=== PATIENT | female | born 1960 | race Caucasian/White ===

== ENCOUNTER → 2018-05-29 16:03 | Outpatient (CLI) | payer MEDICAID, SELFPAY | PROVIDERS: Family Provider Internal Medicine; PCP Internal Medicine; Visit Provider Ophthalmology | DX: L03.213 Periorbital cellulitis (principal) | CPT/HCPCS: 87070; 87186; 87205 ==

== ENCOUNTER → 2018-07-04 10:11 | Outpatient (CLI) | payer MEDICARE, MEDICAID, SELFPAY ==
--- NOTE | 2018-07-04 10:36 | MRI_ITS ---
STUDY: MRI CERVICAL SPINE WITHOUT CONTRAST REASON FOR EXAM: Female, 57 years old. Complaints of neck pain that radiates into the shoulders and down the arms. TECHNIQUE: Standardized fat and water weighted pulse sequences were obtained in the sagittal and axial planes. COMPARISON: None FINDINGS: Normal foramen magnum and brainstem-cervical cord junction. Normal craniovertebral junction. There is widening of the anterior atlantoaxial articulation suggesting ligamentous laxity. Normal odontoid process. Normal cervical lordosis. Normal vertebral bodies and posterior osseous elements. C2-3: Mild disc dehydration with preserved disc space. No significant spinal canal narrowing or foraminal narrowing. C3-4: Mild disc desiccation and dehydration with no significant spinal canal narrowing or foraminal narrowing. C4-5: Minimal disc space loss and left facet arthropathy/uncovertebral joint arthropathy resulting in mild left foraminal narrowing. C5-6: Endplate degenerative changes and mild disc space loss with disc osteophyte complex and uncovertebral joint arthropathy without significant spinal canal narrowing or foraminal narrowing. C6-7: Endplate degenerative changes and mild decreased disc space with circumferential disc bulge compounded by facet arthropathy resulting in moderate to severe left and moderate right foraminal narrowing. C7-T1: Normal endplates. Normal disc height, signal and morphology. Normal central canal and intervertebral neural foramina. Normal cervical cord. Normal visualized soft tissue structures. MRI/Spine Cervical (Routine) IMPRESSION: 1. C6/7 disc bulge and facet arthropathy resulting in moderate to severe left and moderate right foraminal narrowing, clinically correlate for C6 VII nerve root radiculopathy. Additional degenerative changes as above. Electronically Signed: Calos Lemons DO at 21:09 EDT , Service support ,
== END ==
PROVIDERS: Family Provider Internal Medicine; PCP Internal Medicine; Visit Provider Anesthesiology Pain Medicine
DX: M54.2 Cervicalgia (principal); M79.603 Pain in arm, unspecified
CPT/HCPCS: 72141

== ENCOUNTER 2018-07-14 08:43 | Emergency (ER) | payer MEDICARE, SELFPAY ==
[2018-07-14 08:44] VITALS: BP 116/72; PULSE 70; RESP 16; TEMP 36.7; O2SAT 97; BMI 34.1
--- NOTE | 2018-07-14 09:05 | ED.VISSUMM ---
- ER Visit Summary Date of Service: 07/14/18 Chief Complaint: Lightheadedness, left arm pain History of Present Illness: The patient is a 57 F who complains of lightheadedness. She states that this symptom actually started this morning. She felt lightheaded like she was going to pass out. She has been having left arm pain for months. She does tell me that she has a history of degenerative disc disease in her neck. The pain radiates from her left shoulder all the way down her hand. She describes this pain as gripping. It is also on the left side of her chest. She had an MRI on July 04 but she does not know the results of this. She is also currently on antibiotics for a bacterial infection down there. She does not know the name of the antibiotic she is currently taking. She denies any history of any cardiac disease. She does have a history of diabetes and high cholesterol. She is a non-smoker. Physical Examination: Vital signs reviewed. HEENT exam unremarkable. Neck is nontender. However, she does have a positive Spurling's test. Heart is regular rate and rhythm without murmurs. Lungs are clear to auscultation. Abdomen is soft and nontender. Extremities reveal no edema. Peripheral pulses are equal. Skin exam normal. Neurologic exam normal. Test Results: EKG is sinus rhythm with T-wave inversions in V1 through V4. This is unchanged. Chest x-ray unremarkable. Labs are unremarkable except for slight elevation of glucose. Troponin normal Emergency Department Course and Treatment: Patient is allergic to aspirin. I did review her MRI from July 04. It shows a disc bulge at C6. This could explain some of her radicular symptoms. I will put her on prednisone. She does follow up with pain management Treatment Plan: [] Disposition: Discharge Impression: Cervical radiculopathy This note was generated with [employer] software. It may contain incorrect words, spelling, and punctuation that were not noted in review of the chart prior to signing ED Disposition - Plan for ED Patient: Chief Complaint: General Illness Referrals: Caitlin Patel MD [Primary Care Provider] -
[2018-07-14 09:28] VITALS: O2SAT 97
[2018-07-14 09:39] LABS: Absolute Lymphocyte Count 3.24 X10^3/ul (0.83-4.51); Absolute Neutrophil Count 4.3 X10^3/uL (2.0-7.7); Basophil# 0.04 X10^3/uL; Basophil% 0.5 % (0-1); Eosinophil# 0.47 X10^3/uL; Eosinophils% 5.5 % (0-5); Hematocrit 41.1 % (37-47); Hemoglobin 13.1 g/dl (12.0-15.0); Lymphocyte # 3.24 X10^3/ul (4.0); Lymphocyte % 37.6 % (19-41); Mean Corp Hgb Conc 31.9 g/gl (32-36); Mean Corpuscular Hgb 27.8 pg (27.0-32.0); Mean Corpuscular Volume 87.1 fL (81-99); Mean Platelet Vol. 9.5 fl (6.2-12.0); Monocyte# 0.58 X10^3/uL; Monocyte% 6.7 % (0-10); Neutrophil # 4.27 X10^3/uL (2.7-7.7); Neutrophil % 49.6 % (47-70); POSITIVE COUNT NO; POSITIVE DIFFERENTIAL NO; POSITIVE MORPHOLOGY NO; Platelet Count 274 K/mm3 (150-450); RBC Distribution Width CV 12.9 % (11.6-14.6); RBC Distribution Width SD 41.3 fl (35.1-43.9); Red Blood Count 4.72 M/mm3 (4.2-5.4); White Blood Count 8.6 K/mm3 (4.4-11.0)
[2018-07-14 09:54] LABS: Anion Gap 7 (5-15); BUN 7 mg/dL (7-18); BUN/Creat Ratio 9.1 RATIO (10-20); Chloride 104 mmol/L (98-107); Creatinine, Serum 0.77 mg/dL (0.55-1.02); EST Glomerular Filtration Rate 82 mL/min (>60); Est Glom Filt Rate - Afr Amer 100 mL/min (>60); Estimated Creatinine Clearance 84.24 ml/min; Glucose 137 mg/dL (74-106); Sodium Level 139 mmol/L (136-145)
--- NOTE | 2018-07-14 10:06 | ED.DEP ---
ED Disposition - Plan for ED Patient: Disposition: Home or Assisted Living Chief Complaint: General Illness Instructions: ED Cervical Radiculopathy Prescriptions: Prednisone [Deltasone] 40 mg PO DAILY #10 tab Referrals: Caitlin Patel MD [Primary Care Provider] -
[2018-07-14 10:16] VITALS: BP 119/71; PULSE 77; RESP 18; O2SAT 95
== END 2018-07-14 10:17 | disposition home or self-care (01) ==
PROVIDERS: Emergency Provider Emergency Medicine; Family Provider Internal Medicine; PCP Internal Medicine
DX: M54.12 Radiculopathy, cervical region (principal); R11.0 Nausea; E11.65 Type 2 diabetes mellitus with hyperglycemia; E78.00 Pure hypercholesterolemia, unspecified; K21.9 Gastro-esophageal reflux disease without esophagitis; Z88.6 Allergy status to analgesic agent; Z79.4 Long term (current) use of insulin; Z79.52 Long term (current) use of systemic steroids; Z79.899 Other long term (current) drug therapy
CPT/HCPCS: 71045; 80048; 84484; 85025; 93005; 99285; J7030

== ENCOUNTER 2018-09-23 04:19 | Emergency (ER) | payer MEDICARE, SELFPAY ==
[2018-09-23 04:20] VITALS: BP 132/61; PULSE 74; PULSE 77; RESP 16; TEMP 36.9; O2SAT 94; O2SAT 95; BMI 28.5
[2018-09-23 04:31] LABS: Bedside Glucose 240 mg/dL (70-110)
--- NOTE | 2018-09-23 04:45 | ED.DCSUM_ITS ---
- ER Visit Summary Date of Service: 09/23/18 Chief Complaint: Joint pains History of Present Illness: The patient is a 57 F reports scattered joint pain for the past 3 days that is spreading throughout her body. She denies redness or warmth to her joints. She felt somewhat lightheaded earlier today. She has had similar dizzy episodes in the past that have been extensively worked up with no definitive cause. She denies chest pain or palpitations. Patient is on naproxen for herniated disc in her neck and her last dose was 3-1/2 hours prior to arrival. Past history significant for reflux disease, diabetes, hypertension, high cholesterol, fibromyalgia. Physical Examination: Vital signs unremarkable. Patient sitting upright in bed no acute distress. She is alert and talkative. Head neck examination is unremarkable. Heart is regular rate and rhythm. Lung sounds are clear. Abdomen is soft and nontender. Extremity examination reveals mild tenderness to the bilateral wrists and ankles. There is no erythema or warmth. She has minimal edema noted at the ankles. She has full range of motion of all joints without difficulty. Test Results: CBC is unremarkable. Chemistry studies are significant only for a glucose of 247. Sed rate is elevated at 65 and CRP is 50. Emergency Department Course and Treatment: Patient was given a liter IV fluids here along with p.o. prednisone and 1 tab of p.o. [place]. On repeat evaluation she does have some improvement in her symptoms. I advised her that her markers for inflammation are elevated, but I do not have a specific reason. Her white count is normal I do not believe that this represents acute infection. She has no known history of lupus, rheumatoid arthritis, etc. Patient will be given 4 days of prednisone for home. She was advised that this will make her blood sugars increase. I am attempting just a short burst to prevent prolonged hyperglycemia. Patient will be given a home pack of [place] only. She will to contact her pain management doctor today. Treatment Plan: [] Disposition: Discharge Impression: Arthralgias This note was generated with [employer] dictation software. It may contain incorrect words, spelling, and punctuation that were not noted in review of the chart prior to signing ED Disposition - Plan for ED Patient: Chief Complaint: Back Referrals: Caitlin Patel MD [Primary Care Provider] -
[2018-09-23] MEDS: 0.9% Normal Saline 1,000 ML 1000 ML IV (04:46)
[2018-09-23] MEDS: HYDROcodone Bitartrate/Apap 5/325 Tablet PO ×2 (04:46→05:58)
[2018-09-23] MEDS: predniSONE 20 MG Tablet 60 MG PO (04:46)
[2018-09-23 04:47] VITALS: BP 116/68
[2018-09-23 05:07] LABS: Absolute Lymphocyte Count 2.37 X10^3/ul (0.83-4.51); Basophil# 0.06 X10^3/uL; Basophil% 0.7 % (0-1); Eosinophil# 0.33 X10^3/uL; Eosinophils% 3.9 % (0-5); Hematocrit 38.9 % (37-47); Hemoglobin 12.3 g/dl (12.0-15.0); Lymphocyte # 2.37 X10^3/ul (4.0); Lymphocyte % 27.9 % (19-41); Mean Corp Hgb Conc 31.6 g/gl (32-36); Mean Corpuscular Hgb 27.5 pg (27.0-32.0); Mean Corpuscular Volume 86.8 fL (81-99); Mean Platelet Vol. 9.4 fl (6.2-12.0); Monocyte# 0.74 X10^3/uL; Monocyte% 8.7 % (0-10); Neutrophil # 4.95 X10^3/uL (2.7-7.7); Neutrophil % 58.4 % (47-70); Platelet Count 437 K/mm3 (150-450); RBC Distribution Width CV 12.7 % (11.6-14.6); RBC Distribution Width SD 39.8 fl (35.1-43.9); Red Blood Count 4.48 M/mm3 (4.2-5.4); White Blood Count 8.5 K/mm3 (4.4-11.0)
[2018-09-23 05:08] LABS: POSITIVE COUNT NO; POSITIVE DIFFERENTIAL NO; POSITIVE MORPHOLOGY NO
[2018-09-23 05:18] LABS: Erythrocyte Sedimentation Rate 65 mm/hr (0-30)
[2018-09-23 05:29] LABS: Anion Gap 9 (5-15); BUN 8 mg/dL (7-18); BUN/Creat Ratio 8.4 RATIO (10-20); Calcium,Total 9.1 mg/dL (8.5-10.1); Chloride 102 mmol/L (98-107); Creatinine, Serum 0.95 mg/dL (0.55-1.02); EST Glomerular Filtration Rate 64 mL/min (>60); Est Glom Filt Rate - Afr Amer 78 mL/min (>60); Estimated Creatinine Clearance 68.28 ml/min; Glucose 247 mg/dL (74-106); Potassium 4.5 mmol/L (3.5-5.1); Sodium Level 139 mmol/L (136-145)
--- NOTE | 2018-09-23 05:47 | ED.DEP ---
ED Disposition - Plan for ED Patient: Disposition: Home or Assisted Living Chief Complaint: Back Instructions: ED Joint Pain Prescriptions: Prednisone [Deltasone] 40 mg PO DAILY #8 tablet Referrals: Caitlin Patel MD [Primary Care Provider] - Miguel Davis MD [STAFF PHYSICIAN] -
[2018-09-23 05:58] VITALS: BP 140/62; PULSE 72; RESP 16; O2SAT 94
== END 2018-09-23 06:00 | disposition home or self-care (01) ==
PROVIDERS: Emergency Provider Emergency Medicine; Family Provider Internal Medicine; PCP Internal Medicine
DX: M25.50 Pain in unspecified joint (principal); R70.0 Elevated erythrocyte sedimentation rate; E11.9 Type 2 diabetes mellitus without complications; I10 Essential (primary) hypertension; E78.00 Pure hypercholesterolemia, unspecified; R42 Dizziness and giddiness; M79.7 Fibromyalgia; K21.9 Gastro-esophageal reflux disease without esophagitis; Z79.4 Long term (current) use of insulin; Z79.899 Other long term (current) drug therapy
CPT/HCPCS: 80048; 82962; 85025; 85652; 86140; 96360; 99285; J7030

== ENCOUNTER 2018-11-23 14:27 | Emergency (ER) | payer MEDICARE, OTHER, SELFPAY ==
[2018-11-23 14:43] VITALS: BP 98/55; PULSE 66; RESP 15; TEMP 36.8; O2SAT 98; BMI 32.5
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
--- NOTE | 2018-11-23 14:53 | ED.RN ---
PT C/O FEELING NAUSEATED AND WAS CONCERNED IT WAS HER BLOOD SUGAR. CHECKED AND IT WAS 180.
[2018-11-23 15:01] LABS: Bedside Glucose 180 mg/dL (70-110)
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
[2018-11-23] MEDS: morphine 10 MG/ML Syringe 4 MG SC (15:55)
[2018-11-23 17:06] VITALS: RESP 16
[2018-11-23 17:14] VITALS: BP 103/56; PULSE 59; RESP 14
--- NOTE | 2018-11-23 17:34 | ED.RN ---
NEW SPLINT PLACED. PER MD OBSERVE PT TIL 1800.
[2018-11-23] MEDS: Ondansetron ODT 4 MG Tablet PO (17:40)
[2018-11-23] MEDS: HYDROcodone Bitartrate/Apap 5/325 Tablet PO (18:37)
== END 2018-11-23 18:38 | disposition home or self-care (01) ==
PROVIDERS: Emergency Provider Emergency Medicine; Family Provider Internal Medicine; PCP Internal Medicine
DX: S52.501A Unspecified fracture of the lower end of right radius, initial encounter for closed fracture (principal); S52.601A Unspecified fracture of lower end of right ulna, initial encounter for closed fracture; M25.532 Pain in left wrist; V89.2XXA Person injured in unspecified motor-vehicle accident, traffic, initial encounter; Y93.9 Activity, unspecified; Y92.9 Unspecified place or not applicable; E11.9 Type 2 diabetes mellitus without complications; E78.00 Pure hypercholesterolemia, unspecified; F32.9 Major depressive disorder, single episode, unspecified; F31.9 Bipolar disorder, unspecified; Z79.4 Long term (current) use of insulin; Z79.84 Long term (current) use of oral hypoglycemic drugs; Z79.899 Other long term (current) drug therapy
CPT/HCPCS: 29125; 73110; 82962; 96372; 99284; J7030; J7040; A4216

== ENCOUNTER 2019-01-02 12:14 | Emergency (ER) | payer MEDICARE, SELFPAY ==
[2019-01-02 12:15] VITALS: PULSE 75; RESP 14; TEMP 37.3; O2SAT 89; O2SAT 92; BMI 32.5
--- NOTE | 2019-01-02 12:28 | EKG12_ITS ---
Test Reason : SYNCOPE Blood Pressure : / mmHG Vent. Rate : 075 BPM Atrial Rate : 075 BPM P-R Int : 146 ms QRS Dur : 086 ms QT Int : 416 ms P-R-T Axes : 057 032 046 degrees QTc Int : 464 ms Normal sinus rhythm with sinus arrhythmia ST & T wave abnormality, consider anterior ischemia Prolonged QT Abnormal ECG Confirmed by KAREN OCHOA, MASHA ([id number]), pictures editor RAFAELA JANG ([id number]) on 01/05/2019 10:16:38 AM Referred By: KENDRICK Confirmed By:MASHA JONES MD
[2019-01-02 12:33] VITALS: O2SAT 96
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
[2019-01-02 13:11] LABS: Absolute Neutrophil Count 1.8 X10^3/uL (2.0-7.7); Basophil# 0.01 X10^3/uL; Basophil% 0.3 % (0-1); Eosinophil# 0.01 X10^3/uL; Eosinophils% 0.3 % (0-5); Hematocrit 38.2 % (37-47); Hemoglobin 11.8 g/dl (12.0-15.0); Lymphocyte % 35.2 % (19-41); Mean Corp Hgb Conc 30.9 g/gl (32-36); Mean Corpuscular Hgb 25.9 pg (27.0-32.0); Mean Corpuscular Volume 83.8 fL (81-99); Mean Platelet Vol. 9.2 fl (6.2-12.0); Monocyte# 0.53 X10^3/uL; Monocyte% 14.4 % (0-10); Neutrophil # 1.83 X10^3/uL (2.7-7.7); Neutrophil % 49.5 % (47-70); Platelet Count 216 K/mm3 (150-450); RBC Distribution Width CV 14.1 % (11.6-14.6); RBC Distribution Width SD 43.3 fl (35.1-43.9); Red Blood Count 4.56 M/mm3 (4.2-5.4); White Blood Count 3.7 K/mm3 (4.4-11.0)
[2019-01-02 13:13] LABS: POSITIVE COUNT NO; POSITIVE DIFFERENTIAL NO; POSITIVE MORPHOLOGY NO
[2019-01-02 13:28] LABS: Anion Gap 8 (5-15); BUN 10 mg/dL (7-18); BUN/Creat Ratio 11.3 RATIO (10-20); Calcium,Total 8.2 mg/dL (8.5-10.1); Chloride 102 mmol/L (98-107); Creatinine, Serum 0.89 mg/dL (0.55-1.02); EST Glomerular Filtration Rate 70 mL/min (>60); Est Glom Filt Rate - Afr Amer 84 mL/min (>60); Estimated Creatinine Clearance 72.01 ml/min; Glucose 239 mg/dL (74-106); Potassium 3.9 mmol/L (3.5-5.1); Sodium Level 134 mmol/L (136-145)
--- NOTE | 2019-01-02 13:36 | ED.VISSUMM ---
- ER Visit Summary Date of Service: 01/02/19 Chief Complaint: Headache, cough, syncope History of Present Illness: The patient is a 58 F who is had 2 days of a headache as well as a cough. She states the headache is a sinus headache. Her cough is been nonproductive. She is felt chilled but has had no documented fevers. She has been trying DayQuil without any relief. She went to urgent care and had a syncopal episode there. She had no chest pain or shortness of breath before or after this episode. EMS was called to transport her here. Physical Examination: Vital signs reviewed. HEENT exam unremarkable. Heart is regular rate and rhythm without murmurs. Lungs are clear to auscultation. Abdomen is soft and nontender. Extremities reveal no edema. Peripheral pulses are equal. Skin exam normal. Neurologic exam normal. Test Results: EKG is normal sinus rhythm with a rate of 75. There are nonspecific ST and T wave changes. This is unchanged from an EKG done in June 2018. Hemoglobin 11.8. Sodium 134. Glucose 239. Troponin normal. Chest x-ray unremarkable Emergency Department Course and Treatment: Patient will be given Tylenol for her headache. It sounds as if she has a viral URI. I do not feel that the syncopal episode requires admission to the hospital. I will give her Tylenol here before she goes home. Mucinex D for home as well. We will follow-up with her primary care physician Treatment Plan: [] Disposition: Discharge Impression: Syncope, URI This note was generated with [employer] dictation software. It may contain incorrect words, spelling, and punctuation that were not noted in review of the chart prior to signing ED Disposition - Plan for ED Patient: Referrals: Caitlin Patel MD [Primary Care Provider] -
--- NOTE | 2019-01-02 13:38 | ED.DEP ---
ED Disposition - Plan for ED Patient: Disposition: Home or Assisted Living Instructions: ED Fainting Unkn Cause Prescriptions: Guaifenesin/Pseudoephedrne HCl [Guaifenesin-Pse ER 600-60 mg] 1 ea PO BID #14 tab.er.12h Referrals: Caitlin Patel MD [Primary Care Provider] -
[2019-01-02] MEDS: Ondansetron ODT 4 MG Tablet PO (14:24)
[2019-01-02] MEDS: Acetaminophen 500 MG Tablet 1000 MG PO (14:39)
[2019-01-02 14:41] VITALS: BP 116/67; PULSE 78; RESP 22; O2SAT 93
== END 2019-01-02 14:43 | disposition home or self-care (01) ==
PROVIDERS: Emergency Provider Emergency Medicine; Family Provider Internal Medicine; PCP Internal Medicine
DX: R55 Syncope and collapse (principal); J06.9 Acute upper respiratory infection, unspecified; E11.9 Type 2 diabetes mellitus without complications; I10 Essential (primary) hypertension; Z72.0 Tobacco use; Z79.4 Long term (current) use of insulin; Z79.1 Long term (current) use of non-steroidal anti-inflammatories (NSAID); Z79.899 Other long term (current) drug therapy
CPT/HCPCS: 71045; 80048; 84484; 85025; 93005; 99284; J7030; A4216

== ENCOUNTER 2019-08-31 07:15 | Day surgery (SDC) | payer MEDICARE, MEDICAID, SELFPAY ==
[2019-08-31 07:36] LABS: Bedside Glucose 91 mg/dL (70-110)
[2019-08-31 07:37] VITALS: BP 150/66; PULSE 72; RESP 15; TEMP 36.9; O2SAT 100; BMI 33.0
[2019-08-31] MEDS: Lactated Ringers 1,000 ML 100 ML IV (07:48)
[2019-08-31] MEDS: MethylPREDNISolone Acetate 80 MG/ML Vial (08:28)
[2019-08-31] MEDS: Bupivacaine 0.25% 30 ML Vial (08:28)
--- NOTE | 2019-08-31 08:30 | RAD_ITS ---
STUDY: X-RAY - CERVICAL SPINE REASON FOR EXAM: Female, 58 years old. TECHNIQUE: 4 view(s) of the cervical spine were obtained. COMPARISON: Previous MRI of the cervical spine obtained on 07/04/2018 FINDINGS: 4 images were obtained of the cervical spine and there is a localization needle noted adjacent to the articular facets in the mid cervical spine probably for pain management injection. 13 seconds of fluoroscopy time was utilized for a total radiation dose of 1.83 minimal grade which was performed in the direction of Dr. Arevalo incomplete to Dr. Arevalo's satisfactory RAD/Cerv Spine 2 or 3 Views IMPRESSION: 4 fluoroscopic images of the cervical spine were performed as described above.. Electronically Signed: Jam Pete, at 17:10 EDT Tel , Service support ,
[2019-08-31 08:35] VITALS: BP 129/71; BP 150/66; PULSE 51; RESP 16; TEMP 36.6; O2SAT 98
[2019-08-31 08:40] VITALS: BP 123/80; BP 150/66; PULSE 64; RESP 18; O2SAT 95
[2019-08-31 08:45] VITALS: BP 133/73; BP 150/66; PULSE 64; RESP 18; O2SAT 93
[2019-08-31 08:50] VITALS: BP 148/79; BP 150/66; PULSE 64; RESP 18; TEMP 36.3; O2SAT 95
[2019-08-31 09:03] VITALS: BP 150/66
--- NOTE | 2019-08-31 12:26 | OP.PCM_ITS ---
Report of Operation Date of Procedure: 08/31/19 Description of Surgical Findings:: PREOPERATIVE DIAGNOSIS: Cervical spondylosis, cervical degenerative disc disease, cervical facet arthropathy POSTOPERATIVE DIAGNOSIS: Cervical spondylosis, cervical degenerative disc disease, cervical facet arthropathy PROCEDURE PERFORMED: Left sided cervical facet steroid injection, C4, C5, C6, and C7. ANESTHESIA: MAC. BLOOD LOSS: Minimal. COMPLICATIONS: None. DESCRIPTION OF PROCEDURE: History and physical of today was reviewed. Risks and benefits of the procedure were explained. The patient understood and agreed to proceed. Informed consent was obtained. IV inserted per routine protocol. The patient was taken to the operating room and placed in the prone position with a pillow positioned underneath the chest. The neck area was prepped and draped in a sterile fashion using iodine x3. Under fluoroscopy guidance on an AP view, the C4 through C7 vertebral bodies were visualized at approximately 10- degree angle, starting on the left C4, ending on the left C7, passing through the C5 and C6. Using a 25-gauge 3-1/2-inch spinal needle, the needle was advanced via the skin. The tip of the needle was maneuvered and directed towards the epiphyseal junction of each corresponding vertebra. Once the tip of the needle was at the vicinity of the medial branch, the needle was pulled approximately 2 mm off the bone. After negative aspiration of blood or CSF and confirmation on AP, oblique as well as lateral view, a total of 4 mL of preservative-free 0.25% Marcaine with 80 mg of Depo-Medrol was injected in divided doses between those four levels. The needles were then removed intact. The patient experienced no sign or symptoms of intrathecal or intravascular injection. The patient experienced no paresthesia. The procedure was completed without any apparent difficulty or any complications. The patient appeared to tolerate it well. ASSESSMENT AND PLAN: This is a 58-year-old female with cervical spondylosis, cervical degenerative disc disease, cervical facet arthropathy status post left-sided cervical facet steroid injection C4-C7 patient will continue current medications patient found approximately 2 weeks for reevaluation.
== END 2019-08-31 09:20 | disposition home or self-care (01) ==
LOC: SDC 07:20 → AC 07:22
PROVIDERS: Family Provider Internal Medicine; PCP Internal Medicine; Referring Provider Anesthesiology Pain Medicine; Visit Provider Anesthesiology Pain Medicine
PROC: 3E0U3BZ Introduction of Anesthetic Agent into Joints, Percutaneous Approach (ICD-10-PCS; CPT 64490; principal; 2019-08-31 08:25)
DX: M50.10 Cervical disc disorder with radiculopathy, unspecified cervical region (principal); M47.22 Other spondylosis with radiculopathy, cervical region; M48.02 Spinal stenosis, cervical region; M79.7 Fibromyalgia; E11.9 Type 2 diabetes mellitus without complications; E78.00 Pure hypercholesterolemia, unspecified; K21.9 Gastro-esophageal reflux disease without esophagitis; F31.9 Bipolar disorder, unspecified; F41.9 Anxiety disorder, unspecified; Z79.891 Long term (current) use of opiate analgesic; Z79.84 Long term (current) use of oral hypoglycemic drugs; Z79.899 Other long term (current) drug therapy; Z78.0 Asymptomatic menopausal state
CPT/HCPCS: 64490; 64491; 64492; 72040; 82962; J7120

== ENCOUNTER 2019-09-28 07:32 | Day surgery (SDC) | payer MEDICARE, MEDICAID, SELFPAY ==
[2019-09-28 08:24] VITALS: BP 117/57; PULSE 65; RESP 18; TEMP 36.4; O2SAT 100; BMI 32.6
[2019-09-28] MEDS: Lactated Ringers 1,000 ML 75 ML IV (08:34)
[2019-09-28 08:46] LABS: Bedside Glucose 129 mg/dL (70-110)
--- NOTE | 2019-09-28 09:10 | RAD_ITS ---
STUDY: CERVICAL EPIDURAL INJECTION. REASON FOR EXAM: Female, 58 years old. Neck pain. FLUOROSCOPY TIME (if supplied): ( 9.7 seconds ) minutes/seconds TECHNIQUE: Intraoperative imaging provided for lower cervical epidural injection. COMPARISON: None. FINDINGS: Intraoperative imaging provided for lower cervical epidural injection. RAD/Spine 1 View Any Level IMPRESSION: Intraoperative fluoroscopic services provided for lower cervical epidural injection. Electronically Signed: Rayshawn Em, at 9:50 EST , Service support ,
[2019-09-28] MEDS: Bupivacaine 0.25% 30 ML Vial (09:47)
[2019-09-28] MEDS: MethylPREDNISolone Acetate 80 MG/ML Vial (09:47)
--- NOTE | 2019-09-28 10:21 | OP.PCM_ITS ---
Report of Operation Date of Procedure: 09/28/19 Description of Surgical Findings:: PREOPERATIVE DIAGNOSES: Cervical radiculopathy, cervical degenerative disc disease POSTOPERATIVE DIAGNOSES: Cervical radiculopathy, cervical degenerative disc disease PROCEDURE PERFORMED: Cervical epidural steroid injection, interlaminar at C7- T1. ANESTHESIA: Local. BLOOD LOSS: Minimal. COMPLICATIONS: None. DESCRIPTION OF PROCEDURE: History and physical of today was reviewed. Risks and benefits of the procedure were explained. The patient understood and agreed to proceed. Informed consent was obtained. IV inserted per routine protocol. The patient was taken to the operating room and placed in the prone position with a pillow positioned underneath the chest. The neck area was prepped and draped in a sterile fashion using iodine x3. Under fluoroscopy guidance on an AP view, the C7-T1 interlaminar space was identified. The skin and subcutaneous tissue was anesthetized with approximately 3 mL of 1% lidocaine using a 25-gauge regular needle. Under direct visualization on fluoroscopy, on AP view, using a 20-gauge 2-1/2-inch Tuohy needle, the needle was advanced via the skin. The tip of the needle was maneuvered and directed towards the interlaminar space at C7- T1. Loss of resistance technique was carried to air. Loss of resistance technique was encountered. Once encountered, after negative aspiration for blood and CSF, a total of 1 mL of contrast was injected to confirm correct placement of the needle as well as cephalocaudal spread of the contrast. Confirmation was obtained on AP as well as lateral view. After repeated negative aspiration and confirmation, a total of 3 mL of preservative-free normal saline and 80 mg of Depo-Medrol was injected easily. The needle was then removed intact. The patient experienced no sign or symptoms of intrathecal or intravascular injection. The patient experienced no paresthesia. The procedure was completed without any apparent difficulty or any complications. The patient appeared to tolerate it well. ASSESSMENT AND PLAN: This is a 58-year-old female with cervical radiculopathy, cervical degenerative disc disease status post cervical epidural steroid injection interlaminar at C7-T1 patient will continue her current medications patient found approximately 2 weeks for reevaluation.
[2019-09-28 10:35] VITALS: BP 100/67; BP 117/57; PULSE 65; RESP 16; TEMP 36.3; O2SAT 100
== END 2019-09-28 10:35 | disposition home or self-care (01) ==
LOC: SDC 07:33 → AC 07:34
PROVIDERS: Family Provider Internal Medicine; PCP Internal Medicine; Referring Provider Anesthesiology Pain Medicine; Visit Provider Anesthesiology Pain Medicine
PROC: 3E0S3BZ Introduction of Anesthetic Agent into Epidural Space, Percutaneous Approach (ICD-10-PCS; CPT 62320; principal; 2019-09-28 09:05)
DX: M50.10 Cervical disc disorder with radiculopathy, unspecified cervical region (principal); M47.22 Other spondylosis with radiculopathy, cervical region; M48.02 Spinal stenosis, cervical region; M79.7 Fibromyalgia; E11.9 Type 2 diabetes mellitus without complications; E78.00 Pure hypercholesterolemia, unspecified; K21.9 Gastro-esophageal reflux disease without esophagitis; F31.9 Bipolar disorder, unspecified; F41.9 Anxiety disorder, unspecified; Z79.4 Long term (current) use of insulin; Z79.899 Other long term (current) drug therapy; Z79.891 Long term (current) use of opiate analgesic; Z78.0 Asymptomatic menopausal state
CPT/HCPCS: 62321; 64490; 72020; 82962; J7120

== ENCOUNTER 2020-01-08 19:57 | Emergency (ER) | payer MEDICARE, MEDICAID, SELFPAY ==
[2020-01-08 19:57] VITALS: BP 180/82; BP 190/82; PULSE 105; PULSE 98; RESP 15; RESP 16; TEMP 36.9; O2SAT 98; BMI 33.5
--- NOTE | 2020-01-08 20:16 | EKG12_ITS ---
Test Reason : DYSRHYTHMIA Blood Pressure : / mmHG Vent. Rate : 096 BPM Atrial Rate : 096 BPM P-R Int : 112 ms QRS Dur : 086 ms QT Int : 366 ms P-R-T Axes : 051 032 055 degrees QTc Int : 462 ms Normal sinus rhythm Nonspecific ST abnormality Abnormal ECG Confirmed by AMY BATISTA ([id number]), desk editor RAFAELA JANG ([id number]) on 01/11/2020 3:36:02 PM Referred By: MYRANDA Confirmed By:AMY BATISTA
--- NOTE | 2020-01-08 20:23 | ED.VIS.GEN ---
History of Present Illness Chief Complaint: General Illness Detail of Chief Complaint: Shaking Informant: Patient Onset: Today Narrative: Patient reports shortly before arrival she was eating dinner and suddenly started to shake. She denies any pain other than her normal fibromyalgia pain. She has had no recent change in medications. Patient was able to ambulate to the EMS cot. - Past Medical History (1) Anxiety and depression Status: Chronic (2) Diabetes mellitus, type II Status: Chronic (3) Fibromyalgia Status: Chronic (4) HLD (hyperlipidemia) Status: Chronic (5) HTN (hypertension) Status: Chronic Past Medical History - Allergies and Home Meds Allergies/Adverse Reactions: Allergies aspirin Adverse Reaction (Verified 01/08/20 20:08) Upset Stomach ibuprofen Adverse Reaction (Verified 01/08/20 20:08) Upset Stomach Can take the coated simvastatin Adverse Reaction (Verified 01/08/20 20:08) Unknown Primary Care Physician: Caitlin Patel MD [Primary Care Provider] - 3-5 Days if not improving Surgical History: - - Social hysterectomy, umbilical hernia repair. Smoking Status: Former smoker - Family History Maternal Family History: Reports: Diabetes, Heart Disease Paternal Family History: Reports: Diabetes, Heart Disease Review of Systems General: Denies: Chills, Fever Eyes: Denies: Visual changes - bilaterally ENT: Denies: Bilateral ear pain Cardiovascular: Denies: Chest pain Respiratory: Denies: Dyspnea, Cough Gastrointestinal: Denies: Abdominal pain, Nausea, Vomiting, Diarrhea Genitourinary: Denies: Dysuria Musculoskeletal: Denies: Swelling, Extremity Pain Skin: Denies: Rash Neurological: Denies: Headache, Parasthesia Hematologic: Denies: Easy bruising Allergy: Denies: Uticaria Physical Exam Vital Signs/Narrative: Vital Signs Temp Pulse Resp BP Pulse Ox 01/08/20 19:57 98.4 F 98 16 190/82 H 98 Inital Vital Signs reviewed: Yes General: Well nourished, Well developed Head: Normocephalic ENT: Moist mucous membranes Neck: Supple Cardiovascular: Regular rate, Regular rhythm Respiratory: No distress, CTA bilaterally Abdomen: Soft, Nontender Extremities: Nontender Skin: Normal color, No rash Neurological: Alert, Oriented x3, - - Normal strength and sensation noted throughout. Patient has waxing and waning fine tremors noted to her head, arms, and legs. She seems to be able to control this with movement. Diagnostic/Tx/Re-eval Laboratory Results 01/08/20 01/08/20 01/08/20 20:11 20:38 20:38 WBC 11.9 H RBC 4.12 L Hgb 11.5 L Hct 36.4 L MCV 88.3 MCH 27.9 MCHC 31.6 L RDW Std Deviation 40.1 RDW Coeff of Jori 12.4 Plt Count 308 MPV 10.0 Immature Gran % (Auto) 0.300 Neut % (Auto) 74.8 H Lymph % (Auto) 20.0 [place] % (Auto) 2.7 Eos % (Auto) 1.8 Baso % (Auto) 0.4 Absolute Neuts (auto) 8.9 H Absolute Lymphs (auto) 2.37 Nucleated RBC % 0 Sodium 136 Potassium 4.0 Chloride 103 Carbon Dioxide 29.0 Anion Gap 4 L BUN 11 Creatinine 0.86 Estim Creat Clear Calc 73.61 Est GFR (MDRD) Af Amer 86 Est GFR (MDRD) Non-Af 71 BUN/Creatinine Ratio 12.7 Glucose 192 H Calcium 9.1 Urine Color Yellow Urine Clarity Sl Cloudy Urine pH 6.5 Ur Specific [place] 1.005 Urine Protein 15 H Urine Glucose (UA) Normal Urine Ketones Negative Urine Occult Blood 50 H Urine Nitrite Negative Urine Bilirubin Negative Urine Urobilinogen Normal Ur Leukocyte Esterase 500 H Urine RBC 5-10 SEEN Urine WBC 50-100 SEEN Ur Squamous Epith Cells 0-5 SEEN Urine Bacteria RARE Urine Mucus 0 SEEN - EKG Initial EKG Interpretation: Sinus Rhythm - Sinus at 96. Patient has anterior T inversions, however this is chronic and unchanged from a year ago. - Medical Decision Making Patient was given 0.5 mg of Ativan. On repeat evaluation she is resting comfortably. Urine does return with sign of infection and she is given a dose of IV Rocephin. At this time patient's blood pressure is 124 systolic and she is resting comfortably. She will be discharged with a prescription for Bactrim. She is to return for worsening symptoms or concerns. ED Disposition - Plan for ED Patient: Disposition: Home or Assisted Living Diagnosis: Cystitis Instructions: Bladder Infection, Female (Adult) Prescriptions: Smz/Tmp Ds [Bactrim Ds] 1 tab PO BID #6 tab Prescription Printed Fluconazole [Diflucan] 150 mg PO X1 #1 tab Transmission Status: Pending to [facility] - [place] - [id number] Referrals: Caitlin Patel MD [Primary Care Provider] - 3-5 Days if not improving
[2020-01-08 21:02] LABS: Mucous, Urine 0 SEEN /hpf (<or=2+)
[2020-01-08 21:08] LABS: Color, Urine Yellow (Yellow); Glucose, Dipstick Normal (Normal); Ketone-Dipstick Negative (Negative); Leukocyte Esterase-Dipstick 500 /ul (Negative); Nitrite-Dipstick Negative (Negative); Occult Blood-Urine 50 /ul (Negative); Protein-Dipstick 15 mg/dl (Negative); Specific Gravity, Urine 1.005 (1.002-1.030); Urine Bilirubin Dipstick Negative (Negative); Urine Urobilinogen Normal (Normal); Urine pH 6.5 (5.0 - 8.0)
[2020-01-08 21:17] LABS: Bacteria RARE /hpf (None Seen); Red Blood Cells-Urine 5-10 SEEN /hpf (0-5); Squamous Epithelial Cells - UA 0-5 SEEN /hpf (5-10); Urine Clarity Sl Cloudy (Clear); White Blood Cells 50-100 SEEN /hpf (0-5)
[2020-01-08] MEDS: LORazepam 2 MG/ML Syringe 0.5 MG IV (21:18)
[2020-01-08 21:47] LABS: Absolute Lymphocyte Count 2.37 X10^3/uL (0.83-4.51); Absolute Neutrophil Count 8.9 X10^3/uL (2.0-7.7); Basophil# 0.05 X10^3/uL; Basophil% 0.4 % (0-1); Eosinophil# 0.21 X10^3/uL; Eosinophils% 1.8 % (0-5); Hematocrit 36.4 % (37-47); Hemoglobin 11.5 g/dL (12.0-15.0); Lymphocyte # 2.37 X10^3/ul (4.0); Mean Corp Hgb Conc 31.6 g/dL (32-36); Mean Corpuscular Hgb 27.9 pg (27.0-32.0); Mean Corpuscular Volume 88.3 fL (81-99); Monocyte# 0.32 X10^3/uL; Monocyte% 2.7 % (0-10); NRBC Flagged by Analyzer 0 % (0-5); Neutrophil # 8.87 X10^3/uL (2.7-7.7); Neutrophil % 74.8 % (47-70); Platelet Count 308 K/mm3 (150-450); RBC Distribution Width CV 12.4 % (11.6-14.6); RBC Distribution Width SD 40.1 fl (35.1-43.9); Red Blood Count 4.12 M/mm3 (4.2-5.4); White Blood Count 11.9 K/mm3 (4.4-11.0)
[2020-01-08 21:57] LABS: Anion Gap 4 (5-15); BUN 11 mg/dL (7-18); BUN/Creat Ratio 12.7 RATIO (10-20); Calcium,Total 9.1 mg/dL (8.5-10.1); Chloride 103 mmol/L (98-107); Creatinine, Serum 0.86 mg/dL (0.55-1.02); EST Glomerular Filtration Rate 71 mL/min (>60); Est Glom Filt Rate - Afr Amer 86 mL/min (>60); Estimated Creatinine Clearance 73.61 ml/min; Glucose 192 mg/dL (74-106); Sodium Level 136 mmol/L (136-145)
[2020-01-08] MEDS: Ceftriaxone 1 GM/50 ML BAG IV (22:25)
[2020-01-08 22:26] VITALS: BP 124/56; PULSE 89; RESP 16; O2SAT 97
[2020-01-08 23:27] VITALS: BP 127/57; PULSE 78; RESP 19; O2SAT 96
== END 2020-01-08 23:41 | disposition home or self-care (01) ==
PROVIDERS: Emergency Provider Emergency Medicine; PCP Internal Medicine
DX: N30.90 Cystitis, unspecified without hematuria (principal); I10 Essential (primary) hypertension; E78.5 Hyperlipidemia, unspecified; E11.9 Type 2 diabetes mellitus without complications; F32.9 Major depressive disorder, single episode, unspecified; F41.9 Anxiety disorder, unspecified; M79.7 Fibromyalgia; Z79.4 Long term (current) use of insulin; Z87.891 Personal history of nicotine dependence
CPT/HCPCS: 80048; 81001; 85025; 87086; 87088; 87186; 93005; 96365; 96375; 99285; J7030; A4216

== ENCOUNTER → 2020-04-29 12:41 | Outpatient (CLI) | payer MEDICARE, SELFPAY ==
--- NOTE | 2020-04-29 12:53 | RAD_ITS ---
STUDY: X-RAY - LEFT SHOULDER REASON FOR EXAM: Female, 59 years old. Left shoulder pain x several months -- NKI -- limited ROM TECHNIQUE: 4 view(s) of the shoulder. COMPARISON: None. FINDINGS: Normal glenohumeral articulation. Normal acromioclavicular joint. Normal acromion. Normal humeral head and visualized proximal humerus. The soft tissue structures are unremarkable. Normal visualized pulmonary apex. RAD/Shoulder min 2 Views IMPRESSION: Normal x-ray examination of the shoulder. Electronically Signed: Rayshawn Em, at 15:02 EDT , Service support ,
--- OUTSIDE RECORDS SUMMARY | 2020-09-11 08:33 | XMS RPT_ITS | CCD ---
:1960 External Reference #:[id number] Author Organization [facility] Care Team Providers Name Role Phone Jorge Primary Care Provider Allergies Reported Allergen Reaction(s) Severity Date of Onset Location Aspirin GI Upset 08-12-2014 - [facility] ([id number]) Ibupro[facility]ps[facility]07285[facility] Simvastatin Other: See Comments 05-01-2016 - [facility] (75210) Medications Medication Name Sig Date Prescriber Location ARIPiprazole ARIPiprazole 02-15-2020 Gary Delatorre) Efren [facility] (ABILIFY) 10 mg (05727) tablet Indications: Anxiety and depression Take 1 tablet by mouth once daily. 90 tablet 3 02/15/2020 Active Comment: Take 1 tablet by mouth once daily. atorvastatin atorvastatin (LIPITOR) 40 12-04-2019 Gary Delatorre) [facility] tablet Indications: Efren (4419 5) Hyperlipidemia LDL goal Take 1 tablet by mouth once daily. 90 tablet 3 12/04/2019 Active Comment: Take 1 tablet by mouth once daily. benzonatate benzonatate (TESSALON 10-31-2017 Tiana Scales [facility] CHRISTINE) 100 mg capsule (4419 5) Indications: Cough Take 1 capsule by mouth three times daily as needed. 40 capsule 0 09/09/2019 Active Comment: Take 1-2 capsules by mouth t hree times daily as needed. Take 1 capsule by mouth thre e times daily as needed. Blood-Glucose Meter Blood-Glucose Meter 04-25-2020 Gary Delatorre) Toby [facility] Dispense 1 kit Efren (72798) Accucheck or Trumetrix per insurance preference 1 Each 0 04/25/2020 Active Blood-Glucose Meter Dispense 1 04-25-2020 Gary Delatorre) Thiago toribio [facility] (12765) kit Accucheck or Trumetrix per insurance preference 1 Each 0 04/25/2020 Active Comment: Dispense 1 kit Accucheck or Trumetrix per insurance preference buPROPion buPROPion XL (WELLBUTRIN 06-10-2020 Reidra Sifuentes [facility] (98078) XL) 150 mg 24 hr tablet Take 1 tablet by mouth once daily. 30 tablet 5 06/10/2020 Active Comment: Take 1 tablet by mouth once daily. COMPOUNDED COMPOUNDED 03-12-2019 [facility] [employer] PRESCRIPTION PRESCRIPTION Blood [place] (52109) glucose monitor. Check blood sugar three times daily. Dx: E11.9, Insulin dependent. 1 Device 0 03/12/2019 Active COMPOUNDED PRESCRIPTION Blood 03-12-2019 [facility] [employer] (78804) glucose monitor. Check blood sugar three times daily. Dx: E11.9, Insulin dependent. 1 Device 0 03/12/2019 Active Comment: Blood glucose monitor. Check blood sugar three times daily. Dx: E11.9, Insulin dependent. Ergocalciferol ergocalciferol, vitamin 03-16-2017 Ra posey [facility] D2, (DRISDOL) 50,000 (81936) unit capsule Indications: Vitamin D deficiency Take 1 capsule by mouth once each week. 4 capsule 03/16/2017 Active Comment: Take 1 capsule by mouth once each week. FLUoxetine FLUoxetine HCl (PROZAC) 03-07-2020 [facility] [employer] Thiago toribio [facility] 40 mg capsule (27314) Indications: Anxiety and depression Take 1 capsule by mouth once daily. 30 capsule 03/07/2020 Active Comment: Take 1 capsule by mouth once daily. fluticasone fluticasone (FLONASE) 50 08-01-2018 [facility] [employer] [employer] mcg/actuation nasal spray Efren (4 0072) Use 2 Sprays in each nostril once daily. 1 Bottle 08/01/2018 Active Comment: Use 2 Sprays in each nostril once daily. gabapentin gabapentin (NEURONTIN) 11-30-[address] [facility] 100 mg capsule Reid Sifuentes (10384) Indications: Fibromyalgia Please take 1 capsule in the morning and afternoon and 2 tablets in the evening 120 capsule 2 11/30/2019 Active Comment: Please take 1 capsule in the morning and afternoon and 2 tablets in the evening glipiZIDE glipiZIDE (GLUCOTROL XL) 5 06-10-2020 Reid Luis [facility] mg 24 hr tablet Indications: (69880) Uncontrolled type 2 diabetes mellitus with hyperglycemia (HCC) Take 1 tablet by mouth once daily. 30 tablet 11 06/10/2020 Active Comment: Take 1 tablet by mouth once daily. guaiFENesin guaiFENesin (MUCINEX) 09-09-2019 Tiana Scales [facility] 600 mg 12 hr tablet (84697) Indications: Cough Take 2 tablets by mouth twice daily. 30 tablet 0 09/09/2019 Active Comment: Take 2 tablets by mouth twic e daily. Insulin Glargine insulin glargine (LANTUS 11-05-2019 Gary ([employer]) [facility] U-100 INSULIN) 100 Efren (10539) unit/mL injection Indications: Type II or unspecified type diabetes mellitus without mention of complication, uncontrolled Inject 50 Units subcutaneously once daily. As directed. E10.8 3 Vial 5 11/05/2019 Active Comment: Inject 50 Units subcutaneous ly once daily. As directed. E10.8 Lisinopril lisinopril (PRINIVIL) 12-01-2019 Gary ([employer]) [facility] 10 mg tablet Take 0.5 (48426 ) tablets by mouth once daily. 45 tablet 3 12/01/2019 Active Comment: Take 0.5 tablets by mouth on ce daily. Loratadine loratadine (CLARITIN) 02-01-2020 Gary ([employer]) [facility] 10 mg tablet Take 1 (17232) tablet by mouth once daily. 90 tablet 3 02/01/2020 Active Comment: Take 1 tablet by mouth once daily. metFORMIN metFORMIN ER (GLUCOPHAGE 02-15-2020 Gary ([employer]) [facility] XR) 500 mg 24 hr tablet (441 95) Take 2 tablets by mouth twice daily. Gradually get up to 4 tablets per day as instructed 360 tablet 3 02/15/2020 Active Comment: Take 2 tablets by mouth twic e daily. Gradually get up to 4 tablets per day as instructed Omeprazole omeprazole 40 mg capsule 03-28-2020 Gary ([employer]) [facility] Indications: Efren (01252) Gastroesophageal reflux disease, esophagitis presence not specified Take 1 capsule by mouth once daily. 30min. before meal 30 capsule 5 03/28/2020 Active Comment: Take 1 capsule by mouth once daily. 30min. before meal Problems Active Problems Category Problem Name Status Date Location Diabetes mellitus with Type II diabetes mellitus Active 08-12 - [facility] complications uncontrolled (18874) Disorders of lipid Hyperlipidemia Active 08-15-2015 - [facility] metabolism (65979) Esophageal disorders Gastroesophageal reflux Active 6 - [facility] disease (45538) Essential hypertension Essential hypertension Active 11-28-19 17 - [facility] (40017) Genitourinary symptoms Delay when starting to Active 08-12-20 14 - [facility] and ill-defined pass urine (29287) conditions Mood disorders Depressive disorder Active 08-15-2015 - [facility] (59393) Nutritional Vitamin D deficiency Active 05-01-2016 - [facility] deficiencies (13866) Other nutritional; Morbid obesity Active 08-12-2014 - [facility] endocrine; and (89190) metabolic disorders Unclassified Polypharmacy Active 08-12-2014 - [facility] (68736) Past or Other Problems Category Problem Name Status Date Location Other connective Fibromyalgia Completed 08-12-2014 - [facility] tissue disease (16835) Other liver diseases Alkaline phosphatase Completed 03-29-2017 - [facility] raised (53016) Other nervous system Numbness of upper limb Completed 02-04-2018 - [facility] disorders (50680) Results Result Name Value Range Unit Interpretation Flag Date Location [facility] on 2020-08-04 [facility] Telephone (INTMWS) Normal 08-04-2020 [facility] LUNA DUMAS ([id number]) 1960 F [facility] Time Provider Department (53794) 08/04/20 REID SIFUENTES INTMWS During your visit today, we recorded the following informati on about you: Fifi Robison LPN 08/04/2020 4:43 PM Signed ----- Message from Reid Sifuentes sent at 08/04/2020 3:14 PM ED T ----- Please let patient know that her cholest roderick , blood counts are normal, liver, and kidneys are mostly normal . Out main concern is her hba1c she is better than before bu t needs to really still work on it. Regards, Reid Robison LPN 08/04/2020 4:45 PM Signed Left message for patient to call back. Cyndee Juan CASE 08/15/2020 11:26 AM Signed Pt notified. Allergies As of Date: 08/04/2020 Noted Allergy Reaction ASPIRIN 08/12/2014 8 - GI Upset IBUPROFEN 08/12/2014 8 - GI Upset SIMVASTATIN 05/01/2016 14 - Other: See Comments Comments: Possible myalgia Date Reviewed: 05/25/2020 Reviewed by: Penelope Mcconnell LPN - Fully Assessed Reason for Visit: Results [95] Prescriptions as of 08/04/2020 Sig: GLIPIZIDE ER 5 MG TABLET, EXT* Take 1 tablet by mouth once d * BUPROPION XL 150 MG TAB Take 1 tablet by mouth once d* BLOOD-GLUCOSE METER Dispense 1 kit Accucheck or T* BLOOD SUGAR DIAGNOSTIC STRIPS Test blood sugar(s) 3x daily.* INSULIN SYRINGE U-100 WITH NE* Use one syringe daily OMEPRAZOLE 40 MG CAPSULE,MARCELA* Take 1 capsule by mouth once * FLUOXETINE 40 MG CAPSULE Take 1 capsule by mouth once * ARIPIPRAZOLE 10 MG TABLET Take 1 tablet by mouth once d* METFORMIN ER 500 MG TABLET,EX* Take 2 tablets by mouth twice * LORATADINE 10 MG TABLET Take 1 tablet by mouth once d* ATORVASTATIN 40 MG TABLET Take 1 tablet by mouth once d* LISINOPRIL 10 MG TABLET Take 0.5 tablets by mouth onc* INSULIN GLARGINE (U-100) 100 * Inject 50 Units subcutaneousl * GUAIFENESIN ER 600 MG TABLET,* Take 2 tablets by mouth twice * Patient not taking: Reported on 10/07/2019 BENZONATATE 100 MG CAPSULE Take 1 capsule by mouth three* COMPOUNDED PRESCRIPTION Blood glucose monitor. Check* LANCETS Test blood sugar(s) 3 times d* FLUTICASONE PROPIONATE 50 MCG* Use 2 Sprays in each nostril * BENZONATATE 100 MG CAPSULE Take 1-2 capsules by mouth th* Patient not taking: Reported on 10/07/2019 ERGOCALCIFEROL (VITAMIN D2) 1* Take 1 capsule by mouth once * Patient not taking: Reported on 10/07/2019 Problem List As Of Date 08/04/2020 Noted Resolved Urgency of urination [R39.15] 08/12/2014 Frequency of urination [R35.0] 08/12/2014 Hesitancy of micturition [R39.11] 08/12/2014 Stress incontinence [N39.3] 08/12/2014 More... Morbid obesity (HCC) [E66.01] 08/12/2014 Polypharmacy [Z79.899] 08/12/2014 Uncontrolled type 2 diabetes mellitus (HCC) [E1*08/12/2014 More... Fibromyalgia [M79.7] 08/12/2014 More... Bipolar disorder (HCC) [F31.9] 08/15/2015 More... Hyperlipidemia LDL goal <100 [E78.5] 08/15/2015 More... Depression [F32.9] 08/15/2015 More... Vitamin D deficiency [E55.9] 05/01/2016 GERD (gastroesophageal reflux disease) [K21.9] 10/02/2016 Essential hypertension [I10] 11/28/2016 Elevated alkaline phosphatase level [R74.8] 03/29/2017 Lt arm numbness [R20.0] 02/04/2018 Encounter Status:Closed by CYNDEE MARTINEZ LPN on 08/15/20 tsh on 2020-07-30 TSH Qn 1.890 0.270-4.200 uU/mL Normal 07-30-2020 [facility] (01681) Comment: Performed By: #### CBC, CMP, LIPB, TSH, HBA1C ####[facility] [address] [place], [place] [phone] lipid panel, basic on 2020-07-30 Cholesterol [Mass/Vol] 161 <200 mg/dL Normal 020 [facility] (93470) Comment: Result Comment: <200 mg/dL, Desirable 200-239 mg/dL, Borderline hi gh >239 mg/dL, High Performed By: #### CBC, CMP, LIPB, TSH, HBA1C ####[facility] [place], [place] [phone] Cholesterol in HDL 43 >39 mg/dL Normal 07-30-2020 [facility] [Mass/Vol] (45071) Comment: Result Comment: 40-59 mg/dL, Acceptable >59 mg/dL, High: Negative ri sk factor for coronary heart disease <40 mg/dL, Low: Positive ris k factor for coronary heart disease Performed By: #### CBC, CMP, LIPB, TSH, HBA1C ####[place] [address] [place], [place] [phone] Cholesterol in LDL 94 <100 mg/dL Normal 07-30-2020 [facility] [Mass/Vol] [facility] (07141) Comment: Result Comment: <100 mg/dL, Optimal 100-129 mg/dL, Near optimal/ above optimal 130-159 mg/dL, Borderline hi gh 160-189 mg/dL, High >189 mg/dL, Very high Secondary prevention optimal LDL Cholesterol levels are recommended to be < 70 mg/dL Performed By: #### CBC, CMP, LIPB, TSH, HBA1C ####[facility] [place], [place] [phone] Fasting Time 8 hrs Normal 07-30-2020 [facility] (83026) Comment: Performed By: #### CBC, CMP, LIPB, TSH, HBA1C ####[place] [address] [place], [place] [phone] LDL:HDL Ratio 2.19 <2.54 Normal 07-30-2020 [facility] (95733) Comment: Result Comment: Reference: 1. National Cholesterol Educ ation Program ATP III Guideline At-A-Glance Quick Desk Reference: National Heart, Lung, and Blood [place]. National Institutes of Health. 2001: NIH Publication No. 01-3305. 2. An International Atherosc lerosis Society position paper: global recommendations for the management of dyslipidemia: executive summary, Atherosclerosis. 2014: 232(2):410-413. Performed By: #### CBC, CMP, LIPB, TSH, HBA1C ####[place] [address] [place], [place] [phone] Non HDL Cholesterol 118 <130 mg/dL Normal 07-30-2020 [facility] (72874) Comment: Result Comment: <130 mg/dL, Optimal 130-159 mg/dL, Near optimal/ above optimal 160-189 mg/dL, Borderline hi gh 190-219 mg/dL, High >219 mg/dL, Very high Secondary prevention optimal non HDL Cholesterol levels are recommended to be < 100 mg/dL Performed By: #### CBC, CMP, LIPB, TSH, HBA1C ####[place] [address] [place], [place] [phone] TC:HDL Ratio 3.74 <5.10 Normal 07-30-2020 [facility] (59718) Comment: Performed By: #### CBC, CMP, LIPB, TSH, HBA1C ####[place] [address] [place], [place] [phone] Triglyceride [Mass/Vol] 122 <150 mg/dL Normal 2019 [facility] (06534) Comment: Result Comment: <150 mg/dL, Normal 150-199 mg/dL, Borderline hi gh 200-499 mg/dL, High >499 mg/dL, Very high Performed By: #### CBC, CMP, LIPB, TSH, HBA1C ####[place] [address] [place], [place] [phone] VLDL Cholesterol 24 <30 mg/dL Normal 07-30-2020 [facility] (65663) Comment: Performed By: #### CBC, CMP, LIPB, TSH, HBA1C ####[place] [address] [place], [place] [phone] hemoglobin a1c on HbA1c (Bld) [Mass fraction] 214 mg/dL Normal [facility] (74586) Comment: Result Comment: eAG: (Estima jorgito average glucose) is a calculated value from HgbA1c and is tax representative of the average blood glucose level in the last 2-3 month period. Performed By: #### CBC, CMP, LIPB, TSH, HBA1C ####[place] [address] [place], [place] [phone] HbA1c (Bld) [Mass fraction] 9.1 4.3-5.6 % High [facility] (17742) Comment: Result Comment: [place] Carol betes Association guidelines indicate that patients with HgbA1c in the range 5.7-6.4% are at increased risk for development of diabetes, and intervention by lifestyle modification may be beneficial. HgbA1c greater o r equal to 6.5% is considered diagnostic of diabetes. Performed By: #### CBC, CMP, LIPB, TSH, HBA1C ####[place] [address] [place], [place] [phone] comp metabolic panel on 2020-07-30 Albumin [Mass/Vol] 3.9 3.9-4.9 g/dL Normal 07-30-2020 [facility] (54818) Comment: Performed By: #### CBC, CMP, LIPB, TSH, HBA1C ####[place] [address] [place], [place] [phone] ALP [Catalytic activity/Vol] 137 34-123 U/L High 0 07-30-2020 [facility] (51442) Comment: Performed By: #### CBC, CMP, LIPB, TSH, HBA1C ####[place] [address] [place], [place] [phone] ALT [Catalytic activity/Vol] 15 7-38 U/L Normal 0 07-30-2020 [facility] (04994) Comment: Performed By: #### CBC, CMP, LIPB, TSH, HBA1C ####[place] [address] [place], [place] [phone] Anion gap [Moles/Vol] 10 9-18 mmol/L Normal 07-30-20 [facility] (08847) Comment: Performed By: #### CBC, CMP, LIPB, TSH, HBA1C ####[place] [address] [place], [place] [phone] AST [Catalytic activity/Vol] 12 13-35 U/L Low 0 07-30-2020 [facility] (71355) Comment: Performed By: #### CBC, CMP, LIPB, TSH, HBA1C ####[facility] [place], [place] [phone] Bilirubin [Mass/Vol] 0.3 0.2-1.3 mg/dL Normal 0 [facility] (11592) Comment: Performed By: #### CBC, CMP, LIPB, TSH, HBA1C ####[place] [address] [place], [place] [phone] Calcium [Mass/Vol] 9.5 8.5-10.2 mg/dL Normal 07-30-2020 [facility] (69340) Comment: Performed By: #### CBC, CMP, LIPB, TSH, HBA1C ####[place] [address] [place], [place] [phone] Chloride [Moles/Vol] 102 97-105 mmol/L Normal 0 [facility] (82822) Comment: Performed By: #### CBC, CMP, LIPB, TSH, HBA1C ####[place] [address] [place], [place] [phone] CO2 [Moles/Vol] 27 22-30 mmol/L Normal 07-30-2020 [facility] (33657) Comment: Performed By: #### CBC, CMP, LIPB, TSH, HBA1C ####[place] [address] [place], [place] [phone] Creatinine [Mass/Vol] 0.75 0.58-0.96 mg/dL Normal 07-30-20 20 [facility] (76870) Comment: Performed By: #### CBC, CMP, LIPB, TSH, HBA1C ####[place] [address] [place], [place] [phone] eGFR- Amer. >60 Normal 07-30-2020 [facility] (09356) Comment: Performed By: #### CBC, CMP, LIPB, TSH, HBA1C ####[facility] [address] [place], [place] [phone] GFR/1.73 sq M predicted >60 mL/min/{1.73_m2} Normal 07-30-2020 [facility] among non-blacks MDRD [facility] (34374) (S/P/Bld) [Vol rate/Area] Comment: Result Comment: eGFR (Estima jorgito GFR) Units of measure: mL/min/1.73 meters squared eGFR is derived from the ree xpressed MDRD Study equation using the following parameters: serum creatinine, age, gender and race. The creatinine assay has been calibrated to be traceable to IDMS. An eGFR <60 mL/min/1.73m2 fo r >3 months is consistent with chronic kidney disease. Refer to KDOQI guidelines for clinical interpretation. In patients with unstable re nal function, e.g. those with acute kidney injury, the eGFR may not accurately reflect actual GFR. Performed By: #### CBC, CMP, LIPB, TSH, HBA1C ####[facility] [address] [place], [place] [phone] Glucose [Mass/Vol] 199 74-99 mg/dL High 07-30-2020 [facility] (58422) Comment: Result Comment: The [place] Diabetes Association (ADA) provides guidance for cutoff values for fasting glucose and random glucose. The ADA defines fasting as no caloric intake for at least 8 hours. Fas ting plasma glucose results between 100 to 125 mg/dL indicate increased risk for diabetes (prediabetes). Fasting plasma glucose resul ts greater than or equal to 126 mg/dL meet the criteria for diagnosis of diabetes. In the absence of unequivocal hyperglycemia, results should be confirmed by repeat testing. In a patient with classic s ymptoms of hyperglycemia or hyperglycemic crisis, random plasma glucose results greater than or equal to 200 mg/dL meet the criteria for diagnosis of diabetes. Reference: Standards of [facility] Care in Diabetes 2016, [place] Diabetes Association. Diabetes Care. 2016.39(Suppl 1). Performed By: #### CBC, CMP, LIPB, TSH, HBA1C ####[facility] [address] [place], [place] [phone] Potassium [Moles/Vol] 4.5 3.7-5.1 mmol/L Normal 07-30-20 [facility] (36647) Comment: Performed By: #### CBC, CMP, LIPB, TSH, HBA1C ####[facility] [address] [place], [place] [phone] Protein [Mass/Vol] 7.1 6.3-8.0 g/dL Normal 07-30-2020 [facility] (86184) Comment: Performed By: #### CBC, CMP, LIPB, TSH, HBA1C ####[facility] [place], [place] [phone] Sodium [Moles/Vol] 139 136-144 mmol/L Normal 07-30-2020 [facility] (93447) Comment: Performed By: #### CBC, CMP, LIPB, TSH, HBA1C ####[facility] [place], [place] [phone] Urea nitrogen [Mass/Vol] 8 7-21 mg/dL Normal 07-30 [facility] (29459) Comment: Performed By: #### CBC, CMP, LIPB, TSH, HBA1C ####[facility] [place], [place] [phone] cbc on 2020-07-30 Absolute nRBC <0.01 <0.01 Normal 07-30-2020 [facility] (36647) Comment: Performed By: #### CBC, CMP, LIPB, TSH, HBA1C ####[facility] [place], [place] [phone] Erythrocyte distribution 13.0 11.5-15.0 % Normal 07-30 [facility] width (RBC) [Ratio] [facility] (03413) Comment: Performed By: #### CBC, CMP, LIPB, TSH, HBA1C ####[place] [address] [place], [place] [phone] Hematocrit (Bld) [Volume 41.0 36.0-46.0 % Normal 07-30 [facility] fraction] [facility] (08833) Comment: Performed By: #### CBC, CMP, LIPB, TSH, HBA1C ####[place] [address] [place], [place] [phone] Hemoglobin (Bld) 12.4 11.5-15.5 g/dL Normal 07-30-2020 [facility] [Mass/Vol] [facility] (55353) Comment: Performed By: #### CBC, CMP, LIPB, TSH, HBA1C ####[place] [address] [place], [place] [phone] MCH (RBC) [Entitic mass] 27.6 26.0-34.0 pG Normal 07-30 [facility] (49819) Comment: Performed By: #### CBC, CMP, LIPB, TSH, HBA1C ####[place] [address] [place], [place] [phone] MCHC (RBC) [Mass/Vol] 30.2 30.5-36.0 g/dL Low 07-30-20 20 [facility] (98342) Comment: Performed By: #### CBC, CMP, LIPB, TSH, HBA1C ####[place] [address] [place], [place] [phone] MCV (RBC) [Entitic vol] 91.3 80.0-100.0 fL Normal 07-30 [facility] (55020) Comment: Performed By: #### CBC, CMP, LIPB, TSH, HBA1C ####[place] [address] [place], [place] [phone] Platelet mean volume 10.2 9.0-12.7 fL Normal 0 [facility] (Bld) [Entitic vol] [facility] (03671) Comment: Performed By: #### CBC, CMP, LIPB, TSH, HBA1C ####[facility] [address] [place], [place] [phone] Platelets (Bld) [#/Vol] 361 150-400 k/uL Normal 2019 [facility] (89341) Comment: Performed By: #### CBC, CMP, LIPB, TSH, HBA1C ####[facility] [place], [place] [phone] RBC (Bld) [#/Vol] 4.49 3.90-5.20 m/uL Normal 07-30-2020 [facility] (66613) Comment: Performed By: #### CBC, CMP, LIPB, TSH, HBA1C ####[facility] [place], [place] [phone] WBC (Bld) [#/Vol] 7.61 3.70-11.00 k/uL Normal 07-30-2020 [facility] (67737) Comment: Performed By: #### CBC, CMP, LIPB, TSH, HBA1C ####[facility] [address] [place], [place] [phone] cnpn on 2020-07-07 CNPN Telephone (INTMWS) Normal 07-07-2020 [facility] LUNA DUMAS ([id number]) 1960 F [facility] Date Time Provider Department () 07/07/20 REID SIFUENTES INTMWS During your visit today, we recorded the following informati on about you: Malgorzata Lemons RN 07/07/2020 8:18 AM Signed Pt called, verified by name and birthdate. Pt states she was informed yesterday her daughter is COVID +. Pt states she was around her on Sat day but is not showing any signs/symptoms a t this time. Pt will notify PCP if she develops any issues Malgorzata Solomon APRN.CNP 07/07/2020 4:32 PM Signed Noted. Gary Solomon APRN.CNP Allergies As of Date: 07/07/2020 Noted Allergy Reaction ASPIRIN 08/12/2014 8 - GI Upset IBUPROFEN 08/12/2014 8 - GI Upset SIMVASTATIN 05/01/2016 14 - Other: See Comments Comments: Possible myalgia Date Reviewed: 05/25/2020 Reviewed by: Penelope Mcconnell LPN - Fully Assessed Reason for Visit: FYI-No Action Needed [265] Prescriptions as of 07/07/2020 Sig: GLIPIZIDE ER 5 MG TABLET, EXT* Take 1 tablet by mouth once d * BUPROPION XL 150 MG TAB Take 1 tablet by mouth once d* BLOOD-GLUCOSE METER Dispense 1 kit Accucheck or T* BLOOD SUGAR DIAGNOSTIC STRIPS Test blood sugar(s) 3x daily.* INSULIN SYRINGE U-100 WITH NE* Use one syringe daily OMEPRAZOLE 40 MG CAPSULE,MARCELA* Take 1 capsule by mouth once * FLUOXETINE 40 MG CAPSULE Take 1 capsule by mouth once * ARIPIPRAZOLE 10 MG TABLET Take 1 tablet by mouth once d* METFORMIN ER 500 MG TABLET,EX* Take 2 tablets by mouth twice * LORATADINE 10 MG TABLET Take 1 tablet by mouth once d* ATORVASTATIN 40 MG TABLET Take 1 tablet by mouth once d* LISINOPRIL 10 MG TABLET Take 0.5 tablets by mouth onc* GABAPENTIN 100 MG CAPSULE Please take 1 capsule in the * INSULIN GLARGINE (U-100) 100 * Inject 50 Units subcutaneousl * GUAIFENESIN ER 600 MG TABLET,* Take 2 tablets by mouth twice * Patient not taking: Reported on 10/07/2019 BENZONATATE 100 MG CAPSULE Take 1 capsule by mouth three* COMPOUNDED PRESCRIPTION Blood glucose monitor. Check* LANCETS Test blood sugar(s) 3 times d* FLUTICASONE PROPIONATE 50 MCG* Use 2 Sprays in each nostril * BENZONATATE 100 MG CAPSULE Take 1-2 capsules by mouth th* Patient not taking: Reported on 10/07/2019 ERGOCALCIFEROL (VITAMIN D2) 1* Take 1 capsule by mouth once * Patient not taking: Reported on 10/07/2019 Problem List As Of Date 07/07/2020 Noted Resolved Urgency of urination [R39.15] 08/12/2014 Frequency of urination [R35.0] 08/12/2014 Hesitancy of micturition [R39.11] 08/12/2014 Stress incontinence [N39.3] 08/12/2014 More... Morbid obesity (HCC) [E66.01] 08/12/2014 Polypharmacy [Z79.899] 08/12/2014 Uncontrolled type 2 diabetes mellitus (HCC) [E1*08/12/2014 More... Fibromyalgia [M79.7] 08/12/2014 More... Bipolar disorder (HCC) [F31.9] 08/15/2015 More... Hyperlipidemia LDL goal <100 [E78.5] 08/15/2015 More... Depression [F32.9] 08/15/2015 More... Vitamin D deficiency [E55.9] 05/01/2016 GERD (gastroesophageal reflux disease) [K21.9] 10/02/2016 Essential hypertension [I10] 11/28/2016 Elevated alkaline phosphatase level [R74.8] 03/29/2017 Lt arm numbness [R20.0] 02/04/2018 Encounter Status:Closed by GARY SOLOMON CNP on 07/07/20 cnpn on 2020-07-05 CNPN Telephone (PHMEWO) Normal 07-05-2020 [facility] LUNA DUMAS ([id number]) 1960 F [place] Date Time Provider Department ([id number]) 07/05/20 CINDI (PHARMACIST)KRIS During your visit today, we recorded the following informati on about you: Kris Dennis Pharmacist 07/05/2020 4:09 PM Signed Attempted to call patient for today's scheduled pharmacy phone follow up. Not able to reach after several attempts. Unable to leave a voicemail as mailbox is full. Kris Dennis PharmD Primary Care Clinical Pharmacist [facility] Kris Dennis Pharmacist 07/25/2020 10:36 AM Signed Patient no showed for initial scheduled pharm vi sit, has not returned call to schedule. Mailing letter and pharmacy services flyer with fabiano santana on how to call back to re-scheudule initial visit. Kris Dennis PharmD, BCACP Primary Care Clinical Pharmacist [facility] Allergies As of Date: 07/05/2020 Noted Allergy Reaction ASPIRIN 08/12/2014 8 - GI Upset IBUPROFEN 08/12/2014 8 - GI Upset SIMVASTATIN 05/01/2016 14 - Other: See Comments Comments: Possible myalgia Date Reviewed: 05/25/2020 Reviewed by: Penelope Mcconnell LPN - Fully Assessed Reason for Visit: Missed Appointment [1304] Cmt: Pharmacy Visit Prescriptions as of 07/05/2020 Sig: GLIPIZIDE ER 5 MG TABLET, EXT* Take 1 tablet by mouth once d * BUPROPION XL 150 MG TAB Take 1 tablet by mouth once d* BLOOD-GLUCOSE METER Dispense 1 kit Accucheck or T* BLOOD SUGAR DIAGNOSTIC STRIPS Test blood sugar(s) 3x daily.* INSULIN SYRINGE U-100 WITH NE* Use one syringe daily OMEPRAZOLE 40 MG CAPSULE,MARCELA* Take 1 capsule by mouth once * FLUOXETINE 40 MG CAPSULE Take 1 capsule by mouth once * ARIPIPRAZOLE 10 MG TABLET Take 1 tablet by mouth once d* METFORMIN ER 500 MG TABLET,EX* Take 2 tablets by mouth twice * LORATADINE 10 MG TABLET Take 1 tablet by mouth once d* ATORVASTATIN 40 MG TABLET Take 1 tablet by mouth once d* LISINOPRIL 10 MG TABLET Take 0.5 tablets by mouth onc* GABAPENTIN 100 MG CAPSULE Please take 1 capsule in the * INSULIN GLARGINE (U-100) 100 * Inject 50 Units subcutaneousl * GUAIFENESIN ER 600 MG TABLET,* Take 2 tablets by mouth twice * Patient not taking: Reported on 10/07/2019 BENZONATATE 100 MG CAPSULE Take 1 capsule by mouth three* COMPOUNDED PRESCRIPTION Blood glucose monitor. Check* LANCETS Test blood sugar(s) 3 times d* FLUTICASONE PROPIONATE 50 MCG* Use 2 Sprays in each nostril * BENZONATATE 100 MG CAPSULE Take 1-2 capsules by mouth th* Patient not taking: Reported on 10/07/2019 ERGOCALCIFEROL (VITAMIN D2) 1* Take 1 capsule by mouth once * Patient not taking: Reported on 10/07/2019 Problem List As Of Date 07/05/2020 Noted Resolved Urgency of urination [R39.15] 08/12/2014 Frequency of urination [R35.0] 08/12/2014 Hesitancy of micturition [R39.11] 08/12/2014 Stress incontinence [N39.3] 08/12/2014 More... Morbid obesity (HCC) [E66.01] 08/12/2014 Polypharmacy [Z79.899] 08/12/2014 Uncontrolled type 2 diabetes mellitus (HCC) [E1*08/12/2014 More... Fibromyalgia [M79.7] 08/12/2014 More... Bipolar disorder (HCC) [F31.9] 08/15/2015 More... Hyperlipidemia LDL goal <100 [E78.5] 08/15/2015 More... Depression [F32.9] 08/15/2015 More... Vitamin D deficiency [E55.9] 05/01/2016 GERD (gastroesophageal reflux disease) [K21.9] 10/02/2016 Essential hypertension [I10] 11/28/2016 Elevated alkaline phosphatase level [R74.8] 03/29/2017 Lt arm numbness [R20.0] 02/04/2018 Encounter Status:Closed by CINDI (PHARMACIST)KRIS on cnpn on 2020-06-30 [facility] Telephone (INTMWS) Normal 06-30-2020 [place] LU[place] Kasper ([id number]) 1960 F [place] Date Time Provider Department ([id number]) 06/30/20 REID SIFUENTES INTMWS During your visit today, we recorded the following informati on about you: Malgorzata Lemons RN 06/30/2020 10:37 AM Signed Pt called, verified by name and birthdate. Pt states she has been having bright red vag bleeding for a few hours when she has sex and fools around. Pt states she also has vaginal discomfort. Pt does not have bleeding at this time. Please advise Malgorzata SIFUENTES MD 06/30/2020 12:04 PM Signed Please set her up with nurse gynecology Millicent Flower Pss 06/30/2020 1:17 PM Signed Contacted patient, scheduled with Shahida Peters 07/07/20. - Millicent Mundo Pss Allergies As of Date: 06/30/2020 Noted Allergy Reaction ASPIRIN 08/12/2014 8 - GI Upset IBUPROFEN 08/12/2014 8 - GI Upset SIMVASTATIN 05/01/2016 14 - Other: See Comments Comments: Possible myalgia Date Reviewed: 05/25/2020 Reviewed by: Penelope Mcconnell LPN - Fully Assessed Reason for Visit: Vaginal Bleeding [203] Primary Visit Diagnosis:Vaginal bleeding [N93.9] Order(s):CONSULT TO GYNECOLOGY [9043] Order #: [id number] : 1 FUTURE Prescriptions as of 06/30/2020 Sig: GLIPIZIDE ER 5 MG TABLET, EXT* Take 1 tablet by mouth once d * BUPROPION XL 150 MG TAB Take 1 tablet by mouth once d* BLOOD-GLUCOSE METER Dispense 1 kit Accucheck or T* BLOOD SUGAR DIAGNOSTIC STRIPS Test blood sugar(s) 3x daily.* INSULIN SYRINGE U-100 WITH NE* Use one syringe daily OMEPRAZOLE 40 MG CAPSULE,MARCELA* Take 1 capsule by mouth once * FLUOXETINE 40 MG CAPSULE Take 1 capsule by mouth once * ARIPIPRAZOLE 10 MG TABLET Take 1 tablet by mouth once d* METFORMIN ER 500 MG TABLET,EX* Take 2 tablets by mouth twice * LORATADINE 10 MG TABLET Take 1 tablet by mouth once d* ATORVASTATIN 40 MG TABLET Take 1 tablet by mouth once d* LISINOPRIL 10 MG TABLET Take 0.5 tablets by mouth onc* GABAPENTIN 100 MG CAPSULE Please take 1 capsule in the * INSULIN GLARGINE (U-100) 100 * Inject 50 Units subcutaneousl * GUAIFENESIN ER 600 MG TABLET,* Take 2 tablets by mouth twice * Patient not taking: Reported on 10/07/2019 BENZONATATE 100 MG CAPSULE Take 1 capsule by mouth three* COMPOUNDED PRESCRIPTION Blood glucose monitor. Check* LANCETS Test blood sugar(s) 3 times d* FLUTICASONE PROPIONATE 50 MCG* Use 2 Sprays in each nostril * BENZONATATE 100 MG CAPSULE Take 1-2 capsules by mouth th* Patient not taking: Reported on 10/07/2019 ERGOCALCIFEROL (VITAMIN D2) 1* Take 1 capsule by mouth once * Patient not taking: Reported on 10/07/2019 Problem List As Of Date 06/30/2020 Noted Resolved Urgency of urination [R39.15] 08/12/2014 Frequency of urination [R35.0] 08/12/2014 Hesitancy of micturition [R39.11] 08/12/2014 Stress incontinence [N39.3] 08/12/2014 More... Morbid obesity (HCC) [E66.01] 08/12/2014 Polypharmacy [Z79.899] 08/12/2014 Uncontrolled type 2 diabetes mellitus (HCC) [E1*08/12/2014 More... Fibromyalgia [M79.7] 08/12/2014 More... Bipolar disorder (HCC) [F31.9] 08/15/2015 More... Hyperlipidemia LDL goal <100 [E78.5] 08/15/2015 More... Depression [F32.9] 08/15/2015 More... Vitamin D deficiency [E55.9] 05/01/2016 GERD (gastroesophageal reflux disease) [K21.9] 10/02/2016 Essential hypertension [I10] 11/28/2016 Elevated alkaline phosphatase level [R74.8] 03/29/2017 Lt arm numbness [R20.0] 02/04/2018 Encounter Status:Closed by MILLICENT CARROLL on 06/30/20 cnpaxel on 2020-06-13 CNPN Telephone (PHARMN) Normal 06-13-2020 [place] LU[place] Kasper ([id number]) 1960 F [place] Date Time Provider Department ([id number]) 06/13/20 REBECA SALLIE ([facility] [place]) PHARMN During your visit today, we recorded the following informati on about you: SUNITHA Jackson [facility] 06/13/2020 12:48 PM Signed Called Pt. regarding New Pharmacy referral. Left message asking pt. to return our call and to schedule a virtual / tel ephone call visit with the pharmacist. Sallie Rodriguez SUNITHA [facility] [place] 06/14/2020 10:53 AM Signed Called Pt. regarding New Pharmacy referral. Left message asking pt. to return our call and to schedule a virtual / tel ephone call visit with the pharmacist. If pt. returns our carole an appt will be scheduled.[phone]. Kris Dennis, Pharmacist 06/27/2020 5:19 PM Signed Called and scheduled pt, she prefers matthew ne visit. Scheduled for 07/05. Reminded her to have med bottles and glucometer nearby during time of call so we can review. Kris Dennis, PharmD Primary Care Clinical Pharmacist [place] [facility] Allergies As of Date: 06/13/2020 Noted Allergy Reaction ASPIRIN 08/12/2014 8 - GI Upset IBUPROFEN 08/12/2014 8 - GI Upset SIMVASTATIN 05/01/2016 14 - Other: See Comments Comments: Possible myalgia Date Reviewed: 05/25/2020 Reviewed by: Penelope Mcconnell LPN - Fully Assessed Reason for Visit: New Pharmacy Med-Review [Other] Prescriptions as of 06/13/2020 Sig: GLIPIZIDE ER 5 MG TABLET, EXT* Take 1 tablet by mouth once d * BUPROPION XL 150 MG TAB Take 1 tablet by mouth once d* BLOOD-GLUCOSE METER Dispense 1 kit Accucheck or T* BLOOD SUGAR DIAGNOSTIC STRIPS Test blood sugar(s) 3x daily.* INSULIN SYRINGE U-100 WITH NE* Use one syringe daily OMEPRAZOLE 40 MG CAPSULE,MARCELA* Take 1 capsule by mouth once * FLUOXETINE 40 MG CAPSULE Take 1 capsule by mouth once * ARIPIPRAZOLE 10 MG TABLET Take 1 tablet by mouth once d* METFORMIN ER 500 MG TABLET,EX* Take 2 tablets by mouth twice * LORATADINE 10 MG TABLET Take 1 tablet by mouth once d* ATORVASTATIN 40 MG TABLET Take 1 tablet by mouth once d* LISINOPRIL 10 MG TABLET Take 0.5 tablets by mouth onc* GABAPENTIN 100 MG CAPSULE Please take 1 capsule in the * INSULIN GLARGINE (U-100) 100 * Inject 50 Units subcutaneousl * GUAIFENESIN ER 600 MG TABLET,* Take 2 tablets by mouth twice * Patient not taking: Reported on 10/07/2019 BENZONATATE 100 MG CAPSULE Take 1 capsule by mouth three* COMPOUNDED PRESCRIPTION Blood glucose monitor. Check* LANCETS Test blood sugar(s) 3 times d* FLUTICASONE PROPIONATE 50 MCG* Use 2 Sprays in each nostril * BENZONATATE 100 MG CAPSULE Take 1-2 capsules by mouth th* Patient not taking: Reported on 10/07/2019 ERGOCALCIFEROL (VITAMIN D2) 1* Take 1 capsule by mouth once * Patient not taking: Reported on 10/07/2019 Problem List As Of Date 06/13/2020 Noted Resolved Urgency of urination [R39.15] 08/12/2014 Frequency of urination [R35.0] 08/12/2014 Hesitancy of micturition [R39.11] 08/12/2014 Stress incontinence [N39.3] 08/12/2014 More... Morbid obesity (HCC) [E66.01] 08/12/2014 Polypharmacy [Z79.899] 08/12/2014 Uncontrolled type 2 diabetes mellitus (HCC) [E1*08/12/2014 More... Fibromyalgia [M79.7] 08/12/2014 More... Bipolar disorder (HCC) [F31.9] 08/15/2015 More... Hyperlipidemia LDL goal <100 [E78.5] 08/15/2015 More... Depression [F32.9] 08/15/2015 More... Vitamin D deficiency [E55.9] 05/01/2016 GERD (gastroesophageal reflux disease) [K21.9] 10/02/2016 Essential hypertension [I10] 11/28/2016 Elevated alkaline phosphatase level [R74.8] 03/29/2017 Lt arm numbness [R20.0] 02/04/2018 Encounter Status:Closed by CINDI (PHARMACIST)KRIS on 0 progress on 2020-05 PROGRESS HNO ID: [id number] Normal 06-10-2020 [facility] Author: Reid Mary ([id number]) Service: ? Author Type: Physician Type: Progress Notes Filed: 06/10/2020 5:39 PM Note Text: This Team Access Model visit is a phone encounter. It requir ed patient-provider interaction for the medical decision making as documented below. The patient is aware that I am not fully able to assess symp toms and do a full physical exam including vital signs in the office at th is time.The patient consented to this type of encounter since it was per formed by phone / virtually due to the COVID-19 epidemic as an effort to protect patients and minimize exposure. Her hba1c is 9.5, it is the highest it has been in the past. Her lifestyle has changed significantly with the COVID Not able to go out like she did. Encouraged her to exercise at home using help of computers etc. Feeling depressed, with the current covi stuck inside the ho use. She is on prozac for depression never tried Wellbutrin. Patient has been snacking a lot recently as she is stuck in the house, feels bored so she is Snacking on junk. She is eating snack cakes. Encouraged her to eat more vegeta bles and fruits more than any thing else. Her car just broke and not able to go to the stores etc. Patient takes medication every day mostly, may forget to kaya e it once in a week. Not checking her sugars. For depression she is on prozac at 40 and abilify and I am a dding wellbutrin ASSESSMENT/PLAN: 1. Uncontrolled type 2 diabetes mellitus with hyperglycemia (HCC) - ICD9: 250.02, ICD10: E11.65 (primary diagnosis) Worsening sugars, she needs to see out pharmacist , I starte d her on glipized The patient is asked to make an attempt to improve diet and exercise patterns to aid in medical management of this problem Lengthy discussion in office today regarding diet and exerci se. Discussed use of small plate to eat meals from, drink 1 glass of water 10-15 minutes prior to eating meal, drink 8 glasses of water daily, eat fr esh fruit and vegetable during meal first then lean protein such as grille d/baked chicken breast or fish, limit carbohydrate intake (less past a, breads, rice and snack foods) as well as limiting sugars (desserts e tc). Important to count / track your calories and exercise as anthony corrales - GLIPIZIDE ER 5 MG TABLET, EXTENDED RELEASE 24 HR - CONSULT TO AMBULATORY CLINIC PHARMACY 2. Depression, unspecified depression type - ICD9: 311, ICD1 0: F32.9 Cont current medication 3. Morbid obesity (HCC) - ICD9: 278.01, ICD10: E66.01 See hpi 4. Essential hypertension - ICD9: 401.9, ICD10: I10 To cont medication 5. Hyperlipidemia LDL goal <100 - ICD9: 272.4, ICD10: E78.5 - good control - Continue current medication. Spent 20 mins with the patient REID SIFUENTES MD progress on 2020-05 PROGRESS HNO ID: [id number] Normal 05-25-2020 [facility] Author: Cari Tim (Pa) Naveen Mary ([id number]) Service: ? Author Type: Physician Car Scrubber Type: Progress Notes Filed: 05/25/2020 5:17 PM Note Text: This note was created using Online-OR. Subjective Luna Dumas is a 59 year old female. HPI Patient presents with a chief complaint of vaginal itching t imes one day. She thinks she has a yeast infection. She does get them rafael odically. She has diabetic. Last time she checked her sugar was 120 to day. She states she has urinary frequency but that is common for her as well. No dysuria or back pain. No abdominal pain. No fever or chills. She is having some thick vaginal drainage as well. No new sexual pa rtners. Review of Systems Genitourinary: Positive for vaginal discharge. All other systems reviewed and are negative. PAST MEDICAL HISTORY Diagnosis Date - Acute carpal tunnel syndrome, right 11/27/2018 - Bipolar 1 disorder (HCC) - Depression - Diabetes (HCC) - Fibromyalgia - Heartburn - Hypercholesteremia - Right distal ulnar fracture 11/27/2018 - Right radial fracture 11/27/2018 - Seasonal allergies Current Outpatient Medications Medication Sig Dispense Refill - Blood-Glucose Meter Dispense 1 kit Accucheck or Trumetrix per insurance preference 1 Each 0 - blood sugar diagnostic (BLOOD GLUCOSE TEST) test strip Anaya t blood sugar(s) 3x daily. Dx: type 2 diabetes . Insulin: Yes. Accuc heck or Trumetrix per insurance preference 100 Strip 11 - Insulin Syringe-Needle U-100 (TRUEPLUS INSULIN) 1 mL 30 ga uge x 5/16 syrg Use one syringe daily 100 Syringe 3 - omeprazole 40 mg capsule Take 1 capsule by mouth once cj y. 30min. before meal 30 capsule 5 - FLUoxetine HCl (PROZAC) 40 mg capsule Take 1 capsule by mo uth once daily. 30 capsule 5 - ARIPiprazole (ABILIFY) 10 mg tablet Take 1 tablet by mouth once daily. 90 tablet 3 - metFORMIN ER (GLUCOPHAGE XR) 500 mg 24 hr tablet Take 2 ta blets by mouth twice daily. Gradually get up to 4 tablets per day as instru cted 360 tablet 3 - loratadine (CLARITIN) 10 mg tablet Take 1 tablet by mouth once daily. 90 tablet 3 - atorvastatin (LIPITOR) 40 mg tablet Take 1 tablet by mouth once daily. 90 tablet 3 - lisinopril (PRINIVIL) 10 mg tablet Take 0.5 tablets by alessia th once daily. 45 tablet 3 - gabapentin (NEURONTIN) 100 mg capsule Please take 1 capsul e in the morning and afternoon and 2 tablets in the evening 120 capsu le 2 - insulin glargine (LANTUS U-100 INSULIN) 100 unit/mL inject ion Inject 50 Units subcutaneously once daily. As directed. E10.8 3 Vial 5 - COMPOUNDED PRESCRIPTION Blood glucose monitor. Check blood sugar three times daily. Dx: E11.9, Insulin dependent. 1 Device 0 - Lancets lancets Test blood sugar(s) 3 times daily. Dx: Typ e 2 DM - Controlled E11.9 Insulin: Yes 100 Each 0 - fluticasone (FLONASE) 50 mcg/actuation nasal spray Use 2 S prays in each nostril once daily. 1 Bottle 11 - fluconazole (DIFLUCAN) 150 mg tablet Take 1 tablet by mout h once daily for 1 day. 1 tablet 0 - guaiFENesin (MUCINEX) 600 mg 12 hr tablet Take 2 tablets b y mouth twice daily. (Patient not taking: Reported on 10/07/2019 ) 30 tablet 0 - benzonatate (TESSALON PERLES) 100 mg capsule Take 1 capsul e by mouth three times daily as needed. 40 capsule 0 - benzonatate (TESSALON PERLE) 100 mg capsule Take 1-2 capsu les by mouth three times daily as needed. (Patient not taking: Reported o n 10/07/2019 ) 30 capsule 0 - ergocalciferol, vitamin D2, (DRISDOL) 50,000 unit capsule Take 1 capsule by mouth once each week. (Patient not taking: Reported on ) 4 capsule 11 No current facility-administered medications for this visit. PAST SURGICAL HISTORY Procedure Laterality Date - PAST SURGICAL HISTORY OF 2011 umbilical hernia repair - PAST SURGICAL HISTORY OF 1999 partial hysterectomy FAMILY HISTORY Problem Relation Age of Onset - Cancer Mother - Diabetes Mother - None Father - Diabetes Sister Social History Tobacco Use - Smoking status: Never Smoker - Smokeless tobacco: Never Used Substance Use Topics - Alcohol use: No - Drug use: No Objective BP 120/62 Pulse 83 Temp 37 ?C (98.6 ?F) (Tympanic) Res p 16 Wt 106.9 kg (235 lb 9.6 oz) BMI 35.30 kg/m? Physical Exam Vitals signs reviewed. Constitutional: Appearance: Normal appearance. Cardiovascular: Rate and Rhythm: Normal rate and regular rhythm. Pulses: Normal pulses. Heart sounds: Normal heart sounds. Pulmonary: Effort: Pulmonary effort is normal. Abdominal: Tenderness: There is no right CVA tenderness or left CVA ten derness. Neurological: Mental Status: She is alert. Assessment and Plan ASSESSMENT/PLAN: 1. Urinary frequency - ICD9: 788.41, ICD10: R35.0 (primary d iagnosis) Urine dip negative here. - UA DIP, URINE (POC) 2. Vaginal itching - ICD9: 698.1, ICD10: N89.8 Exam deferred. Will rx diflucan. If not improving follow up with pcp. Cari Walls PA-C cnpn on 2020-05-25 CNPN Telephone (INTMWS) Normal 05-25-2020 [place] [facility] [facility] ([id number]) 1960 F [place] Date Time Provider Department ([id number]) 05/25/20 REID SIFUENTES INTMWS During your visit today, we recorded the following informati on about you: Kae Gómez 05/25/2020 10:23 AM Signed Luna Dumas is calling REID SIFUENTES MD office stating fletcher toribio has a yeast infection. She is asking medication is sent to her pharmacy, [facility] Please advise and return her call Pooja Fulton LPN 05/25/2020 11:47 AM Signed Patient notified that she would need to go to urgent c are for evaluation and treatment. Patient verbalized understanding and will be in today somethime. Pooja Fulton LPN Allergies As of Date: 05/25/2020 Noted Allergy Reaction ASPIRIN 08/12/2014 8 - GI Upset IBUPROFEN 08/12/2014 8 - GI Upset SIMVASTATIN 05/01/2016 14 - Other: See Comments Comments: Possible myalgia Date Reviewed: 05/15/2020 Reviewed by: Macrina PresleyRn) GINA Pardo - Fully Assessed Reason for Visit: Vaginal Problem [117] Prescriptions as of 05/25/2020 Sig: BLOOD-GLUCOSE METER Dispense 1 kit Accucheck or T* BLOOD SUGAR DIAGNOSTIC STRIPS Test blood sugar(s) 3x daily.* INSULIN SYRINGE U-100 WITH NE* Use one syringe daily OMEPRAZOLE 40 MG CAPSULE,MARCELA* Take 1 capsule by mouth once * FLUOXETINE 40 MG CAPSULE Take 1 capsule by mouth once * ARIPIPRAZOLE 10 MG TABLET Take 1 tablet by mouth once d* METFORMIN ER 500 MG TABLET,EX* Take 2 tablets by mouth twice * LORATADINE 10 MG TABLET Take 1 tablet by mouth once d* ATORVASTATIN 40 MG TABLET Take 1 tablet by mouth once d* LISINOPRIL 10 MG TABLET Take 0.5 tablets by mouth onc* GABAPENTIN 100 MG CAPSULE Please take 1 capsule in the * INSULIN GLARGINE (U-100) 100 * Inject 50 Units subcutaneousl * GUAIFENESIN ER 600 MG TABLET,* Take 2 tablets by mouth twice * Patient not taking: Reported on 10/07/2019 BENZONATATE 100 MG CAPSULE Take 1 capsule by mouth three* COMPOUNDED PRESCRIPTION Blood glucose monitor. Check* LANCETS Test blood sugar(s) 3 times d* FLUTICASONE PROPIONATE 50 MCG* Use 2 Sprays in each nostril * BENZONATATE 100 MG CAPSULE Take 1-2 capsules by mouth th* Patient not taking: Reported on 10/07/2019 ERGOCALCIFEROL (VITAMIN D2) 1* Take 1 capsule by mouth once * Patient not taking: Reported on 10/07/2019 Problem List As Of Date 05/25/2020 Noted Resolved Urgency of urination [R39.15] 08/12/2014 Frequency of urination [R35.0] 08/12/2014 Hesitancy of micturition [R39.11] 08/12/2014 Stress incontinence [N39.3] 08/12/2014 More... Morbid obesity (HCC) [E66.01] 08/12/2014 Polypharmacy [Z79.899] 08/12/2014 Uncontrolled type 2 diabetes mellitus (HCC) [E1*08/12/2014 More... Fibromyalgia [M79.7] 08/12/2014 More... Bipolar disorder (HCC) [F31.9] 08/15/2015 More... Hyperlipidemia LDL goal <100 [E78.5] 08/15/2015 More... Depression [F32.9] 08/15/2015 More... Vitamin D deficiency [E55.9] 05/01/2016 GERD (gastroesophageal reflux disease) [K21.9] 10/02/2016 Essential hypertension [I10] 11/28/2016 Elevated alkaline phosphatase level [R74.8] 03/29/2017 Lt arm numbness [R20.0] 02/04/2018 Encounter Status:Closed by POOJA FULTON LPN on 05/25/20 cnov on 2020-05-25 CNOV Office Visit (UCWSTR) Normal 05-25-[address] [place] [address] [facility] LUNA DUMAS ([id number]) 1960 F [facility] Time Provider Department ([id number]) 05/25/20 3:30 PM CARI WALLS) WSTR During your visit today, we recorded the following informati on about you: Temperature Pulse Respiration Blood pressure 98.6 degrees 83/minute 16/minute 120/62 Weight 106.9 kg Cari Walls PA-C 05/25/2020 5:17 PM Signed This note was created using Wellfount[employer]. Subjective Luna Dumas is a 59 year old female. HPI Patient presents with a chief complaint of vagin al itching times one day. She thinks she has a yeast infection. She does get them periodic ally. She has diabetic. Last time she checked her sugar was 120 today. S he states she has urinary frequency but that is common for her as well. No dysuria or back pain. No abdominal pain. No fever or chills. She is having some ick vaginal drainage as well. No new sexual partners. Review of Systems Genitourinary: Positive for vaginal discharge. All other systems reviewed and are negative. PAST MEDICAL HISTORY Diagnosis Date - Acute carpal tunnel syndrome, right 11/27/2018 - Bipolar 1 disorder (HCC) - Depression - Diabetes (HCC) - Fibromyalgia - Heartburn - Hypercholesteremia - Right distal ulnar fracture 11/27/2018 - Right radial fracture 11/27/2018 - Seasonal allergies Current Outpatient Medications Medication Sig Dispense Refill - Blood-Glucose Meter Dispense 1 kit Accucheck or Trumetrix per insurance preference 1 Each 0 - blood sugar diagnostic (BL OOD GLUCOSE TEST) test strip Test blood sugar(s) 3x daily. Dx: type 2 diabetes . Insulin: Yes. Accucheck or Trum etrix per insurance preference 100 Strip 11 - Insulin Syringe-Needle U-1 00 (TRUEPLUS INSULIN) 1 mL 30 gauge x 5/16 syrg Use one syringe daily 100 Syringe 3 - omeprazole 40 mg capsule Take 1 capsule by mouth onc e daily. 30min. before meal 30 capsule 5 - FLUoxetine HCl (PROZAC) 40 mg capsule Take 1 capsule by mouth once daily. 30 capsule 5 - ARIPiprazole (ABILIFY) 10 mg tablet Take 1 tablet by alessia th once daily. 90 tablet 3 - metFORMIN ER (GLUCOPHAGE XR) 500 mg 24 hr tablet Take 2 ta blets by mouth twice daily. Gradually get up to 4 tablets per d ay as instructed 360 tablet 3 - loratadine (CLARITIN) 10 mg tablet Take 1 tablet by mouth once daily. 90 tablet 3 - atorvastatin (LIPITOR) 40 mg tablet Take 1 tablet by alessia th once daily. 90 tablet 3 - lisinopril (PRINIVIL) 10 mg tablet Take 0.5 ta blets by mouth once daily. 45 tablet 3 - gabapentin (NEURONTIN) 100 mg capsule Please take 1 capsule in the morning and afternoon and 2 tablets in the evening 120 capsule 2 - insulin glargine (LANTUS U -100 INSULIN) 100 unit/mL injection Inject 50 Units subcutaneously once daily. As directed. E10.8 3 Vial 5 - COMPOUNDED PRESCRIPTION Blood glucose monitor. Check blood sugar three times daily. Dx: E11.9, Insulin dependent. 1 Device 0 - Lancets lancets Test blood sugar(s) 3 times daily. Dx: Typ e 2 DM - Controlled E11.9 Insulin: Yes 100 Each 0 - fluticasone (FLONASE) 50 mcg/actuation nasal spray Use 2 S prays in each nostril once daily. 1 Bottle 11 - fluconazole (DIFLUCAN) 150 mg tablet T mily 1 tablet by mouth once daily for 1 day. 1 tablet 0 - guaiFENesin (MUCINEX) 600 mg 12 hr tablet Take 2 tablets b y mouth twice daily. (Patient not taking: Reported on 10/07/2019 ) 30 tablet 0 - benzonatate (TESSALON PERLES) 100 mg capsule Take 1 capsule by mouth three times daily as needed. 40 capsule 0 - benzonatate (TESSALON PERLE) 100 mg ca psule Take 1-2 capsules by mouth three times daily as needed. (Patient not taking: Reported on 09/25 ) 30 capsule 0 - ergocalciferol, vitamin D2, (DRISDOL) 50,000 u nit capsule Take 1 capsule by mouth once each week. (Patient not taking: Reported on 10/07 ) 4 capsule 11 No current facility-administered medications for this visit. PAST SURGICAL HISTORY Procedure Laterality Date - PAST SURGICAL HISTORY OF 2011 umbilical hernia repair - PAST SURGICAL HISTORY OF 1999 partial hysterectomy FAMILY HISTORY Problem Relation Age of Onset - Cancer Mother - Diabetes Mother - None Father - Diabetes Sister Social History Tobacco Use - Smoking status: Never Smoker - Smokeless tobacco: Never Used Substance Use Topics - Alcohol use: No - Drug use: No Objective BP 120/62 Pulse 83 Temp 37 ?C (98.6 ?F) (Tympanic) R reyna 16 Wt 106.9 kg (235 lb 9.6 oz) BMI 35.30 kg/m? Physical Exam Vitals signs reviewed. Constitutional: Appearance: Normal appearance. Cardiovascular: Rate and Rhythm: Normal rate and regular rhythm. Pulses: Normal pulses. Heart sounds: Normal heart sounds. Pulmonary: Effort: Pulmonary effort is normal. Abdominal: Tenderness: There is no right CVA tenderness or left CVA ten derness. Neurological: Mental Status: She is alert. Assessment and Plan ASSESSMENT/PLAN: 1. Urinary frequency - ICD9: 788.41, ICD10: R35.0 (primary d iagnosis) Urine dip negative here. - UA DIP, URINE (POC) 2. Vaginal itching - ICD9: 698.1, ICD10: N89.8 Exam deferred. Will rx diflucan. If not improving follow up with pcp. Cari Walls PA-C Referring Provider: SELF [[id number]] Allergies As of Date: 05/25/2020 Noted Allergy Reaction ASPIRIN 08/12/2014 8 - GI Upset IBUPROFEN 08/12/2014 8 - GI Upset SIMVASTATIN 05/01/2016 14 - Other: See Comments Comments: Possible myalgia Date Reviewed: 05/25/2020 Reviewed by: Penelope Mcconnell LPN - Fully Assessed Reason for Visit: Vaginal Problem [117] Cmt: vaginal itching x 1 day Primary Visit Diagnosis:Urinary frequency [R35.0] Other Visit Diagnosis:Vaginal itching [N89.8] Order(s):UA DIP, URINE (POC) [7703651] Order #: [id number] . #:[id number] fluconazole (DIFLUCAN) 150 mg tabletTake 1 tablet by mouth o nce daily for 1 day.Disp: 1 tabletRfl: 0 Prescriptions as of 05/25/2020 Sig: BLOOD-GLUCOSE METER Dispense 1 kit Accucheck or T* BLOOD SUGAR DIAGNOSTIC STRIPS Test blood sugar(s) 3x daily.* INSULIN SYRINGE U-100 WITH NE* Use one syringe daily OMEPRAZOLE 40 MG CAPSULE,MARCELA* Take 1 capsule by mouth once * FLUOXETINE 40 MG CAPSULE Take 1 capsule by mouth once * ARIPIPRAZOLE 10 MG TABLET Take 1 tablet by mouth once d* METFORMIN ER 500 MG TABLET,EX* Take 2 tablets by mouth twice * LORATADINE 10 MG TABLET Take 1 tablet by mouth once d* ATORVASTATIN 40 MG TABLET Take 1 tablet by mouth once d* LISINOPRIL 10 MG TABLET Take 0.5 tablets by mouth onc* GABAPENTIN 100 MG CAPSULE Please take 1 capsule in the * INSULIN GLARGINE (U-100) 100 * Inject 50 Units subcutaneousl * COMPOUNDED PRESCRIPTION Blood glucose monitor. Check* LANCETS Test blood sugar(s) 3 times d* FLUTICASONE PROPIONATE 50 MCG* Use 2 Sprays in each nostril * FLUCONAZOLE 150 MG TABLET Take 1 tablet by mouth once d* GUAIFENESIN ER 600 MG TABLET,* Take 2 tablets by mouth twice * Patient not taking: Reported on 10/07/2019 BENZONATATE 100 MG CAPSULE Take 1 capsule by mouth three* BENZONATATE 100 MG CAPSULE Take 1-2 capsules by mouth th* Patient not taking: Reported on 10/07/2019 ERGOCALCIFEROL (VITAMIN D2) 1* Take 1 capsule by mouth once * Patient not taking: Reported on 10/07/2019 Problem List As Of Date 05/25/2020 Noted Resolved Urgency of urination [R39.15] 08/12/2014 Frequency of urination [R35.0] 08/12/2014 Hesitancy of micturition [R39.11] 08/12/2014 Stress incontinence [N39.3] 08/12/2014 More... Morbid obesity (HCC) [E66.01] 08/12/2014 Polypharmacy [Z79.899] 08/12/2014 Uncontrolled type 2 diabetes mellitus (HCC) [E1*08/12/2014 More... Fibromyalgia [M79.7] 08/12/2014 More... Bipolar disorder (HCC) [F31.9] 08/15/2015 More... Hyperlipidemia LDL goal <100 [E78.5] 08/15/2015 More... Depression [F32.9] 08/15/2015 More... Vitamin D deficiency [E55.9] 05/01/2016 GERD (gastroesophageal reflux disease) [K21.9] 10/02/2016 Essential hypertension [I10] 11/28/2016 Elevated alkaline phosphatase level [R74.8] 03/29/2017 Lt arm numbness [R20.0] 02/04/2018 Prescriptions ordered this encounter Disp Refills Start End FLUCONAZOLE 150 MG TABLET 1 ta* 0 05/25/2020 05/26/2020 Route: ORAL Sig: Take 1 tablet by mouth once daily for 1 day. Encounter Status:Closed by CARI WALLS PA-C on 05/25/20 tsh on 2020-05-16 TSH Qn 1.250 0.270-4.200 uU/mL Normal 05-16-2020 [facility] ([id number]) Comment: Performed By: #### CMP, LIPB , TSH, CBC, HBA1C ####[facility] [place], [place] [phone] lipid panel, basic on 2020-05-16 Cholesterol [Mass/Vol] 175 <200 mg/dL Normal 020 [facility] ([id number]) Comment: Result Comment: <200 mg/dL, Desirable 200-239 mg/dL, Borderline hi gh >239 mg/dL, High Performed By: #### CMP, LIPB , TSH, CBC, HBA1C ####[address] [place], [place] [phone] Cholesterol in HDL 42 >39 mg/dL Normal 05-16-2020 [facility] [Mass/Vol] ([id number]) Comment: Result Comment: 40-59 mg/dL, Acceptable >59 mg/dL, High: Negative ri sk factor for coronary heart disease <40 mg/dL, Low: Positive ris k factor for coronary heart disease Performed By: #### CMP, LIPB , TSH, CBC, HBA1C ####[address] [place], [place] [phone] Cholesterol in LDL 102 <100 mg/dL High 05-16-2020 [facility] [Mass/Vol] ([id number]) Comment: Result Comment: <100 mg/dL, Optimal 100-129 mg/dL, Near optimal/ above optimal 130-159 mg/dL, Borderline hi gh 160-189 mg/dL, High >189 mg/dL, Very high Secondary prevention optimal LDL Cholesterol levels are recommended to be < 70 mg/dL Performed By: #### CMP, LIPB , TSH, CBC, HBA1C ####[facility] [place], [place] [phone] Fasting Time 12 hrs Normal 05-16-2020 [facility] ([id number]) Comment: Performed By: #### CMP, LIPB , TSH, CBC, HBA1C ####[facility] [place], [place] [phone] LDL:HDL Ratio 2.43 <2.54 Normal 05-16-2020 [facility] ([id number]) Comment: Result Comment: Reference: 1. National Cholesterol Educ ation Program ATP III Guideline At-A-Glance Quick Desk Reference: National Heart, Lung, and Blood [place]. National Institutes of Health. 2001: NIH Publication No. 01-3305. 2. An International Atherosc lerosis Society position paper: global recommendations for the management of dyslipidemia: executive summary, Atherosclerosis. 2014: 232(2):410-413. Performed By: #### CMP, LIPB , TSH, CBC, HBA1C ####[place] [address] [place], [place] [phone] Non HDL Cholesterol 133 <130 mg/dL High 05-16-2020 [facility] ([id number]) Comment: Result Comment: <130 mg/dL, Optimal 130-159 mg/dL, Near optimal/ above optimal 160-189 mg/dL, Borderline hi gh 190-219 mg/dL, High >219 mg/dL, Very high Secondary prevention optimal non HDL Cholesterol levels are recommended to be < 100 mg/dL Performed By: #### CMP, LIPB , TSH, CBC, HBA1C ####[place] [address] [place], [place] [phone] TC:HDL Ratio 4.17 <5.10 Normal 05-16-2020 [facility] ([id number]) Comment: Performed By: #### CMP, LIPB , TSH, CBC, HBA1C ####[place] [address] [place], [place] [phone] Triglyceride [Mass/Vol] 155 <150 mg/dL High 2019 [facility] ([id number]) Comment: Result Comment: <150 mg/dL, Normal 150-199 mg/dL, Borderline hi gh 200-499 mg/dL, High >499 mg/dL, Very high Performed By: #### CMP, LIPB , TSH, CBC, HBA1C ####[place] [address] [place], [place] [phone] VLDL Cholesterol 31 <30 mg/dL High 05-16-2020 [facility] ([id number]) Comment: Performed By: #### CMP, LIPB , TSH, CBC, HBA1C ####[address] [place], [place] [phone] hemoglobin a1c on 2 HbA1c (Bld) [Mass fraction] 226 mg/dL Normal [facility] ([id number]) Comment: Result Comment: eAG: (Estima jorgito average glucose) is a calculated value from HgbA1c and is tax representative of the average blood glucose level in the last 2-3 month period. Performed By: #### CMP, LIPB , TSH, CBC, HBA1C ####[address] [phone] HbA1c (Bld) [Mass fraction] 9.5 4.3-5.6 % High [facility] ([id number]) Comment: Result Comment: [place] Carol betes Association guidelines indicate that patients with HgbA1c in the range 5.7-6.4% are at increased risk for development of diabetes, and intervention by lifestyle modification may be beneficial. HgbA1c greater o r equal to 6.5% is considered diagnostic of diabetes. Performed By: #### CMP, LIPB , TSH, CBC, HBA1C ####[address] [phone] comp metabolic panel on 2020-05-16 Albumin [Mass/Vol] 3.9 3.9-4.9 g/dL Normal 05-16-2020 [facility] ([id number]) Comment: Performed By: #### CMP, LIPB , TSH, CBC, HBA1C ####[address] [place], [place] [phone] ALP [Catalytic activity/Vol] 130 34-123 U/L High 0 05-16-2020 [facility] ([id number]) Comment: Performed By: #### CMP, LIPB , TSH, CBC, HBA1C ####[facility] [place], [place] [phone] ALT [Catalytic activity/Vol] 9 7-38 U/L Normal 0 05-16-2020 [facility] ([id number]) Comment: Performed By: #### CMP, LIPB , TSH, CBC, HBA1C ####[place] [address] [place], [place] [phone] Anion gap [Moles/Vol] 13 9-18 mmol/L Normal 05-16-20 20 [facility] (71614) Comment: Performed By: #### CMP, LIPB , TSH, CBC, HBA1C ####[place] [address] [place], [place] [phone] AST [Catalytic activity/Vol] 15 13-35 U/L Normal 0 05-16-2020 [facility] ([id number]) Comment: Performed By: #### CMP, LIPB , TSH, CBC, HBA1C ####[place] [address] [place], [place] [phone] Bilirubin [Mass/Vol] 0.3 0.2-1.3 mg/dL Normal 0 [facility] ([id number]) Comment: Performed By: #### CMP, LIPB , TSH, CBC, HBA1C ####[place] [address] [place], [place] [phone] Calcium [Mass/Vol] 9.5 8.5-10.2 mg/dL Normal 05-16-2020 [facility] (10985) Comment: Performed By: #### CMP, LIPB , TSH, CBC, HBA1C ####[place] [address] [place], [place] [phone] Chloride [Moles/Vol] 104 97-105 mmol/L Normal 0 [facility] ([id number]) Comment: Performed By: #### CMP, LIPB , TSH, CBC, HBA1C ####[place] [address] [place], [place] [phone] CO2 [Moles/Vol] 27 22-30 mmol/L Normal 05-16-2020 [facility] ([id number]) Comment: Performed By: #### CMP, LIPB , TSH, CBC, HBA1C ####[facility] [address] [place], [place] [phone] Creatinine [Mass/Vol] 0.63 0.58-0.96 mg/dL Normal 05-16-20 20 [facility] ([id number]) Comment: Performed By: #### CMP, LIPB , TSH, CBC, HBA1C ####[facility] [address] [place], [place] [phone] eGFR- Amer. >60 Normal 05-16-2020 [facility] (52953) Comment: Performed By: #### CMP, LIPB , TSH, CBC, HBA1C ####[facility] [address] [place], [place] [phone] GFR/1.73 sq M predicted >60 mL/min/{1.73_m2} Normal 05-16-2020 [facility] among non-blacks [facility] ([id number]) (S/P/Bld) [Vol rate/Area] Comment: Result Comment: eGFR (Estima jorgito GFR) Units of measure: mL/min/1.73 meters squared eGFR is derived from the ree xpressed MDRD Study equation using the following parameters: serum creatinine, age, gender and race. The creatinine assay has been calibrated to be traceable to IDMS. An eGFR <60 mL/min/1.73m2 fo r >3 months is consistent with chronic kidney disease. Refer to KDOQI guidelines for clinical interpretation. In patients with unstable re nal function, e.g. those with acute kidney injury, the eGFR may not accurately reflect actual GFR. Performed By: #### CMP, LIPB , TSH, CBC, HBA1C ####[facility] [address] [place], [place] [phone] Glucose [Mass/Vol] 164 74-99 mg/dL High 05-16-2020 [facility] ([id number]) Comment: Result Comment: The [place] Diabetes Association (ADA) provides guidance for cutoff values for fasting glucose and random glucose. The ADA defines fasting as no caloric intake for at least 8 hours. Fas ting plasma glucose results between 100 to 125 mg/dL indicate increased risk for diabetes (prediabetes). Fasting plasma glucose resul ts greater than or equal to 126 mg/dL meet the criteria for diagnosis of diabetes. In the absence of unequivocal hyperglycemia, results should be confirmed by repeat testing. In a patient with classic s ymptoms of hyperglycemia or hyperglycemic crisis, random plasma glucose results greater than or equal to 200 mg/dL meet the criteria for diagnosis of diabetes. Reference: Standards of [facility] Care in Diabetes 2016, [place] Diabetes Association. Diabetes Care. 2016.39(Suppl 1). Performed By: #### CMP, LIPB , TSH, CBC, HBA1C ####[facility] [address] [place], [place] [phone] Potassium [Moles/Vol] 4.8 3.7-5.1 mmol/L Normal 05-16-20 [facility] (57703) Comment: Performed By: #### CMP, LIPB , TSH, CBC, HBA1C ####[facility] [place], [place] [phone] Protein [Mass/Vol] 6.8 6.3-8.0 g/dL Normal 05-16-2020 [facility] (98672) Comment: Performed By: #### CMP, LIPB , TSH, CBC, HBA1C ####[facility] [address] [place], [place] [phone] Sodium [Moles/Vol] 144 136-144 mmol/L Normal 05-16-2020 [facility] (08624) Comment: Performed By: #### CMP, LIPB , TSH, CBC, HBA1C ####[facility] [address] [place], [place] [phone] Urea nitrogen [Mass/Vol] 8 7-21 mg/dL Normal 05-16 [facility] (90848) Comment: Performed By: #### CMP, LIPB , TSH, CBC, HBA1C ####[facility] [place], [place] [phone] cbc on 2020-05-16 Absolute nRBC <0.01 <0.01 Normal 05-16-2020 [facility] (80207) Comment: Performed By: #### CMP, LIPB , TSH, CBC, HBA1C ####[facility] [place], [place] [phone] Erythrocyte distribution 13.0 11.5-15.0 % Normal 05-16 [facility] width (RBC) [Ratio] [facility] (12782) Comment: Performed By: #### CMP, LIPB , TSH, CBC, HBA1C ####[place] [address] [place], [place] [phone] Hematocrit (Bld) [Volume 38.8 36.0-46.0 % Normal 05-16 [facility] fraction] [facility] ([id number]) Comment: Performed By: #### CMP, LIPB , TSH, CBC, HBA1C ####[place] [address] [place], [place] [phone] Hemoglobin (Bld) 12.1 11.5-15.5 g/dL Normal 05-16-2020 [facility] [Mass/Vol] [facility] ([id number]) Comment: Performed By: #### CMP, LIPB , TSH, CBC, HBA1C ####[place] [address] [place], [place] [phone] MCH (RBC) [Entitic mass] 27.9 26.0-34.0 pG Normal 05-16 [facility] ([id number]) Comment: Performed By: #### CMP, LIPB , TSH, CBC, HBA1C ####[facility] [place], [place] [phone] MCHC (RBC) [Mass/Vol] 31.2 30.5-36.0 g/dL Normal 05-16-20 20 [facility] (73117) Comment: Performed By: #### CMP, LIPB , TSH, CBC, HBA1C ####[facility] [place], [place] [phone] MCV (RBC) [Entitic vol] 89.4 80.0-100.0 fL Normal 05-16 [facility] (80198) Comment: Performed By: #### CMP, LIPB , TSH, CBC, HBA1C ####[facility] [place], [place] [phone] Platelet mean volume 10.7 9.0-12.7 fL Normal 0 [facility] (Bld) [Entitic vol] [facility] ([id number]) Comment: Performed By: #### CMP, LIPB , TSH, CBC, HBA1C ####[place] [address] [place], [place] [phone] Platelets (Bld) [#/Vol] 333 150-400 k/uL Normal 2019 [facility] (11563) Comment: Performed By: #### CMP, LIPB , TSH, CBC, HBA1C ####[place] [address] [place], [place] [phone] RBC (Bld) [#/Vol] 4.34 3.90-5.20 m/uL Normal 05-16-2020 [facility] (97605) Comment: Performed By: #### CMP, LIPB , TSH, CBC, HBA1C ####[place] [address] [place], [place] [phone] WBC (Bld) [#/Vol] 7.17 3.70-11.00 k/uL Normal 05-16-2020 [facility] ([id number]) Comment: Performed By: #### CMP, LIPB , TSH, CBC, HBA1C ####[place] [address] [place], [place] [phone] progress on 2020-04 PROGRESS HNO ID: [id number] Normal 05-14-2020 [facility] Author: Reid Sifuentes [facility] ([id number]) Service: ? Author Type: Physician Type: Progress Notes Filed: 05/14/2020 11:02 AM Note Text: This Team Access Model visit is a phone encounter. It requir ed patient-provider interaction for the medical decision making as documented below. The patient is aware that I am not fully able to assess symp toms and do a full physical exam including vital signs in the office at th is time.The patient consented to this type of encounter since it was per formed by phone / virtually due to the COVID-19 epidemic as an effort to protect patients and minimize exposure. Patient has had back ache for the past few days, been to [facility] care urine was negative. Patient had a in her family recently, it ws her daught ers dad he had a stroke and then several stroke and then he . Had a n appointment with Dr Diana but could not make it. Pain is in the lower and goes across, he tries to get out, w ants to sit down a little bit. Pain is a 9/10, patient is sitting in one place and not movi ng because of the pain. It hurts and it is the sharp pain. She is not able to do much due to pain. She has not tried Ph ysical Therapy, did not have a xray but she will get all this done by Dr Arevalo She Is also having a shoulder issues that he is tending to. She is taking metformin, 2 tablets by mouth twice daily. She is mostly taking her medication. Takes insulin in the morning, around 50 units, denies having anylow sugars. Not checking sugars gained weight. HPL: Reviewed test results with patient , takes medications regularly , does not report side effects. Conscious to avoid red meats, full fat dairy and its by products. Exercising 3 to 5 times a week. HTN: Compliant with medications. Denies any chest pain, palp itations, or edema. No SOB. Doesn't check BP at home generally. Careful with diet to avoid salt, trying to eat more fruits a nd vegetables, exercises regularly. ASSESSMENT/PLAN: 1. Hyperlipidemia LDL goal <100 - ICD9: 272.4, ICD10: E78.5 (primary diagnosis) - good control - Continue current medication. 2. Essential hypertension - ICD9: 401.9, ICD10: I10 - good control - Recommended regular aerobic exercise. - Recommend home blood pressure monitoring, to bring results in on next visit - Goal of BP <130/80 3. Uncontrolled type 2 diabetes mellitus with hyperglycemia (HCC) - ICD9: 250.02, ICD10: E11.65 - LIPID PANEL BASIC 4. Bipolar disorder, in full remission, most recent episode mixed (HCC) - ICD9: 296.66, ICD10: F31.78 Cont the abilify 5. Gastroesophageal reflux disease, esophagitis presence not specified - ICD9: 530.81, ICD10: K21.9 - Discussed lifestyle modifications including losing weight, limiting caffeine, no meals three hours before sleep and head of bed elevation 6. Vitamin D deficiency - ICD9: 268.9, ICD10: E55.9 7. Morbid obesity (HCC) - ICD9: 278.01, ICD10: E66.01 discussed diet and exercise with the patient Spent 10 mins with the patient REID SIFUENTES MD cnpn on 2020-05-14 CNPN Telephone (UCWSTR) Normal 05-14-2020 [facility] LUNA Kasper ([id number]) 1960 [facility] Time Provider Department ([id number]) 05/14/20 NIKOLE HOWARD UCWSTR During your visit today, we recorded the following informati on about you: Nikole Howard APRN.CNP 05/14/2020 8:34 AM Signed Please inform patient that urine culture did not show any growth of bacteria requiring treatment. Advise due to longterm pain needs to follow up with PCP for further evaluation. KAREN Boone Ma 05/14/2020 8:49 AM Signed Patient given results and verbalized understanding of instru ctions given. Tamica Moseley Ma Allergies As of Date: 05/14/2020 Noted Allergy Reaction ASPIRIN 08/12/2014 8 - GI Upset IBUPROFEN 08/12/2014 8 - GI Upset SIMVASTATIN 05/01/2016 14 - Other: See Comments Comments: Possible myalgia Date Reviewed: 05/12/2020 Reviewed by: Tavon Huggins Ma - Fully Assessed Reason for Visit: Results [95] Cmt: urine culture Prescriptions as of 05/14/2020 Sig: BLOOD-GLUCOSE METER Dispense 1 kit Accucheck or T* BLOOD SUGAR DIAGNOSTIC STRIPS Test blood sugar(s) 3x daily.* INSULIN SYRINGE U-100 WITH NE* Use one syringe daily OMEPRAZOLE 40 MG CAPSULE,MARCELA* Take 1 capsule by mouth once * FLUOXETINE 40 MG CAPSULE Take 1 capsule by mouth once * ARIPIPRAZOLE 10 MG TABLET Take 1 tablet by mouth once d* METFORMIN ER 500 MG TABLET,EX* Take 2 tablets by mouth twice * LORATADINE 10 MG TABLET Take 1 tablet by mouth once d* ATORVASTATIN 40 MG TABLET Take 1 tablet by mouth once d* LISINOPRIL 10 MG TABLET Take 0.5 tablets by mouth onc* GABAPENTIN 100 MG CAPSULE Please take 1 capsule in the * INSULIN GLARGINE (U-100) 100 * Inject 50 Units subcutaneousl * GUAIFENESIN ER 600 MG TABLET,* Take 2 tablets by mouth twice * Patient not taking: Reported on 10/07/2019 BENZONATATE 100 MG CAPSULE Take 1 capsule by mouth three* COMPOUNDED PRESCRIPTION Blood glucose monitor. Check* LANCETS Test blood sugar(s) 3 times d* FLUTICASONE PROPIONATE 50 MCG* Use 2 Sprays in each nostril * BENZONATATE 100 MG CAPSULE Take 1-2 capsules by mouth th* Patient not taking: Reported on 10/07/2019 ERGOCALCIFEROL (VITAMIN D2) 1* Take 1 capsule by mouth once * Patient not taking: Reported on 10/07/2019 Problem List As Of Date 05/14/2020 Noted Resolved Urgency of urination [R39.15] 08/12/2014 Frequency of urination [R35.0] 08/12/2014 Hesitancy of micturition [R39.11] 08/12/2014 Stress incontinence [N39.3] 08/12/2014 More... Morbid obesity (HCC) [E66.01] 08/12/2014 Polypharmacy [Z79.899] 08/12/2014 Uncontrolled type 2 diabetes mellitus (HCC) [E1*08/12/2014 More... Fibromyalgia [M79.7] 08/12/2014 More... Bipolar disorder (HCC) [F31.9] 08/15/2015 More... Hyperlipidemia LDL goal <100 [E78.5] 08/15/2015 More... Depression [F32.9] 08/15/2015 More... Vitamin D deficiency [E55.9] 05/01/2016 GERD (gastroesophageal reflux disease) [K21.9] 10/02/2016 Essential hypertension [I10] 11/28/2016 Elevated alkaline phosphatase level [R74.8] 03/29/2017 Lt arm numbness [R20.0] 02/04/2018 Encounter Status:Closed by TAMICA MOSELEY MA on 05/14/20 urine culture on 14-05-18 Bacteria identified Sp. Request/Comment: - Specimen received in pre servative Normal 05-12-2020 [facility] Cx Nom (U) [place] ([id number]) Culture Result - <10,000 CFU/ml Normal urogenital rivera Comment: Performed By: #### URCUL ### #[facility] [id number] [place], [place] [phone] progress on 2020-04 PROGRESS HNO ID: [id number] Normal 05-12-2020 [facility] Author: Mau Delatorre) Mary ([id number]) Service: ? Author Type: Nurse Practitioner Type: Progress Notes Filed: 05/12/2020 3:41 PM Note Text: Subjective HPI HPI Luna Dumas is a 59 year old female who presents toda for CC of urinary frequency and right lower back pain. This started fe w days ago. Has tried otc medication without relief. Risk factors recent ly had same symptoms without uti. .Patient presents with: UTI PAST MEDICAL HISTORY Diagnosis Date - Acute carpal tunnel syndrome, right 11/27/2018 - Bipolar 1 disorder (HCC) - Depression - Diabetes (HCC) - Fibromyalgia - Heartburn - Hypercholesteremia - Right distal ulnar fracture 11/27/2018 - Right radial fracture 11/27/2018 - Seasonal allergies PAST SURGICAL HISTORY Procedure Laterality Date - PAST SURGICAL HISTORY OF 2011 umbilical hernia repair - PAST SURGICAL HISTORY OF 1999 partial hysterectomy ALLERGIES Aspirin; Ibuprofen; Simvastatin MEDICATIONS Blood-Glucose Meter Dispense 1 kit Accucheck or Trumetrix pe r insurance preference blood sugar diagnostic (BLOOD GLUCOSE TEST) test strip Test blood sugar(s) 3x daily. Dx: type 2 diabetes . Insulin: Yes. Accucheck or T rumetrix per insurance preference Insulin Syringe-Needle U-100 (TRUEPLUS INSULIN) 1 mL 30 gaug e x 04/09 syrg Use one syringe daily omeprazole 40 mg capsule Take 1 capsule by mouth once daily. 30min. before meal ARIPiprazole (ABILIFY) 10 mg tablet Take 1 tablet by mouth o nce daily. metFORMIN ER (GLUCOPHAGE XR) 500 mg 24 hr tablet Take 2 tabl ets by mouth twice daily. Gradually get up to 4 tablets per day as instru cted loratadine (CLARITIN) 10 mg tablet Take 1 tablet by mouth on ce daily. atorvastatin (LIPITOR) 40 mg tablet Take 1 tablet by mouth o nce daily. lisinopril (PRINIVIL) 10 mg tablet Take 0.5 tablets by mouth once daily. gabapentin (NEURONTIN) 100 mg capsule Please take 1 capsule in the morning and afternoon and 2 tablets in the evening insulin glargine (LANTUS U-100 INSULIN) 100 unit/mL injectio n Inject 50 Units subcutaneously once daily. As directed. E10.8 benzonatate (TESSALON PERLES) 100 mg capsule Take 1 capsule by mouth three times daily as needed. COMPOUNDED PRESCRIPTION Blood glucose monitor. Check blood s ugar three times daily. Dx: E11.9, Insulin dependent. Lancets lancets Test blood sugar(s) 3 times daily. Dx: Type 2 DM - Controlled E11.9 Insulin: Yes fluticasone (FLONASE) 50 mcg/actuation nasal spray Use 2 Spr ays in each nostril once daily. FLUoxetine HCl (PROZAC) 40 mg capsule Take 1 capsule by mout h once daily. guaiFENesin (MUCINEX) 600 mg 12 hr tablet Take 2 tablets by mouth twice daily. benzonatate (TESSALON PERLE) 100 mg capsule Take 1-2 capsule s by mouth three times daily as needed. ergocalciferol, vitamin D2, (DRISDOL) 50,000 unit capsule Ta ke 1 capsule by mouth once each week. FAMILY HISTORY Problem Relation Age of Onset - Cancer Mother - Diabetes Mother - None Father - Diabetes Sister Social History Tobacco Use - Smoking status: Never Smoker - Smokeless tobacco: Never Used Substance Use Topics - Alcohol use: No - Drug use: No Review of Systems Constitutional: Negative for chills, fever and weight loss. Respiratory: Negative for cough, shortness of breath and whe ezing. Cardiovascular: Negative for chest pain and palpitations. Gastrointestinal: Negative for abdominal pain, blood in stoo l, constipation, diarrhea, heartburn, melena, nausea and vomiti ng. Genitourinary: Positive for frequency. Negative for dysuria, flank pain, hematuria and urgency. Musculoskeletal: Positive for back pain. Objective Blood pressure 130/62, pulse 86, temperature 36.5 ?C (97.7 ? F), temperature source Left Tympanic, resp. rate 16, weight 105. 4 kg (232 lb 6.4 oz). Physical Exam Constitutional: She is well-developed, well-nourished, and i n no distress. Non-toxic appearance. She does not have a sickly appearance. No distress. Cardiovascular: Normal rate, regular rhythm and normal heart sounds. Pulmonary/Chest: Effort normal and breath sounds normal. Abdominal: Soft. Normal appearance and bowel sounds are norm al. There is no hepatosplenomegaly. There is no abdominal tenderness. The re is no CVA tenderness. Musculoskeletal: Lumbar back: She exhibits normal range of motion, no tendern ess, no bony tenderness, no swelling and no edema. Skin: Skin is warm and dry. ASSESSMENT/PLAN: 1. Dysuria - ICD9: 788.1, ICD10: R30.0 (primary diagnosis) acute - UA positive for gluc, adolph, ket - Send urine for culture - No treatment rendered, will call results -will schedule - UA DIP, URINE (POC) - URINE CULTURE 2. Acute midline low back pain without sciatica - ICD9: 724. 2, ICD10: M54.5 Will schedule recheck with pcp, has been reoccurring issue. Does not apear musculoskeletal. Patient feels is her kidney. Agrees to plan Mau Bauman APRN.KYLAH katz on 2020-05-12 CNOV Office Visit (UCWSTR) Normal 05-12- [place] LUNA Kasper A ([id number]) 1960 [address] [place] Date Time Provider Department ([id number]) 05/12/20 2:45 PM MAU BAUMAN (KYLAH) WSTR During your visit today, we recorded the following informati on about you: Temperature Pulse Respiration Blood pressure 97.7 degrees 86/minute 16/minute 130/62 Weight 105.4 kg Mau Bauman APRN.CNP 05/12/2020 3:41 PM Signed Subjective HPI HPI Luna Dumas is a 59 y ear old female who presents today for CC of urinary frequency and right lower back pain. This starte d few days ago. Has tried otc medication without relief. Risk factors recently had same sy mptoms without uti. .Patient presents with: UTI PAST MEDICAL HISTORY Diagnosis Date - Acute carpal tunnel syndrome, right 11/27/2018 - Bipolar 1 disorder (HCC) - Depression - Diabetes (HCC) - Fibromyalgia - Heartburn - Hypercholesteremia - Right distal ulnar fracture 11/27/2018 - Right radial fracture 11/27/2018 - Seasonal allergies PAST SURGICAL HISTORY Procedure Laterality Date - PAST SURGICAL HISTORY OF 2011 umbilical hernia repair - PAST SURGICAL HISTORY OF 1999 partial hysterectomy ALLERGIES Aspirin; Ibuprofen; Simvastatin MEDICATIONS Blood-Glucose Meter Dispense 1 kit Accucheck or Trumetrix pe r insurance preference blood sugar diagnostic (BLOOD GLUCOSE TEST) test strip Test blood sugar(s) 3x daily. Dx: type 2 diabetes . Insulin: Yes. Accucheck or Trum etrix per insurance preference Insulin Syringe-Needle U-100 (TRUEPLUS INSULIN) 1 mL 30 gauge x 5/16 syrg Use one syringe daily omeprazole 40 mg capsule Kaya e 1 capsule by mouth once daily. 30min. before meal ARIPiprazole (ABILIFY) 10 mg tablet Take 1 tablet by mouth o nce daily. metFORMIN ER (GLUCOPHAGE XR) 500 mg 24 h r tablet Take 2 tablets by mouth twice daily. Gradually get up to 4 tablets per day as instructed loratadine (CLARITIN) 10 mg tablet Take 1 tablet by mouth on ce daily. atorvastatin (LIPITOR) 40 mg tablet Take 1 tablet by mouth o nce daily. lisinopril (PRINIVIL) 10 mg tablet Take 0.5 tablets by mouth once daily. gabapentin (NEURONTIN) [address] ease take 1 capsule in the morning and afternoon and 2 tablets in the evening insulin glargine (LANTUS U-100 INSULIN) 100 unit /mL injection Inject 50 Units subcutaneously once daily. As directed. E10.8 benzonatate (TESSALON PERLES) 100 mg capsule Take 1 capsule by mouth three times daily as needed. COMPOUNDED PRESCRIPTION Blood glucose monitor. Check b lood sugar three times daily. Dx: E11.9, Insulin dependent. Lancets lancets Test blood sugar(s) 3 times cj y. Dx: Type 2 DM - Controlled E11.9 Insulin: Yes fluticasone (FLONASE) 50 mcg /actuation nasal spray Use 2 Sprays in each nostril once daily. FLUoxetine HCl (PROZAC) 40 mg capsule Take 1 capsule by mout h once daily. guaiFENesin (MUCINEX) 600 mg 12 hr table t Take 2 tablets by mouth twice daily. benzonatate (TESSALON PERLE) 100 mg capsule Take 1-2 c apsules by mouth three times daily as needed. ergocalciferol, vitamin D2, (DRISDOL) 50,000 unit capsule Take 1 capsule by mouth once each week. FAMILY HISTORY Problem Relation Age of Onset - Cancer Mother - Diabetes Mother - None Father - Diabetes Sister Social History Tobacco Use - Smoking status: Never Smoker - Smokeless tobacco: Never Used Substance Use Topics - Alcohol use: No - Drug use: No Review of Systems Constitutional: Negative for chills, fever and weight loss. Respiratory: Negative for cough, shortness of breath and whe ezing. Cardiovascular: Negative for chest pain and palpitations. Gastrointestinal: Negative for abdominal pain, blood i n stool, constipation, diarrhea, heartburn, melena, nausea and vomiting. Genitourinary: Positive for frequency. Negative for dysuria, flank pain, hematuria and urgency. Musculoskeletal: Positive for back pain. Objective Blood pressure 130/62, pulse 86, temperature 36.5 ?C (97.7 ?F), temperature source Left Tympanic, resp. rate 16, weight 105.4 kg (232 lb 6.4 oz). Physical Exam Constitutional: She is well-developed, well-nourished, and i n no distress. Non-toxic appearance. She does not have a sickly appearance. No distress. Cardiovascular: Normal rate, regular rhythm and normal heart sounds. Pulmonary/Chest: Effort normal and breath sounds normal. Abdominal: Soft. Normal appearance and bowel sounds are no rmal. There is no hepatosplenomegaly. There is no abdominal tenderness. There is no CVA tenderness. Musculoskeletal: Lumbar back: She exhibits normal range of motion, no tendern ess, no bony tenderness, no swelling and no edema. Skin: Skin is warm and dry. ASSESSMENT/PLAN: 1. Dysuria - ICD9: 788.1, ICD10: R30.0 (primary diagnosis) acute - UA positive for gluc, adolph, ket - Send urine for culture - No treatment rendered, will call results -will schedule - UA DIP, URINE (POC) - URINE CULTURE 2. Acute midline low back pain without sciatica - ICD9: 72 4.2, ICD10: M54.5 Will schedule recheck with pcp, has been reoccurring issue. Does not apear musculoskeletal. Patient feels is her kidney. Agrees to plan Mau Bauman APRN.[employer] PROFESSIONAL Referring Provider: SELF [[id number]] Allergies As of Date: 05/12/2020 Noted Allergy Reaction ASPIRIN 08/12/2014 8 - GI Upset IBUPROFEN 08/12/2014 8 - GI Upset SIMVASTATIN 05/01/2016 14 - Other: See Comments Comments: Possible myalgia Date Reviewed: 05/12/2020 Reviewed by: Tavon Huggins Ma - Fully Assessed Reason for Visit: UTI [116] Primary Visit Diagnosis:Dysuria [R30.0] Other Visit Diagnosis:Acute midline low back pain without sc iatica [M54.5] Order(s):UA DIP, URINE (POC) [[id number]] Order #: [id number] ec. #:[id number] URINE CULTURE [[facility]] Order #: [id number] Prescriptions as of 05/12/2020 Sig: BLOOD-GLUCOSE METER Dispense 1 kit Accucheck or T* BLOOD SUGAR DIAGNOSTIC STRIPS Test blood sugar(s) 3x daily.* INSULIN SYRINGE U-100 WITH NE* Use one syringe daily OMEPRAZOLE 40 MG CAPSULE,MARCELA* Take 1 capsule by mouth once * ARIPIPRAZOLE 10 MG TABLET Take 1 tablet by mouth once d* METFORMIN ER 500 MG TABLET,EX* Take 2 tablets by mouth twice * LORATADINE 10 MG TABLET Take 1 tablet by mouth once d* ATORVASTATIN 40 MG TABLET Take 1 tablet by mouth once d* LISINOPRIL 10 MG TABLET Take 0.5 tablets by mouth onc* GABAPENTIN 100 MG CAPSULE Please take 1 capsule in the * INSULIN GLARGINE (U-100) 100 * Inject 50 Units subcutaneousl * BENZONATATE 100 MG CAPSULE Take 1 capsule by mouth three* COMPOUNDED PRESCRIPTION Blood glucose monitor. Check* LANCETS Test blood sugar(s) 3 times d* FLUTICASONE PROPIONATE 50 MCG* Use 2 Sprays in each nostril * FLUOXETINE 40 MG CAPSULE Take 1 capsule by mouth once * GUAIFENESIN ER 600 MG TABLET,* Take 2 tablets by mouth twice * Patient not taking: Reported on 10/07/2019 BENZONATATE 100 MG CAPSULE Take 1-2 capsules by mouth th* Patient not taking: Reported on 10/07/2019 ERGOCALCIFEROL (VITAMIN D2) 1* Take 1 capsule by mouth once * Patient not taking: Reported on 10/07/2019 Problem List As Of Date 05/12/2020 Noted Resolved Urgency of urination [R39.15] 08/12/2014 Frequency of urination [R35.0] 08/12/2014 Hesitancy of micturition [R39.11] 08/12/2014 Stress incontinence [N39.3] 08/12/2014 More... Morbid obesity (HCC) [E66.01] 08/12/2014 Polypharmacy [Z79.899] 08/12/2014 Uncontrolled type 2 diabetes mellitus (HCC) [E1*08/12/2014 More... Fibromyalgia [M79.7] 08/12/2014 More... Bipolar disorder (HCC) [F31.9] 08/15/2015 More... Hyperlipidemia LDL goal <100 [E78.5] 08/15/2015 More... Depression [F32.9] 08/15/2015 More... Vitamin D deficiency [E55.9] 05/01/2016 GERD (gastroesophageal reflux disease) [K21.9] 10/02/2016 Essential hypertension [I10] 11/28/2016 Elevated alkaline phosphatase level [R74.8] 03/29/2017 Lt arm numbness [R20.0] 02/04/2018 Encounter Status:Closed by MAU BAUMAN CNP on 05/12/20 cnpn on 2020-04-25 CNPN Telephone (INTMWS) Normal 04-25-2020 [facility] [facility] DUMASLUNA ([id number]) 1960 [facility] Date Time Provider Department ([id number]) 04/25/20 REID SIFUENTES INTLeidyWS During your visit today, we recorded the following informati on about you: Malgorzata Lemons RN 04/25/2020 3:57 PM Signed [place] pharmacist called, verified pt by name and birthdate. Pharmacist states pt's insurance is now requir ing pt use either Accucheck or Trumetrix glucometer and supplies. Pt will need new meter and supplies. No orde rs pended, unsure which PCP would prefer. Please advise Malgorzata Solomon APRN.CNP 04/25/2020 4:54 PM Signed The following approved medic ation requests have been transmitted electronically. Signed Prescriptions Disp Refills Blood-Glucose Meter 1 Each 0 Sig: Dispense 1 kit Accucheck or Trumetrix per insurance pre ference Authorizing Provider: GARY SOLOMON) blood sugar diagnostic (BLOOD GLUCOSE TEST) test strip 100 S trip 11 Sig: Test blood sugar(s) 3x daily. Dx: type 2 diabetes . Ins ulin: Yes. Accucheck or Trumetrix per insurance preference Authorizing Provider: GARY SOLOMON (KYLAH) Gary Solomon APRN.[facility] Allergies As of Date: 04/25/2020 Noted Allergy Reaction ASPIRIN 08/12/2014 8 - GI Upset IBUPROFEN 08/12/2014 8 - GI Upset SIMVASTATIN 05/01/2016 14 - Other: See Comments Comments: Possible myalgia Date Reviewed: 02/19/2020 Reviewed by: Miguel (Kylah) Sera - Fully Assessed Reason for Visit: Diabetic supplies [Other] Order(s):Blood-Glucose MeterDispense 1 kit Accucheck or Trum etrix per insurance preferenceDisp: 1 EachRfl: 0 blood sugar diagnostic (BLOOD GLUCOSE TEST) test stripTest b lood sugar(s) 3x daily. Dx: type 2 diabetes . Insulin: Yes. Accuc heck or Trumetrix per insurance preferenceDisp: 100 StripRfl: 11 Prescriptions as of 04/25/2020 Sig: BLOOD-GLUCOSE METER Dispense 1 kit Accucheck or T* BLOOD SUGAR DIAGNOSTIC STRIPS Test blood sugar(s) 3x daily.* INSULIN SYRINGE U-100 WITH NE* Use one syringe daily OMEPRAZOLE 40 MG CAPSULE,MARCELA* Take 1 capsule by mouth once * FLUOXETINE 40 MG CAPSULE Take 1 capsule by mouth once * ARIPIPRAZOLE 10 MG TABLET Take 1 tablet by mouth once d* METFORMIN ER 500 MG TABLET,EX* Take 2 tablets by mouth twice * LORATADINE 10 MG TABLET Take 1 tablet by mouth once d* ATORVASTATIN 40 MG TABLET Take 1 tablet by mouth once d* LISINOPRIL 10 MG TABLET Take 0.5 tablets by mouth onc* GABAPENTIN 100 MG CAPSULE Please take 1 capsule in the * INSULIN GLARGINE (U-100) 100 * Inject 50 Units subcutaneousl * GUAIFENESIN ER 600 MG TABLET,* Take 2 tablets by mouth twice * Patient not taking: Reported on 10/07/2019 BENZONATATE 100 MG CAPSULE Take 1 capsule by mouth three* COMPOUNDED PRESCRIPTION Blood glucose monitor. Check* LANCETS Test blood sugar(s) 3 times d* FLUTICASONE PROPIONATE 50 MCG* Use 2 Sprays in each nostril * BENZONATATE 100 MG CAPSULE Take 1-2 capsules by mouth th* Patient not taking: Reported on 10/07/2019 ERGOCALCIFEROL (VITAMIN D2) 1* Take 1 capsule by mouth once * Patient not taking: Reported on 10/07/2019 Problem List As Of Date 04/25/2020 Noted Resolved Urgency of urination [R39.15] 08/12/2014 Frequency of urination [R35.0] 08/12/2014 Hesitancy of micturition [R39.11] 08/12/2014 Stress incontinence [N39.3] 08/12/2014 More... Morbid obesity (HCC) [E66.01] 08/12/2014 Polypharmacy [Z79.899] 08/12/2014 Uncontrolled type 2 diabetes mellitus (HCC) [E1*08/12/2014 More... Fibromyalgia [M79.7] 08/12/2014 More... Bipolar disorder (HCC) [F31.9] 08/15/2015 More... Hyperlipidemia LDL goal <100 [E78.5] 08/15/2015 More... Depression [F32.9] 08/15/2015 More... Vitamin D deficiency [E55.9] 05/01/2016 GERD (gastroesophageal reflux disease) [K21.9] 10/02/2016 Essential hypertension [I10] 11/28/2016 Elevated alkaline phosphatase level [R74.8] 03/29/2017 Lt arm numbness [R20.0] 02/04/2018 Prescriptions ordered this encounter Disp Refills Start End BLOOD-GLUCOSE METER 1 Ea* 0 04/25/2020 Sig: Dispense 1 kit Accucheck or Trumetrix per insurance pre ference BLOOD SUGAR DIAGNOSTIC STRIPS 100 * 11 04/25/2020 Cmt: Accucheck or Trumetrix per insurance preference Sig: Test blood sugar(s) 3x daily. Dx: type 2 diabetes . Ins ulin: Yes. Accucheck or Trumetrix per insurance preference Medications Discontinued During This Encounter blood sugar diagnostic (BLOOD GLUCOS* 100 * 11 03/30/20202019 Sig: Test blood sugar(s) 3 t imes daily. Dx: Type 2 DM - Controlled E11.9 Insulin: Yes Disc: Reason for discontinue is not on file. Encounter Status:Closed by GARY SOLOMON CNP on 04/25/20 progress on 2020-03 PROGRESS HNO ID: [id number] Normal 04-01-2020 [facility] Author: Reid Sifuentes ([id number]) Service: ? Author Type: Physician Type: Progress Notes Filed: 04/13/2020 11:17 AM Note Text: obsolete on 2020-03 OBSOLETE Refill (INTMWS) Normal 03-30-2020 Samuel greenwood LUNA Kasper ([id number]) 1960 [facility] Date Time Provider Department ([id number]) 03/30/20 REID SIFUENTES During your visit today, we recorded the following informati on about you: Dasha Rasheedquinten [facility] 03/30/2020 9:44 AM Signed Patient has been identified by name and date of : Yes Last office visit in this department: 11/30/2019 RX INSTRUCTIONS: Patient aware RX will be sent to pharmacy. No need to notify patient. Patient phones requesting refills as follows: Pending Prescriptions Disp Refills BLOOD SUGAR DIAGNOSTIC STRIPS 100 Strip 11 Sig: Test blood sugar(s) 3 times daily. Dx: Type 2 DM - Cont rolled E11.9 Insulin: Yes ALCIDES: No INSULIN SYRINGE U-100 WITH NEEDLE 1 ML 30 GAUGE X 5/16 100 Syringe 3 Sig: Use one syringe daily ALCIDES: No Please review and advise. Dasha Solomon APRN.CNP 03/30/2020 4:59 PM Signed The following approved medic ation requests have been transmitted electronically. Signed Prescriptions Disp Refills blood sugar diagnostic (BLOOD GLUCOSE TEST) test strip 100 S trip 11 Sig: Test blood sugar(s) 3 times daily. Dx: Type 2 DM - Cont rolled E11.9 Insulin: Yes ALCIDES: No Authorizing Provider: GARY SOLOMON ([employer] PROFESSIONAL) Insulin Syringe-Needle U-100 (TRUEPLUS INSULIN) 1 mL 30 gauge x 5/16 syrg 100 Syringe 3 Sig: Use one syringe daily ALCIDES: No Authorizing Provider: GARY SOLOMON) Gary Solomon APRN.CNP Allergies As of Date: 03/30/2020 Noted Allergy Reaction ASPIRIN 08/12/2014 8 - GI Upset IBUPROFEN 08/12/2014 8 - GI Upset SIMVASTATIN 05/01/2016 14 - Other: See Comments Comments: Possible myalgia Date Reviewed: 02/19/2020 Reviewed by: Miguel ([employer]) Sera - Fully Assessed Reason for Visit: Refill Request [94] Order(s):blood sugar diagnostic (BLOOD GLUCOSE TEST) test st ripTest blood sugar(s) 3 times daily. Dx: Type 2 DM - Controlled E11.9 Ins ulin: YesDisp: 100 StripRfl: 11 Insulin Syringe-Needle U-100 (TRUEPLUS INSULIN) 1 mL 30 gaug e x 5/16 syrgUse one syringe dailyDisp: 100 SyringeRfl: 3 Prescriptions as of 03/30/2020 Sig: BLOOD SUGAR DIAGNOSTIC STRIPS Test blood sugar(s) 3 times d* INSULIN SYRINGE U-100 WITH NE* Use one syringe daily OMEPRAZOLE 40 MG CAPSULE,MARCELA* Take 1 capsule by mouth once * FLUOXETINE 40 MG CAPSULE Take 1 capsule by mouth once * ARIPIPRAZOLE 10 MG TABLET Take 1 tablet by mouth once d* METFORMIN ER 500 MG TABLET,EX* Take 2 tablets by mouth twice * LORATADINE 10 MG TABLET Take 1 tablet by mouth once d* ATORVASTATIN 40 MG TABLET Take 1 tablet by mouth once d* LISINOPRIL 10 MG TABLET Take 0.5 tablets by mouth onc* GABAPENTIN 100 MG CAPSULE Please take 1 capsule in the * INSULIN GLARGINE (U-100) 100 * Inject 50 Units subcutaneousl * GUAIFENESIN ER 600 MG TABLET,* Take 2 tablets by mouth twice * Patient not taking: Reported on 10/07/2019 BENZONATATE 100 MG CAPSULE Take 1 capsule by mouth three* COMPOUNDED PRESCRIPTION Blood glucose monitor. Check* LANCETS Test blood sugar(s) 3 times d* FLUTICASONE PROPIONATE 50 MCG* Use 2 Sprays in each nostril * BENZONATATE 100 MG CAPSULE Take 1-2 capsules by mouth th* Patient not taking: Reported on 10/07/2019 ERGOCALCIFEROL (VITAMIN D2) 1* Take 1 capsule by mouth once * Patient not taking: Reported on 10/07/2019 Problem List As Of Date 03/30/2020 Noted Resolved Urgency of urination [R39.15] 08/12/2014 Frequency of urination [R35.0] 08/12/2014 Hesitancy of micturition [R39.11] 08/12/2014 Stress incontinence [N39.3] 08/12/2014 More... Morbid obesity (HCC) [E66.01] 08/12/2014 Polypharmacy [Z79.899] 08/12/2014 Uncontrolled type 2 diabetes mellitus (HCC) [E1*08/12/2014 More... Fibromyalgia [M79.7] 08/12/2014 More... Bipolar disorder (HCC) [F31.9] 08/15/2015 More... Hyperlipidemia LDL goal <100 [E78.5] 08/15/2015 More... Depression [F32.9] 08/15/2015 More... Vitamin D deficiency [E55.9] 05/01/2016 GERD (gastroesophageal reflux disease) [K21.9] 10/02/2016 Essential hypertension [I10] 11/28/2016 Elevated alkaline phosphatase level [R74.8] 03/29/2017 Lt arm numbness [R20.0] 02/04/2018 Prescriptions ordered this encounter Disp Refills Start End BLOOD SUGAR DIAGNOSTIC STRIPS 100 * 11 03/30/2020 Sig: Test blood sugar(s) 3 times daily. Dx: Type 2 DM - Cont rolled E11.9 Insulin: Yes INSULIN SYRINGE U-100 WITH NEEDLE 1 * 100 * 3 03/30/2020 Sig: Use one syringe daily Medications Discontinued During This Encounter blood sugar diagnostic (BLOOD GLUCOS* 100 * 11 03/12/201903/30 Sig: Test blood sugar(s) 3 t imes daily. Dx: Type 2 DM - Controlled E11.9 Insulin: Yes Disc: Reason for discontinue is not on file. Insulin Syringe-Needle U-100 (TRUEPL* 100 * 3 02/16/20192019 Sig: Use one syringe daily Disc: Reason for discontinue is not on file. Encounter Status:Closed by GARY SOLOMON CNP on 03/30/20 obsolete on 2020-03 OBSOLETE Refill (INTMWS) Normal 03-28-2020 [facility] LUNA DUMAS ([id number]) 1960 [facility] Time Provider Department ([id number]) 03/28/20 REID SIFUENTES INTMWS During your visit today, we recorded the following informati on about you: Millicent Flower Pss 03/28/2020 2:27 PM Signed Patient has been identified by name and date of : Yes Last office visit in this department: 11/30/2019 RX INSTRUCTIONS: Patient aware RX will be sent to pharmacy. No need to notify patient. Patient phones requesting refills as follows: Pending Prescriptions Disp Refills OMEPRAZOLE 40 MG CAPSULE,DELAYED RELEASE 30 capsule 2 Sig: Take 1 capsule by mouth once daily. 30min. before meal ALCIDES: No Please review and advise. Millicent Verdin LPN 03/28/2020 2:34 PM Signed Patient has been identified by name and date of : Yes Patient phones for refill(s): Pending Prescriptions Disp Refills OMEPRAZOLE 40 MG CAPSULE,DELAYED RELEASE 30 capsule 2 Sig: Take 1 capsule by mouth once daily. 30min. before meal ALCIDES: No Date of last office visit in primary care: 11/30/2019 4 month follow-up scheduled: 04/01/2020 Kate Solomon APRN.CNP 03/28/2020 2:36 PM Signed The following approved medic ation requests have been transmitted electronically. Signed Prescriptions Disp Refills omeprazole 40 mg capsule 30 capsule 5 Sig: Take 1 capsule by mouth once daily. 30min. before meal ALCIDES: No Authorizing Provider: GARY SOLOMON ([place]) Gary Solomon APRN.CNP Allergies As of Date: 03/28/2020 Noted Allergy Reaction ASPIRIN 08/12/2014 8 - GI Upset IBUPROFEN 08/12/2014 8 - GI Upset SIMVASTATIN 05/01/2016 14 - Other: See Comments Comments: Possible myalgia Date Reviewed: 02/19/2020 Reviewed by: Miguel ([place]ylah) Srea - Fully Assessed Reason for Visit: Refill Request [94] Visit Diagnosis:Gastroesophageal reflux disease, esophagitis presence not specified [K21.9] Order(s):omeprazole 40 mg capsuleTake 1 capsule by mouth o nce daily. 30min. before mealDisp: 30 capsuleRfl: 5 Prescriptions as of 03/28/2020 Sig: OMEPRAZOLE 40 MG CAPSULE,MARCELA* Take 1 capsule by mouth once * FLUOXETINE 40 MG CAPSULE Take 1 capsule by mouth once * ARIPIPRAZOLE 10 MG TABLET Take 1 tablet by mouth once d* METFORMIN ER 500 MG TABLET,EX* Take 2 tablets by mouth twice * LORATADINE 10 MG TABLET Take 1 tablet by mouth once d* ATORVASTATIN 40 MG TABLET Take 1 tablet by mouth once d* LISINOPRIL 10 MG TABLET Take 0.5 tablets by mouth onc* GABAPENTIN 100 MG CAPSULE Please take 1 capsule in the * INSULIN GLARGINE (U-100) 100 * Inject 50 Units subcutaneousl * GUAIFENESIN ER 600 MG TABLET,* Take 2 tablets by mouth twice * Patient not taking: Reported on 10/07/2019 BENZONATATE 100 MG CAPSULE Take 1 capsule by mouth three* COMPOUNDED PRESCRIPTION Blood glucose monitor. Check* BLOOD SUGAR DIAGNOSTIC STRIPS Test blood sugar(s) 3 times d* LANCETS Test blood sugar(s) 3 times d* INSULIN SYRINGE U-100 WITH NE* Use one syringe daily FLUTICASONE PROPIONATE 50 MCG* Use 2 Sprays in each nostril * BENZONATATE 100 MG CAPSULE Take 1-2 capsules by mouth th* Patient not taking: Reported on 10/07/2019 ERGOCALCIFEROL (VITAMIN D2) 1* Take 1 capsule by mouth once * Patient not taking: Reported on 10/07/2019 Problem List As Of Date 03/28/2020 Noted Resolved Urgency of urination [R39.15] 08/12/2014 Frequency of urination [R35.0] 08/12/2014 Hesitancy of micturition [R39.11] 08/12/2014 Stress incontinence [N39.3] 08/12/2014 More... Morbid obesity (HCC) [E66.01] 08/12/2014 Polypharmacy [Z79.899] 08/12/2014 Uncontrolled type 2 diabetes mellitus (HCC) [E1*08/12/2014 More... Fibromyalgia [M79.7] 08/12/2014 More... Bipolar disorder (HCC) [F31.9] 08/15/2015 More... Hyperlipidemia LDL goal <100 [E78.5] 08/15/2015 More... Depression [F32.9] 08/15/2015 More... Vitamin D deficiency [E55.9] 05/01/2016 GERD (gastroesophageal reflux disease) [K21.9] 10/02/2016 Essential hypertension [I10] 11/28/2016 Elevated alkaline phosphatase level [R74.8] 03/29/2017 Lt arm numbness [R20.0] 02/04/2018 Prescriptions ordered this encounter Disp Refills Start End OMEPRAZOLE 40 MG CAPSULE,DELAYED REL* 30 c* 5 03/28/2020 Route: ORAL Sig: Take 1 capsule by mouth once daily. 30min. before meal Medications Discontinued During This Encounter Omeprazole 40 mg capsule 30 c* 2 11/30/2019 03/28/2020 Route: ORAL Sig: Take 1 capsule by mouth once daily. 30min. before meal Disc: Reason for discontinue is not on file. Encounter Status:Closed by GARY SOLOMON CNP on 03/28/20 obsolete on 2020-02 OBSOLETE Refill (INTMWS) Normal 03-07-2020 [facility] LUNA DUMAS ([id number]) 1960 [facility] Date Time Provider Department ([id number]) 03/07/20 GARY SOLOMON) INTMWS During your visit today, we recorded the following informati on about you: Gary Solomon APRN.CNP 03/07/2020 9:52 AM Signed Refill fax request received on my desk from [facility] for the following medications: The following approved medic ation requests have been transmitted electronically. Signed Prescriptions Disp Refills FLUoxetine HCl (PROZAC) 40 mg capsule 30 capsule 5 Sig: Take 1 capsule by mouth once daily. ALCIDES: No Authorizing Provider: GARY SOLOMON ([place]) Gary Solomon APRN.CNP Allergies As of Date: 03/07/2020 Noted Allergy Reaction ASPIRIN 08/12/2014 8 - GI Upset IBUPROFEN 08/12/2014 8 - GI Upset SIMVASTATIN 05/01/2016 14 - Other: See Comments Comments: Possible myalgia Date Reviewed: 02/19/2020 Reviewed by: Miguel ([place]) Sera - Fully Assessed Reason for Visit: Refill Request [94] Visit Diagnosis:Anxiety and depression [F41.9, F32.9] Order(s):FLUoxetine HCl (PROZAC) 40 mg capsuleTake 1 capsule by mouth once daily.Disp: 30 capsuleRfl: 5 Prescriptions as of 03/07/2020 Sig: FLUOXETINE 40 MG CAPSULE Take 1 capsule by mouth once * ARIPIPRAZOLE 10 MG TABLET Take 1 tablet by mouth once d* METFORMIN ER 500 MG TABLET,EX* Take 2 tablets by mouth twice * LORATADINE 10 MG TABLET Take 1 tablet by mouth once d* ATORVASTATIN 40 MG TABLET Take 1 tablet by mouth once d* LISINOPRIL 10 MG TABLET Take 0.5 tablets by mouth onc* OMEPRAZOLE 40 MG CAPSULE,MARCELA* Take 1 capsule by mouth once * GABAPENTIN 100 MG CAPSULE Please take 1 capsule in the * INSULIN GLARGINE (U-100) 100 * Inject 50 Units subcutaneousl * GUAIFENESIN ER 600 MG TABLET,* Take 2 tablets by mouth twice * Patient not taking: Reported on 10/07/2019 BENZONATATE 100 MG CAPSULE Take 1 capsule by mouth three* COMPOUNDED PRESCRIPTION Blood glucose monitor. Check* BLOOD SUGAR DIAGNOSTIC STRIPS Test blood sugar(s) 3 times d* LANCETS Test blood sugar(s) 3 times d* INSULIN SYRINGE U-100 WITH NE* Use one syringe daily FLUTICASONE PROPIONATE 50 MCG* Use 2 Sprays in each nostril * BENZONATATE 100 MG CAPSULE Take 1-2 capsules by mouth th* Patient not taking: Reported on 10/07/2019 ERGOCALCIFEROL (VITAMIN D2) 1* Take 1 capsule by mouth once * Patient not taking: Reported on 10/07/2019 Problem List As Of Date 03/07/2020 Noted Resolved Urgency of urination [R39.15] 08/12/2014 Frequency of urination [R35.0] 08/12/2014 Hesitancy of micturition [R39.11] 08/12/2014 Stress incontinence [N39.3] 08/12/2014 More... Morbid obesity (HCC) [E66.01] 08/12/2014 Polypharmacy [Z79.899] 08/12/2014 Uncontrolled type 2 diabetes mellitus (HCC) [E1*08/12/2014 More... Fibromyalgia [M79.7] 08/12/2014 More... Bipolar disorder (HCC) [F31.9] 08/15/2015 More... Hyperlipidemia LDL goal <100 [E78.5] 08/15/2015 More... Depression [F32.9] 08/15/2015 More... Vitamin D deficiency [E55.9] 05/01/2016 GERD (gastroesophageal reflux disease) [K21.9] 10/02/2016 Essential hypertension [I10] 11/28/2016 Elevated alkaline phosphatase level [R74.8] 03/29/2017 Lt arm numbness [R20.0] 02/04/2018 Prescriptions ordered this encounter Disp Refills Start End FLUOXETINE 40 MG CAPSULE 30 c* 5 03/07/2020 Route: ORAL Sig: Take 1 capsule by mouth once daily. Medications Discontinued During This Encounter FLUoxetine HCl (PROZAC) 40 mg capsule 30 c* 2 12/15/201903/07 Route: ORAL Sig: Take 1 capsule by mouth once daily. Disc: Reason for discontinue is not on file. Encounter Status:Closed by GARY SOLOMON CNP on 03/07/20 kylahn on 2020-02-21 [facility] (UCWSTR[facility] Normal 02-21-2020 [facility] LUNA DUMAS ([id number]) 1960 [facility] Time Provider Department ([id number]) 02/21/20 NIKOLE HOWARD [facility] During your visit today, we recorded the following informati on about you: Nikole Howard APRN.CNP 02/21/2020 8:43 AM Signed Please inform patient that urine culture did not show any growth of bacteria requiring treatment. Advise to continue plan of care as discussed. KAREN Boone Ma 02/21/2020 8:53 AM Signed Patient given results and verbalized understanding of instru ctions given. Tamica Moseley Ma Allergies As of Date: 02/21/2020 Noted Allergy Reaction ASPIRIN 08/12/2014 8 - GI Upset IBUPROFEN 08/12/2014 8 - GI Upset SIMVASTATIN 05/01/2016 14 - Other: See Comments Comments: Possible myalgia Date Reviewed: 02/19/2020 Reviewed by: Miguel ([employer]) Sera - Fully Assessed Reason for Visit: Results [95] Cmt: urine culture Prescriptions as of 02/21/2020 Sig: ARIPIPRAZOLE 10 MG TABLET Take 1 tablet by mouth once d* METFORMIN ER 500 MG TABLET,EX* Take 2 tablets by mouth twice * LORATADINE 10 MG TABLET Take 1 tablet by mouth once d* FLUOXETINE 40 MG CAPSULE Take 1 capsule by mouth once * ATORVASTATIN 40 MG TABLET Take 1 tablet by mouth once d* LISINOPRIL 10 MG TABLET Take 0.5 tablets by mouth onc* OMEPRAZOLE 40 MG CAPSULE,MARCELA* Take 1 capsule by mouth once * GABAPENTIN 100 MG CAPSULE Please take 1 capsule in the * INSULIN GLARGINE (U-100) 100 * Inject 50 Units subcutaneousl * GUAIFENESIN ER 600 MG TABLET,* Take 2 tablets by mouth twice * Patient not taking: Reported on 10/07/2019 BENZONATATE 100 MG CAPSULE Take 1 capsule by mouth three* COMPOUNDED PRESCRIPTION Blood glucose monitor. Check* BLOOD SUGAR DIAGNOSTIC STRIPS Test blood sugar(s) 3 times d* LANCETS Test blood sugar(s) 3 times d* INSULIN SYRINGE U-100 WITH NE* Use one syringe daily FLUTICASONE PROPIONATE 50 MCG* Use 2 Sprays in each nostril * BENZONATATE 100 MG CAPSULE Take 1-2 capsules by mouth th* Patient not taking: Reported on 10/07/2019 ERGOCALCIFEROL (VITAMIN D2) 1* Take 1 capsule by mouth once * Patient not taking: Reported on 10/07/2019 Problem List As Of Date 02/21/2020 Noted Resolved Urgency of urination [R39.15] 08/12/2014 Frequency of urination [R35.0] 08/12/2014 Hesitancy of micturition [R39.11] 08/12/2014 Stress incontinence [N39.3] 08/12/2014 More... Morbid obesity (HCC) [E66.01] 08/12/2014 Polypharmacy [Z79.899] 08/12/2014 Uncontrolled type 2 diabetes mellitus (HCC) [E1*08/12/2014 More... Fibromyalgia [M79.7] 08/12/2014 More... Bipolar disorder (HCC) [F31.9] 08/15/2015 More... Hyperlipidemia LDL goal <100 [E78.5] 08/15/2015 More... Depression [F32.9] 08/15/2015 More... Vitamin D deficiency [E55.9] 05/01/2016 GERD (gastroesophageal reflux disease) [K21.9] 10/02/2016 Essential hypertension [I10] 11/28/2016 Elevated alkaline phosphatase level [R74.8] 03/29/2017 Lt arm numbness [R20.0] 02/04/2018 Encounter Status:Closed by LORELEI RASHEED TAMICA on 02/21/20 urine culture on 11-02-27 Bacteria identified Sp. Request/Comment: - Specimen received in pre servative Normal 02-19-2020 [facility] Cx Nom (U) [place] ([id number]) Culture Result - <10,000 CFU/ml Normal urogenital rivera Comment: Performed By: #### URCUL ### #[facility] [id number] [place], [place] [phone] progress on 2020-01 PROGRESS HNO ID: [id number] Normal 02-19-2020 [facility] Author: Miguel (Kylah) Sera Mary ([id number]) Service: ? Author Type: Nurse Practitioner Type: Progress Notes Filed: 02/19/2020 1:12 PM Note Text: Subjective HPI Patient presents to urgent care with chief complaint of upper respiratory tract like infection and poss UTI. Duration of s ymptoms 2 days. Associated symptoms, nasal congestion, headache, nasal discharge and nonproductive cough. Additionally patient states increased u rinary frequency and back pain. Patient states back pain is bilater al lower back. Patient states back pain is 2 out of 10. Patient state s history of UTIs with similar symptoms. Last UTI [address]es she was unaware she had a UTI 1 month ago until urine was tested in the ER. Patient denies the use of any [id number] medications o r home remedies for symptom management. Patient states recent sick contacts with similar signs and symptoms. Patient denies any productive co ugh, fever, chest pain, shortness of breath, pleuritic pain, rash, abdom inal pain, nausea, vomiting or chvaginal discharge, chance of STDs, lacie nce of , or urological abnormalities. .No chief complaint on file. PAST MEDICAL HISTORY Diagnosis Date - Acute carpal tunnel syndrome, right 11/27/2018 - Bipolar 1 disorder (HCC) - Depression - Diabetes (HCC) - Fibromyalgia - Heartburn - Hypercholesteremia - Right distal ulnar fracture 11/27/2018 - Right radial fracture 11/27/2018 - Seasonal allergies PAST SURGICAL HISTORY Procedure Laterality Date - PAST SURGICAL HISTORY OF 2011 umbilical hernia repair - PAST SURGICAL HISTORY OF 1999 partial hysterectomy ALLERGIES Aspirin; Ibuprofen; Simvastatin MEDICATIONS ARIPiprazole (ABILIFY) 10 mg tablet Take 1 tablet by mouth o nce daily. metFORMIN ER (GLUCOPHAGE XR) 500 mg 24 hr tablet Take 2 tabl ets by mouth twice daily. Gradually get up to 4 tablets per day as instru cted loratadine (CLARITIN) 10 mg tablet Take 1 tablet by mouth on ce daily. FLUoxetine HCl (PROZAC) 40 mg capsule Take 1 capsule by mout h once daily. atorvastatin (LIPITOR) 40 mg tablet Take 1 tablet by mouth o nce daily. lisinopril (PRINIVIL) 10 mg tablet Take 0.5 tablets by mouth once daily. Omeprazole 40 mg capsule Take 1 capsule by mouth once daily. 30min. before meal gabapentin (NEURONTIN) 100 mg capsule Please take 1 capsule in the morning and afternoon and 2 tablets in the evening insulin glargine (LANTUS U-100 INSULIN) 100 unit/mL injectio n Inject 50 Units subcutaneously once daily. As directed. E10.8 guaiFENesin (MUCINEX) 600 mg 12 hr tablet Take 2 tablets by mouth twice daily. benzonatate (TESSALON PERLES) 100 mg capsule Take 1 capsule by mouth three times daily as needed. COMPOUNDED PRESCRIPTION Blood glucose monitor. Check blood s ugar three times daily. Dx: E11.9, Insulin dependent. blood sugar diagnostic (BLOOD GLUCOSE TEST) test strip Test blood sugar(s) 3 times daily. Dx: Type 2 DM - Controlled E11.9 Insulin: Yes Lancets lancets Test blood sugar(s) 3 times daily. Dx: Type 2 DM - Controlled E11.9 Insulin: Yes Insulin Syringe-Needle U-100 (TRUEPLUS INSULIN) 1 mL 30 gaug e x 5/16 syrg Use one syringe daily fluticasone (FLONASE) 50 mcg/actuation nasal spray Use 2 Spr ays in each nostril once daily. benzonatate (TESSALON PERLE) 100 mg capsule Take 1-2 capsule s by mouth three times daily as needed. ergocalciferol, vitamin D2, (DRISDOL) 50,000 unit capsule Ta ke 1 capsule by mouth once each week. FAMILY HISTORY Problem Relation Age of Onset - Cancer Mother - Diabetes Mother - None Father - Diabetes Sister Social History Tobacco Use - Smoking status: Never Smoker - Smokeless tobacco: Never Used Substance Use Topics - Alcohol use: No - Drug use: No BP 108/70 hr 72 resp 18 97% temp 98.8 Review of Systems Constitutional: Negative for chills, fever and malaise/fatig ue. HENT: Positive for congestion and sinus pain. Negative for e ar discharge, ear pain and sore throat. Eyes: Negative for blurred vision. Respiratory: Positive for cough. Negative for sputum product ion, shortness of breath and wheezing. Cardiovascular: Negative for chest pain. Gastrointestinal: Negative for abdominal pain, nausea and vo miting. Genitourinary: Positive for frequency. Negative for dysuria, flank pain, hematuria and urgency. Musculoskeletal: Negative for myalgias. Skin: Negative for itching and rash. Neurological: Negative for dizziness and headaches. Objective Physical Exam Constitutional: She is oriented to person, place, and time a nd well-developed, well-nourished, and in no distress. No distr ess. HENT: Head: Normocephalic and atraumatic. Right Ear: Hearing, external ear and ear canal normal. No dr ainage, swelling or tenderness. Tympanic membrane is not perforated, not erythematous and not bulging. No decreased hearing is noted. Left Ear: Hearing, tympanic membrane, external ear and ear c anal normal. No drainage, swelling or tenderness. Tympanic membrane is no t perforated, not erythematous and not bulging. No decreased hearing is no jorgito. Nose: Rhinorrhea present. Mouth/Throat: Uvula is midline and mucous membranes are norm al. No trismus in the jaw. No uvula swelling. No oropharyngeal exudate, pos terior oropharyngeal edema, posterior oropharyngeal erythema or ton sillar abscesses. Eyes: Pupils are equal, round, and reactive to light. Conjun ctivae are normal. Right eye exhibits no discharge. Left eye exhibits n o discharge. Neck: Normal range of motion. Neck supple. Cardiovascular: Normal rate, regular rhythm and normal heart sounds. Pulmonary/Chest: Breath sounds normal. No accessory muscle u kerwin. No tachypnea. No respiratory distress. She has no wheezes. She has no rales. She exhibits no tenderness. Abdominal: Soft. Bowel sounds are normal. She exhibits no di stension. There is no abdominal tenderness. There is no rigidity, no r ebound, no guarding, no CVA tenderness, no tenderness at McBurney's poi nt and negative Angela's sign. Genitourinary: No vaginal discharge. Musculoskeletal: Normal range of motion. General: No tenderness. Lymphadenopathy: Head (right side): No submental, no submandibular, no tonsil lar, no preauricular, no posterior auricular and no occipital adenop athy present. Head (left side): No submental, no submandibular, no tonsill ar, no preauricular, no posterior auricular and no occipital adenop athy present. She has no cervical adenopathy. Right cervical: No superficial cervical and no posterior cer vical adenopathy present. Left cervical: No superficial cervical and no posterior cerv ical adenopathy present. Neurological: She is alert and oriented to person, place, an d time. Skin: Skin is warm and dry. No rash noted. She is not diapho retic. Nursing note and vitals reviewed. ASSESSMENT/PLAN: 1. Acute low back pain without sciatica, unspecified back pa in laterality - ICD9: 724.2, ICD10: M54.5 (primary diagnosis) - UA DIP, URINE (POC) - URINE CULTURE 2. Urine frequency - ICD9: 788.41, ICD10: R35.0 acute - Send urine for culture - UA DIP, URINE (POC) - URINE CULTURE 3. URI, acute - ICD9: 465.9, ICD10: J06.9 - Discussed viral etiology and rationale for treatment. - Symptomatic treatment with prn analgesia - Supportive care with fluids and rest Patient urine did show glucose. Glucose monitoring and contr ol was discussed with patient. Patient was educated on supportive therapies. Patient will follow up with primary care provider in 2 to 3 days for reevaluation. Patient was instructed to immediately proceed to emergency r oom for any new, worsening, or symptoms lasting longer than anticipated. The patient's clinical presentation is otherwise unremarkable at this time . Based on exam and clinical finding, the patient is stable for dischar ge. Plan of care was discussed with patient. Patient verbalizes understa nding and agrees to plan of care. This note was generated using [employer] software. It may contain errors in wording, punctuation, or spelling. KAREN Maxwellov on 2020-02-19 CNOV Office Visit (UCWSTR) Normal 02-19-20 [facility] LUNA DUMAS ([id number]) 1960 [facility] Time Provider Department ([id number]) 02/19/20 11:30 AM MIGUEL ZAMORA ([place]LAH) [facility] During your visit today, we recorded the following informati on about you: Miguel Zamora APRN.CNP 02/19/2020 1:12 PM Signed Subjective HPI Patient presents to urgent care with chief c omplaint of upper respiratory tract like infection and poss UTI. Duration of symptoms 2 da ys. Associated symptoms, nasal congestion, headache, na chata discharge and nonproductive cough. Additionally patient states increased ur inary frequency and back pain. Patient states back pain is bilateral lower back . Patient states back pain is 2 out of 10. Patient states history of UTIs with similar symptoms. La st UTI 1 month ago. Patient states she was unaware she had a UT I 1 month ago until urine was tested in the ER. Patient denies the use of any over-t he-counter medications or home remedies for symptom management. Patient state s recent sick contacts with similar signs and symptoms. Patient denies any pr oductive cough, fever, chest pain, shortness of breath, pleurit ic pain, rash, abdominal pain, nausea, vomiting or chvaginal discharge, chance of STDs, chance of p regnancy, or urological abnormalities. .No chief complaint on file. PAST MEDICAL HISTORY Diagnosis Date - Acute carpal tunnel syndrome, right 11/27/2018 - Bipolar 1 disorder (HCC) - Depression - Diabetes (HCC) - Fibromyalgia - Heartburn - Hypercholesteremia - Right distal ulnar fracture 11/27/2018 - Right radial fracture 11/27/2018 - Seasonal allergies PAST SURGICAL HISTORY Procedure Laterality Date - PAST SURGICAL HISTORY OF 2011 umbilical hernia repair - PAST SURGICAL HISTORY OF 1999 partial hysterectomy ALLERGIES Aspirin; Ibuprofen; Simvastatin MEDICATIONS ARIPiprazole (ABILIFY) 10 mg tablet Take 1 tablet by mouth o nce daily. metFORMIN ER (GLUCOPHAGE XR) 500 mg 24 h r tablet Take 2 tablets by mouth twice daily. Gradually get up to 4 tablets per day as instructed loratadine (CLARITIN) 10 mg tablet Take 1 tablet by mouth on ce daily. FLUoxetine HCl (PROZAC) 40 mg capsule Take 1 capsule by mout h once daily. atorvastatin (LIPITOR) 40 mg tablet Take 1 tablet by mouth o nce daily. lisinopril (PRINIVIL) 10 mg tablet Take 0.5 tablets by mouth once daily. Omeprazole 40 mg capsule Kaya e 1 capsule by mouth once daily. 30min. before meal gabapentin (NEURONTIN) [address] ease take 1 capsule in the morning and afternoon and 2 tablets in the evening insulin glargine (LANTUS U-100 INSULIN) 100 unit /mL injection Inject 50 Units subcutaneously once daily. As directed. E10.8 guaiFENesin (MUCINEX) 600 mg 12 hr table t Take 2 tablets by mouth twice daily. benzonatate (TESSALON PERLES) 100 mg capsule Take 1 capsule by mouth three times daily as needed. COMPOUNDED PRESCRIPTION Blood glucose monitor. Check b lood sugar three times daily. Dx: E11.9, Insulin dependent. blood sugar diagnostic (BLOOD GLUCOSE TEST) test strip Test blood sugar(s) 3 times daily. Dx: Type 2 DM - Controlled E11.9 Insulin: Yes Lancets lancets Test blood sugar(s) 3 times cj y. Dx: Type 2 DM - Controlled E11.9 Insulin: Yes Insulin Syringe-Needle U-100 (TRUEPLUS INSULIN) 1 mL 30 gauge x 5/16 syrg Use one syringe daily fluticasone (FLONASE) 50 mcg /actuation nasal spray Use 2 Sprays in each nostril once daily. benzonatate (TESSALON PERLE) 100 mg capsule Take 1-2 c apsules by mouth three times daily as needed. ergocalciferol, vitamin D2, (DRISDOL) 50,000 unit capsule Take 1 capsule by mouth once each week. FAMILY HISTORY Problem Relation Age of Onset - Cancer Mother - Diabetes Mother - None Father - Diabetes Sister Social History Tobacco Use - Smoking status: Never Smoker - Smokeless tobacco: Never Used Substance Use Topics - Alcohol use: No - Drug use: No BP 108/70 hr 72 resp 18 97% temp 98.8 Review of Systems Constitutional: Negative for chills, fever and malaise/fatig ue. HENT: Positive for congestion and sinus pain. Ne gative for ear discharge, ear pain and sore throat. Eyes: Negative for blurred vision. Respiratory: Positive for cough. Negative for sp utum production, shortness of breath and wheezing. Cardiovascular: Negative for chest pain. Gastrointestinal: Negative for abdominal pain, nausea and vo miting. Genitourinary: Positive for frequency. Negative for dysuria, flank pain, hematuria and urgency. Musculoskeletal: Negative for myalgias. Skin: Negative for itching and rash. Neurological: Negative for dizziness and headaches. Objective Physical Exam Constitutional: She is oriented to perso n, place, and time and well-developed, well-nourished, and in no distress. No distress. HENT: Head: Normocephalic and atraumatic. Right Ear: Hearing, external ear and ear canal normal. No drainage, swelling or tenderness. Tympanic membrane is not perforated, not erythem atous and not bulging. No decreased hearing is noted. Left Ear: Hearing, tympanic membrane, external ear and ear canal normal. No drainage, swelling or tenderness. Tympanic membrane is not p erforated, not erythematous and not bulging. No decreased hearing is noted. Nose: Rhinorrhea present. Mouth/Throat: Uvula is midline and mucous membra marta are normal. No trismus in the jaw. No uvula swelling. No oropharyngeal exu date, posterior oropharyngeal edema, posterior oropharyngeal erythema or tonsillar abscess es. Eyes: Pupils are equal, round, and react patricia to light. Conjunctivae are normal. Right eye exhibits no discharge. Left eye exhibits no discha rge. Neck: Normal range of motion. Neck supple. Cardiovascular: Normal rate, regular rhythm and normal heart sounds. Pulmonary/Chest: Breath soun ds normal. No accessory muscle usage. No tachypnea. No respiratory distress. She has no whee zes. She has no rales. She exhibits no tenderness. Abdominal: Soft. Bowel sounds are normal . She exhibits no distension. There is no abdominal tenderness. There is no rig idity, no rebound, no guarding, no CVA tenderness, no tenderness at McBurney's point and negative M urphy's sign. Genitourinary: No vaginal discharge. Musculoskeletal: Normal range of motion. General: No tenderness. Lymphadenopathy: Head (right side): No submental, no submandibular, no tonsil lar, no preauricular, no posterior auricular and no occipital adenop athy present. Head (left side): No submental, no submandibular, no tonsill ar, no preauricular, no posterior auricular and no occipital adenop athy present. She has no cervical adenopathy. Right cervical: No superficial cervical and no posterior cer vical adenopathy present. Left cervical: No superficial cervical and no posterior cerv ical adenopathy present. Neurological: She is alert and oriented to person, place, an d time. Skin: Skin is warm and dry. No rash noted. She is not diapho retic. Nursing note and vitals reviewed. ASSESSMENT/PLAN: 1. Acute low back pain without sciatica, unspecified back pain laterality - ICD9: 724.2, ICD10: M54.5 (primary diagnosis) - UA DIP, URINE (POC) - URINE CULTURE 2. Urine frequency - ICD9: 788.41, ICD10: R35.0 acute - Send urine for culture - UA DIP, URINE (POC) - URINE CULTURE 3. URI, acute - ICD9: 465.9, ICD10: J06.9 - Discussed viral etiology and rationale for treatment. - Symptomatic treatment with prn analgesia - Supportive care with fluids and rest Patient urine did show glucose. Glucose monitoring and control was discussed with patient. Patient was educated on supportive therapies. Patient will follow up with primary care provider in 2 to 3 days for reevaluation. Patient was instructed to immediately proceed to emerg ency room for any new, worsening, or symptoms lasting longer th an anticipated. The patient's clinical presentation is otherwise un remarkable at this time. Based on exam and clinical finding, the patient is stable for discharge. Pl an of care was discussed with patient. Patient verbalizes understanding and agrees to plan of care. This note was generated using [employer] software. It may contain errors i n wording, punctuation, or spelling. Miguel Zamora APRN.REAL ESTATE PROFESSIONAL Miguel Zamora APRN.REAL ESTATE PROFESSIONAL 02/19/2020 11:43 AM Signed RESPIRATORY INFECTION GENERAL INFORMATION: An upper respiratory tract infection, or cold, is a viral in fection of the airway passages. It can be caused by any one of almost 200 different viruses. Common symptoms include a runny or stuffy nose, sneezing, watery eyes, sore throat, cough, and slight fever. Colds are contagious, especially during the first 3 or 4 days and cannot be cured by antibiotics. They a re spread by coughs, sneezes, and direct contact, especially hand-to-bryan nd. A respiratory tract infection usually clears up in a few days, but s ome people may be sick for a week or two. INSTRUCTIONS: 1. Be careful not to blow yo ur nose too hard because this may cause a nosebleed. 2. Use a cool-mist humidifier (vaporizer) to inc rease air moisture. This will make it easier for you to breathe. Do not use hot steam. 3. Rest as much as possible and get plenty of sleep. 4. Wash your hands often, especially after you blow your nos e. Cover your mouth and nose with a tissue when you sneeze or cough. 5. Drink plenty of clear fluids (8 glasses a day ) such as water, fruit juice, tea, clear soups, and carbonated beverages. CONTACT YOUR DOCTOR IF : 1. Your fever lasts more than 3 days. 2. You have a sore throat that gets worse or you see white or yellow spots in your throat. 3. Your cough gets worse or lasts more than 10 days. 4. You develop a rash anywhere on your skin. 5. You have an earache or a headache. 6. You have thick greenish or yellowish discharge from your nose. RETURN IMMEDIATELY IF: 1. You cough up thick yellow, green, leonard, or bloody sputum. 2. You have difficulty breathing, pain in your chest, or y our skin or nails look leonard or blue. 3. You have shaking chills or a temperature over 102 F (39 C ). Referring Provider: SELF [200] Allergies As of Date: 02/19/2020 Noted Allergy Reaction ASPIRIN 08/12/2014 8 - GI Upset IBUPROFEN 08/12/2014 8 - GI Upset SIMVASTATIN 05/01/2016 14 - Other: See Comments Comments: Possible myalgia Date Reviewed: 02/19/2020 Reviewed by: Miguel ([employer]) Sera - Fully Assessed Primary Visit Diagnosis:Acute low back p ain without sciatica, unspecified back pain laterality [M54.5] Other Visit Diagnoses:Urine frequency [R35.0] URI, acute [J06.9] Order(s):UA DIP, URINE (POC) [[id number]] Order #: [id number] ec. #:[id number] URINE CULTURE [SQURCUL] Order #: [id number] Prescriptions as of 02/19/2020 Sig: ARIPIPRAZOLE 10 MG TABLET Take 1 tablet by mouth once d* METFORMIN ER 500 MG TABLET,EX* Take 2 tablets by mouth twice * LORATADINE 10 MG TABLET Take 1 tablet by mouth once d* FLUOXETINE 40 MG CAPSULE Take 1 capsule by mouth once * ATORVASTATIN 40 MG TABLET Take 1 tablet by mouth once d* LISINOPRIL 10 MG TABLET Take 0.5 tablets by mouth onc* OMEPRAZOLE 40 MG CAPSULE,MARCELA* Take 1 capsule by mouth once * GABAPENTIN 100 MG CAPSULE Please take 1 capsule in the * INSULIN GLARGINE (U-100) 100 * Inject 50 Units subcutaneousl * GUAIFENESIN ER 600 MG TABLET,* Take 2 tablets by mouth twice * Patient not taking: Reported on 10/07/2019 BENZONATATE 100 MG CAPSULE Take 1 capsule by mouth three* COMPOUNDED PRESCRIPTION Blood glucose monitor. Check* BLOOD SUGAR DIAGNOSTIC STRIPS Test blood sugar(s) 3 times d* LANCETS Test blood sugar(s) 3 times d* INSULIN SYRINGE U-100 WITH NE* Use one syringe daily FLUTICASONE PROPIONATE 50 MCG* Use 2 Sprays in each nostril * BENZONATATE 100 MG CAPSULE Take 1-2 capsules by mouth th* Patient not taking: Reported on 10/07/2019 ERGOCALCIFEROL (VITAMIN D2) 1* Take 1 capsule by mouth once * Patient not taking: Reported on 10/07/2019 Problem List As Of Date 02/19/2020 Noted Resolved Urgency of urination [R39.15] 08/12/2014 Frequency of urination [R35.0] 08/12/2014 Hesitancy of micturition [R39.11] 08/12/2014 Stress incontinence [N39.3] 08/12/2014 More... Morbid obesity (HCC) [E66.01] 08/12/2014 Polypharmacy [Z79.899] 08/12/2014 Uncontrolled type 2 diabetes mellitus (HCC) [E1*08/12/2014 More... Fibromyalgia [M79.7] 08/12/2014 More... Bipolar disorder (HCC) [F31.9] 08/15/2015 More... Hyperlipidemia LDL goal <100 [E78.5] 08/15/2015 More... Depression [F32.9] 08/15/2015 More... Vitamin D deficiency [E55.9] 05/01/2016 GERD (gastroesophageal reflux disease) [K21.9] 10/02/2016 Essential hypertension [I10] 11/28/2016 Elevated alkaline phosphatase level [R74.8] 03/29/2017 Lt arm numbness [R20.0] 02/04/2018 Other instructions from your clinician: RESPIRATORY INFECTION GENERAL INFORMATION: An upper respiratory tract infection, or cold, is a viral in fection of the airway passages. It can be caused by any one of almost 200 d ifferent viruses. Common symptoms include a runny or stuffy nose, sne ezing, watery eyes, sore throat, cough, and slight fever. Colds are contag ious, especially during the first 3 or 4 days and cannot be cured by antibiotics. They are spread by coughs, sneezes, and direct contact, especially afiy-ny-lumx. A respiratory tract infection usual ly clears up in a few days, but some people may be sick for a week or two . INSTRUCTIONS: 1. Be careful not to blow your nose too hard because this ma y cause a nosebleed. 2. Use a cool-mist humidifier (vaporizer) to increase air mo isture. This will make it easier for you to breathe. Do not use hot steam . 3. Rest as much as possible and get plenty of sleep. 4. Wash your hands often, especially after you blow your nos e. Cover your mouth and nose with a tissue when you sneeze or cough. 5. Drink plenty of clear fluids (8 glasses a day) such as wa ter, fruit juice, tea, clear soups, and carbonated beverages. CONTACT YOUR DOCTOR IF : 1. Your fever lasts more than 3 days. 2. You have a sore throat that gets worse or you see white o r yellow spots in your throat. 3. Your cough gets worse or lasts more than 10 days. 4. You develop a rash anywhere on your skin. 5. You have an earache or a headache. 6. You have thick greenish or yellowish discharge from your nose. RETURN IMMEDIATELY IF: 1. You cough up thick yellow, green, leonard, or bloody sputum. 2. You have difficulty breathing, pain in your chest, or you r skin or nails look leonard or blue. 3. You have shaking chills or a temperature over 102 F (39 C ). Encounter Status:Closed by MIGUEL ZAMORA APRN.CNP on obsolete on 2020-01 OBSOLETE Refill (INTMWS) Normal 02-12-2020 [facility] LUNA DUMAS ([id number]) 1960 [facility] Time Provider Department ([id number]) 02/12/20 RE[facility] SIFUENTES INTMWS During your visit today, we recorded the following informati on about you: Maribel Crowell Admin Sec 02/12/2020 10:43 AM Signed Patient has been identified by name and date of : Yes Last office visit in this department: 11/30/2019 RX INSTRUCTIONS: Patient aware RX will be sent to pharmacy. No need to notify patient. Patient phones requesting refills as follows: Pending Prescriptions Disp Refills ARIPIPRAZOLE 10 MG TABLET 30 tablet 2 Sig: Take 1 tablet by mouth once daily. ALCIDES: No Please review and advise. Maribel Crowell Admin Sec Mireille Madera LPN 02/15/2020 8:32 AM Signed Patient is due for refills. Added metformin. Gary Solomon APRN.CNP 02/15/2020 1:26 PM Signed The following approved medic ation requests have been transmitted electronically. Signed Prescriptions Disp Refills ARIPiprazole (ABILIFY) 10 mg tablet 90 tablet 3 Sig: Take 1 tablet by mouth once daily. ALCIDES: No Authorizing Provider: GARY SOLOMON ([facility]) metFORMIN ER (GLUCOPHAGE XR) 500 mg 24 hr tablet 360 tablet 3 Sig: Take 2 tablets by mouth twice daily. Gradually get up to 4 tablets per day as instructed ALCIDES: No Authorizing Provider: GARY SOLOMON ([place]) Gary Solomon APRN.CNP Allergies As of Date: 02/12/2020 Noted Allergy Reaction ASPIRIN 08/12/2014 8 - GI Upset IBUPROFEN 08/12/2014 8 - GI Upset SIMVASTATIN 05/01/2016 14 - Other: See Comments Comments: Possible myalgia Date Reviewed: 12/21/2019 Reviewed by: Rylee Daley Ma - Fully Assessed Reason for Visit: Refill Request [94] Visit Diagnosis:Anxiety and depression [F41.9, F32.9] Order(s):ARIPiprazole (ABILIFY) 10 mg tabletTake 1 tablet by mouth once daily.Disp: 90 tabletRfl: 3 metFORMIN ER (GLUCOPHAGE XR) 500 mg 24 hr tabletTake 2 table ts by mouth twice daily. Gradually get up to 4 tablets per day as instructedDisp: 360 tabletRfl: 3 Prescriptions as of 02/12/2020 Sig: ARIPIPRAZOLE 10 MG TABLET Take 1 tablet by mouth once d* METFORMIN ER 500 MG TABLET,EX* Take 2 tablets by mouth twice * LORATADINE 10 MG TABLET Take 1 tablet by mouth once d* FLUOXETINE 40 MG CAPSULE Take 1 capsule by mouth once * ATORVASTATIN 40 MG TABLET Take 1 tablet by mouth once d* LISINOPRIL 10 MG TABLET Take 0.5 tablets by mouth onc* OMEPRAZOLE 40 MG CAPSULE,MARCELA* Take 1 capsule by mouth once * GABAPENTIN 100 MG CAPSULE Please take 1 capsule in the * INSULIN GLARGINE (U-100) 100 * Inject 50 Units subcutaneousl * GUAIFENESIN ER 600 MG TABLET,* Take 2 tablets by mouth twice * Patient not taking: Reported on 10/07/2019 BENZONATATE 100 MG CAPSULE Take 1 capsule by mouth three* COMPOUNDED PRESCRIPTION Blood glucose monitor. Check* BLOOD SUGAR DIAGNOSTIC STRIPS Test blood sugar(s) 3 times d* LANCETS Test blood sugar(s) 3 times d* INSULIN SYRINGE U-100 WITH NE* Use one syringe daily FLUTICASONE PROPIONATE 50 MCG* Use 2 Sprays in each nostril * BENZONATATE 100 MG CAPSULE Take 1-2 capsules by mouth th* Patient not taking: Reported on 10/07/2019 ERGOCALCIFEROL (VITAMIN D2) 1* Take 1 capsule by mouth once * Patient not taking: Reported on 10/07/2019 Problem List As Of Date 02/12/2020 Noted Resolved Urgency of urination [R39.15] 08/12/2014 Frequency of urination [R35.0] 08/12/2014 Hesitancy of micturition [R39.11] 08/12/2014 Stress incontinence [N39.3] 08/12/2014 More... Morbid obesity (HCC) [E66.01] 08/12/2014 Polypharmacy [Z79.899] 08/12/2014 Uncontrolled type 2 diabetes mellitus (HCC) [E1*08/12/2014 More... Fibromyalgia [M79.7] 08/12/2014 More... Bipolar disorder (HCC) [F31.9] 08/15/2015 More... Hyperlipidemia LDL goal <100 [E78.5] 08/15/2015 More... Depression [F32.9] 08/15/2015 More... Vitamin D deficiency [E55.9] 05/01/2016 GERD (gastroesophageal reflux disease) [K21.9] 10/02/2016 Essential hypertension [I10] 11/28/2016 Elevated alkaline phosphatase level [R74.8] 03/29/2017 Lt arm numbness [R20.0] 02/04/2018 Prescriptions ordered this encounter Disp Refills Start End ARIPIPRAZOLE 10 MG TABLET 90 t* 3 02/15/2020 Route: ORAL Sig: Take 1 tablet by mouth once daily. METFORMIN ER 500 MG TABLET,EXTENDED * 360 * 3 02/15/2020 Route: ORAL Sig: Take 2 tablets by mouth twice daily. Gradually get up to 4 tablets per day as instructed Medications Discontinued During This Encounter ARIPiprazole (ABILIFY) 10 mg tablet 30 t* 2 10/26/2019 020 Route: ORAL Sig: Take 1 tablet by mouth once daily. Disc: Reason for discontinue is not on file. metFORMIN ER (GLUCOPHAGE XR) 500 mg * 120 * 5 05/22/201902/14 Route: ORAL Sig: Take 2 tablets by mouth twice daily. Gradually get up to 4 tablets per day as instructed Disc: Reason for discontinue is not on file. Encounter Status:Closed by GARY SOLOMON CNP on 02/15/20 obsolete on 2020-01 OBSOLETE Refill (INTMWS) Normal 02-01-2020 [facility] LUNA DUMAS ([id number]) 1960 [facility] Time Provider Department ([id number]) 02/01/20 RE[facility] SIFUENTES INTMWS During your visit today, we recorded the following informati on about you: Mireille Madera LPN 02/01/2020 3:56 PM Signed Patient has been identified by name and date of : Yes Pharmacy phones for refill(s): Pending Prescriptions Disp Refills LORATADINE 10 MG TABLET 90 tablet 3 Sig: Take 1 tablet by mouth once daily. ALCIDES: No Date of last office visit in primary care: 11/30/2019 Last 2 Encounter Wt Readings: Date: Wt: 11/30/2019 102.5 kg (226 lb) 10/14/2019 99.8 kg (220 lb) Previous labs/tests for medication: Not applicable Please advise. Thank you. Mireille Solomon APRN.[facility] 02/01/2020 5:25 PM Signed The following approved medic ation requests have been transmitted electronically. Signed Prescriptions Disp Refills loratadine (CLARITIN) 10 mg tablet 90 tablet 3 Sig: Take 1 tablet by mouth once daily. ALCIDES: No Authorizing Provider: GARY SOLOMON ([place]) Gary Solomon APRN.CNP Allergies As of Date: 02/01/2020 Noted Allergy Reaction ASPIRIN 08/12/2014 8 - GI Upset IBUPROFEN 08/12/2014 8 - GI Upset SIMVASTATIN 05/01/2016 14 - Other: See Comments Comments: Possible myalgia Date Reviewed: 12/21/2019 Reviewed by: Rylee Daley Ma - Fully Assessed Reason for Visit: Refill Request [94] Order(s):loratadine (CLARITIN) 10 mg tabletTake 1 tablet by mouth once daily.Disp: 90 tabletRfl: 3 Prescriptions as of 02/01/2020 Sig: LORATADINE 10 MG TABLET Take 1 tablet by mouth once d* FLUOXETINE 40 MG CAPSULE Take 1 capsule by mouth once * ATORVASTATIN 40 MG TABLET Take 1 tablet by mouth once d* LISINOPRIL 10 MG TABLET Take 0.5 tablets by mouth onc* OMEPRAZOLE 40 MG CAPSULE,MARCELA* Take 1 capsule by mouth once * GABAPENTIN 100 MG CAPSULE Please take 1 capsule in the * INSULIN GLARGINE (U-100) 100 * Inject 50 Units subcutaneousl * ARIPIPRAZOLE 10 MG TABLET Take 1 tablet by mouth once d* GUAIFENESIN ER 600 MG TABLET,* Take 2 tablets by mouth twice * Patient not taking: Reported on 10/07/2019 BENZONATATE 100 MG CAPSULE Take 1 capsule by mouth three* METFORMIN ER 500 MG TABLET,EX* Take 2 tablets by mouth twice * COMPOUNDED PRESCRIPTION Blood glucose monitor. Check* BLOOD SUGAR DIAGNOSTIC STRIPS Test blood sugar(s) 3 times d* LANCETS Test blood sugar(s) 3 times d* INSULIN SYRINGE U-100 WITH NE* Use one syringe daily FLUTICASONE PROPIONATE 50 MCG* Use 2 Sprays in each nostril * BENZONATATE 100 MG CAPSULE Take 1-2 capsules by mouth th* Patient not taking: Reported on 10/07/2019 ERGOCALCIFEROL (VITAMIN D2) 1* Take 1 capsule by mouth once * Patient not taking: Reported on 10/07/2019 Problem List As Of Date 02/01/2020 Noted Resolved Urgency of urination [R39.15] 08/12/2014 Frequency of urination [R35.0] 08/12/2014 Hesitancy of micturition [R39.11] 08/12/2014 Stress incontinence [N39.3] 08/12/2014 More... Morbid obesity (HCC) [E66.01] 08/12/2014 Polypharmacy [Z79.899] 08/12/2014 Uncontrolled type 2 diabetes mellitus (HCC) [E1*08/12/2014 More... Fibromyalgia [M79.7] 08/12/2014 More... Bipolar disorder (HCC) [F31.9] 08/15/2015 More... Hyperlipidemia LDL goal <100 [E78.5] 08/15/2015 More... Depression [F32.9] 08/15/2015 More... Vitamin D deficiency [E55.9] 05/01/2016 GERD (gastroesophageal reflux disease) [K21.9] 10/02/2016 Essential hypertension [I10] 11/28/2016 Elevated alkaline phosphatase level [R74.8] 03/29/2017 Lt arm numbness [R20.0] 02/04/2018 Prescriptions ordered this encounter Disp Refills Start End LORATADINE 10 MG TABLET 90 t* 3 02/01/2020 Route: ORAL Sig: Take 1 tablet by mouth once daily. Medications Discontinued During This Encounter loratadine (CLARITIN) 10 mg tablet 30 t* 5 08/04/2019 0 Route: ORAL Sig: Take 1 tablet by mouth once daily. Disc: Reason for discontinue is not on file. Encounter Status:Closed by GARY SOLOMON CNP on 02/01/20 obsolete on 2019-12 OBSOLETE Refill (INTMWS) Normal 01-21-2020 [facility] LUNA DUMAS ([id number]) 1960 [facility] Time Provider Department ([id number]) 01/21/20 REID SIFUENTES INTMWS During your visit today, we recorded the following informati on about you: Lazara Klein Pss 01/21/2020 11:04 AM Signed Patient has been identified by name and date of : Yes Pending Prescriptions Disp Refills ATORVASTATIN 40 MG TABLET 90 tablet 3 Sig: Take 1 tablet by mouth once daily. ALCIDES: No RX INSTRUCTIONS: Patient aware RX will be sent to pharmacy. No need to notify patient. Lazara Klein Pss Damien Webb RN 01/21/2020 11:23 AM Signed Spoke with Jessi at [facility], they already have this Rx on file. Rx was sent on 12/04/19. No need for Atorvastatin renewa l at this time. Pharmacy will notify patient of this. Damien Wbeb RN Allergies As of Date: 01/21/2020 Noted Allergy Reaction ASPIRIN 08/12/2014 8 - GI Upset IBUPROFEN 08/12/2014 8 - GI Upset SIMVASTATIN 05/01/2016 14 - Other: See Comments Comments: Possible myalgia Date Reviewed: 12/21/2019 Reviewed by: Rylee Daley Ma - Fully Assessed Reason for Visit: Refill Request [94] Visit Diagnosis:Hyperlipidemia LDL goal <100 [E78.5] Prescriptions as of 01/21/2020 Sig: FLUOXETINE 40 MG CAPSULE Take 1 capsule by mouth once * ATORVASTATIN 40 MG TABLET Take 1 tablet by mouth once d* LISINOPRIL 10 MG TABLET Take 0.5 tablets by mouth onc* OMEPRAZOLE 40 MG CAPSULE,MARCELA* Take 1 capsule by mouth once * GABAPENTIN 100 MG CAPSULE Please take 1 capsule in the * INSULIN GLARGINE (U-100) 100 * Inject 50 Units subcutaneousl * ARIPIPRAZOLE 10 MG TABLET Take 1 tablet by mouth once d* GUAIFENESIN ER 600 MG TABLET,* Take 2 tablets by mouth twice * Patient not taking: Reported on 10/07/2019 BENZONATATE 100 MG CAPSULE Take 1 capsule by mouth three* LORATADINE 10 MG TABLET Take 1 tablet by mouth once d* METFORMIN ER 500 MG TABLET,EX* Take 2 tablets by mouth twice * COMPOUNDED PRESCRIPTION Blood glucose monitor. Check* BLOOD SUGAR DIAGNOSTIC STRIPS Test blood sugar(s) 3 times d* LANCETS Test blood sugar(s) 3 times d* INSULIN SYRINGE U-100 WITH NE* Use one syringe daily FLUTICASONE PROPIONATE 50 MCG* Use 2 Sprays in each nostril * BENZONATATE 100 MG CAPSULE Take 1-2 capsules by mouth th* Patient not taking: Reported on 10/07/2019 ERGOCALCIFEROL (VITAMIN D2) 1* Take 1 capsule by mouth once * Patient not taking: Reported on 10/07/2019 Problem List As Of Date 01/21/2020 Noted Resolved Urgency of urination [R39.15] 08/12/2014 Frequency of urination [R35.0] 08/12/2014 Hesitancy of micturition [R39.11] 08/12/2014 Stress incontinence [N39.3] 08/12/2014 More... Morbid obesity (HCC) [E66.01] 08/12/2014 Polypharmacy [Z79.899] 08/12/2014 Uncontrolled type 2 diabetes mellitus (HCC) [E1*08/12/2014 More... Fibromyalgia [M79.7] 08/12/2014 More... Bipolar disorder (HCC) [F31.9] 08/15/2015 More... Hyperlipidemia LDL goal <100 [E78.5] 08/15/2015 More... Depression [F32.9] 08/15/2015 More... Vitamin D deficiency [E55.9] 05/01/2016 GERD (gastroesophageal reflux disease) [K21.9] 10/02/2016 Essential hypertension [I10] 11/28/2016 Elevated alkaline phosphatase level [R74.8] 03/29/2017 Lt arm numbness [R20.0] 02/04/2018 Encounter Status:Closed by DAMIEN WEBB RN on 01/21/20 progress on 2019-11 PROGRESS HNO ID: [id number] Normal 12-21-2019 [facility] Author: Sharron Bruner Brea ([id number]) Service: ? Author Type: Physician Type: Progress Notes Filed: 12/21/2019 9:55 AM Note Text: Follow up podiatric office visit for: Chief Complaint: This 59 year old who presents for follow up :painful toenails Patient presents to clinic for follow-up painful toenails. P atient has painful thickening of b/l hallux toenail. She would like to have the toenails removed. Patient is diabetic and her last a1c was 7 .8. She denies any smoking. PAIN EVALUATION No data found in the last 1 encounters. Hemoglobin A1C Date Value Ref Range Status 10/14/2019 7.8 (H) 4.3 - 5.6 % Final Comment: [place] [employer] guidelines indicate that patie nts with HgbA1c in the range 5.7-6.4% are at increased risk for development of diabetes, and intervention by lifestyle modification may be beneficial. Hg bA1c greater or equal to 6.5% is considered diagnostic of diabetes. PCP: REID SIFUENTES MD PAST MEDICAL HISTORY Diagnosis Date - Acute carpal tunnel syndrome, right 11/27/2018 - Bipolar 1 disorder (HCC) - Depression - Diabetes (HCC) - Fibromyalgia - Heartburn - Hypercholesteremia - Right distal ulnar fracture 11/27/2018 - Right radial fracture 11/27/2018 - Seasonal allergies Current Outpatient Medications Medication Sig - FLUoxetine HCl (PROZAC) 40 mg capsule Take 1 capsule by mo uth once daily. - atorvastatin (LIPITOR) 40 mg tablet Take 1 tablet by mouth once daily. - lisinopril (PRINIVIL) 10 mg tablet Take 0.5 tablets by alessia th once daily. - Omeprazole 40 mg capsule Take 1 capsule by mouth once cj y. 30min. before meal - gabapentin (NEURONTIN) 100 mg capsule Please take 1 capsul e in the morning and afternoon and 2 tablets in the evening - insulin glargine (LANTUS U-100 INSULIN) 100 unit/mL inject ion Inject 50 Units subcutaneously once daily. As directed. E10.8 - ARIPiprazole (ABILIFY) 10 mg tablet Take 1 tablet by mouth once daily. - benzonatate (TESSALON PERLES) 100 mg capsule Take 1 capsul e by mouth three times daily as needed. - loratadine (CLARITIN) 10 mg tablet Take 1 tablet by mouth once daily. - metFORMIN ER (GLUCOPHAGE XR) 500 mg 24 hr tablet Take 2 ta blets by mouth twice daily. Gradually get up to 4 tablets per day as instru cted - COMPOUNDED PRESCRIPTION Blood glucose monitor. Check blood sugar three times daily. Dx: E11.9, Insulin dependent. - blood sugar diagnostic (BLOOD GLUCOSE TEST) test strip Anaya t blood sugar(s) 3 times daily. Dx: Type 2 DM - Controlled E11.9 Ins ulin: Yes - Lancets lancets Test blood sugar(s) 3 times daily. Dx: Typ e 2 DM - Controlled E11.9 Insulin: Yes - Insulin Syringe-Needle U-100 (TRUEPLUS INSULIN) 1 mL 30 ga uge x 04/09 syrg Use one syringe daily - fluticasone (FLONASE) 50 mcg/actuation nasal spray Use 2 S prays in each nostril once daily. - guaiFENesin (MUCINEX) 600 mg 12 hr tablet Take 2 tablets b y mouth twice daily. (Patient not taking: Reported on 10/07/2019 ) - benzonatate (TESSALON PERLE) 100 mg capsule Take 1-2 capsu les by mouth three times daily as needed. (Patient not taking: Reported o n 10/07/2019 ) - ergocalciferol, vitamin D2, (DRISDOL) 50,000 unit capsule Take 1 capsule by mouth once each week. (Patient not taking: Reported on ) No current facility-administered medications for this visit. ALLERGIES Allergen Reactions - Aspirin GI Upset - Ibuprofen GI Upset - Simvastatin Other: See Comments Possible myalgia PAST SURGICAL HISTORY Procedure Laterality Date - PAST SURGICAL HISTORY OF 2011 umbilical hernia repair - PAST SURGICAL HISTORY OF 1999 partial hysterectomy Physical Exam: Constitutional: Pt is a well developed 59 year old female wh o is alert, oriented, cooperative and in no apparent distress. OBJECTIVE: NVSI unchanged from previous visit. Dermatological: Nails 1-5 b/l are thick, discolored, mycotic, painful. Websp aces clean and dry 1-4 b/l. Skin appears well hydrated and supple. good color, texture, turgor. No open lesions present. Callus present to left 5th toe and b/l hallux Musculoskeletal/Orthopaedic: Patient has pain to palpation of b/l hallux toenail ASSESSMENT: (B35.1) Onychomycosis (primary encounter diagnosis) (M79.675) Pain in toe of left foot (M79.674) Pain in toe of right foot (E11.49) Other diabetic neurological complication associated with type 2 diabetes mellitus (HCC) (L85.9) Hyperkeratosis . PLAN: 1. History and physical examination completed today. 2. Toenails 1-5 b/l debrided in length and thickness. Discus sed removal of b/l hallux toenail. Patient today elected to wait on edward tanmay. She does have what appear to be adequate perfusion and her a1c i s below 8. If she elects for removal, I would recommend removal in operati ng room given severe thickening of nail. I feel these may be more challeng ing to remove than in the office. 3. Callus was reduced with dremmel. 4. Recommend she pursue the diabetic shoes that have been or dered in past Sharron Bruner DPM PROGRESS HNO ID: [id number] Normal 12-21-2019 [facility] Author: Rylee Daley [place] ([id number]) Service: ? Author Type: ? Type: Progress Notes Filed: 12/21/2019 9:55 AM Note Text: AMB ROOMING INTAKE FLOWSHEET DATA Patient presents with: Right Great Toe - Established Patient, Ingrown Nail Left Great Toe - Established Patient, Ingrown Nail cnov on 2019-12-21 CNOV Office Visit (PODIWS) Normal 12-21-19 [facility] LUNA DUMAS ([id number]) 1960 [facility] Date Time Provider Department ([id number]) 12/21/19 9:45 AM SHARRON BRUNER PODIWS During your visit today, we recorded the following informati on about you: Rylee Daley Ma 12/21/2019 9:55 AM Signed [facility] ROOMING INTAKE FLOWSHEET DATA Patient presents with: Right Great Toe - Established Patient, Ingrown Nail Left Great Toe - Established Patient, Ingrown Nail Sharron Bruner DPM 12/21/2019 9:55 AM Signed Follow up podiatric office visit for: Chief Complaint: This 59 year old who presents f or follow up:painful toenails Patient presents to clinic for follow-up painful toenails. Patient has painful thickening of b/l hallux toenail. She wo uld like to have the toenails removed. Patient is diabetic and her last a1c was 7.8. She denies any smoking. PAIN EVALUATION No data found in the last 1 encounters. Hemoglobin A1C Date Value Ref Range Status 10/14/2019 7.8 (H) 4.3 - 5.6 % Final Comment: [place] [employer] guidelines indicate that patients with HgbA1c in the range 5.7-6.4% are at increased risk for development of diabetes, and intervention by lifestyle modification may be beneficial. HgbA1c greater or equal to 6.5% is considered diagnostic of diabetes. PCP: REID SIFUENTES MD PAST MEDICAL HISTORY Diagnosis Date - Acute carpal tunnel syndrome, right 11/27/2018 - Bipolar 1 disorder (HCC) - Depression - Diabetes (HCC) - Fibromyalgia - Heartburn - Hypercholesteremia - Right distal ulnar fracture 11/27/2018 - Right radial fracture 11/27/2018 - Seasonal allergies Current Outpatient Medications Medication Sig - FLUoxetine HCl (PROZAC) 40 mg capsule Take 1 capsule by mouth once daily. - atorvastatin (LIPITOR) 40 mg tablet Take 1 tablet by mouth once daily. - lisinopril (PRINIVIL) 10 mg tablet Take 0.5 tablets by alessia th once daily. - Omeprazole 40 mg capsule Take 1 capsule by mouth onc e daily. 30min. before meal - gabapentin (NEURONTIN) 100 mg capsule Please take 1 capsule in the morning and afternoon and 2 tablets in the evening - insulin glargine (LANTUS U -100 INSULIN) 100 unit/mL injection Inject 50 Units subcutaneously once daily. As directed. E10.8 - ARIPiprazole (ABILIFY) 10 mg tablet Take 1 tablet by mouth once daily. - benzonatate (TESSALON PERLES) 100 mg capsule Take 1 capsule by mouth three times daily as needed. - loratadine (CLARITIN) 10 mg tablet Take 1 tablet by mouth once daily. - metFORMIN ER (GLUCOPHAGE XR) 500 mg 24 hr tablet Take 2 ta blets by mouth twice daily. Gradually get up to 4 tablets per day as instru cted - COMPOUNDED PRESCRIPTION Blood glucose monitor. Check blood sugar three times daily. Dx: E11.9, Insulin dependent. - blood sugar diagnostic (BLOOD GLUCOSE TEST) test strip Test blood sugar(s) 3 times daily. Dx: Type 2 DM - Controlled E11.9 Insulin: Yes - Lancets lancets Test blood sugar(s) 3 times daily. Dx: Typ e 2 DM - Controlled E11.9 Insulin: Yes - Insulin Syringe-Needle U-1 00 (TRUEPLUS INSULIN) 1 mL 30 gauge x 5/16 syrg Use one syringe daily - fluticasone (FLONASE) 50 mcg/actuation nasal spray Use 2 S prays in each nostril once daily. - guaiFENesin (MUCINEX) 600 mg 12 hr tablet Take 2 tablets b y mouth twice daily. (Patient not taking: Reported on 10/07/2019 ) - benzonatate (TESSALON PERLE) 100 mg ca psule Take 1-2 capsules by mouth three times daily as needed. (Patient not taking: Reported on 09/25 ) - ergocalciferol, vitamin D2, (DRISDOL) 50,000 u nit capsule Take 1 capsule by mouth once each week. (Patient not taking: Reported on 10/07 ) No current facility-administered medications for this visit. ALLERGIES Allergen Reactions - Aspirin GI Upset - Ibuprofen GI Upset - Simvastatin Other: See Comments Possible myalgia PAST SURGICAL HISTORY Procedure Laterality Date - PAST SURGICAL HISTORY OF 2011 umbilical hernia repair - PAST SURGICAL HISTORY OF 1999 partial hysterectomy Physical Exam: Constitutional: Pt is a well developed 59 year old female wh o is alert, oriented, cooperative and in no apparent distress. OBJECTIVE: NVSI unchanged from previous visit. Dermatological: Nails 1-5 b/l are thick, discolored, myc otic, painful. Webspaces clean and dry 1-4 b/l. Skin appears well h ydrated and supple. good color, texture, turgor. No open lesions present. Callus present to left 5th toe and b/l hallux Musculoskeletal/Orthopaedic: Patient has pain to palpation of b/l hallux toenail ASSESSMENT: (B35.1) Onychomycosis (primary encounter diagnosis) (M79.675) Pain in toe of left foot (M79.674) Pain in toe of right foot (E11.49) Other diabetic neurological complication associated with type 2 diabetes mellitus (HCC) (L85.9) Hyperkeratosis . PLAN: 1. History and physical examination completed today. 2. Toenails 1-5 b/l debrided in length a nd thickness. Discussed removal of b/l hallux toenail. Patient today elected to wait on remov al. She does have what appear to be adequate perfusion and her a1c is below 8. If s he elects for removal, I would recommend r emoval in operating room given severe thickening of nail. I feel these may be more challenging to remove than in the office. 3. Callus was reduced with dremmel. 4. Recommend she pursue the diabetic shoes that have been or dered in past Sharron Bruner DPM Referring Provider: SHARRON BRUNER [[id number]] Allergies As of Date: 12/21/2019 Noted Allergy Reaction ASPIRIN 08/12/2014 8 - GI Upset IBUPROFEN 08/12/2014 8 - GI Upset SIMVASTATIN 05/01/2016 14 - Other: See Comments Comments: Possible myalgia Date Reviewed: 12/21/2019 Reviewed by: Rylee Daley Ma - Fully Assessed Reason for Visit: Established Patient [175] Ingrown Nail [765] Established Patient [175] Ingrown Nail [765] Primary Visit Diagnosis:Onychomycosis [B35.1] Other Visit Diagnoses:Pain in toe of left foot [M79.675] Pain in toe of right foot [M79.674] Other diabetic neurological complication associated with type 2 diabetes mellitus (HCC) [E11.49] Hyperkeratosis [L85.9] Prescriptions as of 12/21/2019 Sig: FLUOXETINE 40 MG CAPSULE Take 1 capsule by mouth once * ATORVASTATIN 40 MG TABLET Take 1 tablet by mouth once d* LISINOPRIL 10 MG TABLET Take 0.5 tablets by mouth onc* OMEPRAZOLE 40 MG CAPSULE,MARCELA* Take 1 capsule by mouth once * GABAPENTIN 100 MG CAPSULE Please take 1 capsule in the * INSULIN GLARGINE (U-100) 100 * Inject 50 Units subcutaneousl * ARIPIPRAZOLE 10 MG TABLET Take 1 tablet by mouth once d* BENZONATATE 100 MG CAPSULE Take 1 capsule by mouth three* LORATADINE 10 MG TABLET Take 1 tablet by mouth once d* METFORMIN ER 500 MG TABLET,EX* Take 2 tablets by mouth twice * COMPOUNDED PRESCRIPTION Blood glucose monitor. Check* BLOOD SUGAR DIAGNOSTIC STRIPS Test blood sugar(s) 3 times d* LANCETS Test blood sugar(s) 3 times d* INSULIN SYRINGE U-100 WITH NE* Use one syringe daily FLUTICASONE PROPIONATE 50 MCG* Use 2 Sprays in each nostril * GUAIFENESIN ER 600 MG TABLET,* Take 2 tablets by mouth twice * Patient not taking: Reported on 10/07/2019 BENZONATATE 100 MG CAPSULE Take 1-2 capsules by mouth th* Patient not taking: Reported on 10/07/2019 ERGOCALCIFEROL (VITAMIN D2) 1* Take 1 capsule by mouth once * Patient not taking: Reported on 10/07/2019 Problem List As Of Date 12/21/2019 Noted Resolved Urgency of urination [R39.15] 08/12/2014 Frequency of urination [R35.0] 08/12/2014 Hesitancy of micturition [R39.11] 08/12/2014 Stress incontinence [N39.3] 08/12/2014 More... Morbid obesity (HCC) [E66.01] 08/12/2014 Polypharmacy [Z79.899] 08/12/2014 Uncontrolled type 2 diabetes mellitus (HCC) [E1*08/12/2014 More... Fibromyalgia [M79.7] 08/12/2014 More... Bipolar disorder (HCC) [F31.9] 08/15/2015 More... Hyperlipidemia LDL goal <100 [E78.5] 08/15/2015 More... Depression [F32.9] 08/15/2015 More... Vitamin D deficiency [E55.9] 05/01/2016 GERD (gastroesophageal reflux disease) [K21.9] 10/02/2016 Essential hypertension [I10] 11/28/2016 Elevated alkaline phosphatase level [R74.8] 03/29/2017 Lt arm numbness [R20.0] 02/04/2018 Disposition: Return in about 3 months (around 03/21/2020) for nail care. Follow-up and Disposition History Recorded Encounter Status:Closed by SHARRON BRUNER DPM on 12/21/19 obsolete on 2019-11 OBSOLETE Refill (FAMPWS) Normal 12-14-2019 [facility] LUNA DUMAS ([id number]) 1960 [place] Date Time Provider Department ([id number]) 12/14/19 REID SIFUENTESWS During your visit today, we recorded the following informati on about you: Peg Hodgson Pss 12/14/2019 9:46 AM Signed Patient has been identified by name and date of : Yes Pending Prescriptions Disp Refills FLUOXETINE 40 MG CAPSULE 30 capsule 2 Sig: Take 1 capsule by mouth once daily. ALCIDES: No RX INSTRUCTIONS: Patient aware RX will be sent to pharmacy. No need to notify patient. Peg Diggs MA 12/14/2019 1:38 PM Signed MINNIE: 11/30/2019 NOV: 04/01/2020 Last Refill: 09/08/2019 30 caps with 2 refills Loraine Solomon APRN.CNP 12/15/2019 9:50 AM Signed The following approved medic ation requests have been transmitted electronically. Signed Prescriptions Disp Refills FLUoxetine HCl (PROZAC) 40 mg capsule 30 capsule 2 Sig: Take 1 capsule by mouth once daily. ALCIDES: No Authorizing Provider: GARY SOLOMON ([place]) Gary Solomon APRN.CNP Allergies As of Date: 12/14/2019 Noted Allergy Reaction ASPIRIN 08/12/2014 8 - GI Upset IBUPROFEN 08/12/2014 8 - GI Upset SIMVASTATIN 05/01/2016 14 - Other: See Comments Comments: Possible myalgia Date Reviewed: 11/30/2019 Reviewed by: Pooja Fulton LPN - Fully Assessed Reason for Visit: Refill Request [94] Visit Diagnosis:Anxiety and depression [F41.9, F32.9] Order(s):FLUoxetine HCl (PROZAC) 40 mg capsuleTake 1 capsule by mouth once daily.Disp: 30 capsuleRfl: 2 Prescriptions as of 12/14/2019 Sig: FLUOXETINE 40 MG CAPSULE Take 1 capsule by mouth once * ATORVASTATIN 40 MG TABLET Take 1 tablet by mouth once d* LISINOPRIL 10 MG TABLET Take 0.5 tablets by mouth onc* OMEPRAZOLE 40 MG CAPSULE,MARCELA* Take 1 capsule by mouth once * GABAPENTIN 100 MG CAPSULE Please take 1 capsule in the * INSULIN GLARGINE (U-100) 100 * Inject 50 Units subcutaneousl * ARIPIPRAZOLE 10 MG TABLET Take 1 tablet by mouth once d* GUAIFENESIN ER 600 MG TABLET,* Take 2 tablets by mouth twice * Patient not taking: Reported on 10/07/2019 BENZONATATE 100 MG CAPSULE Take 1 capsule by mouth three* LORATADINE 10 MG TABLET Take 1 tablet by mouth once d* METFORMIN ER 500 MG TABLET,EX* Take 2 tablets by mouth twice * COMPOUNDED PRESCRIPTION Blood glucose monitor. Check* BLOOD SUGAR DIAGNOSTIC STRIPS Test blood sugar(s) 3 times d* LANCETS Test blood sugar(s) 3 times d* INSULIN SYRINGE U-100 WITH NE* Use one syringe daily FLUTICASONE PROPIONATE 50 MCG* Use 2 Sprays in each nostril * BENZONATATE 100 MG CAPSULE Take 1-2 capsules by mouth th* Patient not taking: Reported on 10/07/2019 ERGOCALCIFEROL (VITAMIN D2) 1* Take 1 capsule by mouth once * Patient not taking: Reported on 10/07/2019 Problem List As Of Date 12/14/2019 Noted Resolved Urgency of urination [R39.15] 08/12/2014 Frequency of urination [R35.0] 08/12/2014 Hesitancy of micturition [R39.11] 08/12/2014 Stress incontinence [N39.3] 08/12/2014 More... Morbid obesity (HCC) [E66.01] 08/12/2014 Polypharmacy [Z79.899] 08/12/2014 Uncontrolled type 2 diabetes mellitus (HCC) [E1*08/12/2014 More... Fibromyalgia [M79.7] 08/12/2014 More... Bipolar disorder (HCC) [F31.9] 08/15/2015 More... Hyperlipidemia LDL goal <100 [E78.5] 08/15/2015 More... Depression [F32.9] 08/15/2015 More... Vitamin D deficiency [E55.9] 05/01/2016 GERD (gastroesophageal reflux disease) [K21.9] 10/02/2016 Essential hypertension [I10] 11/28/2016 Elevated alkaline phosphatase level [R74.8] 03/29/2017 Lt arm numbness [R20.0] 02/04/2018 Prescriptions ordered this encounter Disp Refills Start End FLUOXETINE 40 MG CAPSULE 30 c* 2 12/15/2019 Route: ORAL Sig: Take 1 capsule by mouth once daily. Medications Discontinued During This Encounter FLUoxetine HCl (PROZAC) 40 mg capsule 30 c* 2 09/08/201911/26 Route: ORAL Sig: Take 1 capsule by mouth once daily. Disc: Reason for discontinue is not on file. Encounter Status:Closed by GARY SOLOMON CNP on 12/15/19 obsolete on 2019-11 OBSOLETE Refill (INTMWS) Normal 12-04-2019 [facility] LUNA DUMAS ([id number]) 1960 [facility] Date Time Provider Department ([id number]) 12/04/19 REID SIFUENTES INTLeidyWS During your visit today, we recorded the following informati on about you: Damien Webb RN 12/04/2019 12:40 PM Signed Patient has been identified by name and date of : Yes [facility] Pharmacy phones for refill(s): Pending Prescriptions Disp Refills ATORVASTATIN 40 MG TABLET 90 tablet 3 Sig: Take 1 tablet by mouth once daily. ALCIDES: No Date of last office visit in primary care: 11/30/19, future ap pt. 04/01/20 Last 2 Encounter Wt Readings: Date: Wt: 11/30/2019 102.5 kg (226 lb) 10/14/2019 99.8 kg (220 lb) Previous labs/tests for medication: Cholesterol: HDL Cholesterol (mg/dL) Date Value 04/08/2019 34 HDL Cholesterol, Nonfasting (mg/dL) Date Value 10/14/2019 50 LDL Cholesterol (mg/dL) Date Value 04/08/2019 71 LDL Cholesterol, Nonfasting (mg/dL) Date Value 10/14/2019 117 ALT (U/L) Date Value 10/14/2019 16 Non HDL Cholesterol, Nonfasting (mg/dL) Date Value 10/14/2019 135 Liver Function: ALT (U/L) Date Value 10/14/2019 16 AST (U/L) Date Value 10/14/2019 15 Please advise. Thank you. Damien Solomon APRN.CNP 12/04/2019 4:44 PM Signed The following approved medic ation requests have been transmitted electronically. Signed Prescriptions Disp Refills atorvastatin (LIPITOR) 40 mg tablet 90 tablet 3 Sig: Take 1 tablet by mouth once daily. ALCIDES: No Authorizing Provider: GARY SOLOMON (REAL ESTATE PROFESSIONAL) Gary Solomon APRN.REAL ESTATE PROFESSIONAL Allergies As of Date: 12/04/2019 Noted Allergy Reaction ASPIRIN 08/12/2014 8 - GI Upset IBUPROFEN 08/12/2014 8 - GI Upset SIMVASTATIN 05/01/2016 14 - Other: See Comments Comments: Possible myalgia Date Reviewed: 11/30/2019 Reviewed by: Pooja Fulton LPN - Fully Assessed Reason for Visit: Refill Request [94] Visit Diagnosis:Hyperlipidemia LDL goal <100 [E78.5] Order(s):atorvastatin (LIPITOR) 40 mg tabletTake 1 tablet by mouth once daily.Disp: 90 tabletRfl: 3 Prescriptions as of 12/04/2019 Sig: ATORVASTATIN 40 MG TABLET Take 1 tablet by mouth once d* LISINOPRIL 10 MG TABLET Take 0.5 tablets by mouth onc* OMEPRAZOLE 40 MG CAPSULE,MARCELA* Take 1 capsule by mouth once * GABAPENTIN 100 MG CAPSULE Please take 1 capsule in the * INSULIN GLARGINE (U-100) 100 * Inject 50 Units subcutaneousl * ARIPIPRAZOLE 10 MG TABLET Take 1 tablet by mouth once d* GUAIFENESIN ER 600 MG TABLET,* Take 2 tablets by mouth twice * Patient not taking: Reported on 10/07/2019 BENZONATATE 100 MG CAPSULE Take 1 capsule by mouth three* FLUOXETINE 40 MG CAPSULE Take 1 capsule by mouth once * LORATADINE 10 MG TABLET Take 1 tablet by mouth once d* METFORMIN ER 500 MG TABLET,EX* Take 2 tablets by mouth twice * COMPOUNDED PRESCRIPTION Blood glucose monitor. Check* BLOOD SUGAR DIAGNOSTIC STRIPS Test blood sugar(s) 3 times d* LANCETS Test blood sugar(s) 3 times d* INSULIN SYRINGE U-100 WITH NE* Use one syringe daily FLUTICASONE PROPIONATE 50 MCG* Use 2 Sprays in each nostril * BENZONATATE 100 MG CAPSULE Take 1-2 capsules by mouth th* Patient not taking: Reported on 10/07/2019 ERGOCALCIFEROL (VITAMIN D2) 1* Take 1 capsule by mouth once * Patient not taking: Reported on 10/07/2019 Problem List As Of Date 12/04/2019 Noted Resolved Urgency of urination [R39.15] 08/12/2014 Frequency of urination [R35.0] 08/12/2014 Hesitancy of micturition [R39.11] 08/12/2014 Stress incontinence [N39.3] 08/12/2014 More... Morbid obesity (HCC) [E66.01] 08/12/2014 Polypharmacy [Z79.899] 08/12/2014 Uncontrolled type 2 diabetes mellitus (HCC) [E1*08/12/2014 More... Fibromyalgia [M79.7] 08/12/2014 More... Bipolar disorder (HCC) [F31.9] 08/15/2015 More... Hyperlipidemia LDL goal <100 [E78.5] 08/15/2015 More... Depression [F32.9] 08/15/2015 More... Vitamin D deficiency [E55.9] 05/01/2016 GERD (gastroesophageal reflux disease) [K21.9] 10/02/2016 Essential hypertension [I10] 11/28/2016 Elevated alkaline phosphatase level [R74.8] 03/29/2017 Lt arm numbness [R20.0] 02/04/2018 Prescriptions ordered this encounter Disp Refills Start End ATORVASTATIN 40 MG TABLET 90 t* 3 12/04/2019 Route: ORAL Sig: Take 1 tablet by mouth once daily. Medications Discontinued During This Encounter atorvastatin (LIPITOR) 40 mg tablet 90 t* 1 06/08/2019 020 Route: ORAL Sig: Take 1 tablet by mouth once daily. Disc: Reason for discontinue is not on file. Encounter Status:Closed by GARY SOLOMON CNP on 12/04/19 progress on 2019-11 PROGRESS HNO ID: [id number] Normal 11-30-2019 [facility] Author: Reid Sifuentes Mary ([id number]) Service: ? Author Type: Physician Type: Progress Notes Filed: 11/30/2019 2:41 PM Note Text: Reason for Visit Patient presents with: Established Patient: 6 week follow up-labs Luna Dumas is a 59 year old female who presents here tod for Above Complaints.. Health Maintenance BP CONTROLLED (<130/80) COLORECTAL CANCER SCREENING,SEE MODIFIER DILATED RETINAL EXAM MAMMOGRAM HPI Patient had cervical radiculopathy and cervical degenerative disc disease done by Miguel Arevalo but patient noted it did not help mu ch. She has gotten 2 shots but does not think it has helped her at all. Patient has lost weight since the beginning of the year. Josefina bacon is doing a lot of walking recently as she is working currently at [employer]. She notes she likes working there. She is taking metformin, 2 tablets by mouth twice daily. She is mostly taking her medication. Takes insulin in the morning, around 50 units, denies having anylow sugars. She works around 30 hours a week, she is allowed 2 breaksa d n makes sure she is eating well in that time.? ? I have been giving her the abilify and the prozac she has be en taking her medication regularly it works well for her diabetes mellitus . ? Patient is taking the neurontin for her fibromyalgia. Patient Is taking metformin, abilify, lipitor etc. No problem-specific Assessment AND Plan notes found for this encounter. PAST MEDICAL HISTORY Diagnosis Date - Acute carpal tunnel syndrome, right 11/27/2018 - Bipolar 1 disorder (HCC) - Depression - Diabetes (HCC) - Fibromyalgia - Heartburn - Hypercholesteremia - Right distal ulnar fracture 11/27/2018 - Right radial fracture 11/27/2018 - Seasonal allergies PAST SURGICAL HISTORY Procedure Laterality Date - PAST SURGICAL HISTORY OF 2011 umbilical hernia repair - PAST SURGICAL HISTORY OF 1999 partial hysterectomy FAMILY HISTORY Problem Relation Age of Onset - Cancer Mother - Diabetes Mother - None Father - Diabetes Sister Social History Tobacco Use - Smoking status: Never Smoker - Smokeless tobacco: Never Used Substance Use Topics - Alcohol use: No - Drug use: No Past medical history, appointments, medications, allergies r eviewed. Pertinent Lab/Diagnostic Studies are reviewed and discussed today Current Outpatient Medications: - insulin glargine (LANTUS U-100 INSULIN) 100 unit/mL inject ion - ARIPiprazole (ABILIFY) 10 mg tablet - gabapentin (NEURONTIN) 100 mg capsule - Omeprazole 40 mg capsule - guaiFENesin (MUCINEX) 600 mg 12 hr tablet - benzonatate (TESSALON PERLES) 100 mg capsule - FLUoxetine HCl (PROZAC) 40 mg capsule - loratadine (CLARITIN) 10 mg tablet - lisinopril (PRINIVIL) 10 mg tablet - atorvastatin (LIPITOR) 40 mg tablet - metFORMIN ER (GLUCOPHAGE XR) 500 mg 24 hr tablet - COMPOUNDED PRESCRIPTION - blood sugar diagnostic (BLOOD GLUCOSE TEST) test strip - Lancets lancets - Insulin Syringe-Needle U-100 (TRUEPLUS INSULIN) 1 mL 30 ga uge x 16 syrg - fluticasone (FLONASE) 50 mcg/actuation nasal spray - benzonatate (TESSALON PERLE) 100 mg capsule - ergocalciferol, vitamin D2, (DRISDOL) 50,000 unit capsule Review of Systems CONSTITUTIONAL: No fevers, chills night sweats, unintended w eight loss CARDIOVASCULAR: No chest pain, dyspnea, palpitations, orthop tristen, PND, ankle edema. PULM: No dyspnea, unexplained cough. GI: No dysphagia/odynophagia, problematic reflux, constipati on, diarrhea, changes in stool habits, hematochezia, melena. : No new urinary complaints, including dysuria, gross giselle turia or pyuria. NEURO: No new balance problems, peripheral weakness/paresthe bobbi or numbness of concern. Physical Exam BP 118/60 (BP Site: Left Arm, BP Position: Sitting, BP Cuff Size: Large Adult) Pulse 69 Resp 12 Ht 174 cm (5' 8.5) Wt 102.5 kg (226 lb) SpO2 97% BMI 33.86 kg/m? General appearance: Well appearing, alert, in no acute distr ess, well nourished. Skin: Skin color, texture, turgor normal, no suspicious rash es or lesions Head: Normocephalic, no masses, lesions, tenderness or abnor malities Eyes: Anicteric sclera. Pupils are equally round and reactiv e to light. Extraocular movements are intact. Lungs: Lungs clear to auscultation. No wheezing, rhonchi, ra les Heart: RRR without murmur, gallop, or rubs. Extremities: No deformities, edema, skin discoloration, club elisabet or cyanosis. Good capillary refill. ASSESSMENT/PLAN: 1. Hypothyroidism, unspecified type - ICD9: 244.9, ICD10: E0 3.9 (primary diagnosis) - Instructed patient on importance of taking on an empty sto mach either first thing in the morning or at bedtime. Stable - Continue current medications - TSH BLD 2. Gastroesophageal reflux disease, esophagitis presence not specified - ICD9: 530.81, ICD10: K21.9 - Begin treatment with Pepcid 20 mg QD - OMEPRAZOLE 40 MG CAPSULE,DELAYED RELEASE 3. Fibromyalgia - ICD9: 729.1, ICD10: M79.7 - GABAPENTIN 100 MG CAPSULE 4. Hyperlipidemia LDL goal <100 - ICD9: 272.4, ICD10: E78.5 - good control - Continue current medication. - LIPID PANEL BASIC 5. Type II or unspecified type diabetes mellitus without men tion of complication, uncontrolled (HCC) - ICD9: 250.02, ICD10: E11. 65 Improved Controlled. - HGB A1C 6. Essential hypertension - ICD9: 401.9, ICD10: I10 - good control - Recommended regular aerobic exercise. - Recommend home blood pressure monitoring, to bring results in on next visit - Goal of BP <130/80 - COMP METABOLIC PANEL - CBC REID SIFUENTES MD obsolete on 2019-11 OBSOLETE Refill (INTMWS) Normal 11-30-2019 [facility] LUNA DUMAS ([id number]) 1960 [facility] Time Provider Department ([id number]) 11/30/19 REID SIFUENTES INTLeidyWS During your visit today, we recorded the following informati on about you: Mireille Diallo RN, RN 11/30/2019 3:53 PM Signed Patient has been identified by name and date of : Yes Pharmacy phones for refill(s): Pending Prescriptions Disp Refills LISINOPRIL 10 MG TABLET 45 tablet 3 Sig: Take 0.5 tablets by mouth once daily. ALCIDES: No Date of last office visit in primary care: 11/30/19 Last 2 Encounter Wt Readings: Date: Wt: 11/30/2019 102.5 kg (226 lb) 10/14/2019 99.8 kg (220 lb) Previous labs/tests for medication: Blood Pressure: BUN (mg/dL) Date Value 10/14/2019 11 Sodium (mmol/L) Date Value 10/14/2019 141 Last 1 Encounter BP Readings: Date: BP: 11/30/2019 118/60 Please advise. Thank you. GINA Gomes APRN.REAL ESTATE PROFESSIONAL 12/01/2019 9:57 AM Signed The following approved medic ation requests have been transmitted electronically. Signed Prescriptions Disp Refills lisinopril (PRINIVIL) 10 mg tablet 45 tablet 3 Sig: Take 0.5 tablets by mouth once daily. ALCIDES: No Authorizing Provider: GARY SOLOMON (REAL ESTATE PROFESSIONAL) Gary Solomon APRN.REAL ESTATE PROFESSIONAL Allergies As of Date: 11/30/2019 Noted Allergy Reaction ASPIRIN 08/12/2014 8 - GI Upset IBUPROFEN 08/12/2014 8 - GI Upset SIMVASTATIN 05/01/2016 14 - Other: See Comments Comments: Possible myalgia Date Reviewed: 11/30/2019 Reviewed by: Pooja Fulton LPN - Fully Assessed Reason for Visit: Refill Request [94] Order(s):lisinopril (PRINIVIL) 10 mg tabletTake 0.5 tablets by mouth once daily.Disp: 45 tabletRfl: 3 Prescriptions as of 11/30/2019 Sig: LISINOPRIL 10 MG TABLET Take 0.5 tablets by mouth onc* OMEPRAZOLE 40 MG CAPSULE,MARCELA* Take 1 capsule by mouth once * GABAPENTIN 100 MG CAPSULE Please take 1 capsule in the * INSULIN GLARGINE (U-100) 100 * Inject 50 Units subcutaneousl * ARIPIPRAZOLE 10 MG TABLET Take 1 tablet by mouth once d* GUAIFENESIN ER 600 MG TABLET,* Take 2 tablets by mouth twice * Patient not taking: Reported on 10/07/2019 BENZONATATE 100 MG CAPSULE Take 1 capsule by mouth three* FLUOXETINE 40 MG CAPSULE Take 1 capsule by mouth once * LORATADINE 10 MG TABLET Take 1 tablet by mouth once d* ATORVASTATIN 40 MG TABLET Take 1 tablet by mouth once d* METFORMIN ER 500 MG TABLET,EX* Take 2 tablets by mouth twice * COMPOUNDED PRESCRIPTION Blood glucose monitor. Check* BLOOD SUGAR DIAGNOSTIC STRIPS Test blood sugar(s) 3 times d* LANCETS Test blood sugar(s) 3 times d* INSULIN SYRINGE U-100 WITH NE* Use one syringe daily FLUTICASONE PROPIONATE 50 MCG* Use 2 Sprays in each nostril * BENZONATATE 100 MG CAPSULE Take 1-2 capsules by mouth th* Patient not taking: Reported on 10/07/2019 ERGOCALCIFEROL (VITAMIN D2) 1* Take 1 capsule by mouth once * Patient not taking: Reported on 10/07/2019 Problem List As Of Date 11/30/2019 Noted Resolved Urgency of urination [R39.15] 08/12/2014 Frequency of urination [R35.0] 08/12/2014 Hesitancy of micturition [R39.11] 08/12/2014 Stress incontinence [N39.3] 08/12/2014 More... Morbid obesity (HCC) [E66.01] 08/12/2014 Polypharmacy [Z79.899] 08/12/2014 Uncontrolled type 2 diabetes mellitus (HCC) [E1*08/12/2014 More... Fibromyalgia [M79.7] 08/12/2014 More... Bipolar disorder (HCC) [F31.9] 08/15/2015 More... Hyperlipidemia LDL goal <100 [E78.5] 08/15/2015 More... Depression [F32.9] 08/15/2015 More... Vitamin D deficiency [E55.9] 05/01/2016 GERD (gastroesophageal reflux disease) [K21.9] 10/02/2016 Essential hypertension [I10] 11/28/2016 Elevated alkaline phosphatase level [R74.8] 03/29/2017 Lt arm numbness [R20.0] 02/04/2018 Prescriptions ordered this encounter Disp Refills Start End LISINOPRIL 10 MG TABLET 45 t* 3 12/01/2019 Route: ORAL Sig: Take 0.5 tablets by mouth once daily. Medications Discontinued During This Encounter lisinopril (PRINIVIL) 10 mg tablet 45 t* 1 06/08/2019 0 Route: ORAL Sig: Take 0.5 tablets by mouth once daily. Disc: Reason for discontinue is not on file. Encounter Status:Closed by GARY SOLOMON CNP on 12/01/19 cnov on 2019-11-30 CNOV Office Visit (INTMWS) Normal 11-30-[address] [place] [address] LUNA Kasper ([id number]) 1960 [address] [place] Date Time Provider Department ([id number]) 11/30/19 11:20 AM REID SIFUENTES INTMWS During your visit today, we recorded the following informati on about you: Pulse Respiration Blood pressure Weight 69/minute 12/minute 118/60 102.5 kg Height 1.74 m REID SIFUENTES MD 11/30/2019 2:41 PM Signed Reason for Visit Patient presents with: Established Patient: 6 week follow up-labs Luna Dumas is a 59 year old female who presents here tod ay for Above Complaints.. Health Maintenance BP CONTROLLED (<130/80) COLORECTAL CANCER SCREENING,SEE MODIFIER DILATED RETINAL EXAM MAMMOGRAM HPI Patient had cervical radiculopathy and c ervical degenerative disc disease done by Miguel Arevalo but patient noted it did not help much. She has gotten 2 shots but does not think it has helped her at all. Patient has lost weight sinc e the beginning of the year. Patient is doing a lot of walking recently as she is working currently at [employer]. She notes she likes working there. She is taking metformin, 2 tablets by mouth twic e daily. She is mostly taking her medication. Takes insulin in the morning, around 5 0 units, denies having anylow sugars. She works around 30 hours a week, she is allowed 2 breaksa dn makes sure she is eating well in that time.? ? I have been giving her the abilify and the prozac she has be en taking her medication regularly it works well for her diabetes mellitus . ? Patient is taking the neurontin for her fibromyalgia. Patient Is taking metformin, abilify, lipitor etc. No problem-specific Assessment AND Plan notes found for this encounter. PAST MEDICAL HISTORY Diagnosis Date - Acute carpal tunnel syndrome, right 11/27/2018 - Bipolar 1 disorder (HCC) - Depression - Diabetes (HCC) - Fibromyalgia - Heartburn - Hypercholesteremia - Right distal ulnar fracture 11/27/2018 - Right radial fracture 11/27/2018 - Seasonal allergies PAST SURGICAL HISTORY Procedure Laterality Date - PAST SURGICAL HISTORY OF 2011 umbilical hernia repair - PAST SURGICAL HISTORY OF 1999 partial hysterectomy FAMILY HISTORY Problem Relation Age of Onset - Cancer Mother - Diabetes Mother - None Father - Diabetes Sister Social History Tobacco Use - Smoking status: Never Smoker - Smokeless tobacco: Never Used Substance Use Topics - Alcohol use: No - Drug use: No Past medical history, appointments, medications, allergies r kalie. Pertinent Lab/Diagnostic Studies are reviewed and discussed today Current Outpatient Medications: - insulin glargine (LANTUS U-100 INSULIN) 100 unit/mL inject ion - ARIPiprazole (ABILIFY) 10 mg tablet - gabapentin (NEURONTIN) 100 mg capsule - Omeprazole 40 mg capsule - guaiFENesin (MUCINEX) 600 mg 12 hr tablet - benzonatate (TESSALON PERLES) 100 mg capsule - FLUoxetine HCl (PROZAC) 40 mg capsule - loratadine (CLARITIN) 10 mg tablet - lisinopril (PRINIVIL) 10 mg tablet - atorvastatin (LIPITOR) 40 mg tablet - metFORMIN ER (GLUCOPHAGE XR) 500 mg 24 hr tablet - COMPOUNDED PRESCRIPTION - blood sugar diagnostic (BLOOD GLUCOSE TEST) test strip - Lancets lancets - Insulin Syringe-Needle U-100 (TRUEPLUS INSULIN) 1 mL 30 gauge x 5/16 syrg - fluticasone (FLONASE) 50 mcg/actuation nasal spray - benzonatate (TESSALON PERLE) 100 mg capsule - ergocalciferol, vitamin D2, (DRISDOL) 50,000 unit capsule Review of Systems CONSTITUTIONAL: No fevers, chills night sweats, unintended w eight loss CARDIOVASCULAR: No chest pain, dyspnea, palpitations, orth opnea, PND, ankle edema. PULM: No dyspnea, unexplained cough. GI: No dysphagia/odynophagia, problematic reflux, constipati on, diarrhea, changes in stool habits, hematochezia, melena. : No new urinary complaints, including dysuria, anabelle s hematuria or pyuria. NEURO: No new balance problems, peripheral weakness/pa resthesias or numbness of concern. Physical Exam BP 118/60 (BP Site: Left Arm, BP Positio n: Sitting, BP Cuff Size: Large Adult) Pulse 69 Resp 12 Ht 174 cm (5' 8.5) Wt 102.5 kg (22 6 lb) SpO2 97% BMI 33.86 kg/m? General appearance: Well nitin earing, alert, in no acute distress, well nourished. Skin: Skin color, texture, turgor normal, no suspicious rash es or lesions Head: Normocephalic, no masses, lesions, tenderness or abnor malities Eyes: Anicteric sclera. Pupils are equally round and reactiv e to light. Extraocular movements are intact. Lungs: Lungs clear to auscultation. No wheezing, rhonchi, ra les Heart: RRR without murmur, gallop, or rubs. Extremities: No deformities, edema, skin discolo ration, clubbing or cyanosis. Good capillary refill. ASSESSMENT/PLAN: 1. Hypothyroidism, unspecified type - ICD9: 244.9, ICD10: E0 3.9 (primary diagnosis) - Instructed patient on importance of taking on an empty stomach either first thing in the morning or at bedtime. Stable - Continue current medications - TSH BLD 2. Gastroesophageal reflux disease, esop hagitis presence not specified - ICD9: 530.81, ICD10: K21.9 - Begin treatment with Pepcid 20 mg QD - OMEPRAZOLE 40 MG CAPSULE,DELAYED RELEASE 3. Fibromyalgia - ICD9: 729.1, ICD10: M79.7 - GABAPENTIN 100 MG CAPSULE 4. Hyperlipidemia LDL goal <100 - ICD9: 272.4, ICD10: E78.5 - good control - Continue current medication. - LIPID PANEL BASIC 5. Type II or unspecified type diabetes mellitus without men tion of complication, uncontrolled (HCC) - ICD9: 250.02, ICD10: E11. 65 Improved Controlled. - HGB A1C 6. Essential hypertension - ICD9: 401.9, ICD10: I10 - good control - Recommended regular aerobic exercise. - Recommend home blood pressure monitoring, to b ring results in on next visit - Goal of BP <130/80 - COMP METABOLIC PANEL - CBC REID SIFUENTES MD Referring Provider: REID SIFUENTES [[id number]] Allergies As of Date: 11/30/2019 Noted Allergy Reaction ASPIRIN 08/12/2014 8 - GI Upset IBUPROFEN 08/12/2014 8 - GI Upset SIMVASTATIN 05/01/2016 14 - Other: See Comments Comments: Possible myalgia Date Reviewed: 11/30/2019 Reviewed by: Pooja Fulton LPN - Fully Assessed Reason for Visit: Established Patient [175] Cmt: 6 week follow up-labs Primary Visit Diagnosis:Hypothyroidism, unspecified type [E0 3.9] Other Visit Diagnoses:Gastroesophageal reflux disease, eso phagitis presence not specified [K21.9] Fibromyalgia [M79.7] Hyperlipidemia LDL goal <100 [E78.5] Type II or unspecified type diabetes mellitus without mention of complication, uncontrolled (HCC) [E11.65] Essential hypertension [I10] Order(s):Omeprazole 40 mg capsuleTake 1 capsule by mouth o nce daily. 30min. before mealDisp: 30 capsuleRfl: 2 gabapentin (NEURONTIN) 100 mg capsulePlease take 1 capsule i n the morning and afternoon and 2 tablets in the eveningDisp: 120 capsuleRfl: 2 HGB A1C [[id number]] Order #: [id number] STANDING COMP METABOLIC PANEL [SQCMP] Order #: [id number] STANDING CBC [SQCBC] Order #: [id number] STANDING TSH BLD [SQTSH] Order #: [id number] STANDING LIPID PANEL BASIC [SQLIPB] Order #: [id number] STANDING Prescriptions as of 11/30/2019 Sig: OMEPRAZOLE 40 MG CAPSULE,MARCELA* Take 1 capsule by mouth once * GABAPENTIN 100 MG CAPSULE Please take 1 capsule in the * INSULIN GLARGINE (U-100) 100 * Inject 50 Units subcutaneousl * ARIPIPRAZOLE 10 MG TABLET Take 1 tablet by mouth once d* GUAIFENESIN ER 600 MG TABLET,* Take 2 tablets by mouth twice * Patient not taking: Reported on 10/07/2019 BENZONATATE 100 MG CAPSULE Take 1 capsule by mouth three* FLUOXETINE 40 MG CAPSULE Take 1 capsule by mouth once * LORATADINE 10 MG TABLET Take 1 tablet by mouth once d* LISINOPRIL 10 MG TABLET Take 0.5 tablets by mouth onc* ATORVASTATIN 40 MG TABLET Take 1 tablet by mouth once d* METFORMIN ER 500 MG TABLET,EX* Take 2 tablets by mouth twice * COMPOUNDED PRESCRIPTION Blood glucose monitor. Check* BLOOD SUGAR DIAGNOSTIC STRIPS Test blood sugar(s) 3 times d* LANCETS Test blood sugar(s) 3 times d* INSULIN SYRINGE U-100 WITH NE* Use one syringe daily FLUTICASONE PROPIONATE 50 MCG* Use 2 Sprays in each nostril * BENZONATATE 100 MG CAPSULE Take 1-2 capsules by mouth th* Patient not taking: Reported on 10/07/2019 ERGOCALCIFEROL (VITAMIN D2) 1* Take 1 capsule by mouth once * Patient not taking: Reported on 10/07/2019 Problem List As Of Date 11/30/2019 Noted Resolved Urgency of urination [R39.15] 08/12/2014 Frequency of urination [R35.0] 08/12/2014 Hesitancy of micturition [R39.11] 08/12/2014 Stress incontinence [N39.3] 08/12/2014 More... Morbid obesity (HCC) [E66.01] 08/12/2014 Polypharmacy [Z79.899] 08/12/2014 Uncontrolled type 2 diabetes mellitus (HCC) [E1*08/12/2014 More... Fibromyalgia [M79.7] 08/12/2014 More... Bipolar disorder (HCC) [F31.9] 08/15/2015 More... Hyperlipidemia LDL goal <100 [E78.5] 08/15/2015 More... Depression [F32.9] 08/15/2015 More... Vitamin D deficiency [E55.9] 05/01/2016 GERD (gastroesophageal reflux disease) [K21.9] 10/02/2016 Essential hypertension [I10] 11/28/2016 Elevated alkaline phosphatase level [R74.8] 03/29/2017 Lt arm numbness [R20.0] 02/04/2018 Prescriptions ordered this encounter Disp Refills Start End OMEPRAZOLE 40 MG CAPSULE,DELAYED REL* 30 c* 2 11/30/2019 Route: ORAL Sig: Take 1 capsule by mouth once daily. 30min. before meal GABAPENTIN 100 MG CAPSULE 120 * 2 11/30/2019 06/22/2020 Sig: Please take 1 capsule in the morning and afternoo n and 2 tablets in the evening Medications Discontinued During This Encounter Omeprazole 40 mg capsule 30 c* 2 09/29/2019 11/30/2019 Route: ORAL Sig: Take 1 capsule by mouth once daily. 30min. before meal Disc: Reason for discontinue is not on file. gabapentin (NEURONTIN) 100 mg capsule 120 * 2 10/14/201911/30 Sig: Please take 1 capsule i n the morning and afternoon and 2 tablets in the evening Disc: Reason for discontinue is not on file. Encounter Status:Closed by REID SIFUENTES MD on 11/30/19 obsolete on 2019-10 OBSOLETE Refill (INTMWS) Normal 11-04-2019 [id number] 1960 [facility] Time Provider Department ([id number]) 11/04/19 REID SIFUENTES During your visit today, we recorded the following informati on about you: Cecelia Mata RN 11/04/2019 3:34 PM Signed Patient has been identified by name and date of : Yes Pharmacy phones for refill(s): Pending Prescriptions Disp Refills INSULIN GLARGINE (U-100) 100 UNIT/ML SUBCUTANEOUS SOLUTION 3 Vial 5 Sig: Inject 50 Units subcutaneously once daily. As directed. E10.8 ALCIDES: No Date of last office visit with pcp: 10/14/19 Date of last office visit in primary care: Last 2 Encounter Wt Readings: Date: Wt: 10/14/2019 99.8 kg (220 lb) 09/09/2019 98.2 kg (216 lb 9.6 oz) Previous labs/tests for medication: Diabetes: Hemoglobin A1C (%) Date Value 10/14/2019 7.8 04/17/2019 9.1 Hemoglobin A1C (POCT) (%) Date Value 10/14/2019 7.9 Please advise. Thank you. Cecelia Solomon APRN.REAL ESTATE PROFESSIONAL 11/05/2019 10:54 AM Signed The following approved medic ation requests have been transmitted electronically. Signed Prescriptions Disp Refills insulin glargine (LANTUS U-100 INSULIN) 100 unit/mL injectio n 3 Vial 5 Sig: Inject 50 Units subcutaneously once daily. As directed. E10.8 ALCIDES: No Authorizing Provider: GARY SOLOMON (REAL ESTATE PROFESSIONAL) Gary Solomon APRN.REAL ESTATE PROFESSIONAL Allergies As of Date: 11/04/2019 Noted Allergy Reaction ASPIRIN 08/12/2014 8 - GI Upset IBUPROFEN 08/12/2014 8 - GI Upset SIMVASTATIN 05/01/2016 14 - Other: See Comments Comments: Possible myalgia Date Reviewed: 10/14/2019 Reviewed by: Reid Sifuentes - Fully Assessed Reason for Visit: Refill Request [94] Visit Diagnosis:Type II or unspecified type diab etes mellitus without mention of complication, uncontrolled (HCC) [E11.65] Order(s):insulin glargine (LANTUS U-100 INSULIN) 100 u nit/mL injectionInject 50 Units subcutaneously once daily. As directed. E10.8Disp: 3 VialRfl: 5 Prescriptions as of 11/04/2019 Sig: INSULIN GLARGINE (U-100) 100 * Inject 50 Units subcutaneousl * ARIPIPRAZOLE 10 MG TABLET Take 1 tablet by mouth once d* GABAPENTIN 100 MG CAPSULE Please take 1 capsule in the * OMEPRAZOLE 40 MG CAPSULE,MARCELA* Take 1 capsule by mouth once * GUAIFENESIN ER 600 MG TABLET,* Take 2 tablets by mouth twice * Patient not taking: Reported on 10/07/2019 BENZONATATE 100 MG CAPSULE Take 1 capsule by mouth three* FLUOXETINE 40 MG CAPSULE Take 1 capsule by mouth once * LORATADINE 10 MG TABLET Take 1 tablet by mouth once d* LISINOPRIL 10 MG TABLET Take 0.5 tablets by mouth onc* ATORVASTATIN 40 MG TABLET Take 1 tablet by mouth once d* METFORMIN ER 500 MG TABLET,EX* Take 2 tablets by mouth twice * COMPOUNDED PRESCRIPTION Blood glucose monitor. Check* BLOOD SUGAR DIAGNOSTIC STRIPS Test blood sugar(s) 3 times d* LANCETS Test blood sugar(s) 3 times d* INSULIN SYRINGE U-100 WITH NE* Use one syringe daily FLUTICASONE PROPIONATE 50 MCG* Use 2 Sprays in each nostril * BENZONATATE 100 MG CAPSULE Take 1-2 capsules by mouth th* Patient not taking: Reported on 10/07/2019 ERGOCALCIFEROL (VITAMIN D2) 5* Take 1 capsule by mouth once * Patient not taking: Reported on 10/07/2019 Problem List As Of Date 11/04/2019 Noted Resolved Urgency of urination [R39.15] 08/12/2014 Frequency of urination [R35.0] 08/12/2014 Hesitancy of micturition [R39.11] 08/12/2014 Stress incontinence [N39.3] 08/12/2014 More... Morbid obesity (HCC) [E66.01] 08/12/2014 Polypharmacy [Z79.899] 08/12/2014 Diabetes mellitus type 2, uncontrolled, without*08/12/2014 More... Fibromyalgia [M79.7] 08/12/2014 More... Bipolar disorder (HCC) [F31.9] 08/15/2015 More... Hyperlipidemia LDL goal <100 [E78.5] 08/15/2015 More... Depression [F32.9] 08/15/2015 More... Vitamin D deficiency [E55.9] 05/01/2016 GERD (gastroesophageal reflux disease) [K21.9] 10/02/2016 Essential hypertension [I10] 11/28/2016 Elevated alkaline phosphatase level [R74.8] 03/29/2017 Lt arm numbness [R20.0] 02/04/2018 Prescriptions ordered this encounter Disp Refills Start End INSULIN GLARGINE (U-100) 100 UNIT/ML* 3 Vi* 5 11/05/2019 Route: SUBCUTANEOUS Sig: Inject 50 Units subcutaneously once daily. As directed. E10.8 Medications Discontinued During This Encounter insulin glargine (LANTUS U-100 INSUL* 3 Vi* 5 12/09/201810/25 Route: SUBCUTANEOUS Sig: Inject 50 Units subcutaneously once daily. As directed. E10.8 Disc: Reason for discontinue is not on file. Encounter Status:Closed by GARY SOLOMON CNP on 11/05/19 obsolete on 2019-10 OBSOLETE Refill (INTMWS) Normal 10-26-2019 [facility] LUNA DUMAS ([id number]) 1960 [facility] Date Time Provider Department ([id number]) 10/26/19 REID SIFUENTES INTMWS During your visit today, we recorded the following informati on about you: Leidy Mandujano RN 10/26/2019 3:05 PM Signed Patient has been identified by name and date of : Yes Pharmacy fax for refill(s): Pending Prescriptions Disp Refills ARIPIPRAZOLE 10 MG TABLET 30 tablet 5 Sig: Take 1 tablet by mouth once daily. ALCIDES: No Date of last office visit with pcp: 10-14-19. Next appt: 11-30 Last 2 Encounter Wt Readings: Date: Wt: 10/14/2019 99.8 kg (220 lb) 09/09/2019 98.2 kg (216 lb 9.6 oz) Previous labs/tests for medication: Blood Counts: WBC (k/uL) Date Value 10/14/2019 7.27 RBC (m/uL) Date Value 10/14/2019 4.36 Hematocrit (%) Date Value 10/14/2019 40.1 Hemoglobin (g/dL) Date Value 10/14/2019 12.2 Platelet Count (k/uL) Date Value 10/14/2019 325 Liver Function: ALT (U/L) Date Value 10/14/2019 16 AST (U/L) Date Value 10/14/2019 15 Please advise. Thank you. Leidy Solomon APRN.REAL ESTATE PROFESSIONAL 10/26/2019 3:57 PM Signed The following approved medic ation requests have been transmitted electronically. Signed Prescriptions Disp Refills ARIPiprazole (ABILIFY) 10 mg tablet 30 tablet 2 Sig: Take 1 tablet by mouth once daily. ALCIDES: No Authorizing Provider: GARY SOLOMON (REAL ESTATE PROFESSIONAL) Gary Solomon APRN.REAL ESTATE PROFESSIONAL Allergies As of Date: 10/26/2019 Noted Allergy Reaction ASPIRIN 08/12/2014 8 - GI Upset IBUPROFEN 08/12/2014 8 - GI Upset SIMVASTATIN 05/01/2016 14 - Other: See Comments Comments: Possible myalgia Date Reviewed: 10/14/2019 Reviewed by: Reid Sifuentes - Fully Assessed Reason for Visit: Refill Request [94] Visit Diagnosis:Anxiety and depression [F41.9, F32.9] Order(s):ARIPiprazole (ABILIFY) 10 mg tabletTake 1 tablet by mouth once daily.Disp: 30 tabletRfl: 2 Prescriptions as of 10/26/2019 Sig: ARIPIPRAZOLE 10 MG TABLET Take 1 tablet by mouth once d* GABAPENTIN 100 MG CAPSULE Please take 1 capsule in the * OMEPRAZOLE 40 MG CAPSULE,MARCELA* Take 1 capsule by mouth once * GUAIFENESIN ER 600 MG TABLET,* Take 2 tablets by mouth twice * Patient not taking: Reported on 10/07/2019 BENZONATATE 100 MG CAPSULE Take 1 capsule by mouth three* FLUOXETINE 40 MG CAPSULE Take 1 capsule by mouth once * LORATADINE 10 MG TABLET Take 1 tablet by mouth once d* LISINOPRIL 10 MG TABLET Take 0.5 tablets by mouth onc* ATORVASTATIN 40 MG TABLET Take 1 tablet by mouth once d* METFORMIN ER 500 MG TABLET,EX* Take 2 tablets by mouth twice * COMPOUNDED PRESCRIPTION Blood glucose monitor. Check* BLOOD SUGAR DIAGNOSTIC STRIPS Test blood sugar(s) 3 times d* LANCETS Test blood sugar(s) 3 times d* INSULIN SYRINGE U-100 WITH NE* Use one syringe daily INSULIN GLARGINE (U-100) 100 * Inject 50 Units subcutaneousl * FLUTICASONE PROPIONATE 50 MCG* Use 2 Sprays in each nostril * BENZONATATE 100 MG CAPSULE Take 1-2 capsules by mouth th* Patient not taking: Reported on 10/07/2019 ERGOCALCIFEROL (VITAMIN D2) 5* Take 1 capsule by mouth once * Patient not taking: Reported on 10/07/2019 Problem List As Of Date 10/26/2019 Noted Resolved Urgency of urination [R39.15] 08/12/2014 Frequency of urination [R35.0] 08/12/2014 Hesitancy of micturition [R39.11] 08/12/2014 Stress incontinence [N39.3] 08/12/2014 More... Morbid obesity (HCC) [E66.01] 08/12/2014 Polypharmacy [Z79.899] 08/12/2014 Diabetes mellitus type 2, uncontrolled, without*08/12/2014 More... Fibromyalgia [M79.7] 08/12/2014 More... Bipolar disorder (HCC) [F31.9] 08/15/2015 More... Hyperlipidemia LDL goal <100 [E78.5] 08/15/2015 More... Depression [F32.9] 08/15/2015 More... Vitamin D deficiency [E55.9] 05/01/2016 GERD (gastroesophageal reflux disease) [K21.9] 10/02/2016 Essential hypertension [I10] 11/28/2016 Elevated alkaline phosphatase level [R74.8] 03/29/2017 Lt arm numbness [R20.0] 02/04/2018 Prescriptions ordered this encounter Disp Refills Start End ARIPIPRAZOLE 10 MG TABLET 30 t* 2 10/26/2019 Route: ORAL Sig: Take 1 tablet by mouth once daily. Medications Discontinued During This Encounter ARIPiprazole (ABILIFY) 10 mg tablet 30 t* 0 09/28/2019 019 Route: ORAL Sig: Take 1 tablet by mouth once daily. Disc: Reason for discontinue is not on file. Encounter Status:Closed by GARY SOLOMON CNP on 10/26/19 tsh on 2019-10-14 TSH Qn 2.210 0.270-4.200 uU/mL Normal 10-14-2019 [facility] ([id number]) Comment: Performed By: #### HBA1C, CB CDIF, CMP, LIPNF, TSH ####[facility] [address] [place], [place] [phone] progress on 2019-09 PROGRESS HNO ID: [id number] Normal 10-14-2019 [facility] Author: Reid Sifuentes [place] ([id number]) Service: ? Author Type: Physician Type: Progress Notes Filed: 10/14/2019 1:14 PM Note Text: Reason for Visit Patient presents with: Established Patient: follow up-diabetes,htn Luna Dumas is a 58 year old female who presents here tod ay for Above Complaints.. Health Maintenance COLORECTAL CANCER SCREENING,SEE MODIFIER DILATED RETINAL EXAM MAMMOGRAM HBA1C HPI Patient had cervical radiculopathy and cervical degenerative disc disease done by Miguel Arevalo but patient noted it did not help [facility] [place]. Patient is going to follow up on Saturday. Patient has lost weight since the beginning of the year. Josefina dennisphong is doing a lot of walking recently as she is working currently at [employer]. She notes she likes working there. She is taking metformin, 2 tablets by mouth twice daily. She is mostly taking her medication. She has been having episodes of hypoglycemia, this has been happening once or twice a week and in the Middle of the night, she takes he r insulin in the mornings. She misses the glucophage a couple times in the week. She do es think this happens on days she is eating lesser. I have been giving her the abilify and the prozac she has be en taking her medication regularly. Patient is taking the neurontin for her fibromyalgia. Does not smoke. No problem-specific Assessment AND Plan notes found for this encounter. PAST MEDICAL HISTORY Diagnosis Date - Acute carpal tunnel syndrome, right 11/27/2018 - Bipolar 1 disorder (HCC) - Depression - Diabetes (HCC) - Fibromyalgia - Heartburn - Hypercholesteremia - Right distal ulnar fracture 11/27/2018 - Right radial fracture 11/27/2018 - Seasonal allergies PAST SURGICAL HISTORY Procedure Laterality Date - PAST SURGICAL HISTORY OF 2011 umbilical hernia repair - PAST SURGICAL HISTORY OF 1999 partial hysterectomy FAMILY HISTORY Problem Relation Age of Onset - Cancer Mother - Diabetes Mother - None Father - Diabetes Sister Social History Tobacco Use - Smoking status: Never Smoker - Smokeless tobacco: Never Used Substance Use Topics - Alcohol use: No - Drug use: No Past medical history, appointments, medications, allergies r eviewed. Pertinent Lab/Diagnostic Studies are reviewed and discussed today Current Outpatient Medications: - Omeprazole 40 mg capsule - ARIPiprazole (ABILIFY) 10 mg tablet - guaiFENesin (MUCINEX) 600 mg 12 hr tablet - benzonatate (TESSALON PERLES) 100 mg capsule - FLUoxetine HCl (PROZAC) 40 mg capsule - loratadine (CLARITIN) 10 mg tablet - lisinopril (PRINIVIL) 10 mg tablet - atorvastatin (LIPITOR) 40 mg tablet - metFORMIN ER (GLUCOPHAGE XR) 500 mg 24 hr tablet - COMPOUNDED PRESCRIPTION - blood sugar diagnostic (BLOOD GLUCOSE TEST) test strip - Lancets lancets - Insulin Syringe-Needle U-100 (TRUEPLUS INSULIN) 1 mL 30 ga uge x 516 syrg - gabapentin (NEURONTIN) 100 mg capsule - insulin glargine (LANTUS U-100 INSULIN) 100 unit/mL inject ion - fluticasone (FLONASE) 50 mcg/actuation nasal spray - benzonatate (TESSALON PERLE) 100 mg capsule - ergocalciferol, vitamin D2, (DRISDOL) 50,000 unit capsule Review of Systems CONSTITUTIONAL: No fevers, chills night sweats, unintended w eight loss CARDIOVASCULAR: No chest pain, dyspnea, palpitations, orthop tristen, PND, ankle edema. PULM: No dyspnea, unexplained cough. GI: No dysphagia/odynophagia, problematic reflux, constipati on, diarrhea, changes in stool habits, hematochezia, melena. : No new urinary complaints, including dysuria, gross giselle turia or pyuria. NEURO: No new balance problems, peripheral weakness/paresthe bobbi or numbness of concern. Physical Exam BP 132/70 (BP Site: Left Arm, BP Position: Sitting, BP Cuff Size: Large Adult) Pulse 69 Resp 12 Ht 174 cm (5' 8.5) Wt 99.8 kg (220 lb) SpO2 98% BMI 32.96 kg/m? General appearance: Well appearing, alert, in no acute distr ess, well nourished. Skin: Skin color, texture, turgor normal, no suspicious rash es or lesions Head: Normocephalic, no masses, lesions, tenderness or abnor malities Eyes: Anicteric sclera. Pupils are equally round and reactiv e to light. Extraocular movements are intact. Lungs: Lungs clear to auscultation. No wheezing, rhonchi, ra les Heart: RRR without murmur, gallop, or rubs. Extremities: No deformities, edema, skin discoloration, club elisabet or cyanosis. Good capillary refill. ASSESSMENT/PLAN: 1. Hypothyroidism, unspecified type - ICD9: 244.9, ICD10: E0 3.9 (primary diagnosis) - Instructed patient on importance of taking on an empty sto mach either first thing in the morning or at bedtime. Stable - Continue current medications - TSH BLD 2. Uncontrolled type 2 diabetes mellitus without complicatio n, with long-term current use of insulin (HCC) - ICD9: 250.02, V58.6 7, ICD10: E11.65, Z79.4 Controlled. - Continue current medications - GABAPENTIN 100 MG CAPSULE - HEMOGLOBIN A1C (POC) - HGB A1C - CBC + DIFF - COMP METABOLIC PANEL 3. Gastroesophageal reflux disease, esophagitis presence not specified - ICD9: 530.81, ICD10: K21.9 - Discussed lifestyle modifications including losing weight, limiting caffeine, no meals three hours before sleep and head of bed elevation 4. Anxiety and depression - ICD9: 300.00, 311, ICD10: F41.9, F32.9 5. Hyperlipidemia LDL goal <100 - ICD9: 272.4, ICD10: E78.5 - good control - Continue current medication. - LIPID PANEL BASIC - LIPID PANEL, NONFASTING 6. Hypoglycemia - ICD9: 251.2, ICD10: E16.2 REID SIFUENTES MD lipid panel, nonfast on 2019-10-14 Cholesterol [Mass/Vol] 185 <200 mg/dL Normal 10-14-2 019 [facility] ([id number]) Comment: Result Comment: <200 mg/dL, Desirable 200-239 mg/dL, Borderline hi gh >239 mg/dL, High Performed By: #### HBA1C, CB CDIF, CMP, LIPNF, TSH ####[facility] [address] [place], [place] [phone] Cholesterol in 2.34 <2.54 mg/dL Normal 10-14-2019 [facility] LDL/Cholesterol in HDL [Mass [place] (50996) ratio] Comment: Result Comment: Reference: 1. National Cholesterol Educ ation Program ATP III Guideline At-A-Glance Quick Desk Reference: National Heart, Lung, and Blood [place]. National Institutes of Health. 2001: NIH Publication No. 01-3305. 2. An International Atherosc lerosis Society position paper: global recommendations for the management of dyslipidemia: executive summary, Atherosclerosis. 2014: 232(2):410-413. Performed By: #### HBA1C, CB CDIF, CMP, LIPNF, TSH ####[facility] [address] [place], [place] [phone] Cholesterol.total/Cholesterol in 3.70 <5.10 mg/dL Normal 10-14-2019 [place] HDL [Mass ratio] Cli [facility] ([id number]) Comment: Performed By: #### HBA1C, CB CDIF, CMP, LIPNF, TSH ####[facility] [address] [place], [place] [phone] HDL Cholesterol, NF 50 >39 mg/dL Normal 10-14-2019 [facility] ([id number]) Comment: Result Comment: 40-59 mg/dL, Acceptable >59 mg/dL, High: Negative ri sk factor for coronary heart disease <40 mg/dL, Low: Positive ris k factor for coronary heart disease Performed By: #### HBA1C, CB CDIF, CMP, LIPNF, TSH ####[facility] [address] [place], [place] [phone] LDL Cholesterol, NF 117 <100 mg/dL High 10-14-2019 [facility] ([id number]) Comment: Result Comment: <100 mg/dL, Optimal 100-129 mg/dL, Near optimal/ above optimal 130-159 mg/dL, Borderline hi gh 160-189 mg/dL, High >189 mg/dL, Very high Secondary prevention optimal LDL Cholesterol levels are recommended to be < 70 mg/dL Performed By: #### HBA1C, CB CDIF, CMP, LIPNF, TSH ####[facility] [place], [place] [phone] Non HDL Chol, NF 135 <130 mg/dL High 10-14-2019 [facility] ([id number]) Comment: Result Comment: <130 mg/dL, Optimal 130-159 mg/dL, Near optimal/ above optimal 160-189 mg/dL, Borderline hi gh 190-219 mg/dL, High >219 mg/dL, Very high Secondary prevention optimal non HDL Cholesterol levels are recommended to be < 100 mg/dL Performed By: #### HBA1C, CB CDIF, CMP, LIPNF, TSH ####[facility] [place], [place] [phone] Triglycerides, NF 89 <150 mg/dL Normal 10-14-2019 [facility] (50207) Comment: Result Comment: <150 mg/dL, Normal 150-199 mg/dL, Borderline hi gh 200-499 mg/dL, High >499 mg/dL, Very high Performed By: #### HBA1C, CB CDIF, CMP, LIPNF, TSH ####[facility] [place] [phone] VLDL Cholesterol, NF 18 <30 mg/dL Normal 9 [facility] (96066) Comment: Performed By: #### HBA1C, CB CDIF, CMP, LIPNF, TSH ####[facility] [place], [place] [phone] hemoglobin a1c on HbA1c (Bld) [Mass fraction] 177 mg/dL Normal [facility] (75255) Comment: Result Comment: eAG: (Estima jorgito average glucose) is a calculated value from HgbA1c and is tax representative of the average blood glucose level in the last 2-3 month period. Performed By: #### HBA1C, CB CDIF, CMP, LIPNF, TSH #### [facility] [address] [place], [place] [phone] HbA1c (Bld) [Mass fraction] 7.8 4.3-5.6 % High [facility] (21700) Comment: Result Comment: [place] Carol betes Association guidelines indicate that patients with HgbA1c in the range 5.7-6.4% are at increased risk for development of diabetes, and intervention by lifestyle modification may be beneficial. HgbA1c greater o r equal to 6.5% is considered diagnostic of diabetes. Performed By: #### HBA1C, CB CDIF, CMP, LIPNF, TSH #### [facility] [address] [place], [place] [phone] comp metabolic panel on 2019-10-14 Albumin [Mass/Vol] 3.7 3.9-4.9 g/dL Low 10-14-2019 [facility] ([id number]) Comment: Performed By: #### HBA1C, CB CDIF, CMP, LIPNF, TSH ####[facility] [address] [place], [place] [phone] ALP [Catalytic activity/Vol] 110 34-123 U/L Normal 1 12-14-2018 [facility] (39729) Comment: Performed By: #### HBA1C, CB CDIF, CMP, LIPNF, TSH ####[facility] [address] [place], [place] [phone] ALT [Catalytic activity/Vol] 16 7-38 U/L Normal 1 12-14-2018 [facility] ([id number]) Comment: Performed By: #### HBA1C, CB CDIF, CMP, LIPNF, TSH ####[facility] [address] [place], [place] [phone] Anion gap [Moles/Vol] 12 9-18 mmol/L Normal 10-14-20 19 [facility] ([id number]) Comment: Performed By: #### HBA1C, CB CDIF, CMP, LIPNF, TSH ####[facility] [place], [place] [phone] AST [Catalytic activity/Vol] 15 13-35 U/L Normal 1 12-14-2018 [facility] ([id number]) Comment: Performed By: #### HBA1C, CB CDIF, CMP, LIPNF, TSH ####[facility] [place], [place] [phone] Bilirubin [Mass/Vol] 0.3 0.2-1.3 mg/dL Normal 9 [facility] (43946) Comment: Performed By: #### HBA1C, CB CDIF, CMP, LIPNF, TSH ####[place] [address] [place] [phone] Calcium [Mass/Vol] 9.4 8.5-10.2 mg/dL Normal 10-14-2019 [facility] (86375) Comment: Performed By: #### HBA1C, CB CDIF, CMP, LIPNF, TSH ####[facility] [place], [place] [phone] Chloride [Moles/Vol] 104 97-105 mmol/L Normal 9 [facility] ([id number]) Comment: Performed By: #### HBA1C, CB CDIF, CMP, LIPNF, TSH ####[facility] [place], [place] [phone] CO2 [Moles/Vol] 25 22-30 mmol/L Normal 10-14-2019 [facility] ([id number]) Comment: Performed By: #### HBA1C, CB CDIF, CMP, LIPNF, TSH ####[facility] [place], [place] [phone] Creatinine [Mass/Vol] 0.76 0.58-0.96 mg/dL Normal 10-14-20 19 [facility] (42139) Comment: Performed By: #### HBA1C, CB CDIF, CMP, LIPNF, TSH ####[facility] [address] [place], [place] [phone] eGFR- Amer. >60 Normal 10-14-2019 [facility] (10655) Comment: Performed By: #### HBA1C, CB CDIF, CMP, LIPNF, TSH ####[facility] [address] [place], [place] [phone] GFR/1.73 sq M predicted >60 mL/min/{1.73_m2} Normal 10-14-2019 [facility] among non-blacks MDRD [place] ([id number]) (S/P/Bld) [Vol rate/Area] Comment: Result Comment: eGFR (Estima jorgito GFR) Units of measure: mL/min/1.73 meters squared eGFR is derived from the ree xpressed MDRD Study equation using the following parameters: serum creatinine, age, gender and race. The creatinine assay has been calibrated to be traceable to IDMS. An eGFR <60 mL/min/1.73m2 fo r >3 months is consistent with chronic kidney disease. Refer to KDOQI guidelines for clinical interpretation. In patients with unstable re nal function, e.g. those with acute kidney injury, the eGFR may not accurately reflect actual GFR. Performed By: #### HBA1C, CB CDIF, CMP, LIPNF, TSH ####[facility] [address], [place] [phone] Glucose [Mass/Vol] 79 74-99 mg/dL Normal 10-14-2019 [facility] ([id number]) Comment: Result Comment: The [place] Diabetes Association (ADA) provides guidance for cutoff values for fasting glucose and random glucose. The ADA defines fasting as no caloric intake for at least 8 hours. Fas ting plasma glucose results between 100 to 125 mg/dL indicate increased risk for diabetes (prediabetes). Fasting plasma glucose resul ts greater than or equal to 126 mg/dL meet the criteria for diagnosis of diabetes. In the absence of unequivocal hyperglycemia, results should be confirmed by repeat testing. In a patient with classic s ymptoms of hyperglycemia or hyperglycemic crisis, random plasma glucose results greater than or equal to 200 mg/dL meet the criteria for diagnosis of diabetes. Reference: Standards of [facility] Care in Diabetes 2016, [place] Diabetes Association. Diabetes Care. 2016.39(Suppl 1). Performed By: #### HBA1C, CB CDIF, CMP, LIPNF, TSH ####[facility] [place] [phone] Potassium [Moles/Vol] 4.6 3.7-5.1 mmol/L Normal 10-14-20 [facility] (25757) Comment: Performed By: #### HBA1C, CB CDIF, CMP, LIPNF, TSH ####[place] [address] [place] [phone] Protein [Mass/Vol] 7.0 6.3-8.0 g/dL Normal 10-14-2019 [facility] (53739) Comment: Performed By: #### HBA1C, CB CDIF, CMP, LIPNF, TSH ####[place] [address] [place] [phone] Sodium [Moles/Vol] 141 136-144 mmol/L Normal 10-14-2019 [facility] (83883) Comment: Performed By: #### HBA1C, CB CDIF, CMP, LIPNF, TSH ####[place] [address] [place] [phone] Urea nitrogen [Mass/Vol] 11 7-21 mg/dL Normal 10-14 [facility] (94654) Comment: Performed By: #### HBA1C, CB CDIF, CMP, LIPNF, TSH ####[place] [address] [place] [phone] cnov on 2019-10-14 CNOV Office Visit (INTMWS) Normal 10-14-20 [facility] LUNA DUMAS ([id number]) 1960 [facility] Time Provider Department ([id number]) 10/14/19 9:40 AM REID SIFUENTES During your visit today, we recorded the following informati on about you: Pulse Respiration Blood pressure Weight 69/minute 12/minute 132/70 99.8 kg Height 1.74 m REID SIFUENTES MD 10/14/2019 1:14 PM Signed Reason for Visit Patient presents with: Established Patient: follow up-diabetes,htn Luna Dumas is a 58 year old female who presents here tod ay for Above Complaints.. Health Maintenance COLORECTAL CANCER SCREENING,SEE MODIFIER DILATED RETINAL EXAM MAMMOGRAM HBA1C HPI Patient had cervical radiculopathy and c ervical degenerative disc disease done by Miguel Arevalo but patient noted it did not help much. Patient is going to follow up on Saturday. Patient has lost weight sinc e the beginning of the year. Patient is doing a lot of walking recently as she is working currently at [employer]. She notes she likes working there. She is taking metformin, 2 tablets by mouth twic e daily. She is mostly taking her medication. She has been having episodes of hypoglycemia, th is has been happening once or twice a week and in the Middle of the night, she takes her i nsulin in the mornings. She misses the glucophage a couple times in the week. She do es think this happens on days she is eating lesser. I have been giving her the abilify and the prozac she has be en taking her medication regularly. Patient is taking the neurontin for her fibromyalgia. Does not smoke. No problem-specific Assessment AND Plan notes found for this encounter. PAST MEDICAL HISTORY Diagnosis Date - Acute carpal tunnel syndrome, right 11/27/2018 - Bipolar 1 disorder (HCC) - Depression - Diabetes (HCC) - Fibromyalgia - Heartburn - Hypercholesteremia - Right distal ulnar fracture 11/27/2018 - Right radial fracture 11/27/2018 - Seasonal allergies PAST SURGICAL HISTORY Procedure Laterality Date - PAST SURGICAL HISTORY OF 2011 umbilical hernia repair - PAST SURGICAL HISTORY OF 1999 partial hysterectomy FAMILY HISTORY Problem Relation Age of Onset - Cancer Mother - Diabetes Mother - None Father - Diabetes Sister Social History Tobacco Use - Smoking status: Never Smoker - Smokeless tobacco: Never Used Substance Use Topics - Alcohol use: No - Drug use: No Past medical history, appointments, medications, allergies r kalie. Pertinent Lab/Diagnostic Studies are reviewed and discussed today Current Outpatient Medications: - Omeprazole 40 mg capsule - ARIPiprazole (ABILIFY) 10 mg tablet - guaiFENesin (MUCINEX) 600 mg 12 hr tablet - benzonatate (TESSALON PERLES) 100 mg capsule - FLUoxetine HCl (PROZAC) 40 mg capsule - loratadine (CLARITIN) 10 mg tablet - lisinopril (PRINIVIL) 10 mg tablet - atorvastatin (LIPITOR) 40 mg tablet - metFORMIN ER (GLUCOPHAGE XR) 500 mg 24 hr tablet - COMPOUNDED PRESCRIPTION - blood sugar diagnostic (BLOOD GLUCOSE TEST) test strip - Lancets lancets - Insulin Syringe-Needle U-100 (TRUEPLUS INSULIN) 1 mL 30 gauge x 5/16 syrg - gabapentin (NEURONTIN) 100 mg capsule - insulin glargine (LANTUS U-100 INSULIN) 100 unit/mL inject ion - fluticasone (FLONASE) 50 mcg/actuation nasal spray - benzonatate (TESSALON PERLE) 100 mg capsule - ergocalciferol, vitamin D2, (DRISDOL) 50,000 unit capsule Review of Systems CONSTITUTIONAL: No fevers, chills night sweats, unintended w eight loss CARDIOVASCULAR: No chest pain, dyspnea, palpitations, orth opnea, PND, ankle edema. PULM: No dyspnea, unexplained cough. GI: No dysphagia/odynophagia, problematic reflux, constipati on, diarrhea, changes in stool habits, hematochezia, melena. : No new urinary complaints, including dysuria, anabelle s hematuria or pyuria. NEURO: No new balance problems, peripheral weakness/pa resthesias or numbness of concern. Physical Exam BP 132/70 (BP Site: Left Arm, BP Positio n: Sitting, BP Cuff Size: Large Adult) Pulse 69 Resp 12 Ht 174 cm (5' 8.5) Wt 99.8 kg (2 20 lb) SpO2 98% BMI 32.96 kg/m? General appearance: Well nitin earing, alert, in no acute distress, well nourished. Skin: Skin color, texture, turgor normal, no suspicious rash es or lesions Head: Normocephalic, no masses, lesions, tenderness or abnor malities Eyes: Anicteric sclera. Pupils are equally round and reactiv e to light. Extraocular movements are intact. Lungs: Lungs clear to auscultation. No wheezing, rhonchi, ra les Heart: RRR without murmur, gallop, or rubs. Extremities: No deformities, edema, skin discolo ration, clubbing or cyanosis. Good capillary refill. ASSESSMENT/PLAN: 1. Hypothyroidism, unspecified type - ICD9: 244.9, ICD10: E0 3.9 (primary diagnosis) - Instructed patient on importance of taking on an empty stomach either first thing in the morning or at bedtime. Stable - Continue current medications - TSH BLD 2. Uncontrolled type 2 diabetes mellitus without complication, with long-term current use of insulin (HCC) - ICD9: 250.02, V58.67, ICD10: E11.65, Z79.4 Controlled. - Continue current medications - GABAPENTIN 100 MG CAPSULE - HEMOGLOBIN A1C (POC) - HGB A1C - CBC + DIFF - COMP METABOLIC PANEL 3. Gastroesophageal reflux disease, esop hagitis presence not specified - ICD9: 530.81, ICD10: K21.9 - Discussed lifestyle modifications including losing weight, limiting caffeine, no meals three hours before sleep and head of bed elevation 4. Anxiety and depression - ICD9: 300.00, 311, ICD10: F41.9, F32.9 5. Hyperlipidemia LDL goal <100 - ICD9: 272.4, ICD10: E78.5 - good control - Continue current medication. - LIPID PANEL BASIC - LIPID PANEL, NONFASTING 6. Hypoglycemia - ICD9: 251.2, ICD10: E16.2 REID SIFUENTES MD Referring Provider: SELF [[id number]] Allergies As of Date: 10/14/2019 Noted Allergy Reaction ASPIRIN 08/12/2014 8 - GI Upset IBUPROFEN 08/12/2014 8 - GI Upset SIMVASTATIN 05/01/2016 14 - Other: See Comments Comments: Possible myalgia Date Reviewed: 10/14/2019 Reviewed by: Reid Sifuentes - Fully Assessed Reason for Visit: Established Patient [175] Cmt: follow up-diabetes,htn Primary Visit Diagnosis:Hypothyroidism, unspecified type [E0 3.9] Other Visit Diagnoses:Uncontrolled type 2 diabetes mellitus without complication, with long-term current use of insulin (HCC) [E11.65, Z79.4] Gastroesophageal reflux disease, esophagitis presence not specified [K21.9] Anxiety and depression [F41.9, F32.9] Hyperlipidemia LDL goal <100 [E78.5] Hypoglycemia [E16.2] Order(s):gabapentin (NEURONTIN) 100 mg capsulePlease take 1 capsule in the morning and afternoon and 2 tablets in the eveningDisp: 120 capsuleRfl: 2 HEMOGLOBIN A1C (POC) [[id number]] Order #: [id number]. #:[id number] HGB A1C [UHWVO0T] Order #: [id number] STANDING CBC + DIFF [SQCBCDIF] Order #: [id number] FUTURE COMP METABOLIC PANEL [SQCMP] Order #: [id number] FUTURE TSH BLD [SQTSH] Order #: [id number] FUTURE LIPID PANEL, NONFASTING [SQLIPNF] Order #: [id number] FUTURE Prescriptions as of 10/14/2019 Sig: GABAPENTIN 100 MG CAPSULE Please take 1 capsule in the * OMEPRAZOLE 40 MG CAPSULE,MARCELA* Take 1 capsule by mouth once * ARIPIPRAZOLE 10 MG TABLET Take 1 tablet by mouth once d* GUAIFENESIN ER 600 MG TABLET,* Take 2 tablets by mouth twice * Patient not taking: Reported on 10/07/2019 BENZONATATE 100 MG CAPSULE Take 1 capsule by mouth three* FLUOXETINE 40 MG CAPSULE Take 1 capsule by mouth once * LORATADINE 10 MG TABLET Take 1 tablet by mouth once d* LISINOPRIL 10 MG TABLET Take 0.5 tablets by mouth onc* ATORVASTATIN 40 MG TABLET Take 1 tablet by mouth once d* METFORMIN ER 500 MG TABLET,EX* Take 2 tablets by mouth twice * COMPOUNDED PRESCRIPTION Blood glucose monitor. Check* BLOOD SUGAR DIAGNOSTIC STRIPS Test blood sugar(s) 3 times d* LANCETS Test blood sugar(s) 3 times d* INSULIN SYRINGE U-100 WITH NE* Use one syringe daily INSULIN GLARGINE (U-100) 100 * Inject 50 Units subcutaneousl * FLUTICASONE PROPIONATE 50 MCG* Use 2 Sprays in each nostril * BENZONATATE 100 MG CAPSULE Take 1-2 capsules by mouth th* Patient not taking: Reported on 10/07/2019 ERGOCALCIFEROL (VITAMIN D2) 5* Take 1 capsule by mouth once * Patient not taking: Reported on 10/07/2019 Problem List As Of Date 10/14/2019 Noted Resolved Urgency of urination [R39.15] 08/12/2014 Frequency of urination [R35.0] 08/12/2014 Hesitancy of micturition [R39.11] 08/12/2014 Stress incontinence [N39.3] 08/12/2014 More... Morbid obesity (HCC) [E66.01] 08/12/2014 Polypharmacy [Z79.899] 08/12/2014 Diabetes mellitus type 2, uncontrolled, without*08/12/2014 More... Fibromyalgia [M79.7] 08/12/2014 More... Bipolar disorder (HCC) [F31.9] 08/15/2015 More... Hyperlipidemia LDL goal <100 [E78.5] 08/15/2015 More... Depression [F32.9] 08/15/2015 More... Vitamin D deficiency [E55.9] 05/01/2016 GERD (gastroesophageal reflux disease) [K21.9] 10/02/2016 Essential hypertension [I10] 11/28/2016 Elevated alkaline phosphatase level [R74.8] 03/29/2017 Lt arm numbness [R20.0] 02/04/2018 Prescriptions ordered this encounter Disp Refills Start End GABAPENTIN 100 MG CAPSULE 120 * 2 10/14/2019 05/06/2020 Sig: Please take 1 capsule in the morning and afternoo n and 2 tablets in the evening Medications Discontinued During This Encounter gabapentin (NEURONTIN) 100 mg capsule 120 * 2 02/16/201909/26 Sig: Please take 1 capsule i n the morning and afternoon and 2 tablets in the evening Disc: Reason for discontinue is not on file. Encounter Status:Closed by REID SIFUENTES MD on 10/14/19 cbc and differential on 2019-10-14 Abs Baso 0.06 <0.11 k/uL Normal 10-14-2019 [facility] ([id number]) Comment: Performed By: #### HBA1C, CB CDIF, CMP, LIPNF, TSH #### [facility] [address] [place] [phone] Abs [place] 0.67 <0.87 k/uL Normal 10-14-2019 [facility] ([id number]) Comment: Performed By: #### HBA1C, CB CDIF, CMP, LIPNF, TSH #### [place] [address] [place] [phone] Abs Neut 3.89 1.45-7.50 k/uL Normal 10-14-2019 [facility] ([id number]) Comment: Performed By: #### HBA1C, CB CDIF, CMP, LIPNF, TSH #### [place] [phone] Absolute nRBC <0.01 <0.01 Normal 10-14-2019 [facility] ([id number]) Comment: Performed By: #### HBA1C, CB CDIF, CMP, LIPNF, TSH #### [place] [address] [place] [phone] Basophils/100 WBC (Bld) 0.8 % Normal 2018 [facility] ([id number]) Comment: Performed By: #### HBA1C, CB CDIF, CMP, LIPNF, TSH #### [place] [phone] DTYPE Auto Diff Normal 10-14-2019 [facility] ([id number]) Comment: Performed By: #### HBA1C, CB CDIF, CMP, LIPNF, TSH #### [place] [address] [place] [phone] Eosinophils (Bld) [#/Vol] 0.24 <0.46 k/uL Normal 09-26 [facility] ([id number]) Comment: Performed By: #### HBA1C, CB CDIF, CMP, LIPNF, TSH #### [facility] [place] [address] Eosinophils/100 WBC (Bld) 3.3 % Normal 09-26 [facility] ([id number]) Comment: Performed By: #### HBA1C, CB CDIF, CMP, LIPNF, TSH #### [facility] [address] [place], [place] [address] Erythrocyte distribution 13.8 11.5-15.0 % Normal 10-14 [facility] width (RBC) [Ratio] [facility] ([id number]) Comment: Performed By: #### HBA1C, CB CDIF, CMP, LIPNF, TSH #### [facility] [address] [place], [place] [address] Hematocrit (Bld) [Volume 40.1 36.0-46.0 % Normal 10-14 [facility] fraction] [facility] ([id number]) Comment: Performed By: #### HBA1C, CB CDIF, CMP, LIPNF, TSH #### [facility] [address] [place], [place] [address] Hemoglobin (Bld) 12.2 11.5-15.5 g/dL Normal 10-14-2019 [facility] [Mass/Vol] [place] ([id number]) Comment: Performed By: #### HBA1C, CB CDIF, CMP, LIPNF, TSH #### [facility] [address] [place], [place] [address] Lymphocytes (Bld) [#/Vol] 2.40 1.00-4.00 k/uL Normal 09-26 [facility] ([id number]) Comment: Performed By: #### HBA1C, CB CDIF, CMP, LIPNF, TSH #### [facility] [address] [place], [place] [address] Lymphocytes/100 WBC (Bld) 33.0 % Normal 09-26 [facility] ([id number]) Comment: Performed By: #### HBA1C, CB CDIF, CMP, LIPNF, TSH #### [facility] [address] [place], [place] [address] MCH (RBC) [Entitic mass] 28.0 26.0-34.0 pG Normal 10-14 [facility] ([id number]) Comment: Performed By: #### HBA1C, CB CDIF, CMP, LIPNF, TSH #### [address] [address] MCHC (RBC) [Mass/Vol] 30.4 30.5-36.0 g/dL Low 10-14-20 [facility] ([id number]) Comment: Performed By: #### HBA1C, CB CDIF, CMP, LIPNF, TSH #### [address] [address] MCV (RBC) [Entitic vol] 92.0 80.0-100.0 fL Normal 10-14 [facility] ([id number]) Comment: Performed By: #### HBA1C, CB CDIF, CMP, LIPNF, TSH #### [address] [address] Monocytes/100 WBC (Bld) 9.2 % Normal 2018 [facility] ([id number]) Comment: Performed By: #### HBA1C, CB CDIF, CMP, LIPNF, TSH #### [address] [address] Neutrophils/100 WBC (Bld) 53.7 % Normal 09-26 [facility] ([id number]) Comment: Performed By: #### HBA1C, CB CDIF, CMP, LIPNF, TSH #### [address] [address] NRBCs 0.0 0 /100 WBC Normal 10-14-2019 [facility] ([id number]) Comment: Performed By: #### HBA1C, CB CDIF, CMP, LIPNF, TSH #### [address], [place] [address] Platelet mean volume 10.5 9.0-12.7 fL Normal 9 [facility] (Bld) [Entitic vol] [facility] ([id number]) Comment: Performed By: #### HBA1C, CB CDIF, CMP, LIPNF, TSH #### [facility] [address] [place], [place] [address] Platelets (Bld) [#/Vol] 325 150-400 k/uL Normal 2018 [facility] ([id number]) Comment: Performed By: #### HBA1C, CB CDIF, CMP, LIPNF, TSH #### [facility] [address] [place] [address] RBC (Bld) [#/Vol] 4.36 3.90-5.20 m/uL Normal 10-14-2019 [facility] ([id number]) Comment: Performed By: #### HBA1C, CB CDIF, CMP, LIPNF, TSH #### [facility] [address] [place], [place] [address] WBC (Bld) [#/Vol] 7.27 3.70-11.00 k/uL Normal 10-14-2019 [facility] ([id number]) Comment: Performed By: #### HBA1C, CB CDIF, CMP, LIPNF, TSH #### [facility] [address] [place] [address] progress on 2019-09 PROGRESS HNO ID: [id number] Normal 10-07-2019 [facility] Author: Sharron Bruner Mary ([id number]) Service: ? Author Type: Physician Type: Progress Notes Filed: 10/07/2019 12:29 PM Note Text: Subjective: Patient presents to clinic c/o painful toenails. They state that the nails are especially painful with shoe gear and pre ssure. Patient states that nails 1-5 b/l are painful. Patient admit s to being diabetic and states that their blood sugar was 129 mg/dL las t week. Patient states that she is beginning to experience pain in t he midfoot of b/l lower extremity and this pain extends to her heel. Patie nt states the pain comes and goes. No other pedal complaints at this time. Patient states no change in medications or medical history s jayson last visit. Objective: Patient presents to clinic ambulating in [facility] Vasc: DP and PT pulses are palpable bilateral. CFT is less t milton 5 seconds bilateral. Skin temperature is warm to cool proximal to dist al bilateral. There is no edema or varicosities noted. Neuro: Protective sensation is intact to the foot and toes w hen tested with the 5.07 SWM bilateral. Vibratory sensation is decrease d at the hallux IPJ bilateral. The hallux is downgoing bilateral. Derm: Nails 1-5 b/l are discolored-yellow, thick, crumbly, d ystrophic and with subungal debris. Skin is of normal turgor, texture and hair growth is present bilateral. There are callus to left 5th toe and b /l 1st metatarsal. No ulcerations, scars, verruca or other lesions noted. Ortho: Muscle strength is 5/5 for all pedal groups tested. A nkle joint DF is full with the knee extended with no pain or crepitus note d. 1st MPJ ROM is full bilateral. 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 Nails 1-5 bilateral were debrided in length and thickness. Callus was reduced with dremmel. Diabetic shoes with inserts ordered. Offered xrays for b/l m idfoot and heel pain but she declined. Patient was instructed on the continued importance of diabet ic foot care along with proper diet and keeping their blood sugar under c ontrol to prevent complications. Patient is to RTC in 3-4 months. Sharron Bruner DPM cnadrienne on 2019-10-07 CNOV Office Visit (PODIWS) Normal 10-07- 19 [facility] DUMASLUNA ([id number]) 1960 [facility] Date Time Provider Department ([id number]) 10/07/19 11:15 AM SHARRON BRUNER During your visit today, we recorded the following informati on about you: Sharron Crowellamber CHICHO 10/07/2019 12:29 PM Signed Subjective: Patient presents to clinic c/o painful toe nails. They state that the nails are especially painful with shoe gear and pr essure. Patient states that nails 1-5 b/l are painful. Patient admits to being di abetic and states that their blood sugar was 129 mg/dL last week. Patient stat es that she is beginning to experience pain in the midfoot of b/l lower e xtremity and this pain extends to her heel. Patient states the pain comes and goes. No other pedal complaints at this time. Patient states no change in medications or medical his tory since last visit. Objective: Patient presents to clinic ambulating in [facility] Vasc: DP and PT pulses are palpable bilateral. CFT is less t milton 5 seconds bilateral. Skin temperature is warm to cool proximal to dist al bilateral. There is no edema or varicosities noted. Neuro: Protective sensation is intact to the foot and toes when tested with the 5.07 SWM bilateral. Vibratory sensation is decreased at the hallux IPJ bilateral. The hallux is downgoing bilateral. Derm: Nails 1-5 b/l are discolored-yello w, thick, crumbly, dystrophic and with subungal debris. Skin is of normal turgor, textu re and hair growth is present bilateral. There are callus to left 5th toe and b/l 1st meta tarsal. No ulcerations, scars, verruca or other lesions noted. Ortho: Muscle strength is 5/5 for all pedal groups anaya jorgito. Ankle joint DF is full with the knee extended with no pain or crepitus noted. 1st MPJ ROM is full bilateral. 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 Nails 1-5 bilateral were debrided in length and thickness. Callus was reduced with dremmel. Diabetic shoes with inserts ordered. Offered xrays for b/l midfoot and heel pain but she declined. Patient was instructed on the continued importance of diabetic foot care along with proper diet and keeping their blood sugar under control to prevent complications. Patient is to RTC in 3-4 months. Sharron Bruner DPM Referring Provider: SHARRON BRUNER [[id number]] Allergies As of Date: 10/07/2019 Noted Allergy Reaction ASPIRIN 08/12/2014 8 - GI Upset IBUPROFEN 08/12/2014 8 - GI Upset SIMVASTATIN 05/01/2016 14 - Other: See Comments Comments: Possible myalgia Date Reviewed: 10/07/2019 Reviewed by: Jackie (Rn) Lavonne - Fully Assessed Reason for Visit: Established Patient [175] Cmt: 3 month follow-up nail care Primary Visit Diagnosis:Onychomycosis [B35.1] Other Visit Diagnoses:Pain in toe of left foot [M79.675] Pain in toe of right foot [M79.674] Other diabetic neurological complication associated with type 2 diabetes mellitus (HCC) [E11.49] Hyperkeratosis [L85.9] Order(s):DIAB SHOE FOR DENSITY INSERT [[id number]] Order #: [id number] Prescriptions as of 10/07/2019 Sig: OMEPRAZOLE 40 MG CAPSULE,MARCELA* Take 1 capsule by mouth once * ARIPIPRAZOLE 10 MG TABLET Take 1 tablet by mouth once d* BENZONATATE 100 MG CAPSULE Take 1 capsule by mouth three* FLUOXETINE 40 MG CAPSULE Take 1 capsule by mouth once * LORATADINE 10 MG TABLET Take 1 tablet by mouth once d* LISINOPRIL 10 MG TABLET Take 0.5 tablets by mouth onc* ATORVASTATIN 40 MG TABLET Take 1 tablet by mouth once d* METFORMIN ER 500 MG TABLET,EX* Take 2 tablets by mouth twice * COMPOUNDED PRESCRIPTION Blood glucose monitor. Check* BLOOD SUGAR DIAGNOSTIC STRIPS Test blood sugar(s) 3 times d* LANCETS Test blood sugar(s) 3 times d* INSULIN SYRINGE U-100 WITH NE* Use one syringe daily INSULIN GLARGINE (U-100) 100 * Inject 50 Units subcutaneousl * FLUTICASONE PROPIONATE 50 MCG* Use 2 Sprays in each nostril * GUAIFENESIN ER 600 MG TABLET,* Take 2 tablets by mouth twice * Patient not taking: Reported on 10/07/2019 GABAPENTIN 100 MG CAPSULE Please take 1 capsule in the * BENZONATATE 100 MG CAPSULE Take 1-2 capsules by mouth th* Patient not taking: Reported on 10/07/2019 ERGOCALCIFEROL (VITAMIN D2) 5* Take 1 capsule by mouth once * Patient not taking: Reported on 10/07/2019 Problem List As Of Date 10/07/2019 Noted Resolved Urgency of urination [R39.15] 08/12/2014 Frequency of urination [R35.0] 08/12/2014 Hesitancy of micturition [R39.11] 08/12/2014 Stress incontinence [N39.3] 08/12/2014 More... Morbid obesity (HCC) [E66.01] 08/12/2014 Polypharmacy [Z79.899] 08/12/2014 Diabetes mellitus type 2, uncontrolled, without*08/12/2014 More... Fibromyalgia [M79.7] 08/12/2014 More... Bipolar disorder (HCC) [F31.9] 08/15/2015 More... Hyperlipidemia LDL goal <100 [E78.5] 08/15/2015 More... Depression [F32.9] 08/15/2015 More... Vitamin D deficiency [E55.9] 05/01/2016 GERD (gastroesophageal reflux disease) [K21.9] 10/02/2016 Essential hypertension [I10] 11/28/2016 Elevated alkaline phosphatase level [R74.8] 03/29/2017 Lt arm numbness [R20.0] 02/04/2018 Disposition: Return in about 3 months (around 01/07/2020) for nail care. Follow-up and Disposition History Recorded Encounter Status:Closed by SHARRON BRUNER DPM on 10/07/19 obsolete on 2019-09 OBSOLETE Refill (INTMWS) Normal 09-28-2019 [facility] LUNA DUMAS ([id number]) 1960 [facility] Date Time Provider Department ([id number]) 09/28/19 REID SIFUENTES INTMWS During your visit today, we recorded the following informati on about you: Lazara Klein Pss 09/28/2019 11:09 AM Signed Patient has been identified by name and date of : Yes Pending Prescriptions Disp Refills OMEPRAZOLE 20 MG CAPSULE,DELAYED RELEASE 60 capsule 2 Sig: Take 1 capsule by mouth twice daily. 1/2 hr before meal . ALCIDES: No ARIPIPRAZOLE 10 MG TABLET 30 tablet 2 Sig: Take 1 tablet by mouth once daily. ALCIDES: No RX INSTRUCTIONS: Patient aware RX will be sent to pharmacy. No need to notify patient. Lazara Klein [facility] Mireille Diallo RN, RN 09/28/2019 4:20 PM Signed Patient has been identified by name and date of : Yes Patient phones for refill(s): Pending Prescriptions Disp Refills OMEPRAZOLE 20 MG CAPSULE,DELAYED RELEASE 60 capsule 2 Sig: Take 1 capsule by mouth twice daily. 1/2 hr before meal . ALCIDES: No ARIPIPRAZOLE 10 MG TABLET 30 tablet 2 Sig: Take 1 tablet by mouth once daily. ALCIDES: No Date of last office visit in primary care: 04/17/19, next Last 2 Encounter Wt Readings: Date: Wt: 09/09/2019 98.2 kg (216 lb 9.6 oz) 04/17/2019 98.9 kg (218 lb) Previous labs/tests for medication: Not applicable Please advise. Thank you. Mireille Diallo, RN Gary Solomon APRN.REAL ESTATE PROFESSIONAL 09/28/2019 4:38 PM Signed The following approved medic ation requests have been transmitted electronically. Signed Prescriptions Disp Refills omeprazole (PRILOSEC) 20 mg capsule 60 capsule 0 Sig: Take 1 capsule by mouth twice daily. 1/2 hr before meal . ALCIDES: No Authorizing Provider: GARY SOLOMON ([place]) ARIPiprazole (ABILIFY) 10 mg tablet 30 tablet 0 Sig: Take 1 tablet by mouth once daily. ALCIDES: No Authorizing Provider: GARY SOLOMON ([place]) Gary Solomon APRN.REAL ESTATE PROFESSIONAL Allergies As of Date: 09/28/2019 Noted Allergy Reaction ASPIRIN 08/12/2014 8 - GI Upset IBUPROFEN 08/12/2014 8 - GI Upset SIMVASTATIN 05/01/2016 14 - Other: See Comments Comments: Possible myalgia Date Reviewed: 09/09/2019 Reviewed by: Penelope Mcconnell LPN - Fully Assessed Reason for Visit: Refill Request [94] Visit Diagnoses:Gastroesophageal reflux disease, esophagitis presence not specified [K21.9] Anxiety and depression [F41.9, F32.9] Order(s):omeprazole (PRILOSEC) 20 mg capsuleTake 1 capsule b y mouth twice daily. 1/2 hr before meal.Disp: 60 capsuleRfl: 0 ARIPiprazole (ABILIFY) 10 mg tabletTake 1 tablet by mouth on ce daily.Disp: 30 tabletRfl: 0 Prescriptions as of 09/28/2019 Sig: OMEPRAZOLE 20 MG CAPSULE,MACRELA* Take 1 capsule by mouth twice * ARIPIPRAZOLE 10 MG TABLET Take 1 tablet by mouth once d* GUAIFENESIN ER 600 MG TABLET,* Take 2 tablets by mouth twice * BENZONATATE 100 MG CAPSULE Take 1 capsule by mouth three* FLUOXETINE 40 MG CAPSULE Take 1 capsule by mouth once * LORATADINE 10 MG TABLET Take 1 tablet by mouth once d* LISINOPRIL 10 MG TABLET Take 0.5 tablets by mouth onc* ATORVASTATIN 40 MG TABLET Take 1 tablet by mouth once d* METFORMIN ER 500 MG TABLET,EX* Take 2 tablets by mouth twice * COMPOUNDED PRESCRIPTION Blood glucose monitor. Check* BLOOD SUGAR DIAGNOSTIC STRIPS Test blood sugar(s) 3 times d* LANCETS Test blood sugar(s) 3 times d* INSULIN SYRINGE U-100 WITH NE* Use one syringe daily GABAPENTIN 100 MG CAPSULE Please take 1 capsule in the * INSULIN GLARGINE (U-100) 100 * Inject 50 Units subcutaneousl * FLUTICASONE PROPIONATE 50 MCG* Use 2 Sprays in each nostril * BENZONATATE 100 MG CAPSULE Take 1-2 capsules by mouth th* Patient not taking: Reported on 09/09/2019 ERGOCALCIFEROL (VITAMIN D2) 5* Take 1 capsule by mouth once * Problem List As Of Date 09/28/2019 Noted Resolved Urgency of urination [R39.15] INVALID FOR* Frequency of urination [R35.0] INVALID FOR* Hesitancy of micturition [R39.11] INVALID FOR* Stress incontinence [N39.3] INVALID FOR* More... Morbid obesity (HCC) [E66.01] INVALID FOR* Polypharmacy [Z79.899] INVALID FOR* Diabetes mellitus type 2, uncontrolled, without*INVALID FOR* More... Fibromyalgia [M79.7] INVALID FOR* More... Bipolar disorder (HCC) [F31.9] INVALID FOR* More... Hyperlipidemia LDL goal <100 [E78.5] INVALID FOR* More... Depression [F32.9] INVALID FOR* More... Vitamin D deficiency [E55.9] INVALID FOR* GERD (gastroesophageal reflux disease) [K21.9] INVALID FOR* Essential hypertension [I10] INVALID FOR* Elevated alkaline phosphatase level [R74.8] INVALID FOR* Lt arm numbness [R20.0] INVALID FOR* Prescriptions ordered this encounter Disp Refills Start End OMEPRAZOLE 20 MG CAPSULE,DELAYED REL* 60 c* 0 09/28/2019 Route: ORAL Sig: Take 1 capsule by mouth twice daily. 1/2 hr before meal . ARIPIPRAZOLE 10 MG TABLET 30 t* 0 09/28/2019 Route: ORAL Sig: Take 1 tablet by mouth once daily. Medications Discontinued During This Encounter omeprazole (PRILOSEC) 20 mg capsule 60 c* 2 04/17/2019 019 Route: ORAL Sig: Take 1 capsule by mouth twice daily. 1/2 hr before meal . Disc: Reason for discontinue is not on file. ARIPiprazole (ABILIFY) 10 mg tablet 30 t* 2 07/13/2019 019 Route: ORAL Sig: Take 1 tablet by mouth once daily. Disc: Reason for discontinue is not on file. Encounter Status:Closed by GARY SOLOMON CNP on 09/28/19 progress on 2019-08 PROGRESS HNO ID: [id number] Normal 09-09-2019 [facility] Author: Tiana Scales [facility] ([id number]) Service: ? Author Type: Nurse Practitioner Type: Progress Notes Filed: 09/09/2019 1:45 PM Note Text: Subjective HPI Pt presents with c/o left eye irritation, redness and draina ge x 1 day and occasional, moist, nonproductive cough x 3 days. Was exposed to coworker with similar eye sx last week. Denies fever, chills, myalgias, wheezing, dyspnea, chest tig htness, eye pain, vision change. Has not taken any OTC medications. Review of Systems Constitutional: Negative for chills and fever. HENT: Negative. Negative for ear discharge, ear pain, sinus pain and tinnitus. Eyes: Positive for discharge and redness. Negative for blurr ed vision, double vision, photophobia and pain. Respiratory: Positive for cough. Negative for sputum product ion, shortness of breath and wheezing. Cardiovascular: Negative for chest pain. Skin: Negative. Negative for rash. Neurological: Negative for headaches. Objective Physical Exam Constitutional: She is oriented to person, place, and time a nd well-developed, well-nourished, and in no distress. No distr ess. HENT: Head: Normocephalic. Right Ear: Hearing, tympanic membrane, external ear and ear canal normal. Left Ear: Hearing, tympanic membrane, external ear and ear c anal normal. Nose: Nose normal. No mucosal edema. Right sinus exhibits no maxillary sinus tenderness and no frontal sinus tenderness. Left sinus exhibits no maxillary sinus tenderness and no frontal sinus tenderness. Mouth/Throat: Uvula is midline, oropharynx is clear and mois t and mucous membranes are normal. No oropharyngeal exudate, posterior or opharyngeal edema, posterior oropharyngeal erythema or tonsillar abscess es. Eyes: Pupils are equal, round, and reactive to light. EOM ar e normal. Right eye exhibits no chemosis and no discharge. Left eye ex hibits no chemosis, no discharge and no exudate. Left conjunctiva is i njected. Pupils unequal: vision 20/20 via micha card. Neck: Neck supple. Cardiovascular: Normal rate, regular rhythm and normal heart sounds. Exam reveals no gallop and no friction rub. No murmur heard. Pulmonary/Chest: Effort normal and breath sounds normal. No accessory muscle usage. No tachypnea. No respiratory distress. She has no decreased breath sounds (CTA, good air movement throughout, no cough n oted during exam.). She has no wheezes. She has no rhonchi. She has no r ales. Lymphadenopathy: She has no cervical adenopathy. Neurological: She is alert and oriented to person, place, an d time. Skin: Skin is warm and dry. She is not diaphoretic. BP 110/70 Pulse 81 Temp 36.3 ?C (97.4 ?F) (Tympanic) R reyna 18 Wt 98.2 kg (216 lb 9.6 oz) SpO2 97% BMI 32.45 kg/m? .Patient presents with: Eye Problem: left eye irritation and cough - symptoms starte d last night PAST MEDICAL HISTORY Diagnosis Date - Acute carpal tunnel syndrome, right 11/27/2018 - Bipolar 1 disorder (HCC) - Depression - Diabetes (HCC) - Fibromyalgia - Heartburn - Hypercholesteremia - Right distal ulnar fracture 11/27/2018 - Right radial fracture 11/27/2018 - Seasonal allergies PAST SURGICAL HISTORY Procedure Laterality Date - PAST SURGICAL HISTORY OF 2011 umbilical hernia repair - PAST SURGICAL HISTORY OF 1999 partial hysterectomy ALLERGIES Aspirin; Ibuprofen; Simvastatin MEDICATIONS FLUoxetine HCl (PROZAC) 40 mg capsule Take 1 capsule by mout h once daily. loratadine (CLARITIN) 10 mg tablet Take 1 tablet by mouth on ce daily. ARIPiprazole (ABILIFY) 10 mg tablet Take 1 tablet by mouth o nce daily. lisinopril (PRINIVIL) 10 mg tablet Take 0.5 tablets by mouth once daily. atorvastatin (LIPITOR) 40 mg tablet Take 1 tablet by mouth o nce daily. metFORMIN ER (GLUCOPHAGE XR) 500 mg 24 hr tablet Take 2 tabl ets by mouth twice daily. Gradually get up to 4 tablets per day as instru cted omeprazole (PRILOSEC) 20 mg capsule Take 1 capsule by mouth twice daily. 1/2 hr before meal. COMPOUNDED PRESCRIPTION Blood glucose monitor. Check blood s ugar three times daily. Dx: E11.9, Insulin dependent. blood sugar diagnostic (BLOOD GLUCOSE TEST) test strip Test blood sugar(s) 3 times daily. Dx: Type 2 DM - Controlled E11.9 Insulin: Yes Lancets lancets Test blood sugar(s) 3 times daily. Dx: Type 2 DM - Controlled E11.9 Insulin: Yes Insulin Syringe-Needle U-100 (TRUEPLUS INSULIN) 1 mL 30 gaug e x 16 syrg Use one syringe daily gabapentin (NEURONTIN) 100 mg capsule Please take 1 capsule in the morning and afternoon and 2 tablets in the evening insulin glargine (LANTUS U-100 INSULIN) 100 unit/mL injectio n Inject 50 Units subcutaneously once daily. As directed. E10.8 fluticasone (FLONASE) 50 mcg/actuation nasal spray Use 2 Spr ays in each nostril once daily. ergocalciferol, vitamin D2, (DRISDOL) 50,000 unit capsule Ta ke 1 capsule by mouth once each week. trimethoprim-polymyxin eye drops (POLYTRIM) ophthalmic solut ion Use 1 Drop in both eyes every 6 hours for 7 days. Use in the affected e ye. guaiFENesin (MUCINEX) 600 mg 12 hr tablet Take 2 tablets by mouth twice daily. benzonatate (TESSALON PERLES) 100 mg capsule Take 1 capsule by mouth three times daily as needed. benzonatate (TESSALON PERLE) 100 mg capsule Take 1-2 capsule s by mouth three times daily as needed. FAMILY HISTORY Problem Relation Age of Onset - Cancer Mother - Diabetes Mother - None Father - Diabetes Sister Social History Tobacco Use - Smoking status: Never Smoker - Smokeless tobacco: Never Used Substance Use Topics - Alcohol use: No - Drug use: No ASSESSMENT/PLAN: 1. Cough - ICD9: 786.2, ICD10: R05 (primary diagnosis) - GUAIFENESIN ER 600 MG TABLET, EXTENDED RELEASE 12 HR - BENZONATATE 100 MG CAPSULE 2. Eye irritation - ICD9: 379.99, ICD10: H57.89 - POLYMYXIN B SULFATE 10,000 UNIT-TRIMETHOPRIM 1 MG/ML EYE D ROPS The patient is instructed to return or seek emergency treatm ent if symptoms become worse or with any acute change in condition. The patient verbalizes understanding and is in agreement wit h plan of care. KYLAH Rob on 2019-09-09 CNOV Office Visit (UCWSTR) [facility]09-20 [id number] 1960 [facility] Time Provider Department ([id number]) 09/09/19 12:30 PM [facility] During your visit today, we recorded the following informati on about you: Temperature Pulse Respiration Blood pressure 97.4 degrees 81/minute 18/minute 110/70 Weight 98.2 kg Tiana Scales APRN.REAL ESTATE PROFESSIONAL 09/09/2019 1:45 PM Signed Subjective HPI Pt presents with c/o left eye irritation, redness and draina ge x 1 day and occasional, moist, nonproductive cough x 3 days. Was exposed to coworker with similar eye sx last week. Denies fever, chills, myalgias, wheezing, dyspne a, chest tightness, eye pain, vision change. Has not taken any OTC medications. Review of Systems Constitutional: Negative for chills and fever. HENT: Negative. Negative for ear dischar ge, ear pain, sinus pain and tinnitus. Eyes: Positive for discharge and redness. Negati ve for blurred vision, double vision, photophobia and pain. Respiratory: Positive for cough. Negative for sp utum production, shortness of breath and wheezing. Cardiovascular: Negative for chest pain. Skin: Negative. Negative for rash. Neurological: Negative for headaches. Objective Physical Exam Constitutional: She is oriented to perso n, place, and time and well-developed, well-nourished, and in no distress. No distress. HENT: Head: Normocephalic. Right Ear: Hearing, tympanic membrane, external ear and ear canal normal. Left Ear: Hearing, tympanic membrane, external ear and ear c anal normal. Nose: Nose normal. No mucosal edema. Right sinus exhib its no maxillary sinus tenderness and no frontal sinus tenderness. Left sinus exhibits no maxillary sinus tenderness and no frontal sinus tenderness. Mouth/Throat: Uvula is midline, oropharynx is clear and mois t and mucous membranes are normal. No oropharyngeal e xudate, posterior oropharyngeal edema, posterior oropharyngeal erythema or tonsillar abscesses. Eyes: Pupils are equal, roun d, and reactive to light. EOM are normal. Right eye exhibits no chemosis and no discharge. Left eye exhibits no chemosis, no discharge and no exudate. Left conjuncti va is injected. Pupils unequal: vision 20/20 via micha card. Neck: Neck supple. Cardiovascular: Normal rate, regular rhythm and normal heart sounds. Exam reveals no gallop and no friction rub. No murmur heard. Pulmonary/Chest: Effort normal and breath sounds ashok l. No accessory muscle usage. No tachypnea. No respiratory distress. She has no dec reased breath sounds (CTA, good air movement throughout, no cough no jorgito during exam.). She has no wheezes. She has no rhonchi. She has no rales. Lymphadenopathy: She has no cervical adenopathy. Neurological: She is alert and oriented to person, place, an d time. Skin: Skin is warm and dry. She is not diaphoretic. BP 110/70 Pulse 81 Temp 36.3 ?C (97.4 ?F) (Tympanic) R reyna 18 Wt 98.2 kg (216 lb 9.6 oz) SpO2 97% BMI 32.45 kg/m? .Patient presents with: Eye Problem: left eye irritation and cough - symptoms starte d last night PAST MEDICAL HISTORY Diagnosis Date - Acute carpal tunnel syndrome, right 11/27/2018 - Bipolar 1 disorder (HCC) - Depression - Diabetes (HCC) - Fibromyalgia - Heartburn - Hypercholesteremia - Right distal ulnar fracture 11/27/2018 - Right radial fracture 11/27/2018 - Seasonal allergies PAST SURGICAL HISTORY Procedure Laterality Date - PAST SURGICAL HISTORY OF 2011 umbilical hernia repair - PAST SURGICAL HISTORY OF 1999 partial hysterectomy ALLERGIES Aspirin; Ibuprofen; Simvastatin MEDICATIONS FLUoxetine HCl (PROZAC) 40 mg capsule Take 1 capsule by mout h once daily. loratadine (CLARITIN) 10 mg tablet Take 1 tablet by mouth on ce daily. ARIPiprazole (ABILIFY) 10 mg tablet Take 1 tablet by mouth o nce daily. lisinopril (PRINIVIL) 10 mg tablet Take 0.5 tablets by mouth once daily. atorvastatin (LIPITOR) 40 mg tablet Take 1 tablet by mouth o nce daily. metFORMIN ER (GLUCOPHAGE XR) 500 mg 24 h r tablet Take 2 tablets by mouth twice daily. Gradually get up to 4 tablets per day as instructed omeprazole (PRILOSEC) 20 mg capsule Take 1 capsule by mouth twice daily. 1/2 hr before meal. COMPOUNDED PRESCRIPTION Blood glucose monitor. Check b lood sugar three times daily. Dx: E11.9, Insulin dependent. blood sugar diagnostic (BLOOD GLUCOSE TEST) test strip Test blood sugar(s) 3 times daily. Dx: Type 2 DM - Controlled E11.9 Insulin: Yes Lancets lancets Test blood sugar(s) 3 times cj y. Dx: Type 2 DM - Controlled E11.9 Insulin: Yes Insulin Syringe-Needle U-100 (TRUEPLUS INSULIN) 1 mL 30 gauge x 5/16 syrg Use one syringe daily gabapentin (NEURONTIN) [address] ease take 1 capsule in the morning and afternoon and 2 tablets in the evening insulin glargine (LANTUS U-100 INSULIN) 100 unit /mL injection Inject 50 Units subcutaneously once daily. As directed. E10.8 fluticasone (FLONASE) 50 mcg /actuation nasal spray Use 2 Sprays in each nostril once daily. ergocalciferol, vitamin D2, (DRISDOL) 50,000 unit capsule Take 1 capsule by mouth once each week. trimethoprim-polymyxin eye drops (POLYTRIM) opht halmic solution Use 1 Drop in both eyes every 6 hours for 7 days. Use in the affected eye. guaiFENesin (MUCINEX) 600 mg 12 hr table t Take 2 tablets by mouth twice daily. benzonatate (TESSALON PERLES) 100 mg capsule Take 1 capsule by mouth three times daily as needed. benzonatate (TESSALON PERLE) 100 mg capsule Take 1-2 c apsules by mouth three times daily as needed. FAMILY HISTORY Problem Relation Age of Onset - Cancer Mother - Diabetes Mother - None Father - Diabetes Sister Social History Tobacco Use - Smoking status: Never Smoker - Smokeless tobacco: Never Used Substance Use Topics - Alcohol use: No - Drug use: No ASSESSMENT/PLAN: 1. Cough - ICD9: 786.2, ICD10: R05 (primary diagnosis) - GUAIFENESIN ER 600 MG TABLET, EXTENDED RELEASE 12 HR - BENZONATATE 100 MG CAPSULE 2. Eye irritation - ICD9: 379.99, ICD10: H57.89 - POLYMYXIN B SULFATE 10,000 UNIT-TRIMETHOPRIM 1 MG/ML EYE D ROPS The patient is instructed to return or seek emergency boo tment if symptoms become worse or with any acute change in condition. The patient verbalizes understanding and is in agreement w ith plan of care. Tiana Scales CNP Referring Provider: SELF [[id number]] Allergies As of Date: 09/09/2019 Noted Allergy Reaction ASPIRIN 08/12/2014 8 - GI Upset IBUPROFEN 08/12/2014 8 - GI Upset SIMVASTATIN 05/01/2016 14 - Other: See Comments Comments: Possible myalgia Date Reviewed: 09/09/2019 Reviewed by: Penelope Mcconnell LPN - Fully Assessed Reason for Visit: Eye Problem [43] Cmt: left eye irritation and cough - symp toms started last night Primary Visit Diagnosis:Cough [R05] Other Visit Diagnosis:Eye irritation [H57.89] Order(s):trimethoprim-polymyxin eye drops (POLYT RIM) ophthalmic solutionUse 1 Drop in both eyes every 6 hours for 7 days. Use in the affec jorgito eye.Disp: 1.4 mLRfl: 0 guaiFENesin (MUCINEX) 600 mg 12 hr tabletTake 2 tablets by m outh twice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
== END ==
PROVIDERS: PCP Internal Medicine; Visit Provider Anesthesiology Pain Medicine
DX: M25.512 Pain in left shoulder (principal)
CPT/HCPCS: 73030

== ENCOUNTER → 2020-09-13 09:27 | Outpatient (CLI) | payer MEDICARE, SELFPAY ==
--- NOTE | 2020-09-13 09:30 | MRI_ITS ---
STUDY: MRI CERVICAL SPINE WITHOUT CONTRAST REASON FOR EXAM: Female, 59 years old. radiculopathy. Neck pain, left shoulder and arm pain TECHNIQUE: Standardized fat and water weighted pulse sequences were obtained in the sagittal and axial planes. COMPARISON: 07/04/2018 FINDINGS: Normal foramen magnum and brainstem-cervical cord junction. Normal craniovertebral junction. Normal anterior atlantoaxial articulation. Normal odontoid process. Normal cervical lordosis. Normal vertebral bodies and posterior osseous elements. C2-3: Normal endplates. Normal disc height, signal and morphology. Normal central canal and intervertebral neural foramina. C3-4: Normal endplates. Normal disc height, signal and morphology. Normal central canal and intervertebral neural foramina. C4-5: Normal endplates. Normal disc height, signal and morphology. Normal central canal and intervertebral neural foramina. C5-6: No change in the moderate bilobed disc osteophyte complex which produces moderate spinal stenosis with abutment of the right hemicord and mild bilateral neural foraminal stenosis. C6-7: No change in the moderate broad disc osteophyte complex which produces moderate spinal stenosis with abutment the central spinal cord and mild bilateral neural foraminal stenosis. C7-T1: Normal endplates. Normal disc height, signal and morphology. Normal central canal and intervertebral neural foramina. Normal cervical cord. Normal visualized soft tissue structures. MRI/Spine Cervical (Routine) IMPRESSION: No change from 07/04/2018. Electronically Signed: Ernst Ambrocio MD at 12:44 EDT Tel , Service support ,
== END ==
PROVIDERS: PCP Internal Medicine; Referring Provider Anesthesiology Pain Medicine; Visit Provider Anesthesiology Pain Medicine
DX: M50.30 Other cervical disc degeneration, unspecified cervical region (principal); M54.12 Radiculopathy, cervical region
CPT/HCPCS: 72141

== ENCOUNTER 2021-01-16 10:37 | Observation (INO) | payer MEDICARE, MEDICAID, SELFPAY ==
[2021-01-16] VITALS (14 sets, daily range): BP systolic 130–162; BP diastolic 63–90; PULSE 69–84; RESP 14–18; TEMP 36.4–36.6; O2SAT 95–98; BMI 35.6; BMI 34.5
--- NOTE | 2021-01-16 10:52 | EKG12_ITS ---
Test Reason : AM EKG Blood Pressure : / mmHG Vent. Rate : 068 BPM Atrial Rate : 068 BPM P-R Int : 150 ms QRS Dur : 090 ms QT Int : 412 ms P-R-T Axes : 053 036 071 degrees QTc Int : 438 ms Sinus rhythm with marked sinus arrhythmia Nonspecific T wave abnormality Abnormal ECG Confirmed by NENITA OCHOA, BHAVESH ([id number]), manuscript editor AMISHA ENGEL ([id number]) on 01/18/2021 9:29:50 AM Referred By: VALERIE Confirmed By:BHAVESH GUTIERRES MD
[2021-01-16 10:57] LABS: Absolute Lymphocyte Count 2.39 X10^3/uL (0.83-4.51); Absolute Neutrophil Count 4.2 X10^3/uL (2.0-7.7); Basophil# 0.05 X10^3/uL; Basophil% 0.7 % (0-1); Eosinophil# 0.17 X10^3/uL; Eosinophils% 2.3 % (0-5); Hematocrit 40.5 % (37-47); Hemoglobin 12.6 g/dL (12.0-15.0); Lymphocyte # 2.39 X10^3/ul (4.0); Lymphocyte % 32.6 % (19-41); Mean Corp Hgb Conc 31.1 g/dL (32-36); Mean Corpuscular Hgb 26.9 pg (27.0-32.0); Mean Corpuscular Volume 86.4 fL (81-99); Mean Platelet Vol. 10.1 fl (6.2-12.0); Monocyte# 0.49 X10^3/uL; Monocyte% 6.7 % (0-10); NRBC Flagged by Analyzer 0 % (0-5); Neutrophil # 4.22 X10^3/uL (2.7-7.7); Neutrophil % 57.4 % (47-70); Platelet Count 352 K/mm3 (150-450); RBC Distribution Width CV 13.1 % (11.6-14.6); RBC Distribution Width SD 40.8 fl (35.1-43.9); Red Blood Count 4.69 M/mm3 (4.2-5.4); White Blood Count 7.3 K/mm3 (4.4-11.0)
--- NOTE | 2021-01-16 10:58 | ED.VIS.GEN ---
History of Present Illness Chief Complaint: Chest Pain Informant: Patient Onset: Today Context: Gradual Onset Timing: Continuous Current Severity: Mild Maximum Severity: Moderate Narrative: Patient is a 60-year-old female medical history significant for diabetes, hyperlipidemia, and bipolar disorder who presents to the emergency department chest pain. The patient states it began last night about 1 in the morning. She states it was a heaviness on the left side of her chest. She states that it persisted throughout the night and never resolved. She states she is never really had pain like this before. She denies any history of coronary vascular disease. She states she called squad. On squad arrival, the patient was given aspirin. In route, she states that her pain resolved. She states up until today, she has been in her normal state of health. She denies any fevers or chills. Prior similar symptoms: No Recent Illness/Hospitalization: No Past Medical History - Allergies and Home Meds Allergies/Adverse Reactions: Allergies aspirin Adverse Reaction (Verified 01/16/21 10:47) Upset Stomach ibuprofen Adverse Reaction (Verified 01/16/21 10:47) Upset Stomach Can take the coated simvastatin Adverse Reaction (Verified 01/16/21 10:47) Unknown Primary Care Physician: Caitlin Patel MD [Primary Care Provider] - Prior records reviewed: Yes Past Medical History: - - Diabetes, hyperlipidemia, bipolar disorder Surgical History: - - Social hysterectomy, umbilical hernia repair. Smoking Status: Never smoker - Family History Maternal Family History: Reports: Diabetes, Heart Disease Paternal Family History: Reports: Diabetes, Heart Disease Review of Systems General: Denies: Chills, Fever, Sweats Eyes: Denies: Visual changes - bilaterally, Diplopia ENT: Denies: Rhinorrhea, Sore throat Cardiovascular: Reports: Chest pain. Denies: Palpitations Respiratory: Denies: Dyspnea, Cough, Dyspnea on exertion Gastrointestinal: Denies: Abdominal pain, Nausea, Vomiting, Diarrhea, Melena, Hematochezia Genitourinary: Denies: Dysuria, Hematuria, Frequency Musculoskeletal: Denies: Back pain, Extremity Pain Skin: Denies: Rash, Wounds Neurological: Denies: Headache, Weakness, Numbness Physical Exam Vital Signs/Narrative: Vital Signs Temp Pulse Resp BP Pulse Ox 01/16/21 10:43 97.6 F L 78 18 162/90 H 95 Inital Vital Signs reviewed: Yes General: Well nourished, Well developed, No Acute Distress Head: Normocephalic, Atraumatic Eyes: Perrl, EOMI ENT: Moist mucous membranes, No rhinorrhea Neck: Supple, Nontender Cardiovascular: Regular rate, Regular rhythm, No murmurs Respiratory: No distress, CTA bilaterally, Chest nontender Abdomen: Soft, Nontender, Nondistended, Normal bowel sounds Back: Nontender, Normal Inspection Extremities: Nontender, No edema Skin: Normal color, No rash Neurological: Alert, Oriented x3, Cranial nerves II-XII grossly intact, Normal Strength, Normal Sensation Psychological: Normal affect, Normal Mood Diagnostic/Tx/Re-eval Chest X-Ray - ED: 1 View, Read by ED Physician, Normal, Heart, Lungs, Mediastinum - Rhythm Strip Rhythm Strip: Sinus Rhythm Rate: 90 Ectopy: None - EKG Initial EKG Interpretation: Sinus Rhythm, Inverted T-Waves Prior: Unchanged - Medical Decision Making Patient presents with chest pain that radiates to her left arm. She has no history of coronary vascular disease, but does have rather significant risk factor. EKG was obtained on arrival. Was sinus tachycardia. There was T wave inversions in V1 and V2. However, compared to old this is unchanged. Patient was given sublingual nitro. She was not having chest pain, but tightness in her left arm. This did relieve her symptoms. Screening labs including cardiac enzymes were unremarkable. Chest x-ray reviewed by myself shows no evidence of CHF, infiltrate, pneumothorax. The patient has a heart score of 5. I do feel that she would benefit from observation for cardiac stress testing. Impression 1. Chest pain ED Disposition - Plan for ED Patient: Referrals: Caitlin Patel MD [Primary Care Provider] -
[2021-01-16] MEDS: Nitroglycerin SL (ED/IMG/CATH) 0.4 MG TABLET SUBLINGUAL ×3 (11:11→11:53)
[2021-01-16 11:14] LABS: Anion Gap 4 (5-15); BUN 9 mg/dL (7-18); BUN/Creat Ratio 10.1 RATIO (10-20); Calcium,Total 9.4 mg/dL (8.5-10.1); Chloride 103 mmol/L (98-107); Creatinine, Serum 0.89 mg/dL (0.55-1.02); EST Glomerular Filtration Rate 69 mL/min (>60); Est Glom Filt Rate - Afr Amer 83 mL/min (>60); Estimated Creatinine Clearance 70.25 ml/min; Glucose 327 mg/dL (74-106); Magnesium 1.9 mg/dL (1.6-2.6); Potassium 4.5 mmol/L (3.5-5.1); Sodium Level 136 mmol/L (136-145)
--- NOTE | 2021-01-16 11:18 | RAD_ITS ---
STUDY: X-RAY CHEST REASON FOR EXAM: Female, 60 years old. CHEST PAIN TECHNIQUE: Single AP portable view of the chest. COMPARISON: Comparison is made with prior study of December. FINDINGS: EKG electrodes are seen. The lungs are clear and expanded. There is no demonstrated pleural abnormality. Normal size heart. Normal mediastinum and marisol. Normal visualized pulmonary arteries. Normal visualized aortic arch and descending thoracic aorta. There are diffuse degenerative changes of the visualized thoracic spine. Normal visualized ribs, clavicles, and shoulders. There is no demonstrated abnormality of the visualized soft tissue structures of the upper abdomen. RAD/Chest 1 View (Portable) IMPRESSION: No acute abnormality is seen. Electronically Signed: Rayshawn Em MD at 12:02 EST , Service support ,
--- NOTE | 2021-01-16 13:12 | EKG12_ITS ---
Test Reason : Blood Pressure : / mmHG Vent. Rate : 059 BPM Atrial Rate : 059 BPM P-R Int : 164 ms QRS Dur : 086 ms QT Int : 406 ms P-R-T Axes : 059 036 050 degrees QTc Int : 401 ms Sinus bradycardia with Premature atrial complexes Otherwise normal ECG Confirmed by NENITA OCHOA, BHAVESH ([id number]), publications editor AMISHA ENGEL ([id number]) on 01/18/2021 9:31:43 AM Referred By: VALERIE Confirmed By:BHAVESH GUTIERRES MD
[2021-01-16] MEDS: Insulin Lispro 100 UNIT/ML INSULN.PEN SC ×2 (16:10→21:36)
[2021-01-16 16:11] LABS: Bedside Glucose 349 mg/dL (70-110)
[2021-01-16] MEDS: Diclofenac 75 MG Tablet PO (16:12)
[2021-01-16] MEDS: Gabapentin 100 MG Capsule PO (16:12)
--- NOTE | 2021-01-16 20:02 | HP.PCM_ITS ---
Problem List (1) Chest pain Status: Acute Qualifiers: Chest pain type: precordial pain Qualified Code(s): R07.2 - Precordial pain History of Present Illness Date of Admission: 01/16/21 Chief Complaint: Chest pain The patient is a 60 year old F who was seen in the emergency room at [facility] with a chief complaint of precordial chest pain which started on the night of 01/15/2021, the patient stated that the pain lasted for 10 to 15 minutes, she described the pain as a stabbing pain, it did not radiate down the arm or up to the neck. Patient did not complain of any nausea or vomiting. Work-up in the emergency room included an EKG which showed a normal sinus rhythm with chronic T wave inversions in V1 and V2, labs showed a normal troponin, glucose was elevated at 327, CBC was unremarkable. Patient had a chest x-ray performed which was also unremarkable. Patient was placed in observation status on PCU, cardiac enzymes will be cycled, if these remain normal she will undergo a treadmill nuclear stress test tomorrow. Past Medical History Past Medical History (Chronic Problems): Chronic Problems Diabetes mellitus, type II (Chronic) HTN (hypertension) (Chronic) HLD (hyperlipidemia) (Chronic) Obesity (BMI 30.0-34.9) (Chronic) Anxiety and depression (Chronic) Allergic rhinitis (Chronic) Fibromyalgia (Chronic) Allergies aspirin Adverse Reaction (Verified 01/16/21 10:47) Upset Stomach ibuprofen Adverse Reaction (Verified 01/16/21 10:47) Upset Stomach Can take the coated simvastatin Adverse Reaction (Verified 01/16/21 10:47) Unknown Home Medications: Ambulatory Orders Medication Instructions Recorded Aripiprazole [Abilify] 10 mg PO DAILY 01/30/14 Fluoxetine [Prozac] 40 mg PO DAILY 01/30/14 Insulin Glargine [Lantus SoloStar 50 units SC DAILY 01/30/14 Pen] Lisinopril [Zestril] 5 mg PO DAILY 01/30/14 Loratadine [Claritin] 10 mg PO DAILY 01/30/14 Omeprazole [Prilosec] 40 mg PO DAILY 01/30/14 metFORMIN HCl [Glucophage] 1,000 mg PO BID 01/30/14 Atorvastatin Calcium 40 mg PO DAILY 07/28/17 Bupropion HCl [Wellbutrin Xl] 150 mg PO DAILY 10/26/20 Gabapentin [Neurontin] 100 mg PO DAILY 10/26/20 Gabapentin [Neurontin] 200 mg PO QHS 10/26/20 Glipizide [Glipizide ER] 5 mg PO DAILY 10/26/20 Amoxicillin 500 mg PO TID 01/16/21 Surgical History: - - Social hysterectomy, umbilical hernia repair. Surgery for repair of wrist fracture Psychiatric History: Anxiety, Depression PICK UP MAN History: No pertinent PICK UP MAN history Lives: Friends Smoking Status: Never smoker Tobacco Use: Non-smoker Alcohol: None Drugs: None - *Family History Maternal History Items: Cancer Paternal History Items: No pertinent history Review of Systems Constitutional: Denies: Anorexia, Chills, Fever, Night Sweats, Malaise, Weakness, Weight Change Eyes: Denies: Cataracts, Conjunctivae Inflammation, Double vision, Drainage HEENT: Denies: Difficulty Swallowing, Dysphasia, Ear Pain, Eye Pain, Hearing Changes, Nasal bleeding, Nasal Congestion, Post Nasal Drip Cardiovascular: Reports: Chest Pain. Denies: Claudication, Chest Pressure, Chest Tightness, Edema, Heaviness, Palpitations Respiratory: Denies: Cough, Hemoptysis, Pleuritic Pain, Shortness of Breath, Shortness of breath at rest, Shortness of breath upon exertion, Sputum production Gastrointestinal: Denies: Abdominal Pain, Constipation, Diarrhea, Hematemesis, Hematochezia, Nausea, Melena, Vomiting Genitourinary: Denies: Dysuria, Frequency, Hematuria, Hesitancy, Urgency Musculoskeletal: Denies: Foot Pain, Hand Pain, Joint Pain, Joint stiffness, Joint swelling, Joint Tenderness, Leg Pain Skin: Denies: Dryness, Pruritis, Rash Neurological: Denies: Blurred vision, Double vision, Change in Speech, Slurred speech, Difficulty swallowing, Focal weakness, Numbness, Tingling Psychiatric: Reports: Anxiety. Denies: Depression, Homicidal Ideations, Suicidal Ideations Endocrine: Denies: Change in Body Habitus, Heat/ Cold Intolerance, Polydipsia, Polyuria Hematologic/ Lymphatic: Denies: Adenopathy, Anemia, Easy Bruising, Easy Bleeding, Petechiae, Purpura VTE Information - Inpt Only VTE Present on Admission: No VTE Mechan Device Prophylaxis: None VTE Pharm Prophylaxis ordered?: No Reason prophylaxis not ordered:: Treatment Not Indicated Patient Problems: Active and Suspected Problems Chest pain (Acute) - Physical Exam Vitals/I&O's: Vital Signs Temp Pulse Resp BP Pulse Ox 98 F 82 16 144/63 H 96 01/16/21 19:56 01/16/21 19:56 01/16/21 19:56 01/16/21 19:56 01/16/21 19:56 Oxygen Delivery Method Room Air Weight: 106.141 kg Body Mass Index (BMI) 34.5 Finger Stick Blood Glucose 180 Intake and Output for Last 24 Hours 01/14/21 01/15/21 01/16/21 23:59 23:59 23:59 Intake Total 500 / 500 Balance 500 / 500 General: Alert, Oriented x3, Cooperative, No apparent distress, Well developed, Well nourished HEENT: Atraumatic, PERRLA, EOMI, Normocephalic Oral: Moist Mucosa Neck: Supple, No JVD, Trachea Midline, Thyroid Normal Size and Texture Lungs: Clear to auscultation, Normal air movement, No rhonchi, No wheeze, No rales Cardiovascular: Regular rate, Regular Rhythm, Normal S1, Normal S2, No murmurs, PMI Normal, No rub noted, No Gallop Abdomen: Bowel Sounds Present, Soft, Non Tender, Non-Distended, No hernias noted Extremities: No clubbing, No cyanosis, No edema, Capillary Refill Less than 3 Seconds Skin: No rashes, No breakdown Musculoskeletal: No Tenderness to Palpation of Joints or Extremities Neurological: Cranial nerves II-XII grossly intact, Neuro grossly intact, Sensory exam intact to light touch and pain, Coordination normal Psych/Mental Status: Normal Affect, Appropriate, Alert and oriented to time, place, person, mood and affect Laboratory Results 01/16/21 10:49: WBC 7.3, RBC 4.69, Hgb 12.6, Hct 40.5, MCV 86.4, MCH 26.9 L, MCHC 31.1 L, RDW Std Deviation 40.8, RDW Coeff of Jori 13.1, Plt Count 352, MPV 10.1, Immature Gran % (Auto) 0.300, Neut % (Auto) 57.4, Lymph % (Auto) 32.6, [place] % (Auto) 6.7, Eos % (Auto) 2.3, Baso % (Auto) 0.7, Absolute Neuts (auto) 4.2, Absolute Lymphs (auto) 2.39, Nucleated RBC % 0 01/16/21 10:49: Sodium 136, Potassium 4.5, Chloride 103, Carbon Dioxide 29.0, Anion Gap 4 L, BUN 9, Creatinine 0.89, Estim Creat Clear Calc 70.25, Est GFR ( MDRD) Af Amer 83, Est GFR (MDRD) Non-Af 69, BUN/Creatinine Ratio 10.1, Glucose 327 H, Calcium 9.4, Magnesium 1.9, Troponin I < 0.015 01/16/21 14:20: Troponin I < 0.015 01/16/21 16:05: POC Glucose 349 H 01/16/21 16:13: Troponin I < 0.015 Current Medications Aripiprazole (Aripiprazole 10 Mg Tablet) 5 mg PO DAILY [facility] Atorvastatin Calcium (Atorvastatin Calcium 40 Mg Tablet) 40 mg PO QHS [facility] Bupropion HCl (Bupropion (Xl) 150 Mg Tablet.Xl) 150 mg PO DAILY [facility] Diclofenac Sodium ([facility]ic[facility]enac 75 Mg [facility]t) [facility] Last Admin: 01/16/21 16:12 Dose: 75 mg Documented by: Fluoxetine HCl (Fluoxetine 20 Mg Capsule) 40 mg PO DAILY [facility] Gabapentin (Gabapentin 100 Mg Capsule) [facility] Last Admin: 01/16/21 16:12 Dose: 100 mg Documented by: Gabapentin (Gabapentin 100 Mg Capsule) 200 mg PO QHS [facility] Glipizide (Glipizide Xl 5 Mg Tablet) [facility] Sodium Chloride () 250 mls @ 15 mls/hr IV .[id number] PRN PRN Reason: Saline Flush Sodium Chloride () 250 mls @ 15 mls/hr IV .[id number] PRN PRN Reason: Additional IVPB Infusion Insulin Glargine (Insulin Glargine 100 Units/Ml Pen) 50 units SC DAILY [facility] Insulin Human Lispro (Insulin Lispro 100 Unit/Ml Insuln.Pen) 0 unit SC [facility]; Protocol Last Admin: 01/16/21 16:10 Dose: 12 u Documented by: Lisinopril (Lisinopril 5 Mg Tablet) 5 mg PO DAILY [facility] Morphine Sulfate (Morphine 4 Mg/Ml Syringe) 4 mg IV Q3H PRN PRN PRN Reason: Pain Score 6-10 Ondansetron HCl (Ondansetron 4 Mg/2 Ml Vial) 4 mg IV Q8H PRN PRN PRN Reason: NAUSEA/VOMITING Pantoprazole Sodium (Pantoprazole Sodium 40 Mg Tablet) 40 mg PO BID EFRAIN Sodium Chloride (0.9% Saline Lock 10 Ml Syringe) 10 - 40 ml IV UD PRN PRN Reason: SALINE FLUSH Temazepam (Temazepam 15 Mg Capsule) 15 mg PO QHS PRN PRN PRN Reason: INSOMNIA Assessment/Plan All Active Problems Chest pain (Acute) SIRS (systemic inflammatory response syndrome) (Resolved) #1 precordial chest pain-etiology unclear, this sounds extremely atypical for anginal pain-patient was placed into observation status on PCU, cardiac enzymes will be cycled, she will undergo a treadmill nuclear stress test tomorrow if her enzymes remain normal. #2 type 2 diabetes-under poor control-blood sugars will be monitored, sliding scale insulin will be administered as needed #3 Chronic anxiety/depression #4 Fibromyalgia OBSV E&M: [id number] Initial observation care L3
[2021-01-16] MEDS: Pantoprazole Sodium 40 MG Tablet PO (20:08)
[2021-01-16] MEDS: 0.9% Saline Lock 10 ML Syringe IV (21:34)
[2021-01-16] MEDS: Atorvastatin Calcium 40 MG Tablet PO (21:35)
[2021-01-16] MEDS: Gabapentin 100 MG Capsule 200 MG PO (21:36)
[2021-01-16 22:25] LABS: Bedside Glucose 314 mg/dL (70-110)
[2021-01-17 03:43] VITALS: BP 124/65; PULSE 70; RESP 16; TEMP 36.6; O2SAT 97
[2021-01-17 03:53] VITALS: PULSE 66
--- NOTE | 2021-01-17 05:55 | EKG12_ITS ---
Test Reason : CP Blood Pressure : / mmHG Vent. Rate : 096 BPM Atrial Rate : 096 BPM P-R Int : 156 ms QRS Dur : 088 ms QT Int : 376 ms P-R-T Axes : 063 034 054 degrees QTc Int : 475 ms Normal sinus rhythm Nonspecific ST and T wave abnormality Prolonged QT Abnormal ECG Confirmed by KAREN OCHOA, MASHA ([id number]), advertising editor AMISHA ENGEL ([id number]) on 01/18/2021 12:41:05 PM Referred By: GERONIMO Confirmed By:MASHA JONES MD
[2021-01-17 06:01] VITALS: BP 124/55; PULSE 66; RESP 16; TEMP 36.1; O2SAT 94
[2021-01-17] MEDS: Lisinopril 5 MG Tablet PO (06:06)
[2021-01-17 09:00] VITALS: PULSE 74
[2021-01-17 09:20] LABS: Bedside Glucose 273 mg/dL (70-110)
--- NOTE | 2021-01-17 10:08 | NURSING ---
Due to a problem with the computer servers, this morning's blood glucose value of 273 mistakenly saved under yesterday's date.
[2021-01-17 10:36] VITALS: BP 131/71; PULSE 82; RESP 18; TEMP 36.4; O2SAT 96
[2021-01-17] MEDS: Diclofenac 75 MG Tablet PO (10:48)
[2021-01-17] MEDS: glipiZIDE XL 5 MG Tablet PO (10:48)
[2021-01-17] MEDS: Gabapentin 100 MG Capsule PO (10:48)
[2021-01-17] MEDS: ARIPiprazole 10 MG Tablet 5 MG PO (10:49)
[2021-01-17] MEDS: Pantoprazole Sodium 40 MG Tablet PO (10:51)
[2021-01-17] MEDS: FLUoxetine 20 MG Capsule 40 MG PO (10:51)
[2021-01-17] MEDS: buPROPion (XL) 150 MG TABLET.XL PO (10:52)
[2021-01-17] MEDS: Insulin Lispro 100 UNIT/ML INSULN.PEN SC (10:52)
[2021-01-17 11:05] LABS: Bedside Glucose 350 mg/dL (70-110)
--- NOTE | 2021-01-17 12:21 | STRESSREP_ITS ---
Stress Test Report Date: 01-17-2021 Procedure: Exercise tolerance test/imaging study Indications: Chest pain Consent: Per the patient Procedure: The patient exercised on a Luc protocol for 3 minutes completing Stage I achieving a peak heart rate of 151 bpm (94% predicted maximal heart rate) with a peak blood pressure 172/76 mmHg and a peak MET capacity of 4 METs. The baseline ECG demonstrated normal sinus rhythm. The peak exercise ECG demonstrated somatic/motion artifact with no obvious ECG changes. There were no cardiac dysrhythmias pretest, during exercise, or recovery. The functional capacity was considered decreased. There was no complaint of chest discomfort during exercise or recovery. The examination was discontinued secondary to dyspnea. Impression: 1. Technically adequate (percent predicted maximal heart rate greater than 85%) exercise tolerance test 2. Peak exercise ECG with somatic/motion artifact with no obvious ECG changes 3. There were no cardiac dysrhythmias pretest, during exercise, or recovery 4. Nuclear images pending Myocardial perfusion imaging study: Technique: The patient was injected with 14.4 mCi of technetium 99m Cardiolite and subsequently rest SPECT Cardiolite nuclear imaging was obtained in the horizontal long, vertical long, and short axis views. The patient exercised on a Luc protocol for 3 minutes completing Stage I achieving a peak heart rate of 151 bpm (94% predicted maximal heart rate) with a peak blood pressure 172/76 mmHg and a peak MET capacity of 4 METs. The patient was injected with 44.1 mCi of technetium 99m Cardiolite and subsequently stress SPECT Cardiolite nuclear imaging was obtained in the horizontal long, vertical long, and short axis views. A gated Cardiolite study at peak stress was obtained. Interpretation: Rest and stress SPECT Cardiolite nuclear imaging status post realignment, normalization, and attenuation correction, demonstrates the appearance of relative uniform tracer uptake and myocardial perfusion appearing within normal limits. There is end systolic thickening and brightening. The gated Cardiolite study demonstrates myocardial thickening and inward wall motion. The reported LVEF is 66%. Impression: 1. Rest and stress SPECT Cardiolite nuclear imaging demonstrate relative uniform tracer uptake and myocardial perfusion appearing within normal limits. 2. The gated Cardiolite study reports an LVEF of 66%. This note was generated with [employer] software. It may contain incorrect words, spelling, and punctuation that were not noted in checking the note before signing.
--- NOTE | 2021-01-17 12:36 | DCINST_ITS ---
- Discharge Diagnoses Current Active Problems: Current Active and Chronic Problems Chest pain (Acute) You will use the following diet at home:: Calorie/Carbohydrate Controlled (specify 1200, 1400, etc) - 1800 Your food should be the consistency of: Regular Your liquids should be the consistency of: Regular/Thin Discharge Activity: Return to Normal Activity Weight Bearing Status: Full weight bearing Allergies/Adverse Reactions: Allergies aspirin Adverse Reaction (Verified 01/16/21 10:47) Upset Stomach ibuprofen Adverse Reaction (Verified 01/16/21 10:47) Upset Stomach Can take the coated simvastatin Adverse Reaction (Verified 01/16/21 10:47) Unknown Medications to take at Discharge Aripiprazole [Abilify] 10 mg PO DAILY 01/30/14 Fluoxetine [Prozac] 40 mg PO DAILY 01/30/14 Lisinopril [Zestril] 5 mg PO DAILY 01/30/14 Loratadine [Claritin] 10 mg PO DAILY 01/30/14 Omeprazole [Prilosec] 40 mg PO DAILY 01/30/14 metFORMIN HCl [Glucophage] 1,000 mg PO BID 01/30/14 Atorvastatin Calcium 40 mg PO DAILY 07/28/17 Bupropion HCl [Wellbutrin Xl] 150 mg PO DAILY 10/26/20 Gabapentin [Neurontin] 100 mg PO DAILY 10/26/20 Gabapentin [Neurontin] 200 mg PO QHS 10/26/20 Glipizide [Glipizide ER] 5 mg PO DAILY 10/26/20 Amoxicillin 500 mg PO TID 01/16/21 Insulin Glargine [Lantus SoloStar Pen] 60 units SC DAILY #1 pen 01/17/21 The following prescriptions were given: Insulin Glargine [Lantus SoloStar Pen] 60 units SC DAILY #1 pen Primary Care Physician: Caitlin Patel MD [Primary Care Provider] - Please follow up with your Primary Care Physician in: in two weeks Test Results: Test results from this visit will be discussed in further detail at your follow- up appointment, if applicable.
--- NOTE | 2021-01-17 13:08 | CASEMGMT ---
Intro role of CM to patient and [facility] form explained re: Observation status for treatment of chest pain. Explained hospitalization will be paid per? insurance policy for Outpatient billing?and condition will continue to be evaluated for Inpt necessity. Also let pt know that [facility] sends paper in the billing packet with their phone number if questions arise. Discussed Pharmacy section of [facility] form and self administered medication guideline.? Pt verbalizes understanding and does not have further questions. Form signed and placed in chart, copy to pt. BETI FUENTES BSN CM
--- NOTE | 2021-01-18 18:44 | DS.PCM_ITS ---
Discharge Date and Diagnosis - Problem List Patient Problems: Active and Suspected Problems Chest pain (Acute) Date of Admission: 01/16/21 Date of Discharge: 01/17/21 - Primary Discharge Diagnosis Acute Problems: Active Problems #1 musculoskeletal chest pain #2 type 2 diabetes #3 GERD #4 bipolar disorder #5 fibromyalgia - Secondary Discharge Diagnosis Chronic Problems: Chronic Problems Diabetes mellitus, type II (Chronic) HTN (hypertension) (Chronic) HLD (hyperlipidemia) (Chronic) Obesity (BMI 30.0-34.9) (Chronic) Anxiety and depression (Chronic) Allergic rhinitis (Chronic) Fibromyalgia (Chronic) Hospital Course and Treatment Operations: None Procedures: Nuclear stress test Summary of Care Provided: The patient is a 60 year old F who was seen in the emergency room at [facility] with chief complaint of precordial chest pain. EKG obtained in the emergency room showed an EKG which was unchanged from previous EKG showing chronic T wave inversions in V1 and V2, labs showed a normal troponin, glucose was elevated at 327, CBC was unremarkable. Patient's chest x-ray was also unremarkable. Patient was placed in observation status on PCU, serial cardiac enzymes were obtained and these remain normal, she underwent an exercise nuclear stress test which was negative for reversible ischemia. On 01/17/2021, patient was seen and examined: On examination she appeared in good health and spirits, she does not appear to be in any distress. Vital signs as documented. Skin warm and dry and without overt rashes. Neck without JVD, thyroid appears normal, trachea is midline, neck is supple. Lungs clear, normal air movement was noted. Heart exam notable for regular rhythm, normal sounds and absence of murmurs, rubs or gallops. Abdomen unremarkable and without evidence of organomegaly, masses, or abdominal aortic enlargement, bowel sounds are present in all 4 quadrants, no abdominal tenderness was noted. Extremities nonedematous, no cyanosis was noted, no clubbing was noted. Neuro: Cranial nerves II through XII are grossly intact, no focal motor deficits were noted, sensation to light touch and pinprick is intact, motor exam 5/5 throughout. Psych: Patient is alert and oriented x3, she does not appear anxious or depressed, she does not appear agitated. Patient appeared stable for discharge on 01/17/2021. Patient Problems: Active and Suspected Problems Chest pain (Acute) - Physical Exam Vitals/I&O's: Vital Signs Temp Pulse Resp BP Pulse Ox 97.6 F L 82 18 131/71 H 96 01/17/21 10:36 01/17/21 10:36 01/17/21 10:36 01/17/21 10:36 01/17/21 10:36 Oxygen Delivery Method Room Air Weight: 106.141 kg Body Mass Index (BMI) 34.5 Finger Stick Blood Glucose 180 Intake and Output for Last 24 Hours 01/16/21 01/17/21 01/18/21 23:59 23:59 23:59 Intake Total 900 / 900 Balance 900 / 900 Discharge Activity: Return to Normal Activity Weight Bearing Status: Full weight bearing Home Medications: Medications to take at Discharge Aripiprazole [Abilify] 10 mg PO DAILY 01/30/14 Fluoxetine [Prozac] 40 mg PO DAILY 01/30/14 Lisinopril [Zestril] 5 mg PO DAILY 01/30/14 Loratadine [Claritin] 10 mg PO DAILY 01/30/14 Omeprazole [Prilosec] 40 mg PO DAILY 01/30/14 metFORMIN HCl [Glucophage] 1,000 mg PO BID 01/30/14 Atorvastatin Calcium 40 mg PO DAILY 07/28/17 Bupropion HCl [Wellbutrin Xl] 150 mg PO DAILY 10/26/20 Gabapentin [Neurontin] 100 mg PO DAILY 10/26/20 Gabapentin [Neurontin] 200 mg PO QHS 10/26/20 Glipizide [Glipizide ER] 5 mg PO DAILY 10/26/20 Amoxicillin 500 mg PO TID 01/16/21 Insulin Glargine [Lantus SoloStar Pen] 60 units SC DAILY #1 pen 01/17/21 Following Prescriptions Were Given to Patient: Insulin Glargine [Lantus SoloStar Pen] 60 units SC DAILY #1 pen Primary Care Physician: Caitlin Patel MD [Primary Care Provider] - Please follow up with your Primary Care Physician in: in two weeks Disposition: Home Minutes spent on discharge:: 30 Patient Condition:: Stable Medical Necessity - Tobacco Use Smoking Status: Never smoker Tobacco Use: Non-smoker Meaningful Use Info Meaningful Use Diagnoses (Choose all that apply): None applicable OBSV E&M: 03345 Observation care discharge
== END 2021-01-17 13:14 | disposition home or self-care (01) ==
LOC: ED 11:42 → PCU 11:58
PROVIDERS: Admitting Provider Internal Medicine; Emergency Provider Emergency Medicine; PCP Internal Medicine; Visit Provider Internal Medicine
DX: R07.89 Other chest pain (principal); E78.5 Hyperlipidemia, unspecified; E11.9 Type 2 diabetes mellitus without complications; F31.9 Bipolar disorder, unspecified; I10 Essential (primary) hypertension; F41.9 Anxiety disorder, unspecified; E66.9 Obesity, unspecified; M79.7 Fibromyalgia; Z68.34 Body mass index [BMI] 34.0-34.9, adult; K21.9 Gastro-esophageal reflux disease without esophagitis; Z79.899 Other long term (current) drug therapy; Z79.4 Long term (current) use of insulin; I49.1 Atrial premature depolarization
CPT/HCPCS: 36415; 71045; 78452; 80048; 82962; 83735; 84484; 85025; 93005; 93017; 99218; 99285; A9500; A4216; G0378

== ENCOUNTER 2021-01-27 11:17 | Emergency (ER) | payer MEDICARE, MEDICAID, SELFPAY ==
[2021-01-16 12:55] VITALS: BMI 34.5
[2021-01-27 11:18] VITALS: BP 153/75; PULSE 93; RESP 18; TEMP 36; O2SAT 98; BMI 34.2
--- NOTE | 2021-01-27 11:33 | ED.DCSUM_ITS ---
- ER Visit Summary Date of Service: 01/27/21 Chief Complaint: Allergic reaction History of Present Illness: The patient is a 60 F who presents with allergic reaction for the past 2 days. Patient states that 2 nights ago she took a generic naproxen pain medicine. Patient states a few hours after that she woke up with hives and itching. Patient states she has taken Aleve in the past without any reactions. Patient states she gets an upset stomach from aspirin and ibuprofen. Patient states she has been taking Benadryl which helps some. Patient states she still has some hives. Patient states she still feels some tightness in her throat. Patient denies any difficulty breathing or difficulty swallowing. Patient denies any chest pain. Patient denies any nausea or vomiting. Physical Examination: Vital signs are stable. Patient is afebrile. Patient is in no acute distress. Oral mucosa is pink and moist. Oropharynx is clear. Airway is patent. Neck is supple. Trachea is midline. There is no JVD. Heart was regular rate and rhythm. Lungs are clear and equal bilaterally. Abdomen is soft. Bowel sounds are normal. There is no tenderness. Cranial nerves II through XII are intact. There are no focal motor or sensory deficits noted. Extremities are intact. There is no calf tenderness or edema. Skin is warm and dry. There is diffuse urticaria noted. There are no vesicles or pustules noted. There are no petechia noted. Emergency Department Course and Treatment: Patient was given a dose of prednisone, Benadryl, and Pepcid here. Patient was feeling better on reevaluation. Patient was given a prescription for prednisone. Patient was instructed to monitor her blood sugars closely as the prednisone may increase her blood sugars. Patient was instructed to take Benadryl as needed for any itching. Patient was instructed to return if worse in any way. Patient was instructed to follow-up with her primary care physician in 5 to 7 days. Patient understood and was agreeable with the plan. All questions were answered. Disposition: Discharge home Impression: 1. Allergic reaction This note was generated with [employer] software. It may contain incorrect words, spelling, and punctuation that were not noted in review of the chart prior to signing ED Disposition - Plan for ED Patient: Disposition: Home or Assisted Living Diagnosis: Allergic reaction Instructions: ED ADVERSE DRUG REACTION Allergic Prescriptions: Prednisone [Deltasone] 40 mg PO DAILY #8 tab Transmission Status: Pending to [facility] Referrals: Caitlin Patel MD [Primary Care Provider] - 5-7 Days
[2021-01-27] MEDS: predniSONE 20 MG Tablet 60 MG PO (11:40)
[2021-01-27] MEDS: DiphenhydrAMINE 25 MG Capsule PO (11:40)
[2021-01-27] MEDS: Famotidine 20 MG Tablet PO (11:40)
[2021-01-27 13:11] VITALS: BP 154/80; PULSE 94; RESP 16; O2SAT 99
== END 2021-01-27 13:12 | disposition home or self-care (01) ==
PROVIDERS: Emergency Provider Emergency Medicine; PCP Internal Medicine
DX: L50.0 Allergic urticaria (principal); T39.315A Adverse effect of propionic acid derivatives, initial encounter
CPT/HCPCS: 99283

== ENCOUNTER 2023-03-08 20:58 | Emergency (ER) | payer MEDICARE, MEDICAID, SELFPAY ==
[2023-03-08 21:00] VITALS: BP 169/64; PULSE 71; RESP 18; TEMP 36.1; O2SAT 97; BMI 35.2
--- NOTE | 2023-03-08 21:23 | EDS_ITS ---
HPI History of Present Illness Chief Complaint: Dental Narrative Narrative: Patient is a 62-year-old female present with 1 day of worsening right lower jaw pain and dental pain. She has some associated swelling. She is been taken Tylenol with no significant relief of her symptoms. Does not smoke. States she has appointment to see her dentist on Saturday. [facility] Home Medications aripiprazole 10 mg tablet 10 mg PO DAILY 01/30/14 [History Last Taken 01/08/20] fluoxetine 20 mg capsule 40 mg PO DAILY 01/30/14 [History Last Taken 01/08/20] lisinopril 10 mg tablet 5 mg PO DAILY 01/30/14 [History Last Taken 01/08/20] loratadine 10 mg tablet (Allergy Relief (loratadine)) 10 mg PO DAILY 01/30/14 [History Last Taken 01/08/20] metformin 500 mg tablet 1,000 mg PO BID 01/30/14 [History Last Taken 01/08/20] omeprazole 20 mg capsule,delayed release 40 mg PO DAILY 01/30/14 [History Last Taken 01/08/20] Atorvastatin Calcium 40 mg PO DAILY 07/28/17 [History Last Taken 01/08/20] bupropion HCl 150 mg 24 hr tablet, extended release 150 mg PO DAILY depression 10/26/20 [History Last Taken Unknown] gabapentin 100 mg capsule 100 mg PO DAILY neuropathy 10/26/20 [History Last Taken Unknown] gabapentin 100 mg capsule 200 mg PO QHS neuropathy 10/26/20 [History Last Taken Unknown] glipizide 5 mg tablet, extended release 24 hr 5 mg PO DAILY diabetes 10/26/20 [History Last Taken Unknown] insulin glargine 100 unit/mL (3 mL) subcutaneous pen 60 units (0.6 mL) subcut DAILY ##1 01/17/21 [Rx Last Taken Unknown] prednisone 20 mg tablet 40 mg PO DAILY #8 tabs 01/27/21 [Rx Last Taken Unknown] amoxicillin 875 mg-potassium clavulanate 125 mg tablet 1 tab PO BID #14 tabs 03/08/23 [Rx Last Taken Unknown] fluconazole 150 mg tablet (Diflucan) 150 mg PO Q3D 2 doses #2 tabs 03/08/23 [Rx Last Taken Unknown] naproxen 500 mg tablet (Naprosyn) 500 mg PO BID PRN pain #20 tabs 03/08/23 [Rx Last Taken Unknown] Allergy/AdvReac Type Severity Reaction Status Date / Time aspirin AdvReac Upset Verified 03/08/23 20:59 Stomach ibuprofen AdvReac Upset Verified 03/08/23 20:59 Stomach simvastatin AdvReac Unknown Verified 03/08/23 20:59 Social History Smoking Status: Never smoker ROS ROS ED Constitutional Constitutional ED: Denies chills or fever(s) Eyes Eyes: Denies blurry vision ENT ENT ED: Reports other Details: right lower dental pain, jaw swelling ; Denies sore throat Cardiovascular Cardiovascular: Denies chest pain Respiratory/Chest Respiratory/Chest: Denies cough Gastrointestinal Gastrointestinal: Denies nausea or vomiting Integumentary Denies rash Neurologic Neurologic: Denies headache(s) EXAM Physical Exam Const Vital Signs: 03/08/23 21:00 Temperature 97.0 F L Temperature Source Temporal Pulse Rate 71 Respiratory Rate 18 Blood Pressure 169/64 H Blood Pressure Mean 99 Pulse Ox 97 Oxygen Delivery Method Room Air Positive well nourished and well developed General Appearance ED: well developed and NAD HEENT Reports TM's clear HEENT Narrative: Poor dentition. Edentulous of the maxillary teeth. Points to pain in the right lower jaw near the area of the first molar. Patient is missing multiple teeth in the mandible and in the area of pain she has 1 intact molar and another tooth in front of it that is ground to the gumline. There is associated tenderness palpation of the first molar. No obvious abscess. Sublingual mucosa is soft. Normal phonation. No trismus. Tympanic Membrane ED: Yes TM's clear Throat: posterior oropharynx normal Eyes PERRL and EOMs intact bilaterally Chest Wall inspection of chest normal and palpation of chest normal Resp normal respiratory effort Cardio regular rate and regular rhythm GI normal to inspection, nondistended, normoactive bowel sounds Psych mental status grossly normal MDM MDM MDM Narrative Medical decision making narrative: Patient via for dental pain. No obvious abscess amenable to drainage. Will be started on antibiotics and given naproxen. Given first dose in the emergency room. Counseled to hold her meloxicam while on the naproxen. She states she has tolerated this in the past. Is given a prescription for fluconazole because she is prone to UTIs with antibiotics. Has follow-up appointment with dentist. Counseled to use ice for the pain as well. Counseled return precautions. Discharged home in stable condition. Discharge Plan Triage Chief Complaint: Dental ED Provider: Sallie Argueta Dx/Rx/DC Orders Clinical Impression: Dentalgia Instructions: ED Dental Abscess Prescriptions: New amoxicillin-pot clavulanate 875-125 mg tablet 1 tab PO BID Qty: 14 0RF naproxen [Naprosyn] 500 mg tablet 500 mg PO BID PRN (Reason: pain) Qty: 20 0RF fluconazole [Diflucan] 150 mg tablet 150 mg PO Q3D Qty: 2 0RF Rx Instructions: take after completing course of antibiotics No Action metformin 500 MG tablet 1,000 mg PO BID Label Comments: DIABETES lisinopril 10 MG tablet 5 mg PO DAILY Label Comments: BLOOD PRESSURE omeprazole 20 MG capsule 40 mg PO DAILY Label Comments: ACID REFLUX fluoxetine 20 MG capsule 40 mg PO DAILY Label Comments: DEPRESSION loratadine [Allergy Relief (loratadine)] 10 MG tablet 10 mg PO DAILY Label Comments: ALLERGIES aripiprazole 10 MG tablet 10 mg PO DAILY Label Comments: DEPRESSION Atorvastatin Calcium 40 MG tablet 40 mg PO DAILY Label Comments: CHOLESTEROL glipizide 5 MG tablet extended release 24hr 5 mg PO DAILY gabapentin 100 MG capsule 100 mg PO DAILY gabapentin 100 MG capsule 200 mg PO QHS bupropion HCl 150 MG tablet extended release 24 hr 150 mg PO DAILY insulin glargine 100 UNITS/ML insulin pen 60 units SC DAILY Qty: 1 0RF prednisone 20 MG tablet 40 mg PO DAILY Qty: 8 0RF Rx Instructions: With food Primary Care Provider: Caitlin Patel Referrals: Caitlin Patel MD [Primary Care Provider] - Marcie Morales [Non-Staff] - As Needed Activity Restrictions/Additional Instructions: Please follow-up with dentist as discussed. Stop your Mobic (meloxicam) while taking the naproxen. Use ice to help with the pain. Disposition Disposition: Home, Self Care Discharge Date/Time: 03/08/23 21:50
[2023-03-08] MEDS: Amox/Clavulanate 875 MG Tablet PO (21:38)
== END 2023-03-08 21:50 | disposition home or self-care (01) ==
LOC: ED 21:30
PROVIDERS: Emergency Provider Emergency Medicine; PCP Internal Medicine; Visit Provider Emergency Medicine
DX: K08.89 Other specified disorders of teeth and supporting structures (principal)
CPT/HCPCS: 99283

== ENCOUNTER 2023-06-02 17:07 | Emergency (ER) | payer MEDICARE, MEDICAID, SELFPAY ==
[2023-06-02 17:08] VITALS: BP 153/62; PULSE 86; RESP 14; TEMP 36.4; O2SAT 99; BMI 34.0
--- NOTE | 2023-06-02 18:04 | EX.ED.DYSGE1 ---
HPI History of Present Illness Chief Complaint: Dental Narrative Narrative: Patient is a 62-year-old female who is presenting with acute on chronic dental pain. Patient has an appointment tomorrow at 1 PM with [facility]. Patient states that she has a fractured tooth at approximately # 19. Patient has multiple areas of dental caries to the bottom row of her teeth, patient does not have any teeth to the upper level, she wears dentures, she does not have them in at this time. Patient has no fever or chills. Patient has multiple other areas of dental caries as well. Patient states that she is takes Tylenol at home for pain, she cannot take anti-inflammatories because they bother her stomach. Patient is here for pain relief. Patient is not using any type of ice or heat at home. Patient has no other acute complaints at time. Minimal left-sided facial swelling. She is complaining of left-sided facial pain and cannot get any relief is hoping for something for pain before she sees a dentist tomorrow at 1 PM. This pain started on Saturday, she called [facility] on Saturday trying to make an appointment on Saturday and they cannot see her until 1:00 tomorrow. [facility] Medical History (Updated 06/02/23 @ 17:[address] Miguel Rand, DO) Anxiety Bipolar 1 disorder Diabetes mellitus, type II Fracture of tooth Hyperlipidemia Home Medications aripiprazole 10 mg tablet 10 mg PO DAILY 01/30/14 [History Last Taken 01/08/20] fluoxetine 20 mg capsule 40 mg PO DAILY 01/30/14 [History Last Taken 01/08/20] lisinopril 10 mg tablet 5 mg PO DAILY 01/30/14 [History Last Taken 01/08/20] loratadine 10 mg tablet (Allergy Relief (loratadine)) 10 mg PO DAILY 01/30/14 [History Last Taken 01/08/20] metformin 500 mg tablet 1,000 mg PO BID 01/30/14 [History Last Taken 01/08/20] omeprazole 20 mg capsule,delayed release 40 mg PO DAILY 01/30/14 [History Last Taken 01/08/20] Atorvastatin Calcium 40 mg PO DAILY 07/28/17 [History Last Taken 01/08/20] bupropion HCl 150 mg 24 hr tablet, extended release 150 mg PO DAILY depression 12/02/20 [History Last Taken Unknown] gabapentin 100 mg capsule 100 mg PO DAILY neuropathy 10/26/20 [History Last Taken Unknown] gabapentin 100 mg capsule 200 mg PO QHS neuropathy 10/26/20 [History Last Taken Unknown] glipizide 5 mg tablet, extended release 24 hr 5 mg PO DAILY diabetes 10/26/20 [History Last Taken Unknown] insulin glargine 100 unit/mL (3 mL) subcutaneous pen 60 units (0.6 mL) subcut DAILY ##1 01/17/21 [Rx Last Taken Unknown] prednisone 20 mg tablet 40 mg (2 x 20 mg) PO DAILY #8 tabs 01/27/21 [Rx Last Taken Unknown] amoxicillin 875 mg-potassium clavulanate 125 mg tablet 1 tab PO BID #14 tabs 03/08/23 [Rx Last Taken Unknown] fluconazole 150 mg tablet (Diflucan) 150 mg PO Q3D 2 doses #2 tabs 03/08/23 [Rx Last Taken Unknown] naproxen 500 mg tablet (Naprosyn) 500 mg PO BID PRN pain #20 tabs 03/08/23 [Rx Last Taken Unknown] hydrocodone-acetaminophen 5-325mg 5mg-325mg 1 tab PO Q4H PRN PRN Pain 2 days #2 TABLETS 06/02/23 [Rx Last Taken Unknown] Allergy/AdvReac Type Severity Reaction Status Date / Time aspirin AdvReac Upset Verified 06/02/23 17:08 Stomach ibuprofen AdvReac Upset Verified 06/02/23 17:08 Stomach simvastatin AdvReac Unknown Verified 06/02/23 17:08 Social History Smoking Status: Never smoker ROS ROS ED ROS Narrative REVIEW OF SYSTEMS: Unless otherwise stated in this report the patient's positive and negative responses for review of systems for constitutional, eyes, ENT, cardiovascular, respiratory, gastrointestinal, neurological, , musculoskeletal, and integument systems and related systems to the presenting problem are either stated in the history of present illness or were not pertinent or were negative for the symptoms and/or complaints related to the presenting medical problem. EXAM Physical Exam Narrative Exam Narrative: Nurses notes reviewed and patient is noted to be non-hypoxic. General: The patient is comfortable, alert and oriented x3, well appearing, non toxic in no apparent distress. Head: Atraumatic and normocephalic. Mild minimal swelling to the left side of patient's face, no significant or appreciable abscess noted. No pain to palpation to bilateral TMJ with opening closing her mandible. Eyes: Normal conjunctiva ENT: The oropharynx is normal. No pharyngeal erythema, uvular edema, tonsillar exudates, asymmetry or trismus. Uvula is midline. Mouth is normal to inspection With the exception of a pain on percussion of the tooth #19 and evidence of dental caries to her lower teeth. Patient has no upper teeth, she wears dentures and has a full upper plate, she currently does not have that in at this time. There is no evidence of facial asymmetry or abscess formation. Floor of the mouth is soft. No tenderness in the submental or submandibular space. No tongue elevation or deviation. The patient has no evidence of periapical abscess, gingivitis, ANUG or other acute pathology. Airway is patent. Neck: The neck demonstrates normal range of motion. No meningeals signs are present. No stridor. No masses or lymphandenopathy noted. Respiratory: No acute distress, lungs are clear to auscultation, no wheezing, rhonchi, or rales noted. No stridor or retractions are noted. Cardiovascular: Regular rate and rhythm Skin: The skin exam shows no evidence of rashes Neuro: Alert and oriented x4, normal speech Lymphatic: No cervical lymphadenopathy Const Vital Signs: 06/02/23 17:08 Temperature 97.6 F L Temperature Source Temporal Pulse Rate 86 Respiratory Rate 14 Blood Pressure 153/62 H Blood Pressure Mean 92 Pulse Ox 99 Oxygen Delivery Method Room Air [facility] Treatment and Re-Evaluation Comments:: Patient has fractured tooth #19, no significant signs of secondary signs of infection. She does not taste any foul taste or pus in her mouth. Patient will be given the doubt, most likely nerve root is exposed. Patient will be given 2 tablets for pain until her an appointment at 1:00 tomorrow. Patient did call Saturday trying to make an appointment with [facility] on Saturday. Patient has been seen at [facility] many times in the past. Patient understands to use ice 20 minutes on, 10 minutes off and not use heat. Patient understands not to use Tylenol with pain medication. Patient understands we do not typically prescribe any pain medication for chronic dental pain in the ER. However, given her presentation, her effort to follow-up with dentist, and having a secured appointment tomorrow, patient will be given 2 tablets for pain medication until her appointment tomorrow. Patient understands that ice will most likely help better than pain medication. No questions at discharge Discharge Plan Triage Chief Complaint: Dental ED Provider: Miguel Rand Dx/Rx/DC Orders Clinical Impression: Atypical face pain, Toothache, Chronic enamel dental caries, Fracture of tooth Instructions: Medicine for Pain, Understanding Tooth Decay, Taking Opioid Medicines, ED Dental Pain, ED Pain, Acute, Uncertain Cause Prescriptions: New hydrocodone-acetaminophen [hydrocodone-acetaminophen] 5-325 mg tablet 1 tab PO Q4H PRN PRN (Reason: Pain) 2 Days Qty: 2 0RF No Action metformin 500 MG tablet 1,000 mg PO BID Patient Comments: DIABETES lisinopril 10 MG tablet 5 mg PO DAILY Patient Comments: BLOOD PRESSURE omeprazole 20 MG capsule 40 mg PO DAILY Patient Comments: ACID REFLUX fluoxetine 20 MG capsule 40 mg PO DAILY Patient Comments: DEPRESSION loratadine [Allergy Relief (loratadine)] 10 MG tablet 10 mg PO DAILY Patient Comments: ALLERGIES aripiprazole 10 MG tablet 10 mg PO DAILY Patient Comments: DEPRESSION Atorvastatin Calcium 40 MG tablet 40 mg PO DAILY Patient Comments: CHOLESTEROL glipizide 5 MG tablet extended release 24hr 5 mg PO DAILY gabapentin 100 MG capsule 100 mg PO DAILY gabapentin 100 MG capsule 200 mg PO QHS bupropion HCl 150 MG tablet extended release 24 hr 150 mg PO DAILY insulin glargine 100 UNITS/ML insulin pen 60 units SC DAILY Qty: 1 0RF prednisone 20 MG tablet 40 mg PO DAILY Qty: 8 0RF Rx Instructions: With food amoxicillin-pot clavulanate 875-125 mg tablet 1 tab PO BID Qty: 14 0RF naproxen [Naprosyn] 500 mg tablet 500 mg PO BID PRN (Reason: pain) Qty: 20 0RF fluconazole [Diflucan] 150 mg tablet 150 mg PO Q3D Qty: 2 0RF Rx Instructions: take after completing course of antibiotics Primary Care Provider: Caitlin Patel Referrals: Caitlin Patel MD [Primary Care Provider] - Activity Restrictions/Additional Instructions: See [place] [facility] tomorrow at your scheduled appointment at 1 PM. Ice 20 minutes on, 3 minutes off as discussed. Do not use heat. Is imperative you follow-up with your dentist tomorrow as scheduled Disposition Disposition: Home, Self Care
== END 2023-06-02 18:31 | disposition home or self-care (01) ==
PROVIDERS: Emergency Provider Emergency Medicine; PCP Internal Medicine; Visit Provider Emergency Medicine
DX: S02.5XXA Fracture of tooth (traumatic), initial encounter for closed fracture (principal); E11.9 Type 2 diabetes mellitus without complications; Z79.4 Long term (current) use of insulin; X58.XXXA Exposure to other specified factors, initial encounter; K02.61 Dental caries on smooth surface limited to enamel; G89.29 Other chronic pain; E78.5 Hyperlipidemia, unspecified; Z79.84 Long term (current) use of oral hypoglycemic drugs; Z79.899 Other long term (current) drug therapy
CPT/HCPCS: 99282

== ENCOUNTER 2023-11-01 18:32 | Emergency (ER) | payer MEDICARE, MEDICAID, SELFPAY ==
[2023-11-01 18:34] VITALS: BP 112/55; PULSE 90; RESP 18; TEMP 36.1; O2SAT 96; BMI 34.0
[2023-11-01 20:22] LABS: Absolute Lymphocyte Count 1.84 X10^3/uL (0.83-4.51); Absolute Neutrophil Count 4.4 X10^3/uL (2.0-7.7); Basophil# 0.04 X10^3/uL; Basophil% 0.6 % (0-1); Eosinophil# 0.17 X10^3/uL; Eosinophils% 2.4 % (0-5); Hematocrit 34.5 % (37-47); Hemoglobin 10.7 g/dL (12.0-15.0); Lymphocyte # 1.84 X10^3/ul (0.83-4.51); Lymphocyte % 25.7 % (19-41); Mean Corpuscular Hgb 25.8 pg (27.0-32.0); Mean Corpuscular Volume 83.3 fL (81-99); Mean Platelet Vol. 9.2 fl (6.2-12.0); Monocyte% 9.8 % (0-10); NRBC Flagged by Analyzer 0 % (0-5); Neutrophil # 4.38 X10^3/uL (2.7-7.7); Neutrophil % 61.1 % (47-70); Platelet Count 369 K/mm3 (150-450); RBC Distribution Width CV 13.9 % (11.6-14.6); RBC Distribution Width SD 42.5 fl (35.1-43.9); Red Blood Count 4.14 M/mm3 (4.2-5.4); White Blood Count 7.2 K/mm3 (4.4-11.0)
[2023-11-01 20:39] LABS: Bacteria 0 SEEN /hpf (None Seen); Mucous, Urine 0 SEEN /hpf (<or=2+); Red Blood Cells-Urine 0 SEEN /hpf (0-5)
[2023-11-01 20:41] LABS: ALB/GLOB Ratio 0.6 RATIO (0.9-2.4); AST(SGOT) 7 U/L (15-37); Alanine Aminotransfer ALT/SGPT 14 U/L (13-56); Albumin, Serum 2.6 g/dL (3.2-5.0); Alkaline Phosphatase 121 U/L (45-117); Amylase 29 U/L (25-115); Anion Gap 4 (5-15); BUN 8 mg/dL (7-18); BUN/Creat Ratio 9.6 RATIO (10-20); Calcium,Total 8.7 mg/dL (8.5-10.1); Chloride 103 mmol/L (98-107); Creatinine, Serum 0.84 mg/dL (0.55-1.02); EST Glomerular Filtration Rate 73 mL/min (>60); Est Glom Filt Rate - Afr Amer 89 mL/min (>60); Estimated Creatinine Clearance 71.64 ml/min; Globulin 4.2 g/dL (2.2-4.2); Glucose 81 mg/dL (74-106); Potassium 3.9 mmol/L (3.5-5.1); Protein, Total 6.8 g/dL (6.4-8.2); Sodium Level 134 mmol/L (136-145)
[2023-11-01 20:45] LABS: Color, Urine Yellow (Yellow); Glucose, Dipstick Normal (Normal); Ketone-Dipstick Negative (Negative); Leukocyte Esterase-Dipstick 25 /ul (Negative); Nitrite-Dipstick Negative (Negative); Occult Blood-Urine Negative /ul (Negative); Protein-Dipstick 30 mg/dl (Negative); Specific Gravity, Urine 1.015 (1.002-1.030); Urine Clarity Clear (Clear); Urine Urobilinogen 4 mg/dl (Normal)
[2023-11-01 20:57] LABS: Urine Bilirubin Dipstick 1 mg/dL (Negative)
[2023-11-01 20:58] LABS: Squamous Epithelial Cells - UA 0-5 SEEN /hpf (5-10); White Blood Cells 0-5 SEEN /hpf (0-5)
--- NOTE | 2023-11-01 21:39 | EX.ED.DYSGE1 ---
HPI History of Present Illness Chief Complaint: General Illness Informant: patient Narrative Narrative: Patient is a 63-year-old female with history of diabetes mellitus type 2, hypertension, hyperlipidemia, fibromyalgia presenting with generalized malaise, vomiting and diarrhea. Notes that her daughter and granddaughter are having similar GI symptoms. She states that she had an episode of vomiting last night around 9 PM and this morning had an episode of diarrhea. She notes has been feeling yucky. She also reports that she is on second day of an antibiotic, Cipro, for UTI. She notes she initially was on different antibiotic but what sounds like the culture came back her doctor called her in Cipro. She also thinks she maybe has a yeast infection was not sure. She notes her doctor did give her a prescription for fluconazole but she has not taking it and she wanted to valuated by before taking it. She notes that she is having some swelling and discomfort in her vaginal area. She denies any stated abdominal pain, chest pain or fever. She notes yesterday she was feeling cold and hot but also is in a new work where it often gets cold and hot. She does note that her UTI symptoms have been improving. [facility] Medical History Anxiety Bipolar 1 disorder Diabetes mellitus, type II Fracture of tooth Hyperlipidemia Home Medications aripiprazole 10 mg tablet 10 mg PO DAILY 01/30/14 [History Last Taken 01/08/20] fluoxetine 20 mg capsule 40 mg PO DAILY 01/30/14 [History Last Taken 01/08/20] lisinopril 10 mg tablet 5 mg PO DAILY 01/30/14 [History Last Taken 01/08/20] loratadine 10 mg tablet (Allergy Relief (loratadine)) 10 mg PO DAILY 01/30/14 [History Last Taken 01/08/20] metformin 500 mg tablet 1,000 mg PO BID 01/30/14 [History Last Taken 01/08/20] omeprazole 20 mg capsule,delayed release 40 mg PO DAILY 01/30/14 [History Last Taken 01/08/20] Atorvastatin Calcium 40 mg PO DAILY 07/28/17 [History Last Taken 01/08/20] bupropion HCl 150 mg 24 hr tablet, extended release 150 mg PO DAILY depression 10/26/20 [History Last Taken Unknown] gabapentin 100 mg capsule 100 mg PO DAILY neuropathy 10/26/20 [History Last Taken Unknown] gabapentin 100 mg capsule 200 mg PO QHS neuropathy 10/26/20 [History Last Taken Unknown] glipizide 5 mg tablet, extended release 24 hr 5 mg PO DAILY diabetes 10/26/20 [History Last Taken Unknown] insulin glargine 100 unit/mL (3 mL) subcutaneous pen 60 units (0.6 mL) subcut DAILY ##1 01/17/21 [Rx Last Taken Unknown] prednisone 20 mg tablet 40 mg (2 x 20 mg) PO DAILY #8 tabs 01/27/21 [Rx Last Taken Unknown] amoxicillin 875 mg-potassium clavulanate 125 mg tablet 1 tab PO BID #14 tabs 03/08/23 [Rx Last Taken Unknown] fluconazole 150 mg tablet (Diflucan) 150 mg PO Q3D 2 doses #2 tabs 03/08/23 [Rx Last Taken Unknown] naproxen 500 mg tablet (Naprosyn) 500 mg PO BID PRN pain #20 tabs 03/08/23 [Rx Last Taken Unknown] hydrocodone-acetaminophen 5-325mg 5mg-325mg 1 tab PO Q4H PRN PRN Pain 2 days #2 TABLETS 06/02/23 [Rx Last Taken Unknown] ondansetron 4 mg disintegrating tablet 4 mg PO Q8H PRN PRN Nausea #10 tabs 11/01/23 [Rx Last Taken Unknown] sulfamethoxazole 800 mg-trimethoprim 160 mg tablet (Bactrim DS) 1 tab PO BID #14 tabs 11/01/23 [Rx Last Taken Unknown] Allergy/AdvReac Type Severity Reaction Status Date / Time aspirin AdvReac Upset Verified 11/01/23 18:33 Stomach ibuprofen AdvReac Upset Verified 11/01/23 18:33 Stomach simvastatin AdvReac Unknown Verified 11/01/23 18:33 Social History Smoking Status: Never smoker ROS ROS ED Constitutional Constitutional ED: Reports chills; Denies fever(s) ENT ENT ED: Denies sore throat Cardiovascular Cardiovascular: Denies chest pain Respiratory/Chest Respiratory/Chest: Denies cough Gastrointestinal Gastrointestinal: Reports diarrhea, nausea and vomiting; Denies abdominal pain, constipation or melena Genitourinary Genitourinary ED: Reports other Details: vaginal discomfort ; Denies dysuria or hematuria Musculoskeletal Musculoskeletal: Denies myalgias Integumentary Denies rash Neurologic Neurologic: Reports weakness; Denies headache(s) Hematologic/Lymphatic Hematologic/Lymphatic: Denies easy bleeding or easy bruising EXAM Physical Exam Const Vital Signs: 11/01/23 18:34 Temperature 97.0 F L Temperature Source Temporal Pulse Rate 90 Respiratory Rate 18 Blood Pressure 112/55 L Blood Pressure Mean 74 Pulse Ox 96 Oxygen Delivery Method Room Air Positive well nourished and well developed General Appearance ED: well developed and NAD HEENT Reports moist mucous membranes Eyes PERRL and EOMs intact bilaterally Neck supple Chest Wall inspection of chest normal and palpation of chest normal Resp normal respiratory effort and clear to auscultation bilaterally Cardio regular rate, regular rhythm and no murmurs GI normal to inspection, nondistended, normoactive bowel sounds and non-tender Narrative: On external vaginal exam patient has approximately 1 cm firm area of induration of the inferior right labia majora. No associated fluctuance appreciated. No drainage appreciated. No associated lymphangitic streaking. No abnormal vaginal discharge noted however speculum exam is not performed. Extremity normal to inspection General Extremety ED: Negative for edema General Extremity: Negative for edema Neuro oriented x3 Sensorium / Orientation: alert Motor Exam: Negative for general weakness Psych mental status grossly normal Skin no rashes or lesions noted and no wounds MDM MDM MDM Narrative Medical decision making narrative: Is evaluated for an episode of diarrhea this morning, vomiting that occurred last night generalized feeling of malaise. In addition she is having some vaginal discomfort. She is currently on ciprofloxacin for urinary tract infection. [facility] a positive [facility] culture on 10/27 for E. coli that is sensitive to Cipro but otherwise is resistant to oral antibiotics. Discussed with patient that while her GI symptoms could be reaction to the Cipro that this is a side effect/intolerance not a true allergy and given her antibiotic resistance I think she should continue it. Urinalysis does seem to be improving as it now is not consistent with infection. Patient agreeable. Lab work otherwise largely unremarkable. She she was ordered IV fluids however she does not have any ketonuria or GERHARD is requesting just to do oral hydration. I think this is reasonable. On physical exam she does have what looks to be possible early Bartholin cyst versus abscess of her right labia. At this time it does not look amenable to I&D. Will place on Bactrim for this and have her follow-up with her PCP. She will be given a referral to [facility] gynecology as well. Be given a prescription for Zofran to hopefully help better tolerate the medications. Counseled taking a probiotic. Given return precautions. This time I feel that she stable to be discharged home. Patient is mildly anemic with a hemoglobin of 10.7. Denies any active bleeding at this time. This can continue to be monitored by her primary care doctor as well. History & Record Review Additional record(s) reviewed:: Prior outpatient record (see MDM) Lab Data Labs: Laboratory Results - last 24 hr 11/01/23 11/01/23 20:10 20:35 WBC 7.2 RBC 4.14 L Hgb 10.7 L Hct 34.5 L MCV 83.3 MCH 25.8 L MCHC 31.0 L RDW Std Deviation 42.5 RDW Coeff of Jori 13.9 Plt Count 369 MPV 9.2 Immature Gran % (Auto) 0.400 Neut % (Auto) 61.1 Lymph % (Auto) 25.7 Grady % (Auto) 9.8 Eos % (Auto) 2.4 Baso % (Auto) 0.6 Absolute Neuts (auto) 4.4 Absolute Lymphs (auto) 1.84 Nucleated RBC % 0 Sodium 134 L Potassium 3.9 Chloride 103 Carbon Dioxide 27.0 Anion Gap 4 L BUN 8 Creatinine 0.84 Estim Creat Clear Calc 71.64 Est GFR (MDRD) Af Amer 89 Est GFR (MDRD) Non-Af 73 BUN/Creatinine Ratio 9.6 L Glucose 81 Calcium 8.7 Total Bilirubin 0.20 AST 7 L ALT 14 Alkaline Phosphatase 121 H Total Protein 6.8 Albumin 2.6 L Globulin 4.2 Albumin/Globulin Ratio 0.6 L Amylase 29 Urine Color Yellow Urine Clarity Clear Urine pH 6.0 Ur Specific Monarch 1.015 Urine Protein 30 H Urine Glucose (UA) Normal Urine Ketones Negative Urine Occult Blood Negative Urine Nitrite Negative Urine Bilirubin 1 H Urine Urobilinogen 4 H Ur Leukocyte Esterase 25 H Urine RBC 0 SEEN Urine WBC 0-5 SEEN Ur Squamous Epith Cells 0-5 SEEN Urine Bacteria 0 SEEN Urine Mucus 0 SEEN Rhythm Strip Rhythm Strip: Sinus Rhythm Rate: 82 Ectopy: None EKG Initial EKG: Attestation: I personally reviewed and interpreted this EKG as follows: Interpretation: Sinus Rhythm Comments: Sinus rhythm at a rate of 82 bpm Normal axis Normal intervals Normal ST segments Prior EKG tracings: available for review Prior: Unchanged Discharge Plan Triage Chief Complaint: General Illness ED Provider: Sallie Argueta Dx/Rx/DC Orders Clinical Impression: Abscess of vulva, Vomiting and diarrhea Instructions: ED Abscess Antibiotic Treatment Only, ED Bartholin's Cyst (No Infection), ED Vomit Diarrhea Nonspec Adult Prescriptions: New sulfamethoxazole-trimethoprim [Bactrim DS] 800-160 mg tablet 1 tab PO BID Qty: 14 0RF ondansetron 4 mg tablet,disintegrating 4 mg PO Q8H PRN PRN (Reason: Nausea) Qty: 10 0RF No Action metformin 500 MG tablet 1,000 mg PO BID Patient Comments: DIABETES lisinopril 10 MG tablet 5 mg PO DAILY Patient Comments: BLOOD PRESSURE omeprazole 20 MG capsule 40 mg PO DAILY Patient Comments: ACID REFLUX fluoxetine 20 MG capsule 40 mg PO DAILY Patient Comments: DEPRESSION loratadine [Allergy Relief (loratadine)] 10 MG tablet 10 mg PO DAILY Patient Comments: ALLERGIES aripiprazole 10 MG tablet 10 mg PO DAILY Patient Comments: DEPRESSION Atorvastatin Calcium 40 MG tablet 40 mg PO DAILY Patient Comments: CHOLESTEROL glipizide 5 MG tablet extended release 24hr 5 mg PO DAILY gabapentin 100 MG capsule 100 mg PO DAILY gabapentin 100 MG capsule 200 mg PO QHS bupropion HCl 150 MG tablet extended release 24 hr 150 mg PO DAILY insulin glargine 100 UNITS/ML insulin pen 60 units SC DAILY Qty: 1 0RF prednisone 20 MG tablet 40 mg PO DAILY Qty: 8 0RF Rx Instructions: With food amoxicillin-pot clavulanate 875-125 mg tablet 1 tab PO BID Qty: 14 0RF naproxen [Naprosyn] 500 mg tablet 500 mg PO BID PRN (Reason: pain) Qty: 20 0RF fluconazole [Diflucan] 150 mg tablet 150 mg PO Q3D Qty: 2 0RF Rx Instructions: take after completing course of antibiotics hydrocodone-acetaminophen [hydrocodone-acetaminophen] 5-325 mg tablet 1 tab PO Q4H PRN PRN (Reason: Pain) 2 Days Qty: 2 0RF Stand Alone Forms: ED Work / School Excuse Primary Care Provider: Older,Caprice [employer] Referrals: Sarah Kim MD [Med Staff - Active Staff] - As soon as possible Caprice Fernandez [employer], [employer]-C [Primary Care Provider] - Activity Restrictions/Additional Instructions: It is not clear if your vomiting and diarrhea is from a GI bug or a side effect of the antibiotic that you are on. Because of the multiple antibiotic resistance I do recommend you continue taking the ciprofloxacin to finish treatment for the UTI. In addition you have what looks to be an early abscess versus Bartholin cyst of your right labia. The Bactrim antibiotic was prescribed for this. Please do warm compresses. Please follow-up with your primary care early next week or with gynecology for recheck. Sometimes these get worse despite being antibiotics and require drainage. Disposition Disposition: Home, Self Care Discharge Date/Time: 11/01/23 23:26
[2023-11-01] MEDS: Smz/Tmp Ds Tablet 1 TABLET PO (22:59)
== END 2023-11-01 23:26 | disposition home or self-care (01) ==
LOC: ED 20:14
PROVIDERS: Emergency Provider Emergency Medicine; PCP Nurse Practitioner; Visit Provider Emergency Medicine
DX: N76.4 Abscess of vulva (principal); E11.9 Type 2 diabetes mellitus without complications; R11.10 Vomiting, unspecified; R19.7 Diarrhea, unspecified
CPT/HCPCS: 80053; 81001; 82150; 85025; 93005; 99283

== ENCOUNTER 2024-03-29 14:32 | Emergency (ER) | payer MEDICARE, MEDICAID, SELFPAY ==
[2024-03-29 14:33] VITALS: BP 150/64; PULSE 81; RESP 18; TEMP 36.4; O2SAT 97; BMI 34.2
--- NOTE | 2024-03-29 15:04 | CT_ITS ---
STUDY: CT Abdomen And Pelvis W/ Contrast Injection 03/29/2024 5:32 PM REASON FOR EXAM: Female, 63 years old. Hysterectomy LLQ pain -- IV PO Contrast Individualized dose optimization techniques were used for this CT. COMPARISON: None. TECHNIQUE: CT Abdomen And Pelvis W/ Contrast Injection Oral and amp; IV Gastrografin and amp; 100mL [id number] FINDINGS: There are atherosclerotic calcifications of visualized coronary arteries. The visualized portions of the heart are within normal limits. Normal liver. Normal gallbladder and extrahepatic biliary system. Normal spleen. Normal pancreas. Normal bilateral adrenal glands. There are hypodensities in the right kidney. These are consistent for cysts. No follow up required. No acute findings of the left kidney. Normal visualized stomach. Normal small intestine. Stool throughout the colon. The appendix is visualized and appears normal. There are calcifications of the abdominal aorta. This is consistent for atherosclerotic disease. There is NO abdominal aortic aneurysm. Vascular workup can be obtained based on clinical correlation. Normal inferior vena cava. Subcentimeter mesenteric lymph nodes. Normal urinary bladder. There is absence of the uterus consistent with a prior hysterectomy. Normal abdominal wall. There are diffuse degenerative changes of the visualized lumbar spine. There is bilateral neural foraminal stenosis at L4-5 and L5-S1. CT/Abdomen/Pelvis WITH Contrast IMPRESSION: (NOT LISTED IN ORDER OF SIGNIFICANCE) Constipation. Hysterectomy. Other findings as above. Electronically Signed: Juan Daniel Chua MD at 17:35 EDT ,
--- NOTE | 2024-03-29 15:05 | EX.ED.DYSGE1 ---
HPI History of Present Illness Chief Complaint: Abd Pain Informant: patient Onset/Context/Timing Onset: Weeks Context: Gradual Onset Narrative Narrative: Patient present secondary left lower quadrant abdominal pain. She states pain is been ongoing for the past couple weeks, but got more severe today. She did have a dizzy episode where she stumbled while she was walking today but did not fall or hurt herself. She denies chest pain or palpitations. No reported fever. She is been urinating and defecating normally. Patient denies history of ovarian cyst or diverticulitis. She reports never having a colonoscopy. [facility] Medical History (Updated 03/29/24 @ 17:[address] Maribel Jane MD) Anxiety Bipolar 1 disorder Diabetes mellitus, type II Fracture of tooth Hyperlipidemia Home Medications aripiprazole 10 mg tablet 10 mg PO DAILY 01/30/14 [History Last Taken 01/08/20] fluoxetine 20 mg capsule 40 mg PO DAILY 01/30/14 [History Last Taken 01/08/20] lisinopril 10 mg tablet 5 mg PO DAILY 01/30/14 [History Last Taken 01/08/20] loratadine 10 mg tablet (Allergy Relief (loratadine)) 10 mg PO DAILY 01/30/14 [History Last Taken 01/08/20] metformin 500 mg tablet 1,000 mg PO BID 01/30/14 [History Last Taken 01/08/20] omeprazole 20 mg capsule,delayed release 40 mg PO DAILY 01/30/14 [History Last Taken 01/08/20] Atorvastatin Calcium 40 mg PO DAILY 07/28/17 [History Last Taken 01/08/20] bupropion HCl 150 mg 24 hr tablet, extended release 150 mg PO DAILY depression 10/26/20 [History Last Taken Unknown] gabapentin 100 mg capsule 100 mg PO DAILY neuropathy 10/26/20 [History Last Taken Unknown] gabapentin 100 mg capsule 200 mg PO QHS neuropathy 10/26/20 [History Last Taken Unknown] glipizide 5 mg tablet, extended release 24 hr 5 mg PO DAILY diabetes 10/26/20 [History Last Taken Unknown] insulin glargine 100 unit/mL (3 mL) subcutaneous pen 60 units (0.6 mL) subcut DAILY ##1 01/17/21 [Rx Last Taken Unknown] prednisone 20 mg tablet 40 mg (2 x 20 mg) PO DAILY #8 tabs 01/27/21 [Rx Last Taken Unknown] amoxicillin 875 mg-potassium clavulanate 125 mg tablet 1 tab PO BID #14 tabs 03/08/23 [Rx Last Taken Unknown] fluconazole 150 mg tablet (Diflucan) 150 mg PO Q3D 2 doses #2 tabs 03/08/23 [Rx Last Taken Unknown] naproxen 500 mg tablet (Naprosyn) 500 mg PO BID PRN pain #20 tabs 03/08/23 [Rx Last Taken Unknown] hydrocodone-acetaminophen 5-325mg 5mg-325mg 1 tab PO Q4H PRN PRN Pain 2 days #2 TABLETS 06/02/23 [Rx Last Taken Unknown] ondansetron 4 mg disintegrating tablet 4 mg PO Q8H PRN PRN Nausea #10 tabs 11/01/23 [Rx Last Taken Unknown] sulfamethoxazole 800 mg-trimethoprim 160 mg tablet (Bactrim DS) 1 tab PO BID #14 tabs 11/01/23 [Rx Last Taken Unknown] sulfamethoxazole 800 mg-trimethoprim 160 mg tablet (Bactrim DS) 1 tab PO BID #6 tabs 03/29/24 [Rx Last Taken Unknown] Allergy/AdvReac Type Severity Reaction Status Date / Time aspirin AdvReac Upset Verified 03/29/24 14:35 Stomach ibuprofen AdvReac Upset Verified 03/29/24 14:35 Stomach simvastatin AdvReac Unknown Verified 03/29/24 14:35 Surgical History (Updated 03/29/24 @ 15:[address] Maribel Jane MD) H/O: hysterectomy Social History Smoking Status: Never smoker ROS ROS ED Constitutional Constitutional ED: Denies chills or fever(s) Eyes Eyes: Denies discharge from eye(s) ENT ENT ED: Denies discharge from eye(s), rhinorrhea or sore throat Cardiovascular Cardiovascular: Denies chest pain or palpitations Respiratory/Chest Respiratory/Chest: Denies cough or dyspnea Gastrointestinal Gastrointestinal: Reports abdominal pain; Denies diarrhea, nausea or vomiting Genitourinary Genitourinary ED: Denies difficulty urinating or dysuria Musculoskeletal Musculoskeletal: Denies back pain or extremity pain Integumentary Denies Abrasions or rash Neurologic Neurologic: Reports weakness; Denies headache(s) Psychiatric Psychiatric: Denies anxiety or depression Allergic/Immunologic Allergic/Immunologic ED: Denies lip swelling or urticaria EXAM Physical Exam Const Vital Signs: 03/29/24 14:33 03/29/24 16:33 Temperature 97.5 F L Temperature Source Temporal Pulse Rate 81 72 Respiratory Rate 18 14 Blood Pressure 150/64 H 148/78 H Blood Pressure Mean 92 101 Pulse Ox 97 99 Oxygen Delivery Method Room Air Positive well nourished and well developed General Appearance ED: well developed HEENT Reports moist mucous membranes Eyes EOMs intact bilaterally Chest Wall inspection of chest normal and palpation of chest normal Resp normal respiratory effort and clear to auscultation bilaterally Cardio regular rate and regular rhythm GI GI Narrative: Abdomen soft with mild tenderness in the left lower quadrant. No guarding or rebound. No palpable masses. Extremity normal to inspection Neuro oriented x3 Neuro Narrative: No focal neurologic deficit. Sensorium / Orientation: alert Psych mental status grossly normal Skin no rashes or lesions noted MDM MDM MDM Narrative Medical decision making narrative: IV line established. Patient given morphine and Zofran along with IV fluids. Labwork obtained to evaluate for leukocytosis, anemia, and electrolyte derangement. Urinalysis obtained to evaluate for infection/hematuria. CT abdomen pelvis with p.o. and IV contrast obtained to evaluate for possible diverticulitis. Differential includes ovarian cyst, ovarian mass, bowel obstruction, colitis. History & Record Review Discussion w/independent historian: Patient Additional record(s) reviewed:: Prior labs Lab Data Attestation: I reviewed the patient's lab results. Labs: Laboratory Results - last 24 hr 03/29/24 03/29/24 15:17 16:17 WBC 10.7 RBC 4.24 Hgb 11.0 L Hct 35.4 L MCV 83.5 MCH 25.9 L MCHC 31.1 L RDW Std Deviation 42.5 RDW Coeff of Jori 14.0 Plt Count 353 MPV 9.4 Immature Gran % (Auto) 0.300 Neut % (Auto) 67.5 Lymph % (Auto) 23.2 [place] % (Auto) 6.2 Eos % (Auto) 2.1 Baso % (Auto) 0.7 Absolute Neuts (auto) 7.2 Absolute Lymphs (auto) 2.49 Nucleated RBC % 0 Sodium 137 Potassium 4.2 Chloride 107 Carbon Dioxide 27.0 Anion Gap 3 L BUN 8 Creatinine 0.83 Estim Creat Clear Calc 89.63 Est GFR (MDRD) Af Amer 89 Est GFR (MDRD) Non-Af 74 BUN/Creatinine Ratio 9.6 L Glucose 138 H Calcium 8.6 Urine Color Yellow Urine Clarity Clear Urine pH 6.0 Ur Specific [place] 1.010 Urine Protein 15 H Urine Glucose (UA) Normal Urine Ketones Negative Urine Occult Blood 10 H Urine Nitrite Positive H Urine Bilirubin Negative Urine Urobilinogen 1 H Ur Leukocyte Esterase 500 H Urine RBC 0 SEEN Urine WBC 25-50 SEEN Ur Squamous Epith Cells 0-5 SEEN Urine Bacteria 2+ Urine Mucus 0 SEEN Radiography Diagnostic Testing: Clinical Impression(s) from Imaging Studies Abdomen/Pelvis CT 03/29/24 15:04 IMPRESSION: (NOT LISTED IN ORDER OF SIGNIFICANCE) Constipation. Hysterectomy. Other findings as above. Electronically Signed: Juan Daniel Chua MD at 17:35 EDT , Treatment and Re-Evaluation :: CBC reveals normal white count at 10.7 with 67% neutrophils. Hemoglobin is 11.0. This is consistent with her prior values. Chemistry studies are unremarkable with normal renal function. Glucose is 138. Urinalysis does reveal evidence of infection with positive nitrites, 25-50 white cells, 2+ bacteria. CT scan of the abdomen pelvis with IV contrast reveals constipation but no other significant acute findings. Test results discussed with the patient. She will be given a dose of Bactrim here and 3 days of Bactrim will be sent to the pharmacy for her. Return instructions given. Discharge Plan Triage Chief Complaint: Abd Pain ED Provider: Maribel Jane Dx/Rx/DC Orders Clinical Impression: UTI (urinary tract infection), Constipation Instructions: ED Constipation (Adult), ED Cystitis Female Adult Prescriptions: New sulfamethoxazole-trimethoprim [Bactrim DS] 800-160 mg tablet 1 tab PO BID Qty: 6 0RF No Action metformin 500 MG tablet 1,000 mg PO BID Patient Comments: DIABETES lisinopril 10 MG tablet 5 mg PO DAILY Patient Comments: BLOOD PRESSURE omeprazole 20 MG capsule 40 mg PO DAILY Patient Comments: ACID REFLUX fluoxetine 20 MG capsule 40 mg PO DAILY Patient Comments: DEPRESSION loratadine [Allergy Relief (loratadine)] 10 MG tablet 10 mg PO DAILY Patient Comments: ALLERGIES aripiprazole 10 MG tablet 10 mg PO DAILY Patient Comments: DEPRESSION Atorvastatin Calcium 40 MG tablet 40 mg PO DAILY Patient Comments: CHOLESTEROL glipizide 5 MG tablet extended release 24hr 5 mg PO DAILY gabapentin 100 MG capsule 100 mg PO DAILY gabapentin 100 MG capsule 200 mg PO QHS bupropion HCl 150 MG tablet extended release 24 hr 150 mg PO DAILY insulin glargine 100 UNITS/ML insulin pen 60 units SC DAILY Qty: 1 0RF prednisone 20 MG tablet 40 mg PO DAILY Qty: 8 0RF Rx Instructions: With food amoxicillin-pot clavulanate 875-125 mg tablet 1 tab PO BID Qty: 14 0RF naproxen [Naprosyn] 500 mg tablet 500 mg PO BID PRN (Reason: pain) Qty: 20 0RF fluconazole [Diflucan] 150 mg tablet 150 mg PO Q3D Qty: 2 0RF Rx Instructions: take after completing course of antibiotics hydrocodone-acetaminophen [hydrocodone-acetaminophen] 5-325 mg tablet 1 tab PO Q4H PRN PRN (Reason: Pain) 2 Days Qty: 2 0RF sulfamethoxazole-trimethoprim [Bactrim DS] 800-160 mg tablet 1 tab PO BID Qty: 14 0RF ondansetron 4 mg tablet,disintegrating 4 mg PO Q8H PRN PRN (Reason: Nausea) Qty: 10 0RF Primary Care Provider: Caprice Lorenzana NP Referrals: Caprice Lorenzana ROLLER BEARING INSPECTOR, ROLLER BEARING INSPECTOR-C [Primary Care Provider] - 1 Week Disposition Disposition: Home, Self Care
[2024-03-29 15:28] LABS: Absolute Lymphocyte Count 2.49 X10^3/uL (0.83-4.51); Absolute Neutrophil Count 7.2 X10^3/uL (2.0-7.7); Basophil# 0.07 X10^3/uL; Basophil% 0.7 % (0-1); Eosinophil# 0.23 X10^3/uL; Eosinophils% 2.1 % (0-5); Hematocrit 35.4 % (37-47); Lymphocyte # 2.49 X10^3/ul (0.83-4.51); Lymphocyte % 23.2 % (19-41); Mean Corp Hgb Conc 31.1 g/dL (32-36); Mean Corpuscular Hgb 25.9 pg (27.0-32.0); Mean Corpuscular Volume 83.5 fL (81-99); Mean Platelet Vol. 9.4 fl (6.2-12.0); Monocyte# 0.66 X10^3/uL; Monocyte% 6.2 % (0-10); NRBC Flagged by Analyzer 0 % (0-5); Neutrophil # 7.23 X10^3/uL (2.7-7.7); Neutrophil % 67.5 % (47-70); Platelet Count 353 K/mm3 (150-450); RBC Distribution Width SD 42.5 fl (35.1-43.9); Red Blood Count 4.24 M/mm3 (4.2-5.4); White Blood Count 10.7 K/mm3 (4.4-11.0)
[2024-03-29 15:51] LABS: Anion Gap 3 (5-15); BUN 8 mg/dL (7-18); BUN/Creat Ratio 9.6 RATIO (10-20); Calcium,Total 8.6 mg/dL (8.5-10.1); Chloride 107 mmol/L (98-107); Creatinine, Serum 0.83 mg/dL (0.55-1.02); EST Glomerular Filtration Rate 74 mL/min (>60); Est Glom Filt Rate - Afr Amer 89 mL/min (>60); Estimated Creatinine Clearance 89.63 ml/min; Glucose 138 mg/dL (74-106); Potassium 4.2 mmol/L (3.5-5.1); Sodium Level 137 mmol/L (136-145)
[2024-03-29] MEDS: 0.9% Normal Saline (1000mL) 1,000 ML 150 ML IV (16:13)
[2024-03-29] MEDS: Ondansetron 4 MG/2 ML Vial IV (16:13)
[2024-03-29] MEDS: Morphine 4 MG/ML Syringe IV (16:13)
[2024-03-29 16:24] LABS: Mucous, Urine 0 SEEN /hpf (<or=2+); Red Blood Cells-Urine 0 SEEN /hpf (0-5)
[2024-03-29 16:33] VITALS: BP 148/78; PULSE 72; RESP 14; O2SAT 99
[2024-03-29 16:39] LABS: Color, Urine Yellow (Yellow); Glucose, Dipstick Normal (Normal); Ketone-Dipstick Negative (Negative); Leukocyte Esterase-Dipstick 500 /ul (Negative); Nitrite-Dipstick Positive (Negative); Occult Blood-Urine 10 /ul (Negative); Protein-Dipstick 15 mg/dl (Negative); Urine Bilirubin Dipstick Negative (Negative); Urine Clarity Clear (Clear); Urine Urobilinogen 1 mg/dl (Normal)
[2024-03-29 16:56] LABS: Bacteria 2+ /hpf (None Seen); Squamous Epithelial Cells - UA 0-5 SEEN /hpf (5-10); White Blood Cells 25-50 SEEN /hpf (0-5)
[2024-03-29 18:01] VITALS: BP 138/62; PULSE 76; RESP 15; TEMP 36.3; O2SAT 99
[2024-03-29] MEDS: Smz/Tmp Ds Tablet 1 TABLET PO (18:04)
== END 2024-03-29 18:10 | disposition home or self-care (01) ==
PROVIDERS: Emergency Provider Emergency Medicine; PCP Nurse Practitioner; Visit Provider Emergency Medicine
DX: N39.0 Urinary tract infection, site not specified (principal); F31.9 Bipolar disorder, unspecified; E11.9 Type 2 diabetes mellitus without complications; K59.00 Constipation, unspecified
CPT/HCPCS: 74177; 80048; 81001; 85025; 96361; 96374; 96375; 99283; J7030; Q9967; A4216; J2405

== ENCOUNTER 2025-03-21 17:08 | Emergency (ER) | payer MEDICARE, SELFPAY ==
[2025-03-21 17:09] VITALS: BP 146/62; PULSE 70; RESP 18; TEMP 36.2; O2SAT 98; BMI 35.3
--- NOTE | 2025-03-21 17:38 | ED.VIS.FEGU ---
HPI HPI - Female History of Present Illness Chief Complaint: Vag Bleeding Detail of Chief Complaint: Vaginal bleeding Informant: patient Pain Pain: Positive for Pelvic Pain; Negative for Vulvar Pain or Vaginal Pain Onset: Days Timing: Intermittent and Waxes and wanes Quality: Positive for Aching Location: Suprapubic Current Severity: Mild Maximum Severity: Moderate Worsened by: Odin (Patient states she has not had intercourse in 1 month) and - (Nothing) Bleeding Issue: Positive for Vaginal bleeding and Passing clots Onset: Today Context: Sudden Onset Timing: Continuous Current Severity: Heavy Associated Symptoms Associated Symptoms: Negative for Dysuria, Frequency, Urgency or Hematuria Narrative Narrative: Patient is 64-year-old postmenopausal status post hysterectomy female who presents with crampy lower abdominal pelvic pain that preceded the vaginal bleeding that started today. She states she had a hysterectomy 25 years ago because her bladder flipped. She states it was done at another hospital. She does not recall who the surgeon was. She denies urologic symptoms. She denies GI symptoms. She is not on an antithrombotic or anticoagulant. She does have history of type 2 diabetes on insulin as well as hypertension and hypercholesterolemia. Prior similar symptoms: No Recent Illness/Hospitalization: No [facility] Medical History Fracture of tooth Hyperlipidemia Anxiety Bipolar 1 disorder Diabetes mellitus, type II Home Medications ?Medication ?Instructions ?Recorded ?Last Taken ?Type aripiprazole 10 mg tablet 10 mg PO DAILY 01/30/14 01/08/20 History fluoxetine 20 mg capsule 40 mg PO DAILY 01/30/14 01/08/20 History lisinopril 10 mg tablet 5 mg PO DAILY 01/30/14 01/08/20 History loratadine 10 mg tablet (Allergy 10 mg PO DAILY 01/30/14 01/08/20 History Relief (loratadine)) metformin 500 mg tablet 1,000 mg PO BID 01/30/14 01/08/20 History omeprazole 20 mg capsule,delayed 40 mg PO DAILY 01/30/14 01/08/20 History release Atorvastatin Calcium 40 mg PO DAILY 07/28/17 01/08/20 History bupropion HCl 150 mg 24 hr tablet, 150 mg PO DAILY depression 10/26/20 Unknown History extended release gabapentin 100 mg capsule 100 mg PO DAILY neuropathy 10/26/20 Unknown History gabapentin 100 mg capsule 200 mg PO QHS neuropathy 10/26/20 Unknown History glipizide 5 mg tablet, extended 5 mg PO DAILY diabetes 10/26/20 Unknown History release 24 hr insulin glargine 100 unit/mL (3 60 units (0.6 mL) subcut DAILY ##1 01/17/21 Unknown Rx mL) subcutaneous pen prednisone 20 mg tablet 40 mg (2 x 20 mg) PO DAILY #8 tabs 01/27/21 Unknown Rx amoxicillin 875 mg-potassium 1 tab PO BID #14 tabs 03/08/23 Unknown Rx clavulanate 125 mg tablet fluconazole 150 mg tablet 150 mg PO Q3D 2 doses #2 tabs 03/08/23 Unknown Rx (Diflucan) naproxen 500 mg tablet (Naprosyn) 500 mg PO BID PRN pain #20 tabs 03/08/23 Unknown Rx hydrocodone-acetaminophen 5-325mg 1 tab PO Q4H PRN PRN Pain 2 days 06/02/23 Unknown Rx 5mg-325mg #2 TABLETS ondansetron 4 mg disintegrating 4 mg PO Q8H PRN PRN Nausea #10 tabs 11/01/23 Unknown Rx tablet sulfamethoxazole 800 1 tab PO BID #14 tabs 11/01/23 Unknown Rx mg-trimethoprim 160 mg tablet (Bactrim DS) sulfamethoxazole 800 1 tab PO BID #6 tabs 03/29/24 Unknown Rx mg-trimethoprim 160 mg tablet (Bactrim DS) Allergy/AdvReac Type Severity Reaction Status Date / Time aspirin AdvReac Upset Verified 03/21/25 17:09 Stomach ibuprofen AdvReac Upset Verified 03/21/25 17:09 Stomach simvastatin AdvReac Unknown Verified 03/21/25 17:09 Surgical History H/O: hysterectomy Social History Smoking Status: Never smoker ROS ROS ED Constitutional Constitutional ED: Denies chills, fever(s), subjective or sweats Eyes Eyes: Denies blurry vision or change in vision ENT ENT ED: Denies rhinorrhea or sore throat Cardiovascular Cardiovascular: Denies chest pain, orthopnea, palpitations or paroxysmal nocturnal dyspnea Respiratory/Chest Respiratory/Chest: Denies cough, dyspnea, dyspnea on exertion, orthopnea or paroxysmal nocturnal dyspnea Gastrointestinal Gastrointestinal: Reports abdominal pain; Denies constipation, diarrhea, melena, nausea or vomiting Genitourinary Genitourinary ED: Denies dysuria, hematuria or urinary frequency Musculoskeletal Musculoskeletal: Denies arthralgias or myalgias Integumentary Denies rash Hematologic/Lymphatic Hematologic/Lymphatic: Denies easy bleeding or easy bruising EXAM Physical Exam Const Vital Signs: 03/21/25 17:09 Temperature 97.1 F L Temperature Source Temporal Pulse Rate 70 Respiratory Rate 18 Blood Pressure 146/62 H Blood Pressure Mean 90 Pulse Ox 98 Oxygen Delivery Method Room Air Positive well nourished and well developed Constitutional Narrative: BMI is 35.3. General Appearance ED: well developed HEENT HEENT Narrative: Head is atraumatic normocephalic. External ears normal. Eyes PERRL and EOMs intact bilaterally General Eye ED: Negative for pale conjunctiva or scleral icterus Neck no lymphadenopathy, supple and no JVD Chest Wall inspection of chest normal and palpation of chest normal Resp normal respiratory effort and clear to auscultation bilaterally Cardio regular rate, regular rhythm, S1 normal heart sound, no murmurs and no JVD GI normal to inspection, nondistended, normoactive bowel sounds, soft to palpation, non-tender, non-distended and no masses Narrative: Patient has obvious rectocele and cystocele. There is slight irritation. There is no active bleeding. Vaginal cuff is intact. She had no discomfort on bimanual exam. There was no obvious masses noted. There was no abnormality of the perineum. There was no visible hemorrhoids noted. Back/Spine no CVA tenderness Extremity normal to inspection and full ROM Neuro oriented x3 and CN's II-XII intact bilaterally Sensorium / Orientation: alert Psych mental status grossly normal Skin no rashes or lesions noted and no wounds MDM MDM MDM Narrative Medical decision making narrative: Patient presents with postmenopausal bleeding who is status post hysterectomy. She is sexually active. She has not had intercourse in a month. She has no history of abnormal bleeding in the past. She presently does not have a disc pad plate filler. History & Record Review Additional record(s) reviewed:: Prior inpatient record (Admission December 2020 for chest pain and ruled out. Discharge summary authored by Dr. Rob Mckeon.) and Prior ED visit (Seen March 2020 for for constipation. October 2023 for abscess of the vulva.) Lab Data Attestation: I reviewed the patient's lab results. Lab results narrative: CBC reveals mild anemia. This is unchanged from prior dating back to October 2023. Labs: Laboratory Results - last 24 hr 03/21/25 18:05 WBC 9.4 RBC 4.11 L Hgb 10.9 L Hct 34.5 L MCV 83.9 MCH 26.5 L MCHC 31.6 L RDW Std Deviation 42.6 RDW Coeff of Jori 13.8 Plt Count 383 MPV 9.7 Immature Gran % (Auto) 0.100 Neut % (Auto) 49.6 Lymph % (Auto) 37.2 [place] % (Auto) 6.6 Eos % (Auto) 5.8 H Baso % (Auto) 0.7 Absolute Neuts (auto) 4.7 Absolute Lymphs (auto) 3.51 Nucleated RBC % 0 Management Discussion w/another healthcare provider: Hardware Design Engineer (Spoke with Dr. Maribel Wong. She asked that I tell the patient to call the office tomorrow and they will work..) Discharge Plan Triage Chief Complaint: Vag Bleeding ED Provider: Bentley Landeros Dx/Rx/DC Orders Clinical Impression: Vaginal bleeding, Diabetes mellitus, type II, HTN (hypertension), HLD (hyperlipidemia), Obesity (BMI 30.0-34.9), Rectocele without uterine prolapse, Cystocele with rectocele Instructions: Pelvic Organ Prolapse, Cystocele Prescriptions: No Action metformin 500 MG tablet 1,000 mg PO BID Patient Comments: DIABETES lisinopril 10 MG tablet 5 mg PO DAILY Patient Comments: BLOOD PRESSURE omeprazole 20 MG capsule 40 mg PO DAILY Patient Comments: ACID REFLUX fluoxetine 20 MG capsule 40 mg PO DAILY Patient Comments: DEPRESSION loratadine [Allergy Relief (loratadine)] 10 MG tablet 10 mg PO DAILY Patient Comments: ALLERGIES aripiprazole 10 MG tablet 10 mg PO DAILY Patient Comments: DEPRESSION Atorvastatin Calcium 40 MG tablet 40 mg PO DAILY Patient Comments: CHOLESTEROL glipizide 5 MG tablet extended release 24hr 5 mg PO DAILY gabapentin 100 MG capsule 100 mg PO DAILY gabapentin 100 MG capsule 200 mg PO QHS bupropion HCl 150 MG tablet extended release 24 hr 150 mg PO DAILY insulin glargine 100 UNITS/ML insulin pen 60 units SC DAILY Qty: 1 0RF prednisone 20 MG tablet 40 mg PO DAILY Qty: 8 0RF Rx Instructions: With food amoxicillin-pot clavulanate 875-125 mg tablet 1 tab PO BID Qty: 14 0RF naproxen [Naprosyn] 500 mg tablet 500 mg PO BID PRN (Reason: pain) Qty: 20 0RF fluconazole [Diflucan] 150 mg tablet 150 mg PO Q3D Qty: 2 0RF Rx Instructions: take after completing course of antibiotics hydrocodone-acetaminophen [hydrocodone-acetaminophen] 5-325 mg tablet 1 tab PO Q4H PRN PRN (Reason: Pain) 2 Days Qty: 2 0RF sulfamethoxazole-trimethoprim [Bactrim DS] 800-160 mg tablet 1 tab PO BID Qty: 14 0RF ondansetron 4 mg tablet,disintegrating 4 mg PO Q8H PRN PRN (Reason: Nausea) Qty: 10 0RF sulfamethoxazole-trimethoprim [Bactrim DS] 800-160 mg tablet 1 tab PO BID Qty: 6 0RF Primary Care Provider: Caitlin Patel Referrals: Caitlin Patel MD [Primary Care Provider] - Maribel Hooper DO [Med Staff - Active Staff] - As soon as possible Activity Restrictions/Additional Instructions: Call Dr. Wong's office. Office staff will set you up with appointment to be seen soon. Print Language: Icelandic Disposition Disposition: Home, Self Care
[2025-03-21 18:15] LABS: Absolute Lymphocyte Count 3.51 X10^3/uL (0.83-4.51); Absolute Neutrophil Count 4.7 X10^3/uL (2.0-7.7); Basophil# 0.07 X10^3/uL; Basophil% 0.7 % (0-1); Eosinophil# 0.55 X10^3/uL; Eosinophils% 5.8 % (0-5); Hematocrit 34.5 % (37-47); Hemoglobin 10.9 g/dL (12.0-15.0); Lymphocyte # 3.51 X10^3/ul (0.83-4.51); Lymphocyte % 37.2 % (19-41); Mean Corp Hgb Conc 31.6 g/dL (32-36); Mean Corpuscular Hgb 26.5 pg (27.0-32.0); Mean Corpuscular Volume 83.9 fL (81-99); Mean Platelet Vol. 9.7 fl (6.2-12.0); Monocyte# 0.62 X10^3/uL; Monocyte% 6.6 % (0-10); NRBC Flagged by Analyzer 0 % (0-5); Neutrophil # 4.68 X10^3/uL (2.7-7.7); Neutrophil % 49.6 % (47-70); Platelet Count 383 K/mm3 (150-450); RBC Distribution Width CV 13.8 % (11.6-14.6); RBC Distribution Width SD 42.6 fl (35.1-43.9); Red Blood Count 4.11 M/mm3 (4.2-5.4); White Blood Count 9.4 K/mm3 (4.4-11.0)
[2025-03-21 18:34] VITALS: BP 136/65; PULSE 72; RESP 18; TEMP 36.7; O2SAT 97
== END 2025-03-21 18:35 | disposition home or self-care (01) ==
PROVIDERS: Emergency Provider Emergency Medicine; PCP Internal Medicine; Visit Provider Emergency Medicine
DX: N93.9 Abnormal uterine and vaginal bleeding, unspecified (principal); E11.9 Type 2 diabetes mellitus without complications; Z79.4 Long term (current) use of insulin; N99.3 Prolapse of vaginal vault after hysterectomy; I10 Essential (primary) hypertension; E78.00 Pure hypercholesterolemia, unspecified; E66.9 Obesity, unspecified; Z68.35 Body mass index [BMI] 35.0-35.9, adult; Z79.84 Long term (current) use of oral hypoglycemic drugs; Z79.899 Other long term (current) drug therapy
CPT/HCPCS: 85025; 99283

== ENCOUNTER 2025-04-23 19:16 | Emergency (ER) | payer MEDICARE, SELFPAY ==
[2025-04-23] VITALS (8 sets, daily range): BP systolic 135–201; BP diastolic 67–88; PULSE 69–87; RESP 18; TEMP 36.7–36.9; O2SAT 95–98; BMI 31.1
--- NOTE | 2025-04-23 19:28 | EKG12_ITS ---
Test Reason : CP Blood Pressure : */* mmHG Vent. Rate : 86 BPM Atrial Rate : 86 BPM P-R Int : 128 ms QRS Dur : 88 ms QT Int : 388 ms P-R-T Axes : 56 44 52 degrees QTcB Int : 464 ms Sinus rhythm with occasional Premature ventricular complexes Otherwise normal ECG Confirmed by Paul Johnson ([id number]), news videotape editor AMISHA ENGEL ([id number]) on 04/26/2025 10:51:00 AM Referred By: VANESA Confirmed By: Paul Johnson
--- NOTE | 2025-04-23 19:29 | ED.VIS.CHEST ---
HPI History of Present Illness Chief Complaint: Chest Pain Detail of Chief Complaint: Chest pain Informant: patient Narrative Narrative: Patient presents the emergency department complaint of chest pain that started 25 minutes ago. Patient states that she was setting up her new phone and became very frustrated and anxious. She then started eating dinner and developed chest pain in the center of her chest that radiated into her left arm and into her armpit. She had a sharp pain in her back. The pain was sharp. EMS was called. She had some nausea but no vomiting. Denies shortness of breath or diaphoresis. EMS gave patient 1 nitro which maybe helped her discomfort slightly. Currently only has discomfort in her armpit and rates it about a 5 out of 10. She denies recent travel or surgery. No history of PE or DVT. She denies recent illness. She has no heart history. [facility] Medical History (Updated 04/23/25 @ 22:[address] Levon Moreno, DO) Hernia Fracture of tooth Hyperlipidemia Anxiety Bipolar 1 disorder Diabetes mellitus, type II Home Medications ?Medication ?Instructions ?Recorded ?Last Taken ?Type fluoxetine 20 mg capsule 40 mg PO DAILY 01/30/14 01/08/20 History lisinopril 10 mg tablet 5 mg PO DAILY 01/30/14 01/08/20 History loratadine 10 mg tablet (Allergy 10 mg PO DAILY 01/30/14 01/08/20 History Relief (loratadine)) metformin 500 mg tablet 1,000 mg PO BID 01/30/14 01/08/20 History omeprazole 20 mg capsule,delayed 40 mg PO DAILY 01/30/14 01/08/20 History release Atorvastatin Calcium 40 mg PO DAILY 07/28/17 01/08/20 History gabapentin 100 mg capsule 100 mg PO DAILY neuropathy 10/26/20 Unknown History gabapentin 100 mg capsule 200 mg PO QHS neuropathy 10/26/20 Unknown History glipizide 5 mg tablet, extended 5 mg PO DAILY diabetes 10/26/20 Unknown History release 24 hr insulin glargine 100 unit/mL (3 63 unit subcut DAILY 03/23/25 Unknown History mL) subcutaneous pen aripiprazole 5 mg tablet 5 mg PO DAILY 04/23/25 Unknown History atorvastatin 40 mg tablet 40 mg PO QPM 04/23/25 Unknown History Allergy/AdvReac Type Severity Reaction Status Date / Time aspirin AdvReac Upset Verified 04/23/25 19:17 Stomach ibuprofen AdvReac Upset Verified 04/23/25 19:17 Stomach simvastatin AdvReac Unknown Verified 04/23/25 19:17 Family History (Updated 03/23/25 @ 10:37 by Vianca Esparza) Mother Cancer Diabetes Daughter Diabetes Aunt Diabetes Uncle Diabetes Sister Hypertension Surgical History H/O hernia repair H/O: hysterectomy Social History (Updated 03/23/25 @ 10:38 by Vianca Esparza) number of children: 2 current occupational status: retired Smoking Status: Never smoker alcohol intake: never substance use type: does not use seatbelt use: always do you feel safe at home: Yes additional social history: ROS ROS ED Review of Systems ROS Unobtainable: other Constitutional Constitutional ED: Reports lethargy; Denies chills, fever(s), sweats or weight loss Eyes Eyes: Denies blurry vision, change in vision or diplopia ENT ENT ED: Denies rhinorrhea or sore throat Cardiovascular Cardiovascular: Reports chest pain; Denies orthopnea or racing heartbeat Respiratory/Chest Respiratory/Chest: Denies cough, dyspnea, dyspnea on exertion, orthopnea or sputum Gastrointestinal Gastrointestinal: Reports nausea; Denies abdominal pain, diarrhea or vomiting Genitourinary Genitourinary ED: Denies dysuria, hematuria or urinary frequency Musculoskeletal Musculoskeletal: Denies arthralgias, back pain, myalgias or neck pain Integumentary Denies abscess, Abrasions or rash Neurologic Neurologic: Denies headache(s) or weakness Psychiatric Psychiatric: Denies anxiety, depression or suicidal thoughts Endocrine Endocrinology: Denies polydipsia, polyphagia or polyuria Hematologic/Lymphatic Hematologic/Lymphatic: Denies easy bleeding, easy bruising or lymphadenopathy Allergic/Immunologic Allergic/Immunologic ED: Denies mouth swelling, tongue swelling or urticaria EXAM Physical Exam Const Vital Signs: 04/23/25 19:17 04/23/25 19:20 04/23/25 19:32 Temperature 98.4 F Temperature Source Oral Pulse Rate 87 Respiratory Rate 18 Respiratory Effort Normal Non-Labored Respiratory Pattern Normal Blood Pressure 201/86 H Blood Pressure Mean 124 Pulse Ox 98 98 Oxygen Delivery Method Room Air Room Air 04/23/25 19:40 04/23/25 20:15 04/23/25 20:17 Temperature Temperature Source Pulse Rate 86 77 86 Respiratory Rate 18 Respiratory Effort Respiratory Pattern Blood Pressure 194/88 H 179/77 H 152/73 H Blood Pressure Mean 99 Pulse Ox 97 Oxygen Delivery Method Room Air 04/23/25 20:54 04/23/25 22:00 Temperature Temperature Source Pulse Rate 69 69 Respiratory Rate 18 18 Respiratory Effort Respiratory Pattern Blood Pressure 149/68 H 135/67 H Blood Pressure Mean 95 89 Pulse Ox 96 95 Oxygen Delivery Method Room Air Room Air Positive well nourished and well developed General Appearance ED: well developed and NAD HEENT Reports TM's clear and moist mucous membranes normocephalic and atraumatic; Negative for trauma or tenderness Tympanic Membrane ED: Yes TM's clear Eyes PERRL and EOMs intact bilaterally General Eye ED: Negative for pale conjunctiva or scleral icterus Neck no lymphadenopathy, supple and no JVD General: Negative for tenderness Chest Wall inspection of chest normal and palpation of chest normal Chest: Negative for tenderness Resp normal respiratory effort and clear to auscultation bilaterally Effort and Inspection: Negative for respiratory distress or pain with movement Auscultation: Negative for rhonchi, wheezes or diminished lung sounds Cardio regular rate, regular rhythm, S1 normal heart sound, S2 normal heart sound and no murmurs Peripheral Pulses: pulses 2+ throughout GI normal to inspection, nondistended, normoactive bowel sounds, soft to palpation, non-tender, non-distended and no masses Back/Spine no CVA tenderness and no thoracic nor lumbar tenderness Extremity normal to inspection General Extremety ED: Negative for edema General Extremity: Negative for edema Neuro oriented x3, CN's II-XII intact bilaterally, no sensory deficits noted and gait normal Sensorium / Orientation: awake, alert, oriented to person, oriented to place and oriented to time Motor Exam: strength 5/5 throughout and strength abnormal Psych mental status grossly normal Skin no rashes or lesions noted and no wounds Heart Score History: Moderately Suspicious ECG: Nonspecific Repolarization Age: >45 - <65 years Risk Factors: >/= 3 Risk Factors or History of CAD Troponin: </= Normal Limit Score: 5 MDM MDM MDM Narrative Medical decision making narrative: Patient presents to the emergency department complaint chest discomfort came on at rest. Patient had been frustrated and anxious with setting up a new phone prior to the chest discomfort. She presents hypertensive. EMS gave 1 nitro she had some relief with that. Currently rates her pain a 5 out of 10. EKG obtained on arrival shows sinus rhythm with ventricular rate of [address] changes noted. When compared with prior EKG from November 01, 2023 no significant new changes noted. CBC with differential count 11.5 with hemoglobin 10.5 and platelet count of 372. Chemistries unremarkable. First troponin was normal at 6. D-dimer was normal at 0.35. 2-hour delta troponin also normal at 7. 1 view chest x-ray unremarkable. While out in the department I did give her aspirin and repeated nitroglycerin tabs and eventually her pain resolved. Her blood pressure also normalized down to systolic into the 130s and 140s. Patient's symptoms completely resolved. At this point discussed results with patient. Shared medical decision making. Suspicion low for acute coronary syndrome. She does have a heart score 5 given multiple risk factors. Recommended outpatient follow-up with her primary care physician within next 3 to 5 days. Patient advised to return if exertional dyspnea, persistent chest pain, or condition should worsen anyway. Lab Data Attestation: I reviewed the patient's lab results. Labs: Laboratory Results - last 24 hr 04/23/25 04/23/25 19:49 21:49 WBC 11.5 H RBC 3.99 L Hgb 10.5 L Hct 33.5 L MCV 84.0 MCH 26.3 L MCHC 31.3 L RDW Std Deviation 43.7 RDW Coeff of Jori 14.2 Plt Count 372 MPV 9.6 Immature Gran % (Auto) 0.400 Neut % (Auto) 60.9 Lymph % (Auto) 28.3 [place] % (Auto) 7.2 Eos % (Auto) 2.5 Baso % (Auto) 0.7 Absolute Neuts (auto) 7.0 Absolute Lymphs (auto) 3.26 Nucleated RBC % 0 D-Dimer Quant (PE/DVT) 0.35 Sodium 132 L Potassium 4.0 Chloride 98 Carbon Dioxide 21.5 Anion Gap 12 BUN 9 Creatinine 0.70 Estim Creat Clear Calc 99.87 Est GFR (MDRD) Non-Af 97 BUN/Creatinine Ratio 12.9 Glucose 117 H Calcium 8.9 Troponin T High Sens 6 Troponin T Hi Sens 2 Hr 7 Radiography Diagnostic Testing: Clinical Impression(s) from Imaging Studies Chest X-Ray 04/23/25 19:35 IMPRESSION: No focal consolidations. Mild pulmonary vascular congestion. Mild cardiomegaly. No pleural effusion or pneumothorax. No acute fractures. Reading Location: [facility] 1 view chest x-ray obtained interpreted by myself as no evidence of infiltrate or pneumothorax or acute disease process. Radiology in agreement. EKG Initial EKG: Attestation: I personally reviewed and interpreted this EKG as follows: Comments: Sinus rhythm with ventricular rate of 86 bpm with some nonspecific ST changes. Occasional PVCs. Prior EKG tracings: available for review Prior: Unchanged Discharge Plan Triage Chief Complaint: Chest Pain ED Provider: Levon Moreno Dx/Rx/DC Orders Clinical Impression: Chest pain, Hypertension Instructions: ED Chest Pain, Uncertain Cause, ED Hypertension, Established Prescriptions: No Action insulin glargine 100 unit/mL (3 mL) insulin pen 63 unit SC DAILY metformin 500 MG tablet 1,000 mg PO BID Patient Comments: DIABETES lisinopril 10 MG tablet 5 mg PO DAILY Patient Comments: BLOOD PRESSURE omeprazole 20 MG capsule 40 mg PO DAILY Patient Comments: ACID REFLUX fluoxetine 20 MG capsule 40 mg PO DAILY Patient Comments: DEPRESSION loratadine [Allergy Relief (loratadine)] 10 MG tablet 10 mg PO DAILY Patient Comments: ALLERGIES Atorvastatin Calcium 40 MG tablet 40 mg PO DAILY Patient Comments: CHOLESTEROL glipizide 5 MG tablet extended release 24hr 5 mg PO DAILY gabapentin 100 MG capsule 100 mg PO DAILY gabapentin 100 MG capsule 200 mg PO QHS atorvastatin 40 mg tablet 40 mg PO QPM aripiprazole 5 mg tablet 5 mg PO DAILY Primary Care Provider: Caitlin Patel Referrals: Caitlin Patel MD [Primary Care Provider] - 3-5 Days Print Language: German Disposition Disposition: Home, Self Care
--- NOTE | 2025-04-23 19:35 | RAD_ITS ---
PROCEDURE: CHEST 1 VIEW (PORTABLE) 04/23/2025 REASON FOR EXAM: CHEST PAIN TECHNIQUE: Frontal view of the chest. COMPARISON: 01/16/2021 RAD/Chest 1 View (Portable) IMPRESSION: No focal consolidations. Mild pulmonary vascular congestion. Mild cardiomegal y. No pleural effusion or pneumothorax. No acute fractures. Reading Location: [id number]
[2025-04-23] MEDS: Aspirin 81 MG TAB.CHEW 324 MG PO (19:40)
[2025-04-23] MEDS: 0.9% Normal Saline (1000mL) 1,000 ML 150 ML IV (19:40)
[2025-04-23] MEDS: Nitroglycerin SL (ED/IMG/CATH) 0.4 MG TABLET SL ×2 (19:40→20:15)
[2025-04-23 20:12] LABS: Absolute Lymphocyte Count 3.26 X10^3/uL (0.83-4.51); Basophil# 0.08 X10^3/uL; Basophil% 0.7 % (0-1); Eosinophil# 0.29 X10^3/uL; Eosinophils% 2.5 % (0-5); Hematocrit 33.5 % (37-47); Hemoglobin 10.5 g/dL (12.0-15.0); Lymphocyte # 3.26 X10^3/ul (0.83-4.51); Lymphocyte % 28.3 % (19-41); Mean Corp Hgb Conc 31.3 g/dL (32-36); Mean Corpuscular Hgb 26.3 pg (27.0-32.0); Mean Platelet Vol. 9.6 fl (6.2-12.0); Monocyte# 0.83 X10^3/uL; Monocyte% 7.2 % (0-10); NRBC Flagged by Analyzer 0 % (0-5); Neutrophil # 7.01 X10^3/uL (2.7-7.7); Neutrophil % 60.9 % (47-70); Platelet Count 372 K/mm3 (150-450); RBC Distribution Width CV 14.2 % (11.6-14.6); RBC Distribution Width SD 43.7 fl (35.1-43.9); Red Blood Count 3.99 M/mm3 (4.2-5.4); White Blood Count 11.5 K/mm3 (4.4-11.0)
[2025-04-23 20:29] LABS: Anion Gap 12 (5-15); BUN 9 mg/dL (4-19); BUN/Creat Ratio 12.9 RATIO (10-20); Calcium,Total 8.9 mg/dL (7.6-11.0); Carbon Dioxide 21.5 mmol/L (21.0-32.0); Chloride 98 mmol/L (98-108); EST Glomerular Filtration Rate 97 (>60); Estimated Creatinine Clearance 99.87 ml/min (50-250); Glucose 117 mg/dL (70-99); Sodium Level 132 mmol/L (133-145); Troponin T High Sensitivity 6 ng/L (<=14)
[2025-04-23 20:40] LABS: D-Dimer Quantitative (DVT/PE) 0.35 FEU/ug/m (0.27-0.49)
[2025-04-23 22:14] LABS: Troponin T High Sens 2 HR 7 ng/L (<=14)
== END 2025-04-23 22:41 | disposition home or self-care (01) ==
PROVIDERS: Emergency Provider Emergency Medicine; PCP Internal Medicine; Visit Provider Emergency Medicine
DX: R07.89 Other chest pain (principal); E11.9 Type 2 diabetes mellitus without complications; Z79.4 Long term (current) use of insulin; I10 Essential (primary) hypertension; Z79.84 Long term (current) use of oral hypoglycemic drugs; Z79.899 Other long term (current) drug therapy
CPT/HCPCS: 71045; 80048; 84484; 85025; 85379; 93005; 96360; 96361; 99285; A4216